=== PATIENT | female | born 1950 | race Caucasian/White ===

== ENCOUNTER 2020-06-16 10:36 | Outpatient (REF) | payer MEDICARE, SELFPAY ==
[2020-06-16 14:14] LABS: Glucose Urine UA NEG (NEG); Leukocyte Esterase Urine 2+ (NEG); Nitrite Urine POS (NEG); PH 5.5 (5.0-8.0); Specific Gravity - Urine >= 1.030 (1.005-1.025); Urine Blood TRACE (NEG); Urine Ketones NEG (NEG); Urine Protein TRACE MG/DL (NEG-TRACE)
[2020-06-16 14:17] LABS: Appearance Urine CLOUDY; Color Urine YELLOW
[2020-06-16 14:25] LABS: Anion Gap 12 (12-20); Blood Urea Nitrogen 23 mg/dL (9-16); Calcium 8.8 mg/dL (8.4-10.2); Carbon Dioxide 30 mmol/L (22-29); Chloride 99 mmol/L (96-108); Estimated Glomerular Filt Rate 39; Glucose Random 196 mg/dL (60-115); Magnesium 2.1 mg/dL (1.6-2.6); Phosphorus 3.8 mg/dL (2.7-4.5); Potassium 4.2 mmol/L (3.3-5.1); Sodium 137 mmol/L (135-145)
[2020-06-16 14:26] LABS: Bacteria Urine 2+ /LPF; Squamous Epithelial Cell Urine 2+ /LPF; WBC Urine 50-75 /HPF (0-4)
[2020-06-16 14:44] LABS: Creatinine Urine 106.06 mg/dL; Protein/Creatinine Ratio, Ur 0.29 (<0.2); Total Protein Urine Random 31 mg/dL (<12)
[2020-06-16 14:49] LABS: Vitamin D 25-OH Total 45.2 ng/mL (>30)
[2020-06-16 14:53] LABS: Estimated Average Glucose 166 mg/dL; Hemoglobin A1c % 7.4 %
[2020-06-17 10:37] LABS: Calcium (PTHI) 8.9 mg/dL (8.6-10.4); PTHI 108 pg/mL (14-64)
== END 2020-06-16 10:37 | disposition home or self-care (01) ==
LOC: HO.HMGCLDS 10:36
PROVIDERS: PCP Internal Medicine; Visit Provider Internal Medicine Nephrology
DX: N18.30 Chronic kidney disease, stage 3 unspecified (principal); E11.22 Type 2 diabetes mellitus with diabetic chronic kidney disease
CPT/HCPCS: 36415; 80048; 81001; 82306; 83036; 83735; 83970; 84100; 84156

== ENCOUNTER 2021-02-18 19:03 | Emergency (ER) | payer OTHER, MEDICARE, SELFPAY ==
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
[2021-02-18 19:10] VITALS: BP 146/92; PULSE 72; RESP 20; TEMP 36.5; O2SAT 98; BMI 22.8
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
[2021-02-18 20:48] VITALS: BP 125/60; PULSE 60; RESP 16; TEMP 37.1; O2SAT 100
[2021-02-18 21:03] LABS: MANUAL DIFF FLAG NO
[2021-02-18 21:04] LABS: Basophils Percent Auto 0.3 % (0-2); Eosinophils Absolute Auto 0.1 X10*3/uL (0.0-0.4); Eosinophils Percent Auto 0.7 % (0-4); Hemoglobin 11.1 g/dl (12.0-16.0); Imm Gran Abs Auto 0.04 X10*3/uL (0.00-0.03); Imm Gran Pct Auto 0.4 % (0.0-0.4); Lymphocytes Absolute Auto 1.5 X10*3/uL (1.2-4.9); Mean Corpuscular HGB Conc 32.6 g/dl (31.0-35.0); Mean Corpuscular Volume 91.9 fL (80-98); Mean Platelet Volume 12.3 fL (9.4-12.3); Monocytes Absolute Auto 0.7 X10*3/uL (0.1-1.2); Monocytes Percent Auto 6.6 % (2-11); Neutrophils Absolute Auto 8.6 X10*3/uL (2.0-8.3); Platelet Count 162 X10*3/uL (160-400); Red Cell Distribution Width 12.8 % (11.0-16.0)
[2021-02-18 21:15] VITALS: RESP 18
[2021-02-18] MEDS: Morphine Sulfate 4 MG/ML CARTRIDGE IVPUSH ×2 (21:15→23:58)
[2021-02-18] MEDS: ondansetron HCL 4 MG/2 ML VIAL IVPUSH (21:16)
[2021-02-18 21:22] LABS: Alanine Aminotransferase 50 U/L (0-31); Albumin Level 3.8 g/dL (3.5-5.0); Alkaline Phosphatase 79 U/L (39-117); Anion Gap 12 (12-20); Aspartate Amino Transferase 50 U/L (5-31); Bilirubin Total 0.4 mg/dL (0.0-1.0); Blood Urea Nitrogen 17 mg/dL (9-16); Calcium 9.3 mg/dL (8.4-10.2); Carbon Dioxide 25 mmol/L (22-29); Chloride 104 mmol/L (96-108); Creatinine Clr Calc Pharmacy 33.5; Estimated Glomerular Filt Rate 33; Glucose Random 101 mg/dL (60-115); Potassium 4.8 mmol/L (3.3-5.1); Sodium 136 mmol/L (135-145)
[2021-02-18 22:00] VITALS: BP 125/31; PULSE 55; RESP 15; TEMP 36.7; O2SAT 100
[2021-02-18] MEDS: iohexoL 350 MG/ML 100 ML INFUS..BTL IV (22:11)
[2021-02-18] MEDS: 0.9 % Sodium Chloride 1,000 ML 999 ML IV (22:22)
[2021-02-18 23:55] VITALS: BP 126/39; PULSE 57; RESP 15; O2SAT 96
[2021-02-18 23:58] VITALS: RESP 15
--- NOTE | 2021-02-19 00:17 | PC.NURSE ---
This RN to bedside to medicate with additional dose of morphine as pt reports pain is no longer controlled from prior dose. Pt reports 8-9/10 pain in chest at this time, medicated per orders. Pt awaiting imaging results and dispo. Pt without concerns/questions at this time. Stretcher in lowest locked position, rails raised, call healy within reach, at bedside.
== END 2021-02-19 00:47 | disposition home or self-care (01) ==
PROVIDERS: Emergency Provider Emergency Medicine; PCP Internal Medicine
DX: R07.81 Pleurodynia (principal); M54.2 Cervicalgia; M54.50 Low back pain, unspecified; E11.9 Type 2 diabetes mellitus without complications; R51.9 Headache, unspecified; I10 Essential (primary) hypertension; Z79.899 Other long term (current) drug therapy; Z96.41 Presence of insulin pump (external) (internal)
CPT/HCPCS: 36415; 70450; 71260; 72125; 74177; 80053; 85025; 86850; 86900; 86901; 96361; 96374; 96375; 96376; 99284; J2270; J2405; Q9967

== ENCOUNTER 2021-02-20 17:00 | Emergency (ER) | payer MEDICARE, SELFPAY ==
[2021-02-20 17:06] VITALS: BP 150/60; PULSE 64; O2SAT 98
[2021-02-20 17:15] VITALS: BP 163/70; PULSE 56; RESP 16; TEMP 37.1; O2SAT 98; BMI 24.2
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
[2021-02-20 18:17] LABS: Eosinophils Absolute Auto 0.1 X10*3/uL (0.0-0.4); Eosinophils Percent Auto 1.6 % (0-4); MANUAL DIFF FLAG SCAN; PLT CLUMP 1; SCAN SMEAR FLAG 1
[2021-02-20 18:19] LABS: Basophils Percent Auto 0.5 % (0-2); Hematocrit 33.2 % (37-47); Hemoglobin 10.5 g/dl (12.0-16.0); Imm Gran Abs Auto 0.02 X10*3/uL (0.00-0.03); Imm Gran Pct Auto 0.3 % (0.0-0.4); Lymphocytes Absolute Auto 1.3 X10*3/uL (1.2-4.9); Lymphocytes Percent Auto 22.9 % (20-40); Mean Corpuscular HGB Conc 31.6 g/dl (31.0-35.0); Mean Corpuscular Volume 91.7 fL (80-98); Mean Platelet Volume 11.6 fL (9.4-12.3); Monocytes Absolute Auto 0.5 X10*3/uL (0.1-1.2); Monocytes Percent Auto 8.7 % (2-11); Neutrophils Absolute Auto 3.8 X10*3/uL (2.0-8.3); Platelet Count 140 X10*3/uL (160-400); Red Blood Count 3.62 X10*6/uL (4.20-5.50); Red Cell Distribution Width 12.6 % (11.0-16.0); White Blood Count 5.7 X10*3/uL (4.8-10.8)
[2021-02-20 18:23] VITALS: BP 138/51; PULSE 51; RESP 16; TEMP 37.4; O2SAT 96
[2021-02-20 18:35] LABS: Alanine Aminotransferase 53 U/L (0-31); Albumin Level 3.4 g/dL (3.5-5.0); Alkaline Phosphatase 85 U/L (39-117); Anion Gap 13 (12-20); Aspartate Amino Transferase 45 U/L (5-31); Bilirubin Total 0.6 mg/dL (0.0-1.0); Blood Urea Nitrogen 14 mg/dL (9-16); Calcium 8.8 mg/dL (8.4-10.2); Carbon Dioxide 25 mmol/L (22-29); Chloride 108 mmol/L (96-108); Creatinine Clr Calc Pharmacy 35.2; Estimated Glomerular Filt Rate 36; Glucose Random 107 mg/dL (60-115); Potassium 4.6 mmol/L (3.3-5.1); Sodium 141 mmol/L (135-145); Total Protein 5.4 g/dL (6.5-8.0)
[2021-02-20 18:35] LABS: Appearance Urine CLEAR; Color Urine YELLOW; Glucose Urine UA NEG (NEG); Leukocyte Esterase Urine TRACE (NEG); Nitrite Urine NEG (NEG); Specific Gravity - Urine 1.015 (1.005-1.025); UACC Culture Trigger YES; Urine Blood 1+ (NEG); Urine Ketones 5 MG/DL (NEG); Urine Protein 1+ MG/DL (NEG-TRACE)
[2021-02-20 18:40] LABS: SLIDE REVIEW VERIFIED
[2021-02-20 18:46] LABS: Bacteria Urine 1+ /LPF; RBC Urine 0-2 /HPF (0); Squamous Epithelial Cell Urine 1+ /LPF; WBC Urine 0-2 /HPF (0-4)
== END 2021-02-20 19:46 | disposition home or self-care (01) ==
PROVIDERS: Emergency Provider Internal Medicine
DX: R41.0 Disorientation, unspecified (principal); T40.2X5A Adverse effect of other opioids, initial encounter; T42.8X5A Adverse effect of antiparkinsonism drugs and other central muscle-tone depressants, initial encounter; Y92.9 Unspecified place or not applicable; N39.0 Urinary tract infection, site not specified; I10 Essential (primary) hypertension; E11.9 Type 2 diabetes mellitus without complications; Z96.41 Presence of insulin pump (external) (internal)
CPT/HCPCS: 36415; 80053; 81001; 85025; 87086; 87088; 87186; 99283; 99284

== ENCOUNTER 2021-03-07 14:03 | Outpatient (REF) | payer MEDICARE, SELFPAY ==
[2021-03-07 16:51] LABS: Anion Gap 15 (12-20); Blood Urea Nitrogen 19 mg/dL (9-16); Calcium 9.7 mg/dL (8.4-10.2); Carbon Dioxide 22 mmol/L (22-29); Chloride 104 mmol/L (96-108); Estimated Glomerular Filt Rate 25; Glucose Random 176 mg/dL (60-115); Magnesium 2.1 mg/dL (1.6-2.6); Phosphorus 3.1 mg/dL (2.7-4.5); Sodium 136 mmol/L (135-145)
[2021-03-08 16:41] LABS: Calcium (PTHI) 9.9 mg/dL (8.6-10.4); PTHI 39 pg/mL (14-64)
== END 2021-03-07 14:04 | disposition home or self-care (01) ==
LOC: HO.HMGCLDS 14:03
PROVIDERS: PCP Internal Medicine; Visit Provider Internal Medicine Nephrology
DX: N18.32 Chronic kidney disease, stage 3b (principal); E21.1 Secondary hyperparathyroidism, not elsewhere classified
CPT/HCPCS: 36415; 80048; 82306; 83735; 83970; 84100

== ENCOUNTER 2021-03-08 12:18 | Outpatient (REF) | payer MEDICARE, SELFPAY ==
[2021-03-08 13:51] LABS: Appearance Urine CLEAR; Color Urine STRAW; Glucose Urine UA NEG (NEG); Leukocyte Esterase Urine 1+ (NEG); Nitrite Urine NEG (NEG); PH 5.5 (5.0-8.0); Urine Blood NEG (NEG); Urine Ketones NEG (NEG); Urine Protein NEG (NEG-TRACE)
[2021-03-08 14:03] LABS: Bacteria Urine TRACE /LPF; RBC Urine 0 /HPF (0); Squamous Epithelial Cell Urine 1+ /LPF
[2021-03-08 14:32] LABS: Creatinine Urine 39.83 mg/dL; Microalbumin Urine < 5.0 mg/L; Total Protein Urine Random < 7 mg/dL (<12)
== END 2021-03-08 12:19 | disposition home or self-care (01) ==
LOC: HO.HMGCLNP 12:18
PROVIDERS: Visit Provider Internal Medicine Nephrology
DX: N18.32 Chronic kidney disease, stage 3b (principal); E21.1 Secondary hyperparathyroidism, not elsewhere classified
CPT/HCPCS: 81001; 82043; 84156

== ENCOUNTER 2021-03-13 12:05 | Inpatient (IN) | payer MEDICARE, SELFPAY ==
[2021-03-13] VITALS (9 sets, daily range): BP systolic 79–125; BP diastolic 46–76; PULSE 72–110; RESP 17–20; TEMP 35.8–36.4; O2SAT 95–100; BMI 23.3
--- NOTE | ~2021-03-13 | CT_ITS ---
EXAMINATION: CT ABDOMEN AND PELVIS WITHOUT CONTRAST CLINICAL INFORMATION: Abdominal pain and vomiting COMPARISON: Previous CT of the abdomen and pelvis January 2021 TECHNIQUE: Multidetector volumetric imaging was performed from the superior aspect of the liver through the pubic symphysis. Sagittal and coronal reformatted images were obtained on the technologist's workstation. This CT examination was performed using dose optimization techniques as appropriate, variously including the following: *Automated exposure control *Adjustment of mA and/or kV according to patient size (this includes techniques or standardized protocols for targeted exams where dose is matched to indication/reason for exam; i.e. extremities or head) *Use of iterative reconstruction technique DLP: 532 mGy-cm FINDINGS: LUNG BASES: The visualized lung bases are unremarkable. LIVER, GALLBLADDER, AND BILIARY TREE: The liver is normal in size, shape, and attenuation. No focal hepatic lesion or biliary ductal dilatation is present. There are gallstones in the gallbladder. PANCREAS: Unremarkable. SPLEEN: Unremarkable. ADRENAL GLANDS: Unremarkable. KIDNEYS AND URETERS: The kidneys are normal in size, shape, and attenuation. No hydronephrosis, hydroureter, or calculi seen. No perinephric stranding. BLADDER: Not optimally distended. GASTROINTESTINAL TRACT: There is interval increase in small and large bowel dilatation. The distal small bowel is dilated and fluid-filled. Small bowel loops measure up to 2.8 cm. The colon is dilated and fluid-filled to the level of the distal descending colon. The cecum measures up to 5.6 cm in diameter. The right colon and transverse colon are dilated and fluid-filled. The wall of the right and transverse colon appear very thin. There are small nondependent foci of air seen in the cecum and right colon for example axial image 42 series 3 questionable for pneumatosis. There is stool seen in the left colon. The left distal colon and sigmoid colon do not appear dilated. The appendix is normal. The stomach is normal. ABDOMINAL WALL: There is diastasis of the rectus muscles. LYMPH NODES: Normal. VASCULAR: There is evidence of atherosclerotic disease. There are bilateral common iliac artery stents. PELVIC VISCERA: Unremarkable. OSSEOUS STRUCTURES: There is orthopedic hardware seen in the left proximal femur. There are degenerative changes of the spine. There is a mild T11 vertebral body compression fracture. This is new or increased in the interval from January 2021 CT/CT abdomen pelvis wo con IMPRESSION: Dilated fluid-filled distal small bowel and proximal large bowel. Differential would include a severe ileus and partial obstruction at the level of the distal left colon where there is stool. There are dependent small air foci in or adjacent to the wall of the cecum and right colon questionable for pneumatosis. No portal vein or mesenteric air is seen. Correlation with lactate level recommended. T11 vertebral body compression fracture new in the interval from January 2021 exam. Gallstones.
--- NOTE | ~2021-03-13 | XR_ITS ---
EXAMINATION: XR CHEST CLINICAL INFORMATION: Nasogastric tube placement COMPARISON: Previous chest x-ray from earlier the same day TECHNIQUE: Frontal view of the chest was obtained. FINDINGS: There is a new nasogastric tube with tip projecting over the right lower lobe. The cardiac and mediastinal contours are stable. Post-CABG changes are seen. The lungs are clear. There is no pleural effusion or pneumothorax. Bony structures are unremarkable. XR/XR chest 1V IMPRESSION: Nasogastric tube tip projects over right lower lobe. Findings were communicated to Dr. Ruvalcaba by telephone on 03/13/2021 and 4:05 PM.
--- NOTE | ~2021-03-13 | XR_ITS ---
EXAMINATION: XR CHEST CLINICAL INFORMATION: NG tube placement COMPARISON: Chest radiograph earlier today TECHNIQUE: Frontal view of the chest was obtained. FINDINGS: The NG tube has been from the right-sided bronchial system and now has its tip coiled in the region of the stomach. Surgical clips are noted at the GE junction. Patient status post median sternotomy. XR/XR chest 1V IMPRESSION: NG tube has been removed from the airways of the lungs and is now in correct position in the stomach.
--- NOTE | ~2021-03-13 | CT_ITS ---
EXAMINATION: CT ABDOMEN AND PELVIS WITH CONTRAST CLINICAL INFORMATION: Status post exploratory lap COMPARISON: 03/21/2021 TECHNIQUE: Multidetector volumetric images were obtained from the superior aspect of the liver through the pubic symphysis following administration 85 mL of Omnipaque 350 intravenous contrast. Sagittal and coronal reformatted images were obtained on the technologist's workstation. Oral contrast: Yes This CT examination was performed using dose optimization techniques as appropriate, variously including the following: *Automated exposure control *Adjustment of mA and/or kV according to patient size (this includes techniques or standardized protocols for targeted exams where dose is matched to indication/reason for exam; i.e. extremities or head) *Use of iterative reconstruction technique DLP: 900 mGy-cm FINDINGS: LUNG BASES: Partially visualized increased small to moderate bilateral pleural effusions with adjacent opacification in the lower lobes, favoring atelectasis. LIVER, GALLBLADDER, AND BILIARY TREE: The liver is normal in size, shape, and attenuation. No focal hepatic lesion or biliary ductal dilatation is present. Cholelithiasis is noted. PANCREAS: Unremarkable. SPLEEN: Unremarkable. ADRENAL GLANDS: Unremarkable. KIDNEYS AND URETERS: The kidneys are normal in size, shape, and attenuation. No hydronephrosis, hydroureter, or calculi seen. BLADDER: Decompressed with a Juárez catheter. GASTROINTESTINAL TRACT: Oral contrast material is present within the stomach and multiple loops of small bowel, without disproportionate dilation to suggest obstruction. Most of the colon is collapsed which limits assessment for wall thickening. The appendix is unremarkable. Small amount of free fluid is present in the abdomen/pelvis. ABDOMINAL WALL: Anterior skin ratna are present along with a few small foci of subcutaneous gas likely due to recent surgery. There is diffuse anasarca, similar to prior. LYMPH NODES: Normal. VASCULAR: There is atherosclerotic calcification along the aorta and iliac arteries. Bilateral common iliac artery stents are noted. PELVIC VISCERA: Redemonstrated density along the posterior margin of the uterus suggesting a possible fibroid. OSSEOUS STRUCTURES: Partially visualized hardware in the left femur. CT/CT abdomen pelvis w con IMPRESSION: 1. No evidence of bowel obstruction. Limited assessment for colonic wall thickening in the setting of luminal collapse. 2. Increased small to moderate bilateral pleural effusions. Small amount of intra-abdominal free fluid. Redemonstrated anasarca. 3. Cholelithiasis. Fleischner guidelines were followed.
--- NOTE | ~2021-03-13 | XR_ITS ---
EXAMINATION: XR CHEST CLINICAL INFORMATION: Post Central line insertion. COMPARISON: Chest 03/13/2021 TECHNIQUE: Frontal view of the chest was obtained. FINDINGS: There is a new central venous catheter with its tip in distal SVC. There is no visible pneumothorax. The lungs are hypoexpanded with bilateral basilar haziness question effusion versus underlying atelectasis or infiltrate. Heart size is borderline normal. Pulmonary vascularity is increased. No gross bony abnormality. XR/XR chest 1V IMPRESSION: New central venous catheter tip in distal SVC. No pneumothorax seen. Hypoexpanded lungs with CHF.
--- NOTE | ~2021-03-13 | XR_ITS ---
EXAMINATION: XR CHEST CLINICAL INFORMATION: Abdominal pain, vomiting COMPARISON: Chest radiographs 02/13/2019, 06/25/2017 TECHNIQUE: Sitting AP and lateral views of the chest are obtained. FINDINGS: There has been prior median sternotomy. The heart is normal in size. The vascularity is normal. The lungs are clear. There is no airspace consolidation or effusion. The hilar and mediastinal contours are stable. No visible acute bony abnormality. No free air beneath the diaphragms. XR/XR chest 2V IMPRESSION: Unremarkable examination.
--- NOTE | ~2021-03-13 | XR_ITS ---
EXAMINATION: XR ABDOMEN KUB CLINICAL INDICATION: Partial obstruction/ileus/colitis. COMPARISON: 03/17/2021. TECHNIQUE: AP view of the abdomen. FINDINGS: Nonobstructive bowel gas pattern. No significant stool burden. Partial visualization of sternotomy wires and left femoral hardware. Mediastinal surgical clips. Mid abdominal wall skin ratna. No acute osseous findings. Limited evaluation of the lung bases demonstrating small left greater than right pleural effusions and streaky opacities in the left lower lobe which likely represent subsegmental atelectasis. XR/XR KUB IMPRESSION: Nonobstructive bowel gas pattern. Small left greater than right pleural effusions with mild subsegmental atelectasis in the left lung base. If indicated, consider correlation with a chest radiograph.
--- NOTE | ~2021-03-13 | CT_ITS ---
EXAMINATION: CT ABDOMEN AND PELVIS WITHOUT CONTRAST CLINICAL INFORMATION: Nausea, vomiting and diarrhea. COMPARISON: Previous CT of the abdomen and pelvis 03/13/2021 and x-ray of the abdomen 03/17/2021 TECHNIQUE: Multidetector volumetric imaging was performed from the superior aspect of the liver through the pubic symphysis. Sagittal and coronal reformatted images were obtained on the technologist's workstation. This CT examination was performed using dose optimization techniques as appropriate, variously including the following: *Automated exposure control *Adjustment of mA and/or kV according to patient size (this includes techniques or standardized protocols for targeted exams where dose is matched to indication/reason for exam; i.e. extremities or head) *Use of iterative reconstruction technique DLP: 639 mGy-cm FINDINGS: LUNG BASES: There are small bilateral pleural effusions and adjacent lower lobe compressive atelectasis. LIVER, GALLBLADDER, AND BILIARY TREE: The liver is normal in size, shape, and attenuation. No focal hepatic lesion or biliary ductal dilatation is present. There is high attenuation in the gallbladder suggestive of gallstones. The gallbladder is normal in size. PANCREAS: Unremarkable. SPLEEN: Unremarkable. ADRENAL GLANDS: Unremarkable. KIDNEYS AND URETERS: The kidneys are normal in size, shape, and attenuation. No hydronephrosis, hydroureter, or calculi seen. No perinephric stranding. BLADDER: Unremarkable. GASTROINTESTINAL TRACT: There are no dilated loops of bowel to suggest obstruction. There is wall thickening and edema of the proximal colon. The small bowel is unremarkable. The appendix is unremarkable. The stomach is unremarkable. There is a small amount of ascites. There is no evidence of free air. ABDOMINAL WALL: There are postsurgical changes to the anterior abdominal wall. There is diffuse edema or anasarca. LYMPH NODES: Normal. VASCULAR: There is evidence of atherosclerotic disease. There are bilateral common iliac artery stents. PELVIC VISCERA: There is abnormal contour to the posterior uterus questionable for a fibroid. This measures 3 cm. OSSEOUS STRUCTURES: There are degenerative changes of the spine. There is a T11 vertebral body compression fracture that appears unchanged. There is orthopedic hardware in the left proximal femur. There is arthritis at the hip joints. CT/CT abdomen pelvis wo con IMPRESSION: Wall thickening and wall edema of the proximal colon. Findings are questionable for mild colitis. Small amount of ascites. No free air. Gallstones. Probable uterine fibroid. Atherosclerotic disease. Fleischner guidelines were followed.
--- NOTE | ~2021-03-13 | XR_ITS ---
EXAMINATION: XR ABDOMEN WITH DECUBITUS VIEWS CLINICAL INDICATION: Ileus. COMPARISON: None TECHNIQUE: Supine frontal view of chest. Supine abdomen. Left side up decubitus view of abdomen. FINDINGS: No acute abdomen abnormality of chest. Status post median sternotomy. The heart size is normal. No pulmonary vascular congestion. The lungs are normally aerated. No pleural effusion and no pneumothorax. Moderate volume of scattered stool in the bowel loops. There are scattered air-fluid levels in large and small bowel loops. The bowel loops are not abnormally dilated. Bowel pattern suggestive of ileus. There are surgical skin clips at the midline abdomen from recent surgery. No free air. Compression screw in the left hip. Multilevel degenerative spondylosis of the spine. Degenerative joint narrowing of hips bilateral. XR/XR abdomen w decubitus IMPRESSION: 1. No acute abdomen abnormality of chest. 2. Nonobstructive bowel pattern. Nonspecific air-fluid levels in bowel loops which are likely due to to a mild postop ileus
--- NOTE | 2021-03-13 12:30 | ECG_ITS ---
Test Reason : ABDOMINAL PAIN/ VOMITTING Blood Pressure : / mmHG Vent. Rate : 085 BPM Atrial Rate : 085 BPM P-R Int : 130 ms QRS Dur : 090 ms QT Int : 358 ms P-R-T Axes : 243 -57 039 degrees QTc Int : 426 ms Normal sinus rhythm Pulmonary disease pattern RSR' or QR pattern in V1 suggests right ventricular conduction delay Left anterior fascicular block Abnormal ECG When compared with ECG of 13-FEB-2019 18:51, RSR' pattern in V1 has replaced Incomplete right bundle branch block Referred By: Osvaldo Wheat Electronically Signed By:CARYL GOODSON MD
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
[2021-03-13] MEDS: 0.9 % Sodium Chloride 1,000 ML 999 ML IV ×2 (12:40→13:58)
[2021-03-13] MEDS: ondansetron HCL 4 MG/2 ML VIAL IVPUSH ×4 (12:40→16:38)
[2021-03-13 13:12] LABS: MANUAL DIFF FLAG NO
--- NOTE | 2021-03-13 13:13 | PC.NURSE ---
Patient alert and oriented x 3. Patient is very pale, vomited x 20 times coffee ground emesis, diarrhea at home brown watery stools. tele: sinus rythym 80's Patient ambulates with cane. vitals stable. Will continue to monitor.
[2021-03-13 13:14] LABS: Basophils Percent Auto 0.3 % (0-2); Eosinophils Percent Auto 0.1 % (0-4); Hematocrit 38.1 % (37.0-47.0); Hemoglobin 11.8 g/dl (12.0-16.0); Imm Gran Abs Auto 0.02 X10*3/uL (0.00-0.03); Imm Gran Pct Auto 0.2 % (0.0-0.4); Lymphocytes Absolute Auto 0.9 X10*3/uL (1.2-4.9); Lymphocytes Percent Auto 8.8 % (20-40); Mean Corpuscular Hemoglobin 29.3 pg (27.0-33.0); Mean Corpuscular Volume 94.5 fL (80.0-98.0); Mean Platelet Volume 11.3 fL (9.4-12.3); Monocytes Absolute Auto 0.2 X10*3/uL (0.1-1.2); Monocytes Percent Auto 2.2 % (2-11); Neutrophils Percent Auto 88.4 % (45-73); Platelet Count 225 X10*3/uL (160-400); Red Blood Count 4.03 X10*6/uL (4.20-5.50); Red Cell Distribution Width 13.4 % (11.0-16.0); White Blood Count 10.2 X10*3/uL (4.8-10.8)
[2021-03-13] MEDS: HYDROmorphone HCl 0.5 MG/0.5 ML SYRINGE IVPUSH ×4 (13:24→20:41)
[2021-03-13] MEDS: Pantoprazole Sodium 40 MG/10 ML VIAL IVPUSH (13:24)
[2021-03-13 13:28] LABS: Alanine Aminotransferase 14 U/L (0-31); Albumin Level 3.2 g/dL (3.5-5.0); Alkaline Phosphatase 272 U/L (39-117); Anion Gap 16 (12-20); Aspartate Amino Transferase 23 U/L (5-31); Bilirubin Total 0.6 mg/dL (0.0-1.0); Blood Urea Nitrogen 21 mg/dL (9-16); Calcium 9.6 mg/dL (8.4-10.2); Carbon Dioxide 19 mmol/L (22-29); Chloride 111 mmol/L (96-108); Creatinine Clr Calc Pharmacy 30.2; Estimated Glomerular Filt Rate 31; Glucose Random 140 mg/dL (60-115); Lactic Acid 5.9 mmol/L (0.5-2.0); Lipase 10 U/L (8-78); Potassium 3.8 mmol/L (3.3-5.1); Sodium 142 mmol/L (135-145); Total Protein 5.3 g/dL (6.5-8.0)
[2021-03-13 13:29] LABS: COVID-19 Test Negative (Negative)
[2021-03-13 13:33] LABS: Troponin-I High Sensitivity 11.7 ng/L (<3.5-17.0)
[2021-03-13 14:47] LABS: INTERNATIONAL NORM RATIO 1.8 (0.9-1.1); Prothrombin Time 20.4 SEC (9.9-13.0)
--- NOTE | 2021-03-13 14:48 | P.HPGS_ITS ---
History of Present Illness History of Present Illness Date of Service: 03/13/21 Chief complaint: Nausea, vomiting, abdominal pain Narrative: Suly Ragland is a 70 year old female presenting to the emergency department with an onset of abdominal pain located mainly in left lower quadrant associated with nausea and vomiting. She reports a prior history of abdominal cramping approximately 2-3 weeks ago which resolved spontaneously. This current episode began this morning and was associated with several episodes of vomiting. She subsequently presented to the emergency department was noted to have normal WBC however her lactate level was markedly elevated. CT of the abdomen and pelvis revealed dilated small large bowel with evidence of pneumatosis in the right colon. No portal venous air was identified. Since being admitted the patient reports feeling improved with decreased abdominal pain. She did have additional episodes of nausea and vomiting since coming to the emergency department. She reports prior abdominal surgery following CABG surgery in [place]. After 14 our procedure the patient is abdomen was opened (question compartment syndrome). She reports that no bowel resection was performed at that time. Review of Systems Review of Systems: Yes all other systems are reviewed and are negative Constitutional: Constitutional: Reports anorexia, Denies chills, Denies fever(s) and Reports poor appetite Cardiovascular: Cardiovascular: Reports Abdominal Cramping after Meds, Reports Abdominal Distension, Denies chest pain and Denies irregular heart rhythm Respiratory: Respiratory: Denies chest congestion, Denies cough and Denies pain with cough Gastrointestinal: Gastrointestinal: Reports as per HPI, Denies change in stool character, Reports constipation, Denies diarrhea, Reports nausea and Reports vomiting Genitourinary: Genitourinary: Reports no additional female genitourinary complaints PMF Past Medical History Medical History Diabetes HTN (hypertension) Hyperlipemia Surgical History Surgical History History of open heart surgery S/P triple vessel bypass Social History Social History Alcohol intake: never Patient Tobacco Use Status: Never used Tobacco Use of substances other than those prescribed or required for medical reasons: No Advance Directives: No Advance Directives Information Provided: Yes Meds Allergies Allergy/AdvReac Type Severity Reaction Status Date / Time azithromycin [From ZITHROMAX] Allergy Severe STOMACH Verified 10/23/21 21:16 UPSET Penicillins [PENICILLINS] Allergy Severe ANAPHYLAXIS Verified 02/18/21 21:16 penicillin G Allergy Unknown Anaphylaxis Verified 02/18/21 21:16 Erythromycin Allergy Unknown Gastrointestinal Uncoded 02/18/21 21:16 Upset Physical Exam Vital Signs: Vital Signs: Last Vital Signs Temp 97.6 F 03/13/21 12:11 Pulse 79 03/13/21 14:08 Resp 19 03/13/21 14:08 BP 113/53 L 03/13/21 14:08 Pulse Ox 99 03/13/21 14:08 Body Mass Index 23.3 Const: General: ill appearing Nutritional Appearance: well nourished Orientation/consciousness: patient oriented x3 Limitations: no limitations HENMT: Head: Yes normocephalic and Yes atraumatic Ears: hearing grossly normal bilaterally Neck: Neck: Yes normal visual inspection, Yes trachea midline and Yes supple Resp: Effort & Inspection: normal respiratory effort, no audible wheezes, no cough and no respiratory distress GI: Inspection: Yes normal to inspection Palpation (GI): Soft to palpation, Tenderness to palpation present (GI) in the LLQ, no guarding, not rigid and No Rebound tenderness present Percussion: Yes tympanic to percussion Auscultation: abnormal bowel sounds Rectal Exam - Female: deferred Skin: General skin exam: no rashes or lesions noted, no erythema and no eschar s Neuro: General: patient oriented x3 Extrem: General: Yes normal to inspection and Yes no clubbing, cyanosis or edema Results Results Labs: Short CBC 03/13/21 Range/Units 13:05 WBC 10.2 (4.8-10.8) X10*3/uL Hgb 11.8 L (12.0-16.0) g/dl Hct 38.1 (37.0-47.0) % Plt Count 225 (160-400) X10*3/uL BMP 03/13/21 13:05 Sodium 142 Potassium 3.8 D Chloride 111 H Carbon Dioxide 19 L BUN 21 H Creatinine 1.67 H Calcium 9.6 Liver Function 03/13/21 Range/Units 13:05 Total Bilirubin 0.6 (0.0-1.0) mg/dL AST 23 D (5-31) U/L ALT 14 (0-31) U/L Alkaline Phosphatase 272 H D (39-117) U/L Albumin 3.2 L (3.5-5.0) g/dL Assessment and Plan (1) Bowel obstruction: Qualifiers: Intestinal obstruction extent: unspecified extent Intestinal obstruction type: unspecified Qualified Code(s): K56.609 - Unspecified intestinal obstruction, unspecified as to partial versus complete obstruction Status: Acute 70-year-old female patient presenting with complaints of abdominal pain diffusely associated with nausea and vomiting found on CT to have dilated loops of small bowel and large bowel suggestive of a bowel obstruction. Patient has had previous abdominal surgery following cardiac surgery but denies previous bowel resections. CT also notes possible pneumatosis intestinalis in the right colon. Patient's lactate was elevated but seems to be more related to dehydration than sepsis. Abdomen is currently soft with tenderness in the left lower quadrant without rebound or guarding. Patient will be admitted to the surgical service for rehydration, nasogastric tube decompression. Patient has diabetes type 1 on insulin pump therefore hospitalist consultation will be requested. Repeat lactate levels pending. Quality Stroke Does the patient have a stroke diagnosis?: No VTE Prior VTE?: No VTE Risk Level:: Surgical - high VTE Device Contraindication: N/A - Device Ordered VTE Drug Contraindication: N/A - Med Ordered Procedures Date of Service Date of Service: 03/13/21
[2021-03-13 14:50] LABS: D Dimer 709 NG/ML
[2021-03-13 15:11] LABS: Reflex Lactate? Lactic Acid Added
[2021-03-13] MEDS: Lidocaine HCl 4 % MPF w/MADgic 5 ML AMPUL 1 APPL TOPICAL (15:13)
[2021-03-13] MEDS: Lactated Ringers 1,000 ML 150 ML IVCONT (15:32)
--- NOTE | 2021-03-13 15:45 | PC.NURSE ---
attempted to insert the ng tube but unable to get to pass on the right nostrils, attempted on the left side inserted with some resistance towards the end of the marking stopped inserting further, chest x-ray, pt is sating at 98% on room air at this time. chest x-ray ordered for placment
[2021-03-13 15:48] LABS: Glucose, Whole Blood 68 mg/dL (60-115)
--- NOTE | 2021-03-13 15:55 | PC.NURSE ---
ng tube out, wrong placement in the lung
--- NOTE | 2021-03-13 16:04 | PHA.MEDREC ---
Pharmacy Consult ? Medication Reconciliation Pharmacy has completed the medication reconciliation. Hasn't taken meds today. Is using an insulin pump using humalog u-100 insulin
[2021-03-13 16:19] LABS: ~Lactic Acid-LAB USE ONLY 6.2 mmol/L (0.5-2.0)
[2021-03-13] MEDS: 0.9 % Sodium Chloride Flush 3 ML SYRINGE IVFLUSH ×2 (16:38→22:15)
[2021-03-13] MEDS: Dextrose 5 % and Lactated Ring 1,000 ML 150 ML IVCONT (16:46)
--- NOTE | 2021-03-13 16:46 | PM.IMCN ---
History of Present Illness Data of Consult Service Date: 03/13/21 Primary Care Provider: Live Burnette MD HPI Reason for consult: Diabetes 70-year-old female presented with abdominal pain. Patient reports left lower quadrant abdominal pain associated with nausea and bilious vomiting. Symptoms began on a.m. of admission. She had several episodes of vomiting and severe pain SIRS came to the ED. In ED patient had markedly elevated lactate, CT of abdomen pelvis showed dilated small bowel and proximal large bowel with evidence of pneumatosis in the right colon. Patient was admitted to surgical service. Hospice consultation for comorbidities of diabetes, coronary disease. Review of Systems Review of Systems: Constitutional: Denies fever, denies Chills Eyes: denies blurry vision ENT: denies sore throat CVS: denies chest pain Respiratory: Denies dyspnea GI: abdominal pain : denies dysuria MSK: denies neck pain Skin: denies rash Neuro: denies specific motor weakness Psych: denies suicidal ideation Endocrine: denies heat/cold intolerance Hematologic: denies easy bleeding Allergy: denies hives [facility] Medical History CAD (coronary artery disease) CKD (chronic kidney disease), stage III Diabetes HTN (hypertension) Hyperlipemia Family History Mother CAD (coronary artery disease) Surgical History History of open heart surgery S/P triple vessel bypass Social History Alcohol intake: never Patient Tobacco Use Status: Never used Tobacco Use of substances other than those prescribed or required for medical reasons: No Advance Directives: No Advance Directives Information Provided: Yes Meds Allergies Allergy/AdvReac Type Severity Reaction Status Date / Time azithromycin [From ZITHROMAX] Allergy Severe STOMACH Verified 02/18/21 21:16 UPSET Penicillins [PENICILLINS] Allergy Severe ANAPHYLAXIS Verified 02/18/21 21:16 penicillin G Allergy Unknown Anaphylaxis Verified 02/18/21 21:16 Erythromycin Allergy Unknown Gastrointestinal Uncoded 02/18/21 21:16 Upset Active Medications: Current Medications Acetaminophen (Acetaminophen 325 Mg Tablet) 650 mg PO Q6H PRN PRN Reason: Pain, Mild (Pain Scale 1-3) Hydromorphone HCl (Hydromorphone Hcl 0.5 Mg/0.5 Ml Syringe) 0.5 mg IVPUSH Q4H PRN; Protocol PRN Reason: Pain, Severe (Pain Scale 7-10) Dextrose/Lactated Ringer's (D5lr) 1,000 mls @ 150 mls/hr IVCONT .Q6H40M ON LICENSE OF [facility] Sodium Chloride (Ns) 500 mls @ 500 mls/hr IV .Q1H MARIELA Stop: 03/13/21 17:29 Levofloxacin (Levaquin) 750 mg in 150 mls @ 100 mls/hr IV Q48H MARIELA Metronidazole (Metronidazole 500 Mg Tablet) 500 mg PO Q8H MARIELA Ondansetron HCl (Ondansetron Hcl 4 Mg/2 Ml Vial) 4 mg IVPUSH Q8H PRN PRN Reason: Nausea and Vomiting Pharmacy Consult (Consult Rx Perform Med Rec) 1 each MISCELLANE ONCE PRN PRN Reason: Consult order Sodium Chloride (0.9 % Sodium Chloride Flush 3 Ml Syringe) 3 ml IVFLUSH QSHIFT ON LICENSE OF [facility] Home Medications Medication Instructions Recorded Confirmed Last Taken Type Insulin Pump See Rx Instructions .ROUTE .COMPLEX 03/13/21 03/13/21 History apixaban 5 mg tablet (Eliquis) 1 tab PO BID 03/13/21 03/13/21 03/12/21 History bupropion HCl 300 mg 24 hr tablet, 1 tab PO DAILY 03/13/21 03/13/21 03/12/21 History extended release ezetimibe 10 mg tablet 1 tab PO DAILY 03/13/21 03/13/21 03/12/21 History rosuvastatin 40 mg tablet 1 tab PO DAILY 03/13/21 03/13/21 03/12/21 History trazodone 100 mg tablet 2 tab PO BEDTIME PRN 03/13/21 03/13/21 03/12/21 History Physical Exam Vital Signs and Narrative: Vital Signs: Last Vital Signs Temp 97.2 F 03/13/21 16:00 Pulse 81 03/13/21 16:00 Resp 18 03/13/21 16:00 BP 104/59 L 03/13/21 16:00 Pulse Ox 96 03/13/21 16:00 Body Mass Index 23.3 General: ill appearing, lethargic HEENT: atraumatic Neck: normal to visual inspection CVS: S1, S2, RRR Resp: CTA bilateral Chest: non tender GI: tender, distended : no CVA tenderness Skin: no rashes Extremities: no edema Neuro: Oriented X3, grossly intact Psych: cooperative Results Labs CBC and Chem 7: 03/13/21 13:05 03/13/21 13:05 Labs: Laboratory Results - last 24 hr 03/13/21 03/13/21 03/13/21 13:05 13:05 13:05 MCV 94.5 MCH 29.3 MCHC 31.0 RDW 13.4 Plt Count 225 MPV 11.3 Immature Gran % (Auto) 0.2 Neut % (Auto) 88.4 H Lymph % (Auto) 8.8 L [place] % (Auto) 2.2 Eos % (Auto) 0.1 Baso % (Auto) 0.3 Lymph # (Auto) 0.9 L [place] # (Auto) 0.2 Eos # (Auto) 0.0 Baso # (Auto) 0.0 Abs Immat Gran (auto) 0.02 Absolute Neuts (auto) 9.0 H Absolute Nucleated RBC 0.000 Nucleated RBC % (auto) 0.0 PT 20.4 H INR 1.8 H D-Dimer 709 Anion Gap 16 Estim Creat Clear Calc 30.2 Estimated GFR 31 POC Glucose Random Glucose 140 H Lactic Acid Lactic Acid Fup @ 2Hr Calcium 9.6 Total Bilirubin 0.6 AST 23 D ALT 14 Alkaline Phosphatase 272 H D Troponin I High Sens Total Protein 5.3 L Albumin 3.2 L Lipase 10 COVID-19 ([facility]) COVID-19 Clin Com Blood Type Antibody Screen 03/13/21 03/13/21 03/13/21 13:05 13:05 13:06 MCV MCH MCHC RDW Plt Count MPV Immature Gran % (Auto) Neut % (Auto) Lymph % (Auto) [place] % (Auto) Eos % (Auto) Baso % (Auto) Lymph # (Auto) [place] # (Auto) Eos # (Auto) Baso # (Auto) Abs Immat Gran (auto) Absolute Neuts (auto) Absolute Nucleated RBC Nucleated RBC % (auto) PT INR D-Dimer Anion Gap Estim Creat Clear Calc Estimated GFR POC Glucose Random Glucose Lactic Acid 5.9 H* Lactic Acid Fup @ 2Hr Calcium Total Bilirubin AST ALT Alkaline Phosphatase Troponin I High Sens 11.7 Total Protein Albumin Lipase COVID-19 ([facility]) Negative COVID-19 Clin Com See Note Blood Type Antibody Screen 03/13/21 03/13/21 03/13/21 14:11 15:26 15:41 MCV MCH MCHC RDW Plt Count MPV Immature Gran % (Auto) Neut % (Auto) Lymph % (Auto) [place] % (Auto) Eos % (Auto) Baso % (Auto) Lymph # (Auto) [place] # (Auto) Eos # (Auto) Baso # (Auto) Abs Immat Gran (auto) Absolute Neuts (auto) Absolute Nucleated RBC Nucleated RBC % (auto) PT INR D-Dimer Anion Gap Estim Creat Clear Calc Estimated GFR POC Glucose 68 Random Glucose Lactic Acid Lactic Acid Fup @ 2Hr 6.2 H* Calcium Total Bilirubin AST ALT Alkaline Phosphatase Troponin I High Sens Total Protein Albumin Lipase COVID-19 ([facility]) COVID-19 Clin Com Blood Type A Positive Antibody Screen NEGATIVE Imaging Radiologist's Impressions: Impressions Chest X-Ray 03/13/21 12:30 IMPRESSION: Unremarkable examination. Abdomen/Pelvis CT 03/13/21 12:31 IMPRESSION: Dilated fluid-filled distal small bowel and proximal large bowel. Differential would include a severe ileus and partial obstruction at the level of the distal left colon where there is stool. There are dependent small air foci in or adjacent to the wall of the cecum and right colon questionable for pneumatosis. No portal vein or mesenteric air is seen. Correlation with lactate level recommended. T11 vertebral body compression fracture new in the interval from January 2021 exam. Gallstones. Chest X-Ray 03/13/21 15:30 IMPRESSION: Nasogastric tube tip projects over right lower lobe. Findings were communicated to Dr. Ruvalcaba by telephone on 03/13/2021 and 4:05 PM. Assessment and Plan (1) CAD (coronary artery disease): Status: Acute (2) Diabetes: Status: Acute (3) CKD (chronic kidney disease), stage III: Status: Acute 70-year-old female presented with abdominal pain, found to have small-bowel obstruction Diabetes Patient uses insulin pump. While NPO will discontinue pump and use sliding scale insulin, monitor point of cares Coronary disease Status post CABG Hold apixaban (patient unaware of any history of AFib, denies history of VTE) CKD 3 Stable, monitor
[2021-03-13] MEDS: 0.9 % Sodium Chloride 500 ML IV (16:50)
[2021-03-13 16:59] LABS: Glucose, Whole Blood 83 mg/dL (60-115)
[2021-03-13] MEDS: metroNIDAZOLE 500 MG TABLET PO (17:29)
[2021-03-13] MEDS: levoFLOXacin/D5W 750 MG/150 ML PIGGYBACK 100 MG IV (17:29)
[2021-03-13] MEDS: Famotidine/PF 20 MG/2 ML VIAL IVPUSH (17:29)
[2021-03-13 17:47] LABS: Reflex Lactate? 2 Y
[2021-03-13 19:03] LABS: ~Lactic Acid-LAB USE ONLY 3.7 mmol/L (0.5-2.0)
[2021-03-13 20:17] LABS: Glucose, Whole Blood 178 mg/dL (60-115)
[2021-03-13] MEDS: 0.9 % Sodium Chloride 1,000 ML 500 ML IV (22:14)
[2021-03-13] MEDS: Metoclopramide HCl 10 MG/2 ML VIAL IVPUSH (22:14)
[2021-03-14] VITALS (19 sets, daily range): BP systolic 81–138; BP diastolic 37–72; PULSE 75–100; RESP 16–24; TEMP 36.2–37.3; O2SAT 90–100
[2021-03-14] MEDS: metroNIDAZOLE 500 MG TABLET PO ×2 (00:48→07:55)
[2021-03-14] MEDS: Dextrose 5 % and Lactated Ring 1,000 ML 150 ML IVCONT ×2 (00:48→04:58)
[2021-03-14] MEDS: ondansetron HCL 4 MG/2 ML VIAL IVPUSH ×2 (04:58→21:39)
[2021-03-14 06:23] LABS: Lactic Acid 5.7 mmol/L (0.5-2.0)
[2021-03-14 06:43] LABS: Anion Gap 20 (12-20); Blood Urea Nitrogen 33 mg/dL (9-16); Calcium 7.9 mg/dL (8.4-10.2); Carbon Dioxide 13 mmol/L (22-29); Chloride 109 mmol/L (96-108); Creatinine Clr Calc Pharmacy 21.3; Estimated Glomerular Filt Rate 20; Glucose Random 547 mg/dL (60-115); Potassium 5.9 mmol/L (3.3-5.1); Sodium 136 mmol/L (135-145)
[2021-03-14 07:22] LABS: Glucose, Whole Blood 491 mg/dL (60-115)
[2021-03-14 07:24] LABS: Hematocrit 31.9 % (37.0-47.0); Hemoglobin 9.9 g/dl (12.0-16.0); Mean Corpuscular Volume 96.7 fL (80.0-98.0); Platelet Count 164 X10*3/uL (160-400); Red Cell Distribution Width 14.2 % (11.0-16.0)
[2021-03-14 07:27] LABS: WBC ABN SCTR FOR CBC 1
--- NOTE | 2021-03-14 07:31 | P.PNGS_ITS ---
Subjective Subjective Date of Service: 03/14/21 Interval history: Continued abdominal pain felt throughout the abdomen. Pain only slightly improved. Reports several episodes of diarrhea during the night. Physical Exam Vital Signs: Vital Signs: Last Vital Signs Temp 97.2 F 03/14/21 07:18 Pulse 89 03/14/21 07:18 Resp 18 03/14/21 07:18 BP 97/43 L 03/14/21 07:18 Pulse Ox 96 03/14/21 07:18 Body Mass Index 23.3 Const: General: ill appearing and lethargic Nutritional Appearance: well nourished Orientation/consciousness: patient oriented x3 and lethargic Limitations: no limitations HENMT: Head: Yes normocephalic and Yes atraumatic Neck: Neck: Yes normal visual inspection and Yes no JVD Resp: Effort & Inspection: normal respiratory effort, no respiratory distress and no stridor Cardio: Jugular venous distension: no JVD Rate: regular rate Rhythm: regular rhythm GI: Palpation (GI): Soft to palpation, Tenderness to palpation present (GI) in the LLQ, in the RLQ, in the LUQ and in the RUQ, no guarding and not rigid Percussion: Yes tympanic to percussion Auscultation: Hyperactive bowel sounds present Rectal Exam - Female: deferred Skin: General skin exam: no rashes or lesions noted Neuro: General: patient oriented x3 Objective Data Active Medications Acetaminophen (Acetaminophen 325 Mg Tablet) 650 mg PO Q6H PRN PRN Reason: Pain, Mild (Pain Scale 1-3) Dextrose (Dextrose 50 % 25 Gm/50 Ml Vial) 25 gm IVPUSH Q15M PRN; Protocol PRN Reason: per Hypoglycemia Standing Ord. Famotidine (Famotidine/Pf 20 Mg/2 Ml Vial) 20 mg IVPUSH DAILY [facility] Last Admin: 03/13/21 17:29 Dose: 20 mg Documented by: HO.COTEMA Glucose (Glucose Gel 15 Gm Gel..Gram.) 15 gm PO Q15M PRN; Protocol PRN Reason: per Hypoglycemia Standing Ord. Hydromorphone HCl (Hydromorphone Hcl 0.5 Mg/0.5 Ml Syringe) 0.5 mg IVPUSH Q4H PRN; Protocol PRN Reason: Pain, Severe (Pain Scale 7-10) Last Admin: 03/13/21 20:41 Dose: 0.5 mg Documented by: CHELSEA Levofloxacin (Levaquin) 750 mg in 150 mls @ 100 mls/hr IV Q48H [facility] Last Infusion: 03/13/21 19:00 Dose: 0 mls/hr Documented by: COTNAPOLEON Lactated Ringer's (Lr) 1,000 mls @ 150 mls/hr IVCONT .Q6H40M [facility] Insulin Human Lispro (Insulin Lispro 100 Unit/Ml 3 Ml Vial) 0 unit SUBCUT Q4H [facility]; Protocol Metronidazole (Metronidazole 500 Mg Tablet) 500 mg PO Q8H [facility] Last Admin: 03/14/21 00:48 Dose: 500 mg Documented by: CHELSEA Ondansetron HCl (Ondansetron Hcl 4 Mg/2 Ml Vial) 4 mg IVPUSH Q8H PRN PRN Reason: Nausea and Vomiting Last Admin: 03/14/21 04:58 Dose: 4 mg Documented by: ANA Pharmacy Consult (Consult Rx Perform Med Rec) 1 each MISCELLANE ONCE PRN PRN Reason: Consult order Sodium Chloride (0.9 % Sodium Chloride Flush 3 Ml Syringe) 3 ml IVFLUSH QSHIFT [facility] Last Admin: 03/13/21 22:15 Dose: 3 ml Documented by: CHELSEA Labs CBC & Chem 7: 03/14/21 07:10 03/14/21 05:55 Labs: Laboratory Results - last 24 hr 03/13/21 03/13/21 03/13/21 13:05 13:05 13:05 MCV 94.5 MCH 29.3 MCHC 31.0 RDW 13.4 Plt Count 225 MPV 11.3 Immature Gran % (Auto) 0.2 Neut % (Auto) 88.4 H Lymph % (Auto) 8.8 L [place] % (Auto) 2.2 Eos % (Auto) 0.1 Baso % (Auto) 0.3 Lymph # (Auto) 0.9 L [place] # (Auto) 0.2 Eos # (Auto) 0.0 Baso # (Auto) 0.0 Abs Immat Gran (auto) 0.02 Absolute Neuts (auto) 9.0 H Absolute Nucleated RBC 0.000 Nucleated RBC % (auto) 0.0 PT 20.4 H INR 1.8 H D-Dimer 709 Anion Gap 16 Estim Creat Clear Calc 30.2 Estimated GFR 31 POC Glucose Random Glucose 140 H Lactic Acid Lactic Acid Fup @ 2Hr Lactic Acid Fup @ 4Hr Calcium 9.6 Total Bilirubin 0.6 AST 23 D ALT 14 Alkaline Phosphatase 272 H D Troponin I High Sens Total Protein 5.3 L Albumin 3.2 L Lipase 10 COVID-19 ([facility]) [email or web address] Com Blood Type Antibody Screen 03/13/21 03/13/21 03/13/21 13:05 13:05 13:06 MCV MCH MCHC RDW Plt Count MPV Immature Gran % (Auto) Neut % (Auto) Lymph % (Auto) [place] % (Auto) Eos % (Auto) Baso % (Auto) Lymph # (Auto) [place] # (Auto) Eos # (Auto) Baso # (Auto) Abs Immat Gran (auto) Absolute Neuts (auto) Absolute Nucleated RBC Nucleated RBC % (auto) PT INR D-Dimer Anion Gap Estim Creat Clear Calc Estimated GFR POC Glucose Random Glucose Lactic Acid 5.9 H* Lactic Acid Fup @ 2Hr Lactic Acid Fup @ 4Hr Calcium Total Bilirubin AST ALT Alkaline Phosphatase Troponin I High Sens 11.7 Total Protein Albumin Lipase COVID-19 ([facility]) Negative [employer] [facility] [place] See Note Blood Type Antibody Screen 03/13/21 03/13/21 03/13/21 14:11 15:26 15:41 MCV MCH MCHC RDW Plt Count MPV Immature Gran % (Auto) Neut % (Auto) Lymph % (Auto) [place] % (Auto) Eos % (Auto) Baso % (Auto) Lymph # (Auto) [place] # (Auto) Eos # (Auto) Baso # (Auto) Abs Immat Gran (auto) Absolute Neuts (auto) Absolute Nucleated RBC Nucleated RBC % (auto) PT INR D-Dimer Anion Gap Estim Creat Clear Calc Estimated GFR POC Glucose 68 Random Glucose Lactic Acid Lactic Acid Fup @ 2Hr 6.2 H* Lactic Acid Fup @ 4Hr Calcium Total Bilirubin AST ALT Alkaline Phosphatase Troponin I High Sens Total Protein Albumin Lipase COVID-19 ([place]) [employer] Com Blood Type A Positive Antibody Screen NEGATIVE 03/13/21 03/13/21 03/13/21 16:27 18:35 19:34 MCV MCH MCHC RDW Plt Count MPV Immature Gran % (Auto) Neut % (Auto) Lymph % (Auto) [place] % (Auto) Eos % (Auto) Baso % (Auto) Lymph # (Auto) [place] # (Auto) Eos # (Auto) Baso # (Auto) Abs Immat Gran (auto) Absolute Neuts (auto) Absolute Nucleated RBC Nucleated RBC % (auto) PT INR D-Dimer Anion Gap Estim Creat Clear Calc Estimated GFR POC Glucose 83 178 H Random Glucose Lactic Acid Lactic Acid Fup @ 2Hr Lactic Acid Fup @ 4Hr 3.7 H* Calcium Total Bilirubin AST ALT Alkaline Phosphatase Troponin I High Sens Total Protein Albumin Lipase COVID-19 ([facility]) [employer] [place] Blood Type Antibody Screen 03/14/21 03/14/21 03/14/21 05:55 05:55 07:16 MCV MCH MCHC RDW Plt Count MPV Immature Gran % (Auto) Neut % (Auto) Lymph % (Auto) [place] % (Auto) Eos % (Auto) Baso % (Auto) Lymph # (Auto) [place] # (Auto) Eos # (Auto) Baso # (Auto) Abs Immat Gran (auto) Absolute Neuts (auto) Absolute Nucleated RBC Nucleated RBC % (auto) PT INR D-Dimer Anion Gap 20 Estim Creat Clear Calc 21.3 Estimated GFR 20 POC Glucose 491 H* Random Glucose 547 H* D Lactic Acid 5.7 H* Lactic Acid Fup @ 2Hr Lactic Acid Fup @ 4Hr Calcium 7.9 L D Total Bilirubin AST ALT Alkaline Phosphatase Troponin I High Sens Total Protein Albumin Lipase COVID-19 ([facility]) [employer] [place] Blood Type Antibody Screen Procedures Date of Service Date of Service: 03/14/21 Progress Note: A&P Assessment and plan (1) Bowel obstruction: Status: Acute (2) Pneumatosis intestinalis: Status: Acute Assessment and Plan: 70-year-old female patient presenting with complaints of abdominal pain, nausea, vomiting found to have diffuse abdominal tenderness and elevated lactate. Patient with a prior history of coronary artery disease. CT abdomen and pelvis revealed pneumatosis of the right colon without portal venous air. Patient found to be dehydrated therefore was rehydrated overnight. Patient continues to have diffuse abdominal pain without significant improvement. Lactate is marginally improved. findings discussed with the patient and her this morning. I recommended exploratory laparotomy possible bowel resection. After discussion of the procedure, risks, and alternatives, she giv es her consent to the procedure. She has been added onto the operative schedule for today. Fall Risk Details Current Medications: Current Medications Acetaminophen (Acetaminophen 325 Mg Tablet) 650 mg PO Q6H PRN PRN Reason: Pain, Mild (Pain Scale 1-3) Dextrose (Dextrose 50 % 25 Gm/50 Ml Vial) 25 gm IVPUSH Q15M PRN; Protocol PRN Reason: per Hypoglycemia Standing Ord. Famotidine (Famotidine/Pf 20 Mg/2 Ml Vial) 20 mg IVPUSH DAILY [facility] Last Admin: 03/13/21 17:29 Dose: 20 mg Documented by: Glucose (Glucose Gel 15 Gm Gel..Gram.) 15 gm PO Q15M PRN; Protocol PRN Reason: per Hypoglycemia Standing Ord. Hydromorphone HCl (Hydromorphone Hcl 0.5 Mg/0.5 Ml Syringe) 0.5 mg IVPUSH Q4H PRN; Protocol PRN Reason: Pain, Severe (Pain Scale 7-10) Last Admin: 03/13/21 20:41 Dose: 0.5 mg Documented by: Levofloxacin (Levaquin) 750 mg in 150 mls @ 100 mls/hr IV Q48H [facility] Last Infusion: 03/13/21 19:00 Dose: Infused Documented by: Lactated Ringer's (Lr) 1,000 mls @ 150 mls/hr IVCONT .Q6H40M [facility] Insulin Human Lispro (Insulin Lispro 100 Unit/Ml 3 Ml Vial) 0 unit SUBCUT Q4H [facility]; Protocol Metronidazole (Metronidazole 500 Mg Tablet) 500 mg PO Q8H [facility] Last Admin: 03/14/21 00:48 Dose: 500 mg Documented by: Ondansetron HCl (Ondansetron Hcl 4 Mg/2 Ml Vial) 4 mg IVPUSH Q8H PRN PRN Reason: Nausea and Vomiting Last Admin: 03/14/21 04:58 Dose: 4 mg Documented by: Pharmacy Consult (Consult Rx Perform Med Rec) 1 each MISCELLANE ONCE PRN PRN Reason: Consult order Sodium Chloride (0.9 % Sodium Chloride Flush 3 Ml Syringe) 3 ml IVFLUSH QSHIFT [facility] Last Admin: 03/13/21 22:15 Dose: 3 ml Documented by: Time Spent With Patient Time: Total time spent is greater than 50% in coordination of care (as documented) at patient's floor/unit and/or counseling patient: Time with patient: 15 - 24 minutes Quality Stroke Does the patient have a stroke diagnosis?: No VTE Prior VTE?: No VTE Risk Level:: Surgical - high VTE Device Contraindication: N/A - Device Ordered VTE Drug Contraindication: N/A - Med Ordered
[2021-03-14 07:41] LABS: White Blood Count 11.1 X10*3/uL (4.8-10.8)
[2021-03-14 07:43] LABS: Band Neutrophils Percent 19 % (3-5); Lymphocytes Absolute Manual 0.2 X10*3/uL (1.2-4.9); Lymphocytes Percent Manual 2 % (20-40); Metamyelocytes Absolute 0.1 X10*3/uL; Metamyelocytes Percent 1 %; Monocytes Absolute Manual 0.8 X10*3/uL (0.1-1.2); Monocytes Percent Manual 7 % (2-11); Neutrophils Percent Manual 71 % (45-73)
[2021-03-14] MEDS: 0.9 % Sodium Chloride 500 ML IV (07:45)
[2021-03-14] MEDS: Famotidine/PF 20 MG/2 ML VIAL IVPUSH (07:46)
[2021-03-14 07:47] LABS: Acanthocytes 1+ (0-2) /OIF; Burr Cells 2+ (3-5) /OIF; Hypochromasia 2+ (15-30) /OIF; Large Platelet PRESENT; Platelet Estimate NORMAL (NORMAL); Platelet Morphology Comment NOTED; RBC Morphology NOTED
[2021-03-14 07:48] LABS: Toxic Vacuolation PRESENT
[2021-03-14] MEDS: Insulin Lispro 100 UNIT/ML 3 ML VIAL SUBCUT (07:50)
[2021-03-14] MEDS: Insulin Regular, Human 100 UNIT/ML 3 ML VIAL 10 UNIT IVPUSH (07:51)
[2021-03-14 07:59] LABS: Reflex Lactate? Lactic Acid Added
[2021-03-14] MEDS: 0.9 % Sodium Chloride Flush 3 ML SYRINGE IVFLUSH (08:02)
[2021-03-14 08:16] LABS: Prothrombin Time 23.4 SEC (9.9-13.0)
--- NOTE | 2021-03-14 08:29 | MHC.SHP ---
Pre-Procedural Eval Section A Date of Service: 03/14/21 The patient is an INPATIENT: Yes Section B Chief Complaint: Small and Large Bowel Obstruction Allergies: Allergies Allergy/AdvReac Type Severity Reaction Status Date / Time azithromycin [From ZITHROMAX] Allergy Severe STOMACH Verified 02/18/21 21:16 UPSET Penicillins [PENICILLINS] Allergy Severe ANAPHYLAXIS Verified 02/18/21 21:16 penicillin G Allergy Unknown Anaphylaxis Verified 02/18/21 21:16 Erythromycin Allergy Unknown Gastrointestinal Uncoded 02/18/21 21:16 Upset Plan Diagnosis/Plan: Unchanged I have reviewed the history and physical and performed a pertinent physical examination on my patient. No changes have occurred unless specified.
[2021-03-14 08:37] LABS: Lactic Acid 4.3 mmol/L (0.5-2.0)
--- NOTE | 2021-03-14 09:07 | HO.ANESPROP2 ---
HPI - Anesthesia Eval Consult details Narrative: Small Bowel Obstruction PMFSH Active Problems Active Problems: All Active Problems (Updated 03/14/21 @ 07:39 by Neto Grewal MD) Pneumatosis intestinalis (Acute) CKD (chronic kidney disease), stage III (Acute) CAD (coronary artery disease) (Acute) Hyperlipemia (Acute) HTN (hypertension) (Acute) Diabetes (Acute) Bowel obstruction (Acute) Past Medical History Medical History CAD (coronary artery disease) CKD (chronic kidney disease), stage III Diabetes HTN (hypertension) Hyperlipemia Family History Family History Mother CAD (coronary artery disease) Family history of problems with anesthesia: No Surgical History Surgical History History of open heart surgery S/P triple vessel bypass History of Problems with Anesthesia: No Social History Social History Household Members: Spouse Housing: House Do you presently have visiting nurse or other home services: No Alcohol intake: never Patient Tobacco Use Status: Never used Tobacco Use of substances other than those prescribed or required for medical reasons: No Currently Displaying Signs/Symptoms of Drug Intoxication Withdrawal: No Have you been hit, kicked, punched, or otherwise hurt by someone within the past year? If so, by whom?: No Do you feel safe in your current relationship?: Yes Is there a partner from a previous relationship who is making you feel unsafe now?: No Are you made to feel afraid or neglected: No Advance Directives: No Advance Directives Information Provided: Yes Do you have thoughts of harming others: None Do you have a plan to hurt others: No Plan Recently lost weight without trying: No How much weight loss: Not applicable Eating poorly because of decreased appetite: No Nutrition screen score: 0 Nutrition Risks: No Nutritional Risk Patient : No : No Poor oral hygiene: No Meds Allergies Allergy/AdvReac Type Severity Reaction Status Date / Time azithromycin [From ZITHROMAX] Allergy Severe STOMACH Verified 02/18/21 21:16 UPSET Penicillins [PENICILLINS] Allergy Severe ANAPHYLAXIS Verified 10/23/21 21:16 penicillin G Allergy Unknown Anaphylaxis Verified 02/18/21 21:16 Erythromycin Allergy Unknown Gastrointestinal Uncoded 02/18/21 21:16 Upset Active Medications: Current Medications Acetaminophen (Acetaminophen 325 Mg Tablet) 650 mg PO Q6H PRN PRN Reason: Pain, Mild (Pain Scale 1-3) Dextrose (Dextrose 50 % 25 Gm/50 Ml Vial) 25 gm IVPUSH Q15M PRN; Protocol PRN Reason: per Hypoglycemia Standing Ord. Famotidine (Famotidine/Pf 20 Mg/2 Ml Vial) 20 mg IVPUSH DAILY [facility] Last Admin: 03/14/21 07:46 Dose: 20 mg Documented by: Glucose (Glucose Gel 15 Gm Gel..Gram.) 15 gm PO Q15M PRN; Protocol PRN Reason: per Hypoglycemia Standing Ord. Hydromorphone HCl (Hydromorphone Hcl 0.5 Mg/0.5 Ml Syringe) 0.5 mg IVPUSH Q4H PRN; Protocol PRN Reason: Pain, Severe (Pain Scale 7-10) Last Admin: 03/13/21 20:41 Dose: 0.5 mg Documented by: Levofloxacin (Levaquin) 750 mg in 150 mls @ 100 mls/hr IV Q48H [facility] Last Infusion: 03/13/21 19:00 Dose: Infused Documented by: Lactated Ringer's (Lr) 1,000 mls @ 150 mls/hr IVCONT .Q6H40M [facility] Insulin Human Lispro (Insulin Lispro 100 Unit/Ml 3 Ml Vial) 0 unit SUBCUT Q4H [facility]; Protocol Last Admin: 03/14/21 07:50 Dose: 10 unit Documented by: Metronidazole (Metronidazole 500 Mg Tablet) 500 mg PO Q8H [facility] Last Admin: 03/14/21 07:55 Dose: 500 mg Documented by: Ondansetron HCl (Ondansetron Hcl 4 Mg/2 Ml Vial) 4 mg IVPUSH Q8H PRN PRN Reason: Nausea and Vomiting Last Admin: 03/14/21 04:58 Dose: 4 mg Documented by: Pharmacy Consult (Consult Rx Perform Med Rec) 1 each MISCELLANE ONCE PRN PRN Reason: Consult order Sodium Chloride (0.9 % Sodium Chloride Flush 3 Ml Syringe) 3 ml IVFLUSH QSHIFT [facility] Last Admin: 03/14/21 08:02 Dose: 3 ml Documented by: Home Medications Medication Instructions Recorded Confirmed Last Taken Type Insulin Pump See Rx Instructions .ROUTE .COMPLEX 03/13/21 03/13/21 History apixaban 5 mg tablet (Eliquis) 1 tab PO BID 03/13/21 03/13/21 03/12/21 History bupropion HCl 300 mg 24 hr tablet, 1 tab PO DAILY 03/13/21 03/13/21 03/12/21 History extended release ezetimibe 10 mg tablet 1 tab PO DAILY 03/13/21 03/13/21 03/12/21 History rosuvastatin 40 mg tablet 1 tab PO DAILY 03/13/21 03/13/21 03/12/21 History trazodone 100 mg tablet 2 tab PO BEDTIME PRN 03/13/21 03/13/21 03/12/21 History Exam Exam Date and Time: March 14, 2021 0907 Height,Weight and Vital Signs: Height 5 ft 6 in Weight 65.771 kg Last Vital Signs Temp 97.2 F 03/14/21 07:18 Pulse 89 03/14/21 07:18 Resp 18 03/14/21 07:18 BP 97/43 L 03/14/21 07:18 Pulse Ox 96 03/14/21 07:18 Pertinent Lab Results Pertinent Lab Results: Laboratory Tests 03/13/21 03/13/21 03/13/21 13:05 13:05 13:05 WBC 10.2 RBC 4.03 L Hgb 11.8 L Hct 38.1 MCV 94.5 MCH 29.3 MCHC 31.0 RDW 13.4 Plt Count 225 MPV 11.3 Immature Gran % (Auto) 0.2 Neut % (Auto) 88.4 H Lymph % (Auto) 8.8 L [place] % (Auto) 2.2 Eos % (Auto) 0.1 Baso % (Auto) 0.3 Lymph # (Auto) 0.9 L [place] # (Auto) 0.2 Eos # (Auto) 0.0 Baso # (Auto) 0.0 Abs Immat Gran (auto) 0.02 Absolute Neuts (auto) 9.0 H Absolute Nucleated RBC 0.000 Nucleated RBC % (auto) 0.0 Neutrophils % (Manual) Band Neutrophils % Lymphocytes % (Manual) Monocytes % (Manual) Metamyelocytes % Abs Neuts (Manual) Lymphocytes # (Manual) Monocytes # (Manual) Metamyelocytes # Toxic Vacuolation Platelet Estimate Large Platelets Plt Morphology Comment RBC Morphology Hypochromasia [place] Cells Acanthocytes (Spur) PT 20.4 H INR 1.8 H D-Dimer 709 Sodium 142 Potassium 3.8 D Chloride 111 H Carbon Dioxide 19 L Anion Gap 16 BUN 21 H Creatinine 1.67 H Estim Creat Clear Calc 30.2 Estimated GFR 31 POC Glucose Random Glucose 140 H Lactic Acid Lactic Acid Fup @ 2Hr Lactic Acid Fup @ 4Hr Calcium 9.6 Total Bilirubin 0.6 AST 23 D ALT 14 Alkaline Phosphatase 272 H D Troponin I High Sens Total Protein 5.3 L Albumin 3.2 L Lipase 10 COVID-19 ([facility]) COVID-19 [employer] Com Blood Type Antibody Screen 03/13/21 03/13/21 03/13/21 13:05 13:05 13:06 WBC RBC Hgb Hct MCV MCH MCHC RDW Plt Count MPV Immature Gran % (Auto) Neut % (Auto) Lymph % (Auto) [place] % (Auto) Eos % (Auto) Baso % (Auto) Lymph # (Auto) [place] # (Auto) Eos # (Auto) Baso # (Auto) Abs Immat Gran (auto) Absolute Neuts (auto) Absolute Nucleated RBC Nucleated RBC % (auto) Neutrophils % (Manual) Band Neutrophils % Lymphocytes % (Manual) Monocytes % (Manual) Metamyelocytes % Abs Neuts (Manual) Lymphocytes # (Manual) Monocytes # (Manual) Metamyelocytes # Toxic Vacuolation Platelet Estimate Large Platelets Plt Morphology Comment RBC Morphology Hypochromasia [place] Cells Acanthocytes (Spur) PT INR D-Dimer Sodium Potassium Chloride Carbon Dioxide Anion Gap BUN Creatinine Estim Creat Clear Calc Estimated GFR POC Glucose Random Glucose Lactic Acid 5.9 H* Lactic Acid Fup @ 2Hr Lactic Acid Fup @ 4Hr Calcium Total Bilirubin AST ALT Alkaline Phosphatase Troponin I High Sens 11.7 Total Protein Albumin Lipase COVID-19 ([facility]) Negative COVID-19 [email or web address] See Note Blood Type Antibody Screen 03/13/21 03/13/21 03/13/21 14:11 15:26 15:41 WBC RBC Hgb Hct MCV MCH MCHC RDW Plt Count MPV Immature Gran % (Auto) Neut % (Auto) Lymph % (Auto) [place] % (Auto) Eos % (Auto) Baso % (Auto) Lymph # (Auto) [place] # (Auto) Eos # (Auto) Baso # (Auto) Abs Immat Gran (auto) Absolute Neuts (auto) Absolute Nucleated RBC Nucleated RBC % (auto) Neutrophils % (Manual) Band Neutrophils % Lymphocytes % (Manual) Monocytes % (Manual) Metamyelocytes % Abs Neuts (Manual) Lymphocytes # (Manual) Monocytes # (Manual) Metamyelocytes # Toxic Vacuolation Platelet Estimate Large Platelets Plt Morphology Comment RBC Morphology Hypochromasia [place] Cells Acanthocytes (Spur) PT INR D-Dimer Sodium Potassium Chloride Carbon Dioxide Anion Gap BUN Creatinine Estim Creat Clear Calc Estimated GFR POC Glucose 68 Random Glucose Lactic Acid Lactic Acid Fup @ 2Hr 6.2 H* Lactic Acid Fup @ 4Hr Calcium Total Bilirubin AST ALT Alkaline Phosphatase Troponin I High Sens Total Protein Albumin Lipase COVID-19 ([facility]) COVID-19 [employer] Blood Type A Positive Antibody Screen NEGATIVE 03/13/21 03/13/21 03/13/21 16:27 18:35 19:34 WBC RBC Hgb Hct MCV MCH MCHC RDW Plt Count MPV Immature Gran % (Auto) Neut % (Auto) Lymph % (Auto) [place] % (Auto) Eos % (Auto) Baso % (Auto) Lymph # (Auto) [place] # (Auto) Eos # (Auto) Baso # (Auto) Abs Immat Gran (auto) Absolute Neuts (auto) Absolute Nucleated RBC Nucleated RBC % (auto) Neutrophils % (Manual) Band Neutrophils % Lymphocytes % (Manual) Monocytes % (Manual) Metamyelocytes % Abs Neuts (Manual) Lymphocytes # (Manual) Monocytes # (Manual) Metamyelocytes # Toxic Vacuolation Platelet Estimate Large Platelets Plt Morphology Comment RBC Morphology Hypochromasia Linus Cells Acanthocytes (Spur) PT INR D-Dimer Sodium Potassium Chloride Carbon Dioxide Anion Gap BUN Creatinine Estim Creat Clear Calc Estimated GFR POC Glucose 83 178 H Random Glucose Lactic Acid Lactic Acid Fup @ 2Hr Lactic Acid Fup @ 4Hr 3.7 H* Calcium Total Bilirubin AST ALT Alkaline Phosphatase Troponin I High Sens Total Protein Albumin Lipase COVID-19 ([facility]) COVID-19 [employer] Blood Type Antibody Screen 03/14/21 03/14/21 03/14/21 05:55 05:55 07:10 WBC 11.1 H RBC 3.30 L Hgb 9.9 L Hct 31.9 L MCV 96.7 MCH 30.0 MCHC 31.0 RDW 14.2 Plt Count 164 D MPV 13.0 H Immature Gran % (Auto) Cancelled Neut % (Auto) Cancelled Lymph % (Auto) Cancelled [place] % (Auto) Cancelled Eos % (Auto) Cancelled Baso % (Auto) Cancelled Lymph # (Auto) Cancelled [place] # (Auto) Cancelled Eos # (Auto) Cancelled Baso # (Auto) Cancelled Abs Immat Gran (auto) Cancelled Absolute Neuts (auto) Cancelled Absolute Nucleated RBC 0.000 Nucleated RBC % (auto) 0.0 Neutrophils % (Manual) 71 Band Neutrophils % 19 H Lymphocytes % (Manual) 2 L Monocytes % (Manual) 7 Metamyelocytes % 1 Abs Neuts (Manual) 10.0 H Lymphocytes # (Manual) 0.2 L Monocytes # (Manual) 0.8 Metamyelocytes # 0.1 Toxic Vacuolation PRESENT Platelet Estimate NORMAL Large Platelets PRESENT Plt Morphology Comment NOTED RBC Morphology NOTED Hypochromasia 2+ (15-30) [place] Cells 2+ (3-5) Acanthocytes (Spur) 1+ (0-2) PT INR D-Dimer Sodium 136 Potassium 5.9 H D Chloride 109 H Carbon Dioxide 13 L Anion Gap 20 BUN 33 H D Creatinine 2.36 H Estim Creat Clear Calc 21.3 Estimated GFR 20 POC Glucose Random Glucose 547 H* D Lactic Acid 5.7 H* Lactic Acid Fup @ 2Hr Lactic Acid Fup @ 4Hr Calcium 7.9 L D Total Bilirubin AST ALT Alkaline Phosphatase Troponin I High Sens Total Protein Albumin Lipase COVID-19 ([facility]) COVID-19 Clin Com Blood Type Antibody Screen 03/14/21 03/14/21 03/14/21 07:16 07:49 07:49 WBC RBC Hgb Hct MCV MCH MCHC RDW Plt Count MPV Immature Gran % (Auto) Neut % (Auto) Lymph % (Auto) [place] % (Auto) Eos % (Auto) Baso % (Auto) Lymph # (Auto) [place] # (Auto) Eos # (Auto) Baso # (Auto) Abs Immat Gran (auto) Absolute Neuts (auto) Absolute Nucleated RBC Nucleated RBC % (auto) Neutrophils % (Manual) Band Neutrophils % Lymphocytes % (Manual) Monocytes % (Manual) Metamyelocytes % Abs Neuts (Manual) Lymphocytes # (Manual) Monocytes # (Manual) Metamyelocytes # Toxic Vacuolation Platelet Estimate Large Platelets Plt Morphology Comment RBC Morphology Hypochromasia [place] Cells Acanthocytes (Spur) PT 23.4 H INR 2.0 H D-Dimer Sodium Potassium Chloride Carbon Dioxide Anion Gap BUN Creatinine Estim Creat Clear Calc Estimated GFR POC Glucose 491 H* Random Glucose Lactic Acid 4.3 H* Lactic Acid Fup @ 2Hr Lactic Acid Fup @ 4Hr Calcium Total Bilirubin AST ALT Alkaline Phosphatase Troponin I High Sens Total Protein Albumin Lipase COVID-19 ([facility]) COVID-19 Clin Com Blood Type Antibody Screen Airway Mallampati Class: III TM Dist: >3cm Neck ROM: Full Loose/Missing/Broken Teeth: Yes Heart: [id number] Lungs: +b/s bilaterally Assessment and Plan Assessment Anesthesia Assessment: Anesthesia Plan Discussed and Chart Reviewed Final Anesthetic Review Family History of Problems with Anesthesia: No History of Problems with Anesthesia: No NPO: Yes ASA Class: III and Emergency Final Preanesthetic Review: No Changes in Pt Med Stat, Meds/Allgs Chart Reviewed, Consent Obtained/Reviewed and Anes Risks/Benef Reviewed Patient Risk: High Procedure Risk: Intermediate Assessment/Block/Sedation in SS: Assess/Block/Sedation-SS Anesthetic Plan Anesthetic Plan: GA and Agree w/ Assess. and Plan Disposition: Standard PACU
[2021-03-14] MEDS: Lactated Ringers 1,000 ML 150 ML IVCONT ×4 (09:17→21:26)
[2021-03-14 09:20] LABS: Glucose, Whole Blood 455 mg/dL (60-115)
--- NOTE | 2021-03-14 09:51 | MHC.CM.PN ---
CM ATTEMPTED TO MEET W/PT HOWEVER PT CURRENTLY OFF UNIT, CM TO REVISIT.
[2021-03-14 10:06] LABS: Reflex Lactate? Lactic Acid Added
--- NOTE | 2021-03-14 10:18 | PC.NURSE ---
Dr. Grewal aware that patients last dose of Eliquis was 03/13 at 2200. Okay to proceed with surgery.
--- NOTE | 2021-03-14 10:25 | PC.NURSE ---
P: B/P . Lactic 5.7. Blood glucose 547. I: 500 cc NS bolus ordered by dr. Grewal. 10 units regular insulin ordered by Dr. Obrien. Both given as well as 10 units subq sliding scale humalog. IV fluids changed to LR@150. B/P after bolus. POC 455 @ 0900. E: Dr. Obrien notified. 10 more units IV regular insulin ordered. Patient called down to surgery before insulin arrived from pharmacy. SSS notified.
[2021-03-14] MEDS: Insulin Lispro 100 UNIT/ML 3 ML VIAL 8 UNIT SUBCUT (10:34)
[2021-03-14] MEDS: Lactated Ringers 1,000 ML 1000 ML IVCONT (10:35)
[2021-03-14 11:06] LABS: ~Lactic Acid-LAB USE ONLY 6.7 mmol/L (0.5-2.0)
[2021-03-14 11:51] LABS: Glucose, Whole Blood 383 mg/dL (60-115)
--- NOTE | 2021-03-14 12:03 | P.PNIM_ITS ---
Subjective Subjective Date of Service: 03/14/21 Interval History: cc: abd pain interval history: still with pain, n/v Cardiovascular Cardiovascular: Reports no additional cardiovascular complaints Respiratory Respiratory: Reports no additional respiratory complaints Physical Exam Vital Signs: Vital Signs: Last Vital Signs Temp 99.1 F 03/14/21 09:58 Pulse 91 03/14/21 09:58 Resp 24 H 03/14/21 09:58 BP 81/38 L 03/14/21 09:58 Pulse Ox 96 03/14/21 09:58 Body Mass Index 23.3 General: AO X 3, in discomfort, ill appearing Resp: CTA bilateral, no accessory muscles used CVS: S1,S2,RRR GI: tender, distended Neuro: motor grossly intact, alert Psych: appropriate affect, appropriate insight Objective Data Active Medications Acetaminophen (Acetaminophen 325 Mg Tablet) 650 mg PO Q6H PRN PRN Reason: Pain, Mild (Pain Scale 1-3) Dextrose (Dextrose 50 % 25 Gm/50 Ml Vial) 25 gm IVPUSH Q15M PRN; Protocol PRN Reason: per Hypoglycemia Standing Ord. Famotidine (Famotidine/Pf 20 Mg/2 Ml Vial) 20 mg IVPUSH DAILY [facility] Last Admin: 03/14/21 07:46 Dose: 20 mg Documented by: ANNA Fentanyl (Fentanyl Citrate/Pf 100 Mcg/2 Ml Vial) 50 mcg IVPUSH Q5M PRN; Protocol PRN Reason: Pain, Moderate (Pain Scale 4-6 Glucose (Glucose Gel 15 Gm Gel..Gram.) 15 gm PO Q15M PRN; Protocol PRN Reason: per Hypoglycemia Standing Ord. Hydromorphone HCl (Hydromorphone Hcl 0.5 Mg/0.5 Ml Syringe) 0.5 mg IVPUSH Q4H PRN; Protocol PRN Reason: Pain, Severe (Pain Scale 7-10) Last Admin: 03/13/21 20:41 Dose: 0.5 mg Documented by: CHELSEA Hydromorphone HCl (Hydromorphone Hcl 0.5 Mg/0.5 Ml Syringe) 0.5 mg IVPUSH Q5M PRN; Protocol PRN Reason: Pain, Severe (Pain Scale 7-10) Levofloxacin (Levaquin) 750 mg in 150 mls @ 100 mls/hr IV Q48H [facility] Last Infusion: 03/13/21 19:00 Dose: 0 mls/hr Documented by: DANNA Lactated Ringer's (Lr) 1,000 mls @ 150 mls/hr IVCONT .Q6H40M [facility] Last Admin: 03/14/21 10:34 Dose: 150 mls/hr Documented by: DA Promethazine HCl 6.25 mg/ (Sodium Chloride) 50.25 mls @ 201 mls/hr IV ONCE PRN PRN Reason: Nausea and Vomiting Lactated Ringer's (Lr) 1,000 mls @ 1,000 mls/hr IVCONT .Q1H [facility] Last Admin: 03/14/21 10:35 Dose: 1,000 mls/hr Documented by: DA Lactated Ringer's (Lr) 1,000 mls @ 100 mls/hr IVCONT .Q10H [facility] Insulin Human Lispro (Insulin Lispro 100 Unit/Ml 3 Ml Vial) 0 unit SUBCUT Q4H [facility]; Protocol Last Admin: 03/14/21 07:50 Dose: 10 unit Documented by: ANNA Metronidazole (Metronidazole 500 Mg Tablet) 500 mg PO Q8H [facility] Last Admin: 03/14/21 07:55 Dose: 500 mg Documented by: ANNA Ondansetron HCl (Ondansetron Hcl 4 Mg/2 Ml Vial) 4 mg IVPUSH Q8H PRN PRN Reason: Nausea and Vomiting Last Admin: 03/14/21 04:58 Dose: 4 mg Documented by: ANA Ondansetron HCl (Ondansetron Hcl 4 Mg/2 Ml Vial) 4 mg IVPUSH ONCE PRN PRN Reason: Nausea and Vomiting Pharmacy Consult (Consult Rx Perform Med Rec) 1 each MISCELLANE ONCE PRN PRN Reason: Consult order Sodium Chloride (0.9 % Sodium Chloride Flush 3 Ml Syringe) 3 ml IVFLUSH QSHIFT [facility] Last Admin: 03/14/21 08:02 Dose: 3 ml Documented by: ANNA Labs CBC & Chem 7: 03/14/21 07:10 03/14/21 05:55 Labs: Laboratory Results - last 24 hr 03/13/21 03/13/21 03/13/21 13:05 13:05 13:05 MCV 94.5 MCH 29.3 MCHC 31.0 RDW 13.4 Plt Count 225 MPV 11.3 Immature Gran % (Auto) 0.2 Neut % (Auto) 88.4 H Lymph % (Auto) 8.8 L Mingo % (Auto) 2.2 Eos % (Auto) 0.1 Baso % (Auto) 0.3 Lymph # (Auto) 0.9 L Mingo # (Auto) 0.2 Eos # (Auto) 0.0 Baso # (Auto) 0.0 Abs Immat Gran (auto) 0.02 Absolute Neuts (auto) 9.0 H Absolute Nucleated RBC 0.000 Nucleated RBC % (auto) 0.0 Neutrophils % (Manual) Band Neutrophils % Lymphocytes % (Manual) Monocytes % (Manual) Metamyelocytes % Abs Neuts (Manual) Lymphocytes # (Manual) Monocytes # (Manual) Metamyelocytes # Toxic Vacuolation Platelet Estimate Large Platelets Plt Morphology Comment RBC Morphology Hypochromasia Everett Cells Acanthocytes (Spur) PT 20.4 H INR 1.8 H D-Dimer 709 Anion Gap 16 Estim Creat Clear Calc 30.2 Estimated GFR 31 POC Glucose Random Glucose 140 H Lactic Acid Lactic Acid Fup @ 2Hr Lactic Acid Fup @ 4Hr Calcium 9.6 Total Bilirubin 0.6 AST 23 D ALT 14 Alkaline Phosphatase 272 H D Troponin I High Sens Total Protein 5.3 L Albumin 3.2 L Lipase 10 COVID-19 ([facility]) COVID-19 Clin Com Blood Type Antibody Screen Crossmatch 03/13/21 03/13/21 03/13/21 13:05 13:05 13:06 MCV MCH MCHC RDW Plt Count MPV Immature Gran % (Auto) Neut % (Auto) Lymph % (Auto) Mingo % (Auto) Eos % (Auto) Baso % (Auto) Lymph # (Auto) Mingo # (Auto) Eos # (Auto) Baso # (Auto) Abs Immat Gran (auto) Absolute Neuts (auto) Absolute Nucleated RBC Nucleated RBC % (auto) Neutrophils % (Manual) Band Neutrophils % Lymphocytes % (Manual) Monocytes % (Manual) Metamyelocytes % Abs Neuts (Manual) Lymphocytes # (Manual) Monocytes # (Manual) Metamyelocytes # Toxic Vacuolation Platelet Estimate Large Platelets Plt Morphology Comment RBC Morphology Hypochromasia Everett Cells Acanthocytes (Spur) PT INR D-Dimer Anion Gap Estim Creat Clear Calc Estimated GFR POC Glucose Random Glucose Lactic Acid 5.9 H* Lactic Acid Fup @ 2Hr Lactic Acid Fup @ 4Hr Calcium Total Bilirubin AST ALT Alkaline Phosphatase Troponin I High Sens 11.7 Total Protein Albumin Lipase COVID-19 ([facility]) Negative COVID-19 Clin Com See Note Blood Type Antibody Screen Crossmatch 03/13/21 03/13/21 03/13/21 14:11 15:26 15:41 MCV MCH MCHC RDW Plt Count MPV Immature Gran % (Auto) Neut % (Auto) Lymph % (Auto) Mingo % (Auto) Eos % (Auto) Baso % (Auto) Lymph # (Auto) Mingo # (Auto) Eos # (Auto) Baso # (Auto) Abs Immat Gran (auto) Absolute Neuts (auto) Absolute Nucleated RBC Nucleated RBC % (auto) Neutrophils % (Manual) Band Neutrophils % Lymphocytes % (Manual) Monocytes % (Manual) Metamyelocytes % Abs Neuts (Manual) Lymphocytes # (Manual) Monocytes # (Manual) Metamyelocytes # Toxic Vacuolation Platelet Estimate Large Platelets Plt Morphology Comment RBC Morphology Hypochromasia Linus Cells Acanthocytes (Spur) PT INR D-Dimer Anion Gap Estim Creat Clear Calc Estimated GFR POC Glucose 68 Random Glucose Lactic Acid Lactic Acid Fup @ 2Hr 6.2 H* Lactic Acid Fup @ 4Hr Calcium Total Bilirubin AST ALT Alkaline Phosphatase Troponin I High Sens Total Protein Albumin Lipase COVID-19 ([facility]) COVID-19 Clin Com Blood Type A Positive Antibody Screen NEGATIVE Crossmatch See Detail 03/13/21 03/13/21 03/13/21 16:27 18:35 19:34 MCV MCH MCHC RDW Plt Count MPV Immature Gran % (Auto) Neut % (Auto) Lymph % (Auto) Mingo % (Auto) Eos % (Auto) Baso % (Auto) Lymph # (Auto) Mingo # (Auto) Eos # (Auto) Baso # (Auto) Abs Immat Gran (auto) Absolute Neuts (auto) Absolute Nucleated RBC Nucleated RBC % (auto) Neutrophils % (Manual) Band Neutrophils % Lymphocytes % (Manual) Monocytes % (Manual) Metamyelocytes % Abs Neuts (Manual) Lymphocytes # (Manual) Monocytes # (Manual) Metamyelocytes # Toxic Vacuolation Platelet Estimate Large Platelets Plt Morphology Comment RBC Morphology Hypochromasia Everett Cells Acanthocytes (Spur) PT INR D-Dimer Anion Gap Estim Creat Clear Calc Estimated GFR POC Glucose 83 178 H Random Glucose Lactic Acid Lactic Acid Fup @ 2Hr Lactic Acid Fup @ 4Hr 3.7 H* Calcium Total Bilirubin AST ALT Alkaline Phosphatase Troponin I High Sens Total Protein Albumin Lipase COVID-19 ([facility]) COVID-19 [facility] Blood Type Antibody Screen Crossmatch 03/14/21 03/14/21 03/14/21 05:55 05:55 07:10 MCV 96.7 MCH 30.0 MCHC 31.0 RDW 14.2 Plt Count 164 D MPV 13.0 H Immature Gran % (Auto) Cancelled Neut % (Auto) Cancelled Lymph % (Auto) Cancelled Mingo % (Auto) Cancelled Eos % (Auto) Cancelled Baso % (Auto) Cancelled Lymph # (Auto) Cancelled Mingo # (Auto) Cancelled Eos # (Auto) Cancelled Baso # (Auto) Cancelled Abs Immat Gran (auto) Cancelled Absolute Neuts (auto) Cancelled Absolute Nucleated RBC 0.000 Nucleated RBC % (auto) 0.0 Neutrophils % (Manual) 71 Band Neutrophils % 19 H Lymphocytes % (Manual) 2 L Monocytes % (Manual) 7 Metamyelocytes % 1 Abs Neuts (Manual) 10.0 H Lymphocytes # (Manual) 0.2 L Monocytes # (Manual) 0.8 Metamyelocytes # 0.1 Toxic Vacuolation PRESENT Platelet Estimate NORMAL Large Platelets PRESENT Plt Morphology Comment NOTED RBC Morphology NOTED Hypochromasia 2+ (15-30) Linus Cells 2+ (3-5) Acanthocytes (Spur) 1+ (0-2) PT INR D-Dimer Anion Gap 20 Estim Creat Clear Calc 21.3 Estimated GFR 20 POC Glucose Random Glucose 547 H* D Lactic Acid 5.7 H* Lactic Acid Fup @ 2Hr Lactic Acid Fup @ 4Hr Calcium 7.9 L D Total Bilirubin AST ALT Alkaline Phosphatase Troponin I High Sens Total Protein Albumin Lipase COVID-19 ([facility]) COVID-19 [facility] Blood Type Antibody Screen Crossmatch 03/14/21 03/14/21 03/14/21 07:16 07:49 07:49 MCV MCH MCHC RDW Plt Count MPV Immature Gran % (Auto) Neut % (Auto) Lymph % (Auto) Mingo % (Auto) Eos % (Auto) Baso % (Auto) Lymph # (Auto) Mingo # (Auto) Eos # (Auto) Baso # (Auto) Abs Immat Gran (auto) Absolute Neuts (auto) Absolute Nucleated RBC Nucleated RBC % (auto) Neutrophils % (Manual) Band Neutrophils % Lymphocytes % (Manual) Monocytes % (Manual) Metamyelocytes % Abs Neuts (Manual) Lymphocytes # (Manual) Monocytes # (Manual) Metamyelocytes # Toxic Vacuolation Platelet Estimate Large Platelets Plt Morphology Comment RBC Morphology Hypochromasia Linus Cells Acanthocytes (Spur) PT 23.4 H INR 2.0 H D-Dimer Anion Gap Estim Creat Clear Calc Estimated GFR POC Glucose 491 H* Random Glucose Lactic Acid 4.3 H* Lactic Acid Fup @ 2Hr Lactic Acid Fup @ 4Hr Calcium Total Bilirubin AST ALT Alkaline Phosphatase Troponin I High Sens Total Protein Albumin Lipase COVID-19 ([facility]) COVID-[employer] Blood Type Antibody Screen Crossmatch 03/14/21 03/14/21 03/14/21 08:57 10:07 10:25 MCV MCH MCHC RDW Plt Count MPV Immature Gran % (Auto) Neut % (Auto) Lymph % (Auto) Mingo % (Auto) Eos % (Auto) Baso % (Auto) Lymph # (Auto) Mingo # (Auto) Eos # (Auto) Baso # (Auto) Abs Immat Gran (auto) Absolute Neuts (auto) Absolute Nucleated RBC Nucleated RBC % (auto) Neutrophils % (Manual) Band Neutrophils % Lymphocytes % (Manual) Monocytes % (Manual) Metamyelocytes % Abs Neuts (Manual) Lymphocytes # (Manual) Monocytes # (Manual) Metamyelocytes # Toxic Vacuolation Platelet Estimate Large Platelets Plt Morphology Comment RBC Morphology Hypochromasia Linus Cells Acanthocytes (Spur) PT INR D-Dimer Anion Gap Estim Creat Clear Calc Estimated GFR POC Glucose 455 H* 383 H* Random Glucose Lactic Acid Lactic Acid Fup @ 2Hr 6.7 H* Lactic Acid Fup @ 4Hr Calcium Total Bilirubin AST ALT Alkaline Phosphatase Troponin I High Sens Total Protein Albumin Lipase COVID-19 ([facility]) COVID-[employer] Blood Type Antibody Screen Crossmatch Assessment and Plan (1) Diabetes: Status: Acute (2) Bowel obstruction: Status: Acute (3) CAD (coronary artery disease): Status: Acute Assessment and Plan: 70-year-old female presented with abdominal pain, suspected to have bowel obstruction N/V, abdominal pain with lactic acidosis in OR today no obvious bowel ischemia or obstruction ? cause of dilitation, lactic acidosis check cdif continue IVF hyperkalemia given insulin, follow up repeat Diabetes with hyperglcyemia Patient uses insulin pump now held continue insulin sliding scale monitor point of cares closely Coronary disease Status post CABG Hold apixaban (patient unaware of any history of AFib, denies history of VTE) MARQUITA on CKD 3 likely due to hypotension/hypovolemia, IVF, monitor Quality Stroke Does the patient have a stroke diagnosis?: No VTE Prior VTE?: No VTE Risk Level:: Surgical - high VTE Device Contraindication: N/A - Device Ordered VTE Drug Contraindication: N/A - Med Ordered
[2021-03-14 12:28] LABS: Reflex Lactate? 2 Y
--- NOTE | 2021-03-14 12:31 | W.PM.OPN ---
Operative Note Operative Note Date of Service: 03/14/21 Narrative: Preoperative diagnosis: Ischemic colitis Postoperative diagnosis: Normal exploratory laparotomy Procedure: Exploratory laparotomy, lysis of adhesions Surgeon: Neto Grewal MD Hasher Machine Operator: Cely Lima PA-C Anesthesia: General endotracheal Indications for procedure: 70-year-old female patient presenting with complaints of diffuse abdominal pain nausea, and vomiting found to have diffuse tenderness. Patient sitting laboratories revealed normal WBC however the lactate level was elevated. She continued to have elevated lactate levels despite rehydration and antibiotics. In addition her abdominal pain seems to be worsening rather than improving. After discussion with the patient and the patient's family decision was made to proceed to operative exploration to evaluate for ischemic or necrotic bowel. Operative findings: Patient was found to have normal appearing small and large bowel without evidence of necrosis or ischemia. No evidence of obstruction could be identified as well. Multiple adhesions were noted including interloop adhesions which were lysed. There is no evidence of internal herniation or obstruction. Specimen: Peritoneal fluid cultures Estimated blood loss: 5 mL Complications: None Procedure details: Patient was brought to the OR placed in a supine position. After administering general anesthesia the patient's abdomen was prepped with ChloraPrep and draped in a sterile fashion. A surgical time-out was called the consent confirmed. Patient received preoperative antibiotics and Venodyne boots were in place. A midline incision was made and carried out through subcutaneous tissue, through the linea alba and into peritoneum. Peritoneum was then entered and the abdomen explored. Dense adhesions were noted to the anterior abdominal wall from the previous abdominal surgeries. This was taken down using sharp and electrocautery dissection. The abdomen was then explored beginning in the transverse colon extending towards the right colon and cecum. No evidence of ischemia or necrosis could be identified. There is no evidence of obstruction at this level. Several dense adhesions were identified between loops of bowel including large and small bowel. These were lysed using electrocautery dissection. Exploration continued down the transverse colon and left colon again with no evidence of necrosis or ischemia. Sigmoid colon and rectum appeared normal as well. A large collection of serous fluid was noted within the abdominal cavity. A specimen was sent for wound culture. The remaining fluid was aspirated. Liver was then examined and determined to be normal. The gallbladder was normal without evidence of inflammation. No adhesions were noted to the liver. Stomach and duodenum were also determined to be normal. Local anesthesia was infiltrated in the midline incision. Fascia was then closed using a running and 1 Maxon suture. Skin was then closed with skin ratna. Sterile dressings were then applied. The patient tolerated the procedure well was transferred to PACU in stable condition. Sponge, instrument, and needle counts reported as correct.
[2021-03-14 12:58] LABS: Glucose, Whole Blood 273 mg/dL (60-115)
[2021-03-14 14:44] LABS: ~Lactic Acid-LAB USE ONLY 4.2 mmol/L (0.5-2.0)
[2021-03-14 15:44] LABS: Glucose, Whole Blood 165 mg/dL (60-115)
[2021-03-14 16:12] LABS: Anion Gap 14 (12-20); Blood Urea Nitrogen 35 mg/dL (9-16); Calcium 7.7 mg/dL (8.4-10.2); Carbon Dioxide 18 mmol/L (22-29); Chloride 112 mmol/L (96-108); Creatinine Clr Calc Pharmacy 21.4; Estimated Glomerular Filt Rate 21; Glucose Random 213 mg/dL (60-115); Potassium 4.7 mmol/L (3.3-5.1); Sodium 139 mmol/L (135-145)
[2021-03-14 19:37] LABS: Glucose, Whole Blood 158 mg/dL (60-115)
[2021-03-14] MEDS: metroNIDAZOLE/NS 500 MG/100 ML PIGGYBACK 100 MG IV (21:39)
[2021-03-14] MEDS: HYDROmorphone HCl 0.5 MG/0.5 ML SYRINGE IVPUSH (21:50)
[2021-03-15 00:21] LABS: Glucose, Whole Blood 247 mg/dL (60-115)
[2021-03-15] MEDS: Insulin Lispro 100 UNIT/ML 3 ML VIAL SUBCUT ×4 (00:26→23:01)
[2021-03-15] MEDS: metroNIDAZOLE/NS 500 MG/100 ML PIGGYBACK 100 MG IV ×4 (02:33→20:21)
[2021-03-15 03:46] LABS: Glucose, Whole Blood 183 mg/dL (60-115)
[2021-03-15] MEDS: HYDROmorphone HCl 0.5 MG/0.5 ML SYRINGE IVPUSH ×3 (03:46→20:45)
[2021-03-15] MEDS: Lactated Ringers 1,000 ML 150 ML IVCONT (05:43)
[2021-03-15 06:51] LABS: Hematocrit 32.3 % (37.0-47.0); Hemoglobin 10.6 g/dl (12.0-16.0); Mean Corpuscular HGB Conc 32.8 g/dl (31.0-35.0); Mean Corpuscular Hemoglobin 29.9 pg (27.0-33.0); Mean Platelet Volume 12.2 fL (9.4-12.3); Platelet Count 125 X10*3/uL (160-400); Red Blood Count 3.55 X10*6/uL (4.20-5.50); Red Cell Distribution Width 14.8 % (11.0-16.0); White Blood Count 8.6 X10*3/uL (4.8-10.8)
[2021-03-15 07:09] LABS: Anion Gap 13 (12-20); Blood Urea Nitrogen 41 mg/dL (9-16); Calcium 7.4 mg/dL (8.4-10.2); Carbon Dioxide 19 mmol/L (22-29); Chloride 110 mmol/L (96-108); Estimated Glomerular Filt Rate 22; Glucose Fasting 273 mg/dL (60-99); Potassium 4.6 mmol/L (3.3-5.1); Sodium 137 mmol/L (135-145)
[2021-03-15 07:47] VITALS: BP 98/51; PULSE 71; RESP 18; TEMP 36.8; O2SAT 95
[2021-03-15 07:54] LABS: Base Excess Bedside Calculated -9 mmol/L (-3-3); Glucose, i-STAT 336 mg/dL (60-115); HCO3 Bedside Calculated 17 mmol/L (22-26); Hematocrit Bedside 22 %PCV (37-47); Hemoglobin Bedside 7.5 g/dL (12.0-16.0); SO2 Bedside Calculated 100 %; Sodium Bedside 141 mmol/L (135-145); TCO2 Bedside 18 mmol/L (24-29); pCO2 Bedside 30 mmhg (35-48); pH Bedside 7.35 (7.35-7.45); pO2 Bedside 273 mmhg (83-108)
--- NOTE | 2021-03-15 10:18 | MHC.CM.PN ---
Patient has been medically cleared for dc to home today, no services.
[2021-03-15] MEDS: Famotidine/PF 20 MG/2 ML VIAL IVPUSH (10:38)
[2021-03-15] MEDS: ondansetron HCL 4 MG/2 ML VIAL IVPUSH ×2 (10:38→18:01)
[2021-03-15] MEDS: 0.9 % Sodium Chloride Flush 3 ML SYRINGE IVFLUSH ×3 (10:39→20:22)
[2021-03-15 10:46] LABS: Glucose, Whole Blood 315 mg/dL (60-115)
--- NOTE | 2021-03-15 10:52 | HO.PM.IMPN ---
Subjective Subjective Date of Service: 03/15/21 Interval History: the patient was seen and evaluated this morning Laying in bed, feels anxious and worried Denies any fever, chills or shortness of breath denies passing gas or bowel movement No reported other overnight events. Systemic review: No fever, chills but reported weakness and being anxious No chest pain, palpitation No shortness of breath or coughing No abdominal pain, nausea or vomiting No urinary symptoms No any rash or wounds Physical Exam Vital Signs: Vital Signs: Last Vital Signs Temp 98.2 F 03/15/21 07:47 Pulse 71 03/15/21 07:47 Resp 18 03/15/21 07:47 BP 98/51 L 03/15/21 07:47 Pulse Ox 95 03/15/21 07:47 Body Mass Index 23.3 Const: Other: Constitutional : Alert, oriented to self, mildly anxious, NG tube in place Neck : Normal inspection, Supple Cardiovascular : RRR, S1 S2, no lower extremity edema Respiratory : fair bilateral air entry, no crackles, wheezes or rhonchi Gastrointestinal: soft, lax, Normal bowel sounds, mild local tenderness Skin : Warm, Dry Neurological : Alert & oriented , No focal deficit Objective Data Active Medications Acetaminophen (Acetaminophen 325 Mg Tablet) 650 mg PO Q6H PRN PRN Reason: Pain, Mild (Pain Scale 1-3) Dextrose (Dextrose 50 % 25 Gm/50 Ml Vial) 25 gm IVPUSH Q15M PRN; Protocol PRN Reason: per Hypoglycemia Standing Ord. Famotidine (Famotidine/Pf 20 Mg/2 Ml Vial) 20 mg IVPUSH DAILY [facility] Last Admin: 03/15/21 10:38 Dose: 20 mg Documented by: DIANE Glucose (Glucose Gel 15 Gm Gel..Gram.) 15 gm PO Q15M PRN; Protocol PRN Reason: per Hypoglycemia Standing Ord. Hydromorphone HCl (Hydromorphone Hcl 0.5 Mg/0.5 Ml Syringe) 0.5 mg IVPUSH Q4H PRN; Protocol PRN Reason: Pain, Severe (Pain Scale 7-10) Last Admin: 03/15/21 10:38 Dose: 0.5 mg Documented by: DIANE Levofloxacin (Levaquin) 750 mg in 150 mls @ 100 mls/hr IV Q48H [facility] Last Infusion: 03/13/21 19:00 Dose: 0 mls/hr Documented by: DANNA Lactated Ringer's (Lr) 1,000 mls @ 50 mls/hr IVCONT .Q20H [facility] Last Admin: 03/15/21 05:43 Dose: 150 mls/hr Documented by: JOSEMANUEL Metronidazole (Flagyl) 500 mg in 100 mls @ 100 mls/hr IV Q6H [facility] Last Infusion: 03/15/21 03:38 Dose: 0 mls/hr Documented by: JOSEMANUEL Insulin Human Lispro (Insulin Lispro 100 Unit/Ml 3 Ml Vial) 0 unit SUBCUT Q4H [facility]; Protocol Last Admin: 03/15/21 07:50 Dose: 8 unit Documented by: DIANE Ondansetron HCl (Ondansetron Hcl 4 Mg/2 Ml Vial) 4 mg IVPUSH Q8H PRN PRN Reason: Nausea and Vomiting Last Admin: 03/15/21 10:38 Dose: 4 mg Documented by: DIANE Pharmacy Consult (Consult Rx Perform Med Rec) 1 each MISCELLANE ONCE PRN PRN Reason: Consult order Sodium Chloride (0.9 % Sodium Chloride Flush 3 Ml Syringe) 3 ml IVFLUSH QSHIFT [facility] Last Admin: 03/15/21 10:39 Dose: 3 ml Documented by: DIANE Labs CBC & Chem 7: 03/15/21 06:35 03/15/21 06:35 Labs: Laboratory Results - last 24 hr 03/13/21 03/14/21 03/14/21 14:11 08:03 10:07 POC Hgb (Calc) POC Hct MCV MCH MCHC RDW Plt Count MPV Absolute Nucleated RBC Nucleated RBC % (auto) POC Std Base Excess POC O2 Sat (Calc) POC ABG pO2 POC ABG Total CO2 POC Capillary pH POC Capillary pCO2 POC Cap HCO3 (Calc) POC Sodium POC Potassium Anion Gap Estim Creat Clear Calc Estimated GFR POC Glucose 383 H* Random Glucose Fasting Glucose Lactic Acid Fup @ 2Hr Cancelled Lactic Acid Fup @ 4Hr Calcium Blood Type A Positive Antibody Screen NEGATIVE Crossmatch See Detail 03/14/21 03/14/21 03/14/21 10:25 11:25 12:53 POC Hgb (Calc) 7.5 L POC Hct 22 L MCV MCH MCHC RDW Plt Count MPV Absolute Nucleated RBC Nucleated RBC % (auto) POC Std Base Excess -9 L POC O2 Sat (Calc) 100 POC ABG pO2 273 H POC ABG Total CO2 18 L POC Capillary pH 7.35 POC Capillary pCO2 30 L POC Cap HCO3 (Calc) 17 L POC Sodium 141 POC Potassium 5.0 Anion Gap Estim Creat Clear Calc Estimated GFR POC Glucose 336 H 273 H Random Glucose Fasting Glucose Lactic Acid Fup @ 2Hr 6.7 H* Lactic Acid Fup @ 4Hr Calcium Blood Type Antibody Screen Crossmatch 03/14/21 03/14/21 03/14/21 13:54 15:34 15:41 POC Hgb (Calc) POC Hct MCV MCH MCHC RDW Plt Count MPV Absolute Nucleated RBC Nucleated RBC % (auto) POC Std Base Excess POC O2 Sat (Calc) POC ABG pO2 POC ABG Total CO2 POC Capillary pH POC Capillary pCO2 POC Cap HCO3 (Calc) POC Sodium POC Potassium Anion Gap 14 Estim Creat Clear Calc 21.4 Estimated GFR 21 POC Glucose 165 H Random Glucose 213 H D Fasting Glucose Lactic Acid Fup @ 2Hr Lactic Acid Fup @ 4Hr 4.2 H* Calcium 7.7 L Blood Type Antibody Screen Crossmatch 03/14/21 03/15/21 03/15/21 19:34 00:17 03:42 POC Hgb (Calc) POC Hct MCV MCH MCHC RDW Plt Count MPV Absolute Nucleated RBC Nucleated RBC % (auto) POC Std Base Excess POC O2 Sat (Calc) POC ABG pO2 POC ABG Total CO2 POC Capillary pH POC Capillary pCO2 POC Cap HCO3 (Calc) POC Sodium POC Potassium Anion Gap Estim Creat Clear Calc Estimated GFR POC Glucose 158 H 247 H 183 H Random Glucose Fasting Glucose Lactic Acid Fup @ 2Hr Lactic Acid Fup @ 4Hr Calcium Blood Type Antibody Screen Crossmatch 03/15/21 03/15/21 03/15/21 06:35 06:35 10:42 POC Hgb (Calc) POC Hct MCV 91.0 D MCH 29.9 MCHC 32.8 RDW 14.8 Plt Count 125 L MPV 12.2 Absolute Nucleated RBC 0.000 Nucleated RBC % (auto) 0.0 POC Std Base Excess POC O2 Sat (Calc) POC ABG pO2 POC ABG Total CO2 POC Capillary pH POC Capillary pCO2 POC Cap HCO3 (Calc) POC Sodium POC Potassium Anion Gap 13 Estim Creat Clear Calc 23.0 Estimated GFR 22 POC Glucose 315 H Random Glucose Fasting Glucose 273 H Lactic Acid Fup @ 2Hr Lactic Acid Fup @ 4Hr Calcium 7.4 L Blood Type Antibody Screen Crossmatch Microbiology Microbiology Results: Microbiology 03/14/21 11:46 Gram Stain - Final Peritoneal Fluid Routine Culture - Preliminary No growth to date. 03/13/21 14:11 Blood Culture - Preliminary Blood - Venous No growth after 24 hours. 03/13/21 13:06 Blood Culture - Preliminary Blood - Venous No growth after 24 hours. Assessment and Plan (1) Pneumatosis intestinalis: Status: Acute Assessment and Plan: 70-year-old female presented with abdominal pain, suspected to have bowel obstruction suspected intestinal obstruction in OR no obvious bowel ischemia or obstruction surgery team following NG tube in place pending cdif continue IVF hyperkalemia resolved Monitor BMP Diabetes with hyperglcyemia Patient uses insulin pump now held continue insulin sliding scale monitor point of cares closely Coronary disease Status post CABG Hold apixaban (patient unaware of any history of AFib, denies history of VTE) MARQUITA on CKD 3 likely due to hypotension/hypovolemia Gentle IVF follow BMP and urine output Thank you for the consult, will continue to monitor with y Quality Stroke Does the patient have a stroke diagnosis?: No VTE Prior VTE?: No VTE Risk Level:: Surgical - high VTE Device Contraindication: N/A - Device Ordered VTE Drug Contraindication: N/A - Med Ordered
--- NOTE | 2021-03-15 11:17 | P.PNGS_ITS ---
Subjective Subjective Date of Service: 03/15/21 <Cely Lima PA-C - Last Filed: 03/15/21 11:30> 03/15/21 <Neto Grewal MD - Last Filed: 03/15/21 12:53> Interval history: Sore this morning and reports pain at incision site. Feels a little better than upon admission. Passing some flatus. Has a little nausea. Has been OOB and ambulated halls. Prior colonoscopy around 10 years ago- reports previous was normal. Also reports unintentional weight loss over the past few months with decreased appetite. <Cely Lima PA-C - Last Filed: 03/15/21 11:30> Physical Exam Vital Signs: Vital Signs: Last Vital Signs Temp 98.2 F 03/15/21 07:47 Pulse 71 03/15/21 07:47 Resp 18 03/15/21 07:47 BP 98/51 L 03/15/21 07:47 Pulse Ox 95 03/15/21 07:47 Body Mass Index 23.3 <Cely Lima PA-C - Last Filed: 03/15/21 11:30> Const: General: comfortable, no acute distress and lethargic <Cely Lima PA-C - Last Filed: 03/15/21 11:30> Orientation/consciousness: lethargic <Cely Lima PA-C - Last Filed: 03/15/21 11:30> Resp: Effort & Inspection: normal respiratory effort <Cely Lima PA-C - Last Filed: 03/15/21 11:30> GI: Inspection: No distended and Yes incision (dressing c/d/i) <Cely Lima PA-C - Last Filed: 03/15/21 11:30> Palpation (GI): Soft to palpation, Tenderness to palpation present (GI) (mild, incisional), no guarding and not rigid <BRANDI Werner Last Filed: 03/15/21 11:30> Percussion: Yes normal to percussion <Cely Lima PA-C - Last Filed: 03/15/21 11:30> Skin: General skin exam: no rashes or lesions noted <Cely Lima PA-C - Last Filed: 03/15/21 11:30> Extrem: General: Yes no clubbing, cyanosis or edema <Cely Lima PA-C - Last Filed: 03/15/21 11:30> Objective Data Active Medications Acetaminophen (Acetaminophen 325 Mg Tablet) 650 mg PO Q6H PRN PRN Reason: Pain, Mild (Pain Scale 1-3) Dextrose (Dextrose 50 % 25 Gm/50 Ml Vial) 25 gm IVPUSH Q15M PRN; Protocol PRN Reason: per Hypoglycemia Standing Ord. Famotidine (Famotidine/Pf 20 Mg/2 Ml Vial) 20 mg IVPUSH DAILY [facility] Last Admin: 03/15/21 10:38 Dose: 20 mg Documented by: DIANE Glucose (Glucose Gel 15 Gm Gel..Gram.) 15 gm PO Q15M PRN; Protocol PRN Reason: per Hypoglycemia Standing Ord. Hydromorphone HCl (Hydromorphone Hcl 0.5 Mg/0.5 Ml Syringe) 0.5 mg IVPUSH Q4H PRN; Protocol PRN Reason: Pain, Severe (Pain Scale 7-10) Last Admin: 03/15/21 10:38 Dose: 0.5 mg Documented by: DIANE Levofloxacin (Levaquin) 750 mg in 150 mls @ 100 mls/hr IV Q48H [facility] Last Infusion: 03/13/21 19:00 Dose: 0 mls/hr Documented by: COTEMA Lactated Ringer's (Lr) 1,000 mls @ 50 mls/hr IVCONT .Q20H [facility] Last Admin: 03/15/21 05:43 Dose: 150 mls/hr Documented by: JOSEMANUEL Metronidazole (Flagyl) 500 mg in 100 mls @ 100 mls/hr IV Q6H [facility] Last Admin: 03/15/21 10:55 Dose: 100 mls/hr Documented by: DIANE Insulin Human Lispro (Insulin Lispro 100 Unit/Ml 3 Ml Vial) 0 unit SUBCUT Q4H [facility]IELA; Protocol Last Admin: 03/15/21 07:50 Dose: 8 unit Documented by: DIANE Ondansetron HCl (Ondansetron Hcl 4 Mg/2 Ml Vial) 4 mg IVPUSH Q8H PRN PRN Reason: Nausea and Vomiting Last Admin: 03/15/21 10:38 Dose: 4 mg Documented by: DIANE Pharmacy Consult (Consult Rx Perform Med Rec) 1 each MISCELLANE ONCE PRN PRN Reason: Consult order Sodium Chloride (0.9 % Sodium Chloride Flush 3 Ml Syringe) 3 ml IVFLUSH QSHIFT [facility] Last Admin: 03/15/21 10:39 Dose: 3 ml Documented by: DIANE <Cely Lima PA-C - Last Filed: 03/15/21 11:30> Labs CBC & Chem 7: : 03/15/21 06:35 03/15/21 06:35 <Cely Lima PA-C - Last Filed: 03/15/21 11:30> Labs: Laboratory Results - last 24 hr 03/13/21 03/14/21 03/14/21 14:11 08:03 10:07 POC Hgb (Calc) POC Hct MCV MCH MCHC RDW Plt Count MPV Absolute Nucleated RBC Nucleated RBC % (auto) POC Std Base Excess POC O2 Sat (Calc) POC ABG pO2 POC ABG Total CO2 POC Capillary pH POC Capillary pCO2 POC Cap HCO3 (Calc) POC Sodium POC Potassium Anion Gap Estim Creat Clear Calc Estimated GFR POC Glucose 383 H* Random Glucose Fasting Glucose Lactic Acid Fup @ 2Hr Cancelled Lactic Acid Fup @ 4Hr Calcium Blood Type A Positive Antibody Screen NEGATIVE Crossmatch See Detail 03/14/21 03/14/21 03/14/21 11:25 12:53 13:54 POC Hgb (Calc) 7.5 L POC Hct 22 L MCV MCH MCHC RDW Plt Count MPV Absolute Nucleated RBC Nucleated RBC % (auto) POC Std Base Excess -9 L POC O2 Sat (Calc) 100 POC ABG pO2 273 H POC ABG Total CO2 18 L POC Capillary pH 7.35 POC Capillary pCO2 30 L POC Cap HCO3 (Calc) 17 L POC Sodium 141 POC Potassium 5.0 Anion Gap Estim Creat Clear Calc Estimated GFR POC Glucose 336 H 273 H Random Glucose Fasting Glucose Lactic Acid Fup @ 2Hr Lactic Acid Fup @ 4Hr 4.2 H* Calcium Blood Type Antibody Screen Crossmatch 03/14/21 03/14/21 03/14/21 15:34 15:41 19:34 POC Hgb (Calc) POC Hct MCV MCH MCHC RDW Plt Count MPV Absolute Nucleated RBC Nucleated RBC % (auto) POC Std Base Excess POC O2 Sat (Calc) POC ABG pO2 POC ABG Total CO2 POC Capillary pH POC Capillary pCO2 POC Cap HCO3 (Calc) POC Sodium POC Potassium Anion Gap 14 Estim Creat Clear Calc 21.4 Estimated GFR 21 POC Glucose 165 H 158 H Random Glucose 213 H D Fasting Glucose Lactic Acid Fup @ 2Hr Lactic Acid Fup @ 4Hr Calcium 7.7 L Blood Type Antibody Screen Crossmatch 03/15/21 03/15/21 03/15/21 00:17 03:42 06:35 POC Hgb (Calc) POC Hct MCV 91.0 D MCH 29.9 MCHC 32.8 RDW 14.8 Plt Count 125 L MPV 12.2 Absolute Nucleated RBC 0.000 Nucleated RBC % (auto) 0.0 POC Std Base Excess POC O2 Sat (Calc) POC ABG pO2 POC ABG Total CO2 POC Capillary pH POC Capillary pCO2 POC Cap HCO3 (Calc) POC Sodium POC Potassium Anion Gap Estim Creat Clear Calc Estimated GFR POC Glucose 247 H 183 H Random Glucose Fasting Glucose Lactic Acid Fup @ 2Hr Lactic Acid Fup @ 4Hr Calcium Blood Type Antibody Screen Crossmatch 03/15/21 03/15/21 06:35 10:42 POC Hgb (Calc) POC Hct MCV MCH MCHC RDW Plt Count MPV Absolute Nucleated RBC Nucleated RBC % (auto) POC Std Base Excess POC O2 Sat (Calc) POC ABG pO2 POC ABG Total CO2 POC Capillary pH POC Capillary pCO2 POC Cap HCO3 (Calc) POC Sodium POC Potassium Anion Gap 13 Estim Creat Clear Calc 23.0 Estimated GFR 22 POC Glucose 315 H Random Glucose Fasting Glucose 273 H Lactic Acid Fup @ 2Hr Lactic Acid Fup @ 4Hr Calcium 7.4 L Blood Type Antibody Screen Crossmatch <Cely Lima PA-C - Last Filed: 03/15/21 11:30> Microbiology Microbiology Results: Microbiology 03/14/21 11:46 Gram Stain - Final Peritoneal Fluid Routine Culture - Preliminary No growth to date. 03/13/21 14:11 Blood Culture - Preliminary Blood - Venous No growth after 24 hours. 03/13/21 13:06 Blood Culture - Preliminary Blood - Venous No growth after 24 hours. <Cely Lima PA-C - Last Filed: 03/15/21 11:30> Procedures Date of Service Date of Service: 03/15/21 <Cely Lima PA-C - Last Filed: 03/15/21 11:30> Progress Note: A&P Assessment and plan (1) CKD (chronic kidney disease), stage III: Status: Acute <BRANDI Werner Last Filed: 03/15/21 11:30> (2) CAD (coronary artery disease): Status: Acute <BRANDI Werner Last Filed: 03/15/21 11:30> (3) Diabetes: Status: Acute <BRANDI Werner Last Filed: 03/15/21 11:30> (4) Ileus: Status: Acute <Cely Lima PA-C - Last Filed: 03/15/21 11:30> Assessment and Plan: ?70-year-old female patient who presented with complaints of ab dominal pain, nausea, vomiting found to have diffuse abdominal tenderness and elevated lactate.? Patient with a prior history of coronary artery disease.? CT abdomen and pelvis revealed pneumatosis of the right colon without portal venous air. Patient admitted for observation and was treated with supportive measures of IVF for rehydration. She however continued to have diffuse abdominal pain without significant improvement and a lactic acidosis. She therefore underwent exploratory laparotomy yesterday. Patient was found to have normal appearing small and large bowel without evidence of necrosis or ischemia. She did have dilated small bowel loops without a point of transition more consistent with an ileus. She was transfused 2U PRBC and 1U FFP yesterday. She is hemodynamically stable this morning. Her NGT does not have much output. She is beginning to pass flatus. Her abdomen is benign and very soft this morning with mild incisional tenderness. Etiology of pain and lactic acidosis is unclear although this improved significantly with aggressive hydration. C diff was ordered to rule this out as a source but the patient reports constipation prior to arrival. Cont flagyl and levaquin, IVF. Likely remove NGT tomorrow if continues to pass flatus. Encouraged OOB/ambulation today. Cont kay. <Cely Lima PA-C - Last Filed: 03/15/21 11:30> ?70-year-old female patient who presented with complaints of abdominal pain, nausea, vomiting found to have diffuse abdominal tenderness and elevated lactate.? Patient with a prior history of coronary artery disease.? CT abdomen and pelvis revealed pneumatosis of the right colon without portal venous air. Patient admitted for observation and was treated with supportive measures of IVF for rehydration. She however continued to have diffuse abdominal pain without significant improvement and a lactic acidosis. She therefore underwent exploratory laparotomy yesterday. Patient was found to have normal appearing small and large bowel without evidence of necrosis or ischemia. She did have dilated small bowel loops without a point of transition more consistent with an ileus. She was transfused 2U PRBC and 1U FFP yesterday. She is hemodynamically stable this morning. Her NGT does not have much output. She is beginning to pass flatus. Her abdomen is benign and very soft this morning with mild incisional tenderness. Etiology of pain and lactic acidosis is unclear although this improved significantly with aggressive hydration. C diff was ordered to rule this out as a source but the patient reports constipation prior to arrival. Cont flagyl and levaquin, IVF. Likely remove NGT tomorrow if continues to pass flatus. Encouraged OOB/ambulation today. Cont kay. Patient reports moderate improvement in her abdominal pain; mainly incisional now. Abdomen softer, incision clean and intact. Minimal output from NGT. Agree with the above assessment and plan. Await peritoneal cultures and C. diff titers. Decrease IVFs. <Neto Grewal MD - Last Filed: 03/15/21 12:53> Fall Risk Details Current Medications: Current Medications Acetaminophen (Acetaminophen 325 Mg Tablet) 650 mg PO Q6H PRN PRN Reason: Pain, Mild (Pain Scale 1-3) Dextrose (Dextrose 50 % 25 Gm/50 Ml Vial) 25 gm IVPUSH Q15M PRN; Protocol PRN Reason: per Hypoglycemia Standing Ord. Famotidine (Famotidine/Pf 20 Mg/2 Ml Vial) 20 mg IVPUSH DAILY [facility] Last Admin: 03/15/21 10:38 Dose: 20 mg Documented by: Glucose (Glucose Gel 15 Gm Gel..Gram.) 15 gm PO Q15M PRN; Protocol PRN Reason: per Hypoglycemia Standing Ord. Hydromorphone HCl (Hydromorphone Hcl 0.5 Mg/0.5 Ml Syringe) 0.5 mg IVPUSH Q4H PRN; Protocol PRN Reason: Pain, Severe (Pain Scale 7-10) Last Admin: 03/15/21 10:38 Dose: 0.5 mg Documented by: Levofloxacin (Levaquin) 750 mg in 150 mls @ 100 mls/hr IV Q48H [facility] Last Infusion: 03/13/21 19:00 Dose: Infused Documented by: Lactated Ringer's (Lr) 1,000 mls @ 50 mls/hr IVCONT .Q20H [facility] Last Admin: 03/15/21 05:43 Dose: 150 mls/hr Documented by: Metronidazole (Flagyl) 500 mg in 100 mls @ 100 mls/hr IV Q6H [facility] Last Admin: 03/15/21 10:55 Dose: 100 mls/hr Documented by: Insulin Human Lispro (Insulin Lispro 100 Unit/Ml 3 Ml Vial) 0 unit SUBCUT Q4H [facility]; Protocol Last Admin: 03/15/21 07:50 Dose: 8 unit Documented by: Ondansetron HCl (Ondansetron Hcl 4 Mg/2 Ml Vial) 4 mg IVPUSH Q8H PRN PRN Reason: Nausea and Vomiting Last Admin: 03/15/21 10:38 Dose: 4 mg Documented by: Pharmacy Consult (Consult Rx Perform Med Rec) 1 each MISCELLANE ONCE PRN PRN Reason: Consult order Sodium Chloride (0.9 % Sodium Chloride Flush 3 Ml Syringe) 3 ml IVFLUSH QSHIFT [facility] Last Admin: 03/15/21 10:39 Dose: 3 ml Documented by: <Cely Lima PA-C - Last Filed: 03/15/21 11:30> Time Spent With Patient Time: Total time spent is greater than 50% in coordination of care (as documented) at patient's floor/unit and/or counseling patient: <Cely Lima PA-C - Last Filed: 03/15/21 11:30> Time with patient: 15 - 24 minutes <Cely Lima PA-C - Last Filed: 03/15/21 11:30> Quality Stroke Does the patient have a stroke diagnosis?: No <Cely Lima PA-C - Last Filed: 03/15/21 11:30> VTE Prior VTE?: No <Cely Lima PA-C - Last Filed: 03/15/21 11:30> VTE Risk Level:: Surgical - high <Cely Lima PA-C - Last Filed: 03/15/21 11:30> VTE Device Contraindication: N/A - Device Ordered <Cely Lima PA-C - Last Filed: 03/15/21 11:30> VTE Drug Contraindication: N/A - Med Ordered <Cely Lima PA-C - Last Filed: 03/15/21 11:30>
--- NOTE | 2021-03-15 11:18 | MHC.CM.PN ---
CM MET WITH PATIENT, /HCP/ZACH, And Daughter at bedside and addressed IMM with them (providing them with the original and placing a copy on the chart). Patient lives in a house with her and Daughter and she uses a cane to assist with mobility.Home/no services is the goal for dc and CM has initiated and will follow for dc planning.PCP is Dr.Jay Burnette.
[2021-03-15 12:24] LABS: Glucose, Whole Blood 265 mg/dL (60-115)
[2021-03-15 12:31] VITALS: BP 113/49; PULSE 71; RESP 18; TEMP 36.8; O2SAT 94
[2021-03-15] MEDS: Lactated Ringers 1,000 ML 50 ML IVCONT (13:07)
--- NOTE | 2021-03-15 15:10 | HO.POSTANES ---
Post Anesthesia Evaluation Post Anesthesia Evaluation Vital Signs: Vital Signs Temp Pulse Resp BP Pulse Ox 03/15/21 12:31 98.2 F 71 18 113/49 L 94 03/15/21 07:47 98.2 F 71 18 98/51 L 95 Anesthesia: General Endotracheal-GETA Mental Status: Awake Pain Control: Satisfactory Nausea/Vomiting: None Hydration: Adequate Anesthesia-Related Issues: No Anes. Related Issues
[2021-03-15 15:14] VITALS: BP 135/63; PULSE 67; RESP 18; TEMP 36.9; O2SAT 95
[2021-03-15 16:49] LABS: Glucose, Whole Blood 148 mg/dL (60-115)
[2021-03-15] MEDS: levoFLOXacin/D5W 750 MG/150 ML PIGGYBACK 100 MG IV (17:49)
--- NOTE | 2021-03-15 18:17 | PHA.PROG ---
Admission Date/Time: March 13, 2021 14:45 Indication: BACTEREMIA Weight in k.771 kg Adjusted body weight in Kg: [place] body weight in Kg: Obesity Dosing Indication % IBW: Serum Creatinine - Last 168 Hours 03/13/21 03/14/21 03/14/21 13:05 05:55 15:34 Creatinine 1.67 H 2.36 H 2.35 H 03/15/21 06:35 Creatinine 2.19 H Estimated CrCl and GFR - Last 168 Hours 03/13/21 03/14/21 03/14/21 13:05 05:55 15:34 Estim Creat Clear Calc 30.2 21.3 21.4 Estimated GFR 31 20 21 03/15/21 06:35 Estim Creat Clear Calc 23.0 Estimated GFR 22 Vancomycin Loading Dose: Current Vancomycin Dosing Regimen: 750MG Q24H Vancomycin Monitoring using AUC goal of 400 - 600 range with trough as surrogate marker: AUC 519, TROUGH 17.7 Date and Time for next Vancomycin Level to be drawn: DRAW 03/17 AT 1800 Pharmacist Comments on Vancomycin Plan: Vancomycin dosing will take advantage of [employer] as a clinical decision support tool that uses Bayesian modeling to calculate individual patient's pharmacokinetic parameters and forecast the patient's drug concentration time course with the target goal AUC 24 range of 400 - 600 mg/L/hr.
[2021-03-15] MEDS: vancomycin HCL 750 MG in 0.9 % Sodium Chloride 250 ML 265 MG IV (18:42)
[2021-03-15 19:07] VITALS: BP 145/60; PULSE 69; RESP 19; TEMP 36.8; O2SAT 96
[2021-03-15 20:05] LABS: Glucose, Whole Blood 142 mg/dL (60-115)
[2021-03-15 20:45] VITALS: RESP 18
[2021-03-15 22:55] LABS: Glucose, Whole Blood 199 mg/dL (60-115)
[2021-03-15 23:33] VITALS: BP 135/45; PULSE 64; RESP 18; TEMP 36.6; O2SAT 96
[2021-03-15 23:44] LABS: Glucose, Whole Blood 210 mg/dL (60-115)
[2021-03-16] VITALS (7 sets, daily range): BP systolic 102–126; BP diastolic 51–71; PULSE 54–66; RESP 17–18; TEMP 36.2–37; O2SAT 93–99
[2021-03-16] MEDS: ondansetron HCL 4 MG/2 ML VIAL IVPUSH ×3 (02:05→20:52)
[2021-03-16] MEDS: HYDROmorphone HCl 0.5 MG/0.5 ML SYRINGE IVPUSH ×2 (02:05→21:04)
[2021-03-16] MEDS: metroNIDAZOLE/NS 500 MG/100 ML PIGGYBACK 100 MG IV ×4 (02:30→19:42)
[2021-03-16] MEDS: Insulin Lispro 100 UNIT/ML 3 ML VIAL SUBCUT ×5 (02:49→19:43)
[2021-03-16 02:51] LABS: Glucose, Whole Blood 198 mg/dL (60-115)
[2021-03-16 06:39] LABS: MANUAL DIFF FLAG NO
[2021-03-16 06:49] LABS: Basophils Percent Auto 0.4 % (0-2); Eosinophils Percent Auto 0.4 % (0-4); Hematocrit 33.6 % (37.0-47.0); Hemoglobin 10.8 g/dl (12.0-16.0); Imm Gran Abs Auto 0.07 X10*3/uL (0.00-0.03); Imm Gran Pct Auto 0.7 % (0.0-0.4); Lymphocytes Absolute Auto 1.1 X10*3/uL (1.2-4.9); Lymphocytes Percent Auto 11.1 % (20-40); Mean Corpuscular HGB Conc 32.1 g/dl (31.0-35.0); Mean Corpuscular Hemoglobin 29.5 pg (27.0-33.0); Mean Corpuscular Volume 91.8 fL (80.0-98.0); Mean Platelet Volume 12.5 fL (9.4-12.3); Monocytes Absolute Auto 0.8 X10*3/uL (0.1-1.2); Monocytes Percent Auto 8.4 % (2-11); Neutrophils Absolute Auto 7.8 x10*3/uL (2.0-8.3); Platelet Count 128 X10*3/uL (160-400); Red Blood Count 3.66 X10*6/uL (4.20-5.50); Red Cell Distribution Width 15.1 % (11.0-16.0); White Blood Count 9.9 X10*3/uL (4.8-10.8)
[2021-03-16 07:02] LABS: Anion Gap 15 (12-20); Blood Urea Nitrogen 40 mg/dL (9-16); Calcium 7.8 mg/dL (8.4-10.2); Carbon Dioxide 18 mmol/L (22-29); Chloride 112 mmol/L (96-108); Creatinine Clr Calc Pharmacy 27.8; Estimated Glomerular Filt Rate 28; Glucose Fasting 190 mg/dL (60-99); Potassium 4.6 mmol/L (3.3-5.1); Sodium 140 mmol/L (135-145)
[2021-03-16 07:35] LABS: Glucose, Whole Blood 163 mg/dL (60-115)
[2021-03-16] MEDS: 0.9 % Sodium Chloride Flush 3 ML SYRINGE IVFLUSH ×3 (08:54→19:43)
[2021-03-16] MEDS: Famotidine/PF 20 MG/2 ML VIAL IVPUSH (08:54)
[2021-03-16] MEDS: Lactated Ringers 1,000 ML 75 ML IVCONT ×2 (08:58→15:48)
--- NOTE | 2021-03-16 10:29 | PHA.PROG ---
Admission Date/Time: March 13, 2021 14:45 Indication: BACTEREMIA Weight in k.771 kg Adjusted body weight in Kg: [place] body weight in Kg: Obesity Dosing Indication % IBW: Serum Creatinine - Last 168 Hours 03/13/21 03/14/21 03/14/21 13:05 05:55 15:34 Creatinine 1.67 H 2.36 H 2.35 H 03/15/21 03/16/21 06:35 06:23 Creatinine 2.19 H 1.81 H Estimated CrCl and GFR - Last 168 Hours 03/13/21 03/14/21 03/14/21 13:05 05:55 15:34 Estim Creat Clear Calc 30.2 21.3 21.4 Estimated GFR 31 20 21 03/15/21 03/16/21 06:35 06:23 Estim Creat Clear Calc 23.0 27.8 Estimated GFR 22 28 Vancomycin Loading Dose: Current Vancomycin Dosing Regimen: 750 MG Q24H Vancomycin Monitoring using AUC goal of 400 - 600 range with trough as surrogate marker: Date and Time for next Vancomycin Level to be drawn: Pharmacist Comments on Vancomycin Plan: WILL CONTINUE TO MONITOR RENAL FUNCTION, SCR IS TRENDING DOWN. TROUGH SCHEDULED FOR 03/17 @ 1800. Vancomycin dosing will take advantage of [employer] as a clinical decision support tool that uses Bayesian modeling to calculate individual patient's pharmacokinetic parameters and forecast the patient's drug concentration time course with the target goal AUC 24 range of 400 - 600 mg/L/hr.
[2021-03-16 11:23] LABS: Glucose, Whole Blood 201 mg/dL (60-115)
--- NOTE | 2021-03-16 11:39 | PM.PNGS ---
Subjective Subjective Date of Service: 03/16/21 <Cely Lima PA-C - Last Filed: 03/16/21 11:45> 03/16/21 <Neto Grewal MD - Last Filed: 03/16/21 17:04> Interval history: Feels much better this morning. Still having pain but mostly incisional and much improved. She denies flatus. She denies nausea. <Cely Lima PA-C - Last Filed: 03/16/21 11:45> Physical Exam Vital Signs: Vital Signs: Last Vital Signs Temp 97.2 F 03/16/21 11:36 Pulse 62 03/16/21 11:36 Resp 17 03/16/21 11:36 BP 115/62 03/16/21 11:36 Pulse Ox 99 03/16/21 11:36 Body Mass Index 23.3 <Cely Lima PA-C - Last Filed: 03/16/21 11:45> Const: General: comfortable, no acute distress and alert <Cely Lima PA-C - Last Filed: 03/16/21 11:45> Orientation/consciousness: patient oriented x3 <Cely Lima PA-C - Last Filed: 03/16/21 11:45> Resp: Effort & Inspection: normal respiratory effort <Cely Lima PA-C - Last Filed: 03/16/21 11:45> GI: Inspection: No distended and Yes incision (clean) <Cely Lima PA-C - Last Filed: 03/16/21 11:45> Palpation (GI): Soft to palpation, Tenderness to palpation present (GI) (mild incisional), no guarding and not rigid <Cely Lima PA-C - Last Filed: 03/16/21 11:45> Percussion: Yes normal to percussion <Cely Lima PA-C - Last Filed: 03/16/21 11:45> Skin: General skin exam: no rashes or lesions noted <Cely Lima PA-C - Last Filed: 03/16/21 11:45> Neuro: General: patient oriented x3 <Cely Lima PA-C - Last Filed: 03/16/21 11:45> Extrem: General: Yes no clubbing, cyanosis or edema <Cely Lima PA-C - Last Filed: 03/16/21 11:45> Objective Data Active Medications Acetaminophen (Acetaminophen 325 Mg Tablet) 650 mg PO Q6H PRN PRN Reason: Pain, Mild (Pain Scale 1-3) Dextrose (Dextrose 50 % 25 Gm/50 Ml Vial) 25 gm IVPUSH Q15M PRN; Protocol PRN Reason: per Hypoglycemia Standing Ord. Docusate Sodium (Docusate Sodium 100 Mg Capsule) 100 mg PO BID [facility] Famotidine (Famotidine/Pf 20 Mg/2 Ml Vial) 20 mg IVPUSH DAILY [facility] Last Admin: 03/16/21 08:54 Dose: 20 mg Documented by: LIONEL Glucose (Glucose Gel 15 Gm Gel..Gram.) 15 gm PO Q15M PRN; Protocol PRN Reason: per Hypoglycemia Standing Ord. Hydromorphone HCl (Hydromorphone Hcl 0.5 Mg/0.5 Ml Syringe) 0.5 mg IVPUSH Q4H PRN; Protocol PRN Reason: Pain, Severe (Pain Scale 7-10) Last Admin: 03/16/21 02:05 Dose: 0.5 mg Documented by: AIDA Levofloxacin (Levaquin) 750 mg in 150 mls @ 100 mls/hr IV Q48H [facility] Last Infusion: 03/15/21 22:03 Dose: 0 mls/hr Documented by: AIDA Lactated Ringer's (Lr) 1,000 mls @ 75 mls/hr IVCONT .[id number] [facility] Last Admin: 03/16/21 08:58 Dose: 75 mls/hr Documented by: LIONEL Metronidazole (Flagyl) 500 mg in 100 mls @ 100 mls/hr IV Q6H [facility] Last Admin: 03/16/21 08:53 Dose: 100 mls/hr Documented by: LIONEL Vancomycin HCl 750 mg/ Sodium (Chloride) 265 mls @ 265 mls/hr IV Q24H [facility] Last Infusion: 03/15/21 20:49 Dose: 0 mls/hr Documented by: AIDA Insulin Human Lispro (Insulin Lispro 100 Unit/Ml 3 Ml Vial) 0 unit SUBCUT Q4H [facility]; Protocol Last Admin: 03/16/21 08:54 Dose: 2 unit Documented by: LIONEL Ondansetron HCl (Ondansetron Hcl 4 Mg/2 Ml Vial) 4 mg IVPUSH Q8H PRN PRN Reason: Nausea and Vomiting Last Admin: 03/16/21 02:05 Dose: 4 mg Documented by: AIDA Pharmacy Consult (Consult Rx Perform Med Rec) 1 each MISCELLANE ONCE PRN PRN Reason: Consult order Pharmacy Consult (Consult Rx Vancomycin Dosing) 1 each MISCELLANE DAILY PRN PRN Reason: Consult order Polyethylene Glycol (Polyethylene Glycol 3350 17 Gm Powd.Pack) 17 gm PO DAILY [facility] Sodium Chloride (0.9 % Sodium Chloride Flush 3 Ml Syringe) 3 ml IVFLUSH QSHIFT [facility] Last Admin: 03/16/21 08:54 Dose: 3 ml Documented by: LIONEL <Cely Lima PA-C - Last Filed: 03/16/21 11:45> Labs CBC & Chem 7: : 03/16/21 06:23 03/16/21 06:23 <Cely Lima PA-C - Last Filed: 03/16/21 11:45> Labs: Laboratory Results - last 24 hr 03/15/21 03/15/21 03/15/21 12:20 16:45 19:57 MCV MCH MCHC RDW Plt Count MPV Immature Gran % (Auto) Neut % (Auto) Lymph % (Auto) [place] % (Auto) Eos % (Auto) Baso % (Auto) Lymph # (Auto) [place] # (Auto) Eos # (Auto) Baso # (Auto) Abs Immat Gran (auto) Absolute Neuts (auto) Absolute Nucleated RBC Nucleated RBC % (auto) Anion Gap Estim Creat Clear Calc Estimated GFR POC Glucose 265 H 148 H 142 H Fasting Glucose Calcium 03/15/21 03/15/21 03/16/21 22:52 23:40 02:45 MCV MCH MCHC RDW Plt Count MPV Immature Gran % (Auto) Neut % (Auto) Lymph % (Auto) [place] % (Auto) Eos % (Auto) Baso % (Auto) Lymph # (Auto) [place] # (Auto) Eos # (Auto) Baso # (Auto) Abs Immat Gran (auto) Absolute Neuts (auto) Absolute Nucleated RBC Nucleated RBC % (auto) Anion Gap Estim Creat Clear Calc Estimated GFR POC Glucose 199 H 210 H 198 H Fasting Glucose Calcium 03/16/21 03/16/21 03/16/21 06:23 06:23 07:16 MCV 91.8 MCH 29.5 MCHC 32.1 RDW 15.1 Plt Count 128 L MPV 12.5 H Immature Gran % (Auto) 0.7 H Neut % (Auto) 79.0 H Lymph % (Auto) 11.1 L [place] % (Auto) 8.4 Eos % (Auto) 0.4 Baso % (Auto) 0.4 Lymph # (Auto) 1.1 L [place] # (Auto) 0.8 Eos # (Auto) 0.0 Baso # (Auto) 0.0 Abs Immat Gran (auto) 0.07 H Absolute Neuts (auto) 7.8 Absolute Nucleated RBC 0.000 Nucleated RBC % (auto) 0.0 Anion Gap 15 Estim Creat Clear Calc 27.8 Estimated GFR 28 POC Glucose 163 H Fasting Glucose 190 H Calcium 7.8 L 03/16/21 11:17 MCV MCH MCHC RDW Plt Count MPV Immature Gran % (Auto) Neut % (Auto) Lymph % (Auto) [place] % (Auto) Eos % (Auto) Baso % (Auto) Lymph # (Auto) [place] # (Auto) Eos # (Auto) Baso # (Auto) Abs Immat Gran (auto) Absolute Neuts (auto) Absolute Nucleated RBC Nucleated RBC % (auto) Anion Gap Estim Creat Clear Calc Estimated GFR POC Glucose 201 H Fasting Glucose Calcium <Cely Lima PA-C - Last Filed: 03/16/21 11:45> Microbiology Microbiology Results: Microbiology 03/14/21 11:46 Gram Stain - Final Peritoneal Fluid Routine Culture - Final No growth after 2 days Anaerobic Culture - Preliminary Culture in progress. 03/13/21 13:06 Blood Culture - Preliminary Blood - Venous Prelim: GPC Gram Stain only 03/13/21 14:11 Blood Culture - Preliminary Blood - Venous No growth after 48 hours. <Cely Lima PA-C - Last Filed: 03/16/21 11:45> Procedures Date of Service Date of Service: 03/16/21 <Cely Lima PA-C - Last Filed: 03/16/21 11:45> Progress Note: A&P Assessment and plan (1) Ileus: Status: Acute <BRANDI Werner Last Filed: 03/16/21 11:45> (2) Pneumatosis intestinalis: Status: Acute <BRANDI Werner Last Filed: 03/16/21 11:45> Assessment and Plan: ?70-year-old female patient who presented with complaints of abdominal pain, nausea, vomiting found to have diffuse abdominal tenderness and elevated lactate.?CT abdomen and pelvis revealed pneumatosis of the right colon without portal venous air. Patient admitted for observation and was treated with supportive measures of IVF for rehydration. She however continued to have diffuse abdominal pain without significant improvement and a lactic acidosis. She therefore underwent exploratory laparotomy 03/14/21. Patient was found to have normal appearing small and large bowel without evidence of necrosis or ischemia. She did have dilated small bowel loops without a point of transition more consistent with an ileus. She was transfused 2U PRBC and 1U FFP. She is doing well and appears much more alert and comfortable this morning. Vitals stable. Her abdomen remains very soft this morning with mild incisional tenderness. Her incision is clean. NGT was removed this morning and she was advanced to clear liquids. Cont flagyl and levaquin, await C diff serology. Peritoneal fluid cultures negative to date. Kidney function continues to improve. Encouraged OOB/ambulation today and IS use. C/o constipation prior to admission- will start on colace, miralax for bowel regimen. <Cely Lima PA-C - Last Filed: 03/16/21 11:45> ?70-year-old female patient who presented with complaints of abdominal pain, nausea, vomiting found to have diffuse abdominal tenderness and elevated lactate.?CT abdomen and pelvis revealed pneumatosis of the right colon without portal venous air. Patient admitted for observation and was treated with supportive measures of IVF for rehydration. She however continued to have diffuse abdominal pain without significant improvement and a lactic acidosis. She therefore underwent exploratory laparotomy 03/14/21. Patient was found to have normal appearing small and large bowel without evidence of necrosis or ischemia. She did have dilated small bowel loops without a point of transition more consistent with an ileus. She was transfused 2U PRBC and 1U FFP. She is doing well and appears much more alert and comfortable this morning. Vitals stable. Her abdomen remains very soft this morning with mild incisional tenderness. Her incision is clean. NGT was removed this morning and she was advanced to clear liquids. Cont flagyl and levaquin, await C diff serology. Peritoneal fluid cultures negative to date. Kidney function continues to improve. Encouraged OOB/ambulation today and IS use. C/o constipation prior to admission- will start on colace, miralax for bowel regimen. Patient independently interviewed and examined and I concur with the above findings, assessment, and plan. Will start clear liquids today and advance as tolerated. Await the return of bowel function. <Neto Grewal MD - Last Filed: 03/16/21 17:04> Fall Risk Details Current Medications: Current Medications Acetaminophen (Acetaminophen 325 Mg Tablet) 650 mg PO Q6H PRN PRN Reason: Pain, Mild (Pain Scale 1-3) Dextrose (Dextrose 50 % 25 Gm/50 Ml Vial) 25 gm IVPUSH Q15M PRN; Protocol PRN Reason: per Hypoglycemia Standing Ord. Docusate Sodium (Docusate Sodium 100 Mg Capsule) 100 mg PO BID [facility] Famotidine (Famotidine/Pf 20 Mg/2 Ml Vial) 20 mg IVPUSH DAILY [facility] Last Admin: 03/16/21 08:54 Dose: 20 mg Documented by: Glucose (Glucose Gel 15 Gm Gel..Gram.) 15 gm PO Q15M PRN; Protocol PRN Reason: per Hypoglycemia Standing Ord. Hydromorphone HCl (Hydromorphone Hcl 0.5 Mg/0.5 Ml Syringe) 0.5 mg IVPUSH Q4H PRN; Protocol PRN Reason: Pain, Severe (Pain Scale 7-10) Last Admin: 03/16/21 02:05 Dose: 0.5 mg Documented by: Levofloxacin (Levaquin) 750 mg in 150 mls @ 100 mls/hr IV Q48H [facility] Last Infusion: 03/15/21 22:03 Dose: Infused Documented by: Lactated Ringer's (Lr) 1,000 mls @ 75 mls/hr IVCONT .[id number] [facility] Last Admin: 03/16/21 08:58 Dose: 75 mls/hr Documented by: Metronidazole (Flagyl) 500 mg in 100 mls @ 100 mls/hr IV Q6H [facility] Last Admin: 03/16/21 08:53 Dose: 100 mls/hr Documented by: Vancomycin HCl 750 mg/ Sodium (Chloride) 265 mls @ 265 mls/hr IV Q24H [facility] Last Infusion: 03/15/21 20:49 Dose: Infused Documented by: Insulin Human Lispro (Insulin Lispro 100 Unit/Ml 3 Ml Vial) 0 unit SUBCUT Q4H [facility]; Protocol Last Admin: 03/16/21 08:54 Dose: 2 unit Documented by: Ondansetron HCl (Ondansetron Hcl 4 Mg/2 Ml Vial) 4 mg IVPUSH Q8H PRN PRN Reason: Nausea and Vomiting Last Admin: 03/16/21 02:05 Dose: 4 mg Documented by: Pharmacy Consult (Consult Rx Perform Med Rec) 1 each MISCELLANE ONCE PRN PRN Reason: Consult order Pharmacy Consult (Consult Rx Vancomycin Dosing) 1 each MISCELLANE DAILY PRN PRN Reason: Consult order Polyethylene Glycol (Polyethylene Glycol 3350 17 Gm Powd.Pack) 17 gm PO DAILY [facility] Sodium Chloride (0.9 % Sodium Chloride Flush 3 Ml Syringe) 3 ml IVFLUSH QSHIFT [facility] Last Admin: 03/16/21 08:54 Dose: 3 ml Documented by: <Cely Lima PA-C - Last Filed: 03/16/21 11:45> Time Spent With Patient Time: Total time spent is greater than 50% in coordination of care (as documented) at patient's floor/unit and/or counseling patient: <Cely Lima PA-C - Last Filed: 03/16/21 11:45> Time with patient: 15 - 24 minutes <Cely Lima PA-C - Last Filed: 03/16/21 11:45> Quality Stroke Does the patient have a stroke diagnosis?: No <Cely Lima PA-C - Last Filed: 03/16/21 11:45> VTE Prior VTE?: No <Cely Lima PA-C - Last Filed: 03/16/21 11:45> VTE Risk Level:: Surgical - high <Cely Lima PA-C - Last Filed: 03/16/21 11:45> VTE Device Contraindication: N/A - Device Ordered <Cely Lima PA-C - Last Filed: 03/16/21 11:45> VTE Drug Contraindication: N/A - Med Ordered <Cely Lima PA-C - Last Filed: 03/16/21 11:45>
[2021-03-16] MEDS: polyethylene glycoL 3350 17 GM POWD.PACK PO (11:53)
--- NOTE | 2021-03-16 12:20 | P.PNIM_ITS ---
Subjective Subjective Date of Service: 03/16/21 Interval History: the patient was seen and evaluated this morning Laying in bed, feels better today, less anxious Denies any fever, chills or shortness of breath denies passing gas or bowel movement, NG tube out No reported other overnight events. Systemic review: No fever, chills but reported weakness and being anxious No chest pain, palpitation No shortness of breath or coughing No abdominal pain, nausea or vomiting No urinary symptoms No any rash or wounds Physical Exam Vital Signs: Vital Signs: Last Vital Signs Temp 97.2 F 03/16/21 11:36 Pulse 62 03/16/21 11:36 Resp 17 03/16/21 11:36 BP 115/62 03/16/21 11:36 Pulse Ox 99 03/16/21 11:36 Body Mass Index 23.3 Const: Other: Constitutional : Alert, oriented to self, mildly anxious, NG tube removed Neck : Normal inspection, Supple Cardiovascular : RRR, S1 S2, no lower extremity edema Respiratory : fair bilateral air entry, no crackles, wheezes or rhonchi Gastrointestinal: soft, lax, Normal bowel sounds, no local tenderness Skin : Warm, Dry Neurological : Alert & oriented , No focal deficit Objective Data Active Medications Acetaminophen (Acetaminophen 325 Mg Tablet) 650 mg PO Q6H PRN PRN Reason: Pain, Mild (Pain Scale 1-3) Dextrose (Dextrose 50 % 25 Gm/50 Ml Vial) 25 gm IVPUSH Q15M PRN; Protocol PRN Reason: per Hypoglycemia Standing Ord. Docusate Sodium (Docusate Sodium 100 Mg Capsule) 100 mg PO BID [facility] Famotidine (Famotidine/Pf 20 Mg/2 Ml Vial) 20 mg IVPUSH DAILY [facility] Last Admin: 03/16/21 08:54 Dose: 20 mg Documented by: LIONEL Glucose (Glucose Gel 15 Gm Gel..Gram.) 15 gm PO Q15M PRN; Protocol PRN Reason: per Hypoglycemia Standing Ord. Hydromorphone HCl (Hydromorphone Hcl 0.5 Mg/0.5 Ml Syringe) 0.5 mg IVPUSH Q4H PRN; Protocol PRN Reason: Pain, Severe (Pain Scale 7-10) Last Admin: 03/16/21 02:05 Dose: 0.5 mg Documented by: AIDA Levofloxacin (Levaquin) 750 mg in 150 mls @ 100 mls/hr IV Q48H [facility] Last Infusion: 03/15/21 22:03 Dose: 0 mls/hr Documented by: AIDA Lactated Ringer's (Lr) 1,000 mls @ 75 mls/hr IVCONT .[id number] [facility] Last Admin: 03/16/21 08:58 Dose: 75 mls/hr Documented by: LIONEL Metronidazole (Flagyl) 500 mg in 100 mls @ 100 mls/hr IV Q6H [facility] Last Admin: 03/16/21 08:53 Dose: 100 mls/hr Documented by: LIONEL Vancomycin HCl 750 mg/ Sodium (Chloride) 265 mls @ 265 mls/hr IV Q24H [facility] Last Infusion: 03/15/21 20:49 Dose: 0 mls/hr Documented by: AIDA Insulin Human Lispro (Insulin Lispro 100 Unit/Ml 3 Ml Vial) 0 unit SUBCUT Q4H [facility]; Protocol Last Admin: 03/16/21 08:54 Dose: 2 unit Documented by: LIONEL Ondansetron HCl (Ondansetron Hcl 4 Mg/2 Ml Vial) 4 mg IVPUSH Q8H PRN PRN Reason: Nausea and Vomiting Last Admin: 03/16/21 11:53 Dose: 4 mg Documented by: LIONEL Pharmacy Consult (Consult Rx Perform Med Rec) 1 each MISCELLANE ONCE PRN PRN Reason: Consult order Pharmacy Consult (Consult Rx Vancomycin Dosing) 1 each MISCELLANE DAILY PRN PRN Reason: Consult order Polyethylene Glycol (Polyethylene Glycol 3350 17 Gm Powd.Pack) 17 gm PO DAILY [facility] Last Admin: 03/16/21 11:53 Dose: 17 gm Documented by: LIONEL Sodium Chloride (0.9 % Sodium Chloride Flush 3 Ml Syringe) 3 ml IVFLUSH QSHIFT [facility] Last Admin: 03/16/21 08:54 Dose: 3 ml Documented by: LIONEL Labs CBC & Chem 7: 03/16/21 06:23 03/16/21 06:23 Labs: Laboratory Results - last 24 hr 03/15/21 03/15/21 03/15/21 12:20 16:45 19:57 MCV MCH MCHC RDW Plt Count MPV Immature Gran % (Auto) Neut % (Auto) Lymph % (Auto) [place] % (Auto) Eos % (Auto) Baso % (Auto) Lymph # (Auto) [place] # (Auto) Eos # (Auto) Baso # (Auto) Abs Immat Gran (auto) Absolute Neuts (auto) Absolute Nucleated RBC Nucleated RBC % (auto) Anion Gap Estim Creat Clear Calc Estimated GFR POC Glucose 265 H 148 H 142 H Fasting Glucose Calcium 03/15/21 03/15/21 03/16/21 22:52 23:40 02:45 MCV MCH MCHC RDW Plt Count MPV Immature Gran % (Auto) Neut % (Auto) Lymph % (Auto) [place] % (Auto) Eos % (Auto) Baso % (Auto) Lymph # (Auto) [place] # (Auto) Eos # (Auto) Baso # (Auto) Abs Immat Gran (auto) Absolute Neuts (auto) Absolute Nucleated RBC Nucleated RBC % (auto) Anion Gap Estim Creat Clear Calc Estimated GFR POC Glucose 199 H 210 H 198 H Fasting Glucose Calcium 03/16/21 03/16/21 03/16/21 06:23 06:23 07:16 MCV 91.8 MCH 29.5 MCHC 32.1 RDW 15.1 Plt Count 128 L MPV 12.5 H Immature Gran % (Auto) 0.7 H Neut % (Auto) 79.0 H Lymph % (Auto) 11.1 L [place] % (Auto) 8.4 Eos % (Auto) 0.4 Baso % (Auto) 0.4 Lymph # (Auto) 1.1 L [place] # (Auto) 0.8 Eos # (Auto) 0.0 Baso # (Auto) 0.0 Abs Immat Gran (auto) 0.07 H Absolute Neuts (auto) 7.8 Absolute Nucleated RBC 0.000 Nucleated RBC % (auto) 0.0 Anion Gap 15 Estim Creat Clear Calc 27.8 Estimated GFR 28 POC Glucose 163 H Fasting Glucose 190 H Calcium 7.8 L 03/16/21 11:17 MCV MCH MCHC RDW Plt Count MPV Immature Gran % (Auto) Neut % (Auto) Lymph % (Auto) [place] % (Auto) Eos % (Auto) Baso % (Auto) Lymph # (Auto) [place] # (Auto) Eos # (Auto) Baso # (Auto) Abs Immat Gran (auto) Absolute Neuts (auto) Absolute Nucleated RBC Nucleated RBC % (auto) Anion Gap Estim Creat Clear Calc Estimated GFR POC Glucose 201 H Fasting Glucose Calcium Microbiology Microbiology Results: Microbiology 03/14/21 11:46 Gram Stain - Final Peritoneal Fluid Routine Culture - Final No growth after 2 days Anaerobic Culture - Preliminary Culture in progress. 03/13/21 13:06 Blood Culture - Preliminary Blood - Venous Prelim: GPC Gram Stain only 03/13/21 14:11 Blood Culture - Preliminary Blood - Venous No growth after 48 hours. Assessment and Plan (1) Ileus: Status: Acute (2) CKD (chronic kidney disease), stage III: Status: Acute Assessment and Plan: 70-year-old female presented with abdominal pain, suspected to have bowel obstruction suspected intestinal obstruction, ileus surgery team following NG tube removed continue IVF Start clear liquids hyperkalemia resolved Monitor BMP Diabetes with hyperglcyemia Patient uses insulin pump now held continue insulin sliding scale monitor point of cares closely Coronary disease Status post CABG Hold apixaban (patient unaware of any history of AFib, denies history of VTE) MARQUITA on CKD 3 likely due to hypotension/hypovolemia Gentle IVF, improving follow BMP and urine output Thank you for the consult, will continue to monitor with y Quality Stroke Does the patient have a stroke diagnosis?: No VTE Prior VTE?: No VTE Risk Level:: Surgical - high VTE Device Contraindication: N/A - Device Ordered VTE Drug Contraindication: N/A - Med Ordered
[2021-03-16] MEDS: Metoclopramide HCl 10 MG/2 ML VIAL 5 MG IVPUSH (16:21)
[2021-03-16 16:47] LABS: Glucose, Whole Blood 205 mg/dL (60-115)
[2021-03-16] MEDS: vancomycin HCL 750 MG in 0.9 % Sodium Chloride 250 ML 265 MG IV (17:58)
[2021-03-16 19:37] LABS: Glucose, Whole Blood 210 mg/dL (60-115)
[2021-03-16] MEDS: Docusate Sodium 100 MG CAPSULE PO (19:41)
[2021-03-16] MEDS: traZODone HCL 100 MG TABLET 200 MG PO (19:41)
[2021-03-17 00:03] LABS: Glucose, Whole Blood 151 mg/dL (60-115)
[2021-03-17] MEDS: metroNIDAZOLE/NS 500 MG/100 ML PIGGYBACK 100 MG IV ×4 (00:59→20:29)
[2021-03-17] MEDS: Lactated Ringers 1,000 ML 75 ML IVCONT ×2 (04:21→12:39)
[2021-03-17] MEDS: Insulin Lispro 100 UNIT/ML 3 ML VIAL SUBCUT ×4 (04:24→17:02)
[2021-03-17 04:26] LABS: Glucose, Whole Blood 199 mg/dL (60-115)
[2021-03-17 06:42] LABS: Glucose, Whole Blood 251 mg/dL (60-115)
[2021-03-17 06:51] LABS: Anion Gap 11 (12-20); Blood Urea Nitrogen 33 mg/dL (9-16); Calcium 7.2 mg/dL (8.4-10.2); Carbon Dioxide 19 mmol/L (22-29); Chloride 109 mmol/L (96-108); Creatinine Clr Calc Pharmacy 33.6; Estimated Glomerular Filt Rate 35; Glucose Random 269 mg/dL (60-115); Potassium 3.9 mmol/L (3.3-5.1); Sodium 135 mmol/L (135-145)
[2021-03-17 07:25] LABS: Glucose, Whole Blood 265 mg/dL (60-115)
[2021-03-17 08:00] VITALS: BP 114/46; PULSE 59; RESP 20; TEMP 37.3; O2SAT 96
[2021-03-17] MEDS: 0.9 % Sodium Chloride Flush 3 ML SYRINGE IVFLUSH ×3 (09:05→20:29)
[2021-03-17] MEDS: polyethylene glycoL 3350 17 GM POWD.PACK PO (09:06)
[2021-03-17] MEDS: Docusate Sodium 100 MG CAPSULE PO ×2 (09:06→20:28)
[2021-03-17] MEDS: Famotidine/PF 20 MG/2 ML VIAL IVPUSH (09:06)
--- NOTE | 2021-03-17 09:13 | PM.PNGS ---
Subjective Subjective Date of Service: 03/17/21 <Cely Lima PA-C - Last Filed: 03/17/21 09:16> 03/17/21 <Neto Grewal MD - Last Filed: 03/17/21 10:36> Interval history: C/o back pain this morning. Now passing flatus. Tolerating clear liquids and feels hungry. Incisional pain mild. <Cely Lima PA-C - Last Filed: 03/17/21 09:16> Physical Exam Vital Signs: Vital Signs: Last Vital Signs Temp 99.2 F 03/17/21 08:00 Pulse 59 03/17/21 08:00 Resp 20 03/17/21 08:00 BP 114/46 L 03/17/21 08:00 Pulse Ox 96 03/17/21 08:00 Body Mass Index 23.3 <Cely Lima PA-C - Last Filed: 03/17/21 09:16> Const: General: no acute distress and alert <Cely Lima PA-C - Last Filed: 03/17/21 09:16> Orientation/consciousness: patient oriented x3 <Cely Lima PA-C - Last Filed: 03/17/21 09:16> Resp: Effort & Inspection: normal respiratory effort <Cely Lima PA-C - Last Filed: 03/17/21 09:16> GI: Inspection: No distended and Yes incision (clean) <Cely Lima PA-C - Last Filed: 03/17/21 09:16> Palpation (GI): Soft to palpation, Tenderness to palpation present (GI) (mild, incisional), no guarding and not rigid <Cely Lima PA-C - Last Filed: 03/17/21 09:16> Skin: General skin exam: no rashes or lesions noted <BRANDI Werner Last Filed: 03/17/21 09:16> Neuro: General: patient oriented x3 <BRANDI Werner Last Filed: 03/17/21 09:16> Extrem: General: Yes no clubbing, cyanosis or edema <Cely Lima PA-C - Last Filed: 03/17/21 09:16> Objective Data Active Medications Acetaminophen (Acetaminophen 325 Mg Tablet) 650 mg PO Q6H PRN PRN Reason: Pain, Mild (Pain Scale 1-3) Benzocaine (Throat Lozenge, Medicated Lozenge) 1 lozenge MUCOUS MEM Q2H PRN PRN Reason: Sore Throat Dextrose (Dextrose 50 % 25 Gm/50 Ml Vial) 25 gm IVPUSH Q15M PRN; Protocol PRN Reason: per Hypoglycemia Standing Ord. Docusate Sodium (Docusate Sodium 100 Mg Capsule) 100 mg PO BID [facility] Last Admin: 03/16/21 19:41 Dose: 100 mg Documented by: SAMANTHA Famotidine (Famotidine/Pf 20 Mg/2 Ml Vial) 20 mg IVPUSH DAILY [facility] Last Admin: 03/16/21 08:54 Dose: 20 mg Documented by: CHICOIC Glucose (Glucose Gel 15 Gm Gel..Gram.) 15 gm PO Q15M PRN; Protocol PRN Reason: per Hypoglycemia Standing Ord. Hydromorphone HCl (Hydromorphone Hcl 0.5 Mg/0.5 Ml Syringe) 0.5 mg IVPUSH Q4H PRN; Protocol PRN Reason: Pain, Severe (Pain Scale 7-10) Last Admin: 03/16/21 21:04 Dose: 0.5 mg Documented by: SAMANTHA Levofloxacin (Levaquin) 750 mg in 150 mls @ 100 mls/hr IV Q48H [facility] Last Infusion: 03/15/21 22:03 Dose: 0 mls/hr Documented by: AIDA Lactated Ringer's (Lr) 1,000 mls @ 75 mls/hr IVCONT .[id number] [facility] Last Admin: 03/17/21 04:21 Dose: 75 mls/hr Documented by: SAMANTHA Metronidazole (Flagyl) 500 mg in 100 mls @ 100 mls/hr IV Q6H [facility] Last Infusion: 03/17/21 01:59 Dose: 0 mls/hr Documented by: SAMANTHA Vancomycin HCl 750 mg/ Sodium (Chloride) 265 mls @ 265 mls/hr IV Q24H [facility] Last Infusion: 03/16/21 19:01 Dose: 0 mls/hr Documented by: LIONEL Insulin Human Lispro (Insulin Lispro 100 Unit/Ml 3 Ml Vial) 0 unit SUBCUT Q4H [facility]; Protocol Last Admin: 03/17/21 06:50 Dose: 6 unit Documented by: SAMANTHA Ondansetron HCl (Ondansetron Hcl 4 Mg/2 Ml Vial) 4 mg IVPUSH Q8H PRN PRN Reason: Nausea and Vomiting Last Admin: 03/16/21 20:52 Dose: 4 mg Documented by: SAMANTHA Pharmacy Consult (Consult Rx Perform Med Rec) 1 each MISCELLANE ONCE PRN PRN Reason: Consult order Pharmacy Consult (Consult Rx Vancomycin Dosing) 1 each MISCELLANE DAILY PRN PRN Reason: Consult order Polyethylene Glycol (Polyethylene Glycol 3350 17 Gm Powd.Pack) 17 gm PO DAILY [facility] Last Admin: 03/16/21 11:53 Dose: 17 gm Documented by: LIONEL Sodium Chloride (0.9 % Sodium Chloride Flush 3 Ml Syringe) 3 ml IVFLUSH QSHIFT [facility] Last Admin: 03/16/21 19:43 Dose: 3 ml Documented by: SAMANTHA Trazodone HCl (Trazodone Hcl 100 Mg Tablet) 200 mg PO BEDTIME PRN PRN Reason: Insomnia Last Admin: 03/16/21 19:41 Dose: 200 mg Documented by: SAMANTHA <Cely Lima PA-C - Last Filed: 03/17/21 09:16> Labs CBC & Chem 7: : 03/16/21 06:23 03/17/21 06:22 <Cely Lima PA-C - Last Filed: 03/17/21 09:16> Labs: Laboratory Results - last 24 hr 03/16/21 03/16/21 03/16/21 11:17 16:30 19:33 Anion Gap Estim Creat Clear Calc Estimated GFR POC Glucose 201 H 205 H 210 H Random Glucose Calcium 03/16/21 03/17/21 03/17/21 23:53 04:21 06:22 Anion Gap 11 L Estim Creat Clear Calc 33.6 Estimated GFR 35 POC Glucose 151 H 199 H Random Glucose 269 H Calcium 7.2 L D 03/17/21 03/17/21 06:38 07:17 Anion Gap Estim Creat Clear Calc Estimated GFR POC Glucose 251 H 265 H Random Glucose Calcium <Cely Lima PA-C - Last Filed: 03/17/21 09:16> Microbiology Microbiology Results: Microbiology 03/13/21 13:06 Blood Culture - Final Blood - Venous Coag negative Staphylococcus 03/14/21 11:46 Gram Stain - Final Peritoneal Fluid Routine Culture - Final No growth after 2 days Anaerobic Culture - Preliminary Culture in progress. <Cely Lima PA-C - Last Filed: 03/17/21 09:16> Procedures Date of Service Date of Service: 03/17/21 <Cely Lima PA-C - Last Filed: 03/17/21 09:16> Progress Note: A&P Assessment and plan (1) Ileus: Status: Acute <Cely Lima PA-C - Last Filed: 03/17/21 09:16> (2) Pneumatosis intestinalis: Status: Acute <BRANDI Werner Last Filed: 03/17/21 09:16> (3) CKD (chronic kidney disease), stage III: Status: Acute <Cely Lima PA-C - Last Filed: 03/17/21 09:16> Assessment and Plan: ?70-year-old female patient who presented with complaints of abdominal pain, nausea, vomiting found to have diffuse abdominal tenderness and elevated lactate.?CT abdomen and pelvis revealed pneumatosis of the right colon without portal venous air. Patient admitted for observation and was treated with supportive measures of IVF for rehydration. She however continued to have diffuse abdominal pain without significant improvement and a lactic acidosis. She therefore underwent exploratory laparotomy 03/14/21. Patient was found to have normal appearing small and large bowel without evidence of necrosis or ischemia. She did have dilated small bowel loops without a point of transition more consistent with an ileus. She was transfused 2U PRBC and 1U FFP. She continues to do well. Will advance to solid diet. Cont flagyl/levaquin and vanco, await C diff serology. Peritoneal fluid cultures negative to date.?Kidney function continues to improve. Encouraged OOB/ambulation today and IS use. C/o constipation prior to admission- continue colace, miralax for bowel regimen.?Can resume eliquis. Will need outpatient colonoscopy- is due. <Cely Lima PA-C - Last Filed: 03/17/21 09:16> ?70-year-old female patient who presented with complaints of abdominal pain, nausea, vomiting found to have diffuse abdominal tenderness and elevated lactate.?CT abdomen and pelvis revealed pneumatosis of the right colon without portal venous air. Patient admitted for observation and was treated with supportive measures of IVF for rehydration. She however continued to have diffuse abdominal pain without significant improvement and a lactic acidosis. She therefore underwent exploratory laparotomy 03/14/21. Patient was found to have normal appearing small and large bowel without evidence of necrosis or ischemia. She did have dilated small bowel loops without a point of transition more consistent with an ileus. She was transfused 2U PRBC and 1U FFP. She continues to do well. Will advance to solid diet. Cont flagyl/levaquin and vanco, await C diff serology. Peritoneal fluid cultures negative to date.?Kidney function continues to improve. Encouraged OOB/ambulation today and IS use. C/o constipation prior to admission- continue colace, miralax for bowel regimen.?Can resume eliquis. Will need outpatient colonoscopy- is due. Agree with the above assessment and plan. She is making steady progress, advance to regular diet. <Neto Grewal MD - Last Filed: 03/17/21 10:36> Fall Risk Details Current Medications: Current Medications Acetaminophen (Acetaminophen 325 Mg Tablet) 650 mg PO Q6H PRN PRN Reason: Pain, Mild (Pain Scale 1-3) Benzocaine (Throat Lozenge, Medicated Lozenge) 1 lozenge MUCOUS MEM Q2H PRN PRN Reason: Sore Throat Dextrose (Dextrose 50 % 25 Gm/50 Ml Vial) 25 gm IVPUSH Q15M PRN; Protocol PRN Reason: per Hypoglycemia Standing Ord. Docusate Sodium (Docusate Sodium 100 Mg Capsule) 100 mg PO BID [facility] Last Admin: 03/16/21 19:41 Dose: 100 mg Documented by: Famotidine (Famotidine/Pf 20 Mg/2 Ml Vial) 20 mg IVPUSH DAILY [facility] Last Admin: 03/16/21 08:54 Dose: 20 mg Documented by: Glucose (Glucose Gel 15 Gm Gel..Gram.) 15 gm PO Q15M PRN; Protocol PRN Reason: per Hypoglycemia Standing Ord. Hydromorphone HCl (Hydromorphone Hcl 0.5 Mg/0.5 Ml Syringe) 0.5 mg IVPUSH Q4H PRN; Protocol PRN Reason: Pain, Severe (Pain Scale 7-10) Last Admin: 03/16/21 21:04 Dose: 0.5 mg Documented by: Levofloxacin (Levaquin) 750 mg in 150 mls @ 100 mls/hr IV Q48H [facility] Last Infusion: 03/15/21 22:03 Dose: Infused Documented by: Lactated Ringer's (Lr) 1,000 mls @ 75 mls/hr IVCONT .[id number] [facility] Last Admin: 03/17/21 04:21 Dose: 75 mls/hr Documented by: Metronidazole (Flagyl) 500 mg in 100 mls @ 100 mls/hr IV Q6H [facility] Last Infusion: 03/17/21 01:59 Dose: Infused Documented by: Vancomycin HCl 750 mg/ Sodium (Chloride) 265 mls @ 265 mls/hr IV Q24H [facility] Last Infusion: 03/16/21 19:01 Dose: Infused Documented by: Insulin Human Lispro (Insulin Lispro 100 Unit/Ml 3 Ml Vial) 0 unit SUBCUT Q4H [facility]; Protocol Last Admin: 03/17/21 06:50 Dose: 6 unit Documented by: Ondansetron HCl (Ondansetron Hcl 4 Mg/2 Ml Vial) 4 mg IVPUSH Q8H PRN PRN Reason: Nausea and Vomiting Last Admin: 03/16/21 20:52 Dose: 4 mg Documented by: Pharmacy Consult (Consult Rx Perform Med Rec) 1 each MISCELLANE ONCE PRN PRN Reason: Consult order Pharmacy Consult (Consult Rx Vancomycin Dosing) 1 each MISCELLANE DAILY PRN PRN Reason: Consult order Polyethylene Glycol (Polyethylene Glycol 3350 17 Gm Powd.Pack) 17 gm PO DAILY [facility] Last Admin: 03/16/21 11:53 Dose: 17 gm Documented by: Sodium Chloride (0.9 % Sodium Chloride Flush 3 Ml Syringe) 3 ml IVFLUSH QSHIFT [facility] Last Admin: 03/16/21 19:43 Dose: 3 ml Documented by: Trazodone HCl (Trazodone Hcl 100 Mg Tablet) 200 mg PO BEDTIME PRN PRN Reason: Insomnia Last Admin: 03/16/21 19:41 Dose: 200 mg Documented by: <Cely iLma PA-C - Last Filed: 03/17/21 09:16> Time Spent With Patient Time: Total time spent is greater than 50% in coordination of care (as documented) at patient's floor/unit and/or counseling patient: <Cely Lima PA-C - Last Filed: 03/17/21 09:16> Time with patient: 15 - 24 minutes <Cely Lima PA-C - Last Filed: 03/17/21 09:16> Quality Stroke Does the patient have a stroke diagnosis?: No <Cely Lima PA-C - Last Filed: 03/17/21 09:16> VTE Prior VTE?: No <Cely Lima PA-C - Last Filed: 03/17/21 09:16> VTE Risk Level:: Surgical - high <Cely Lima PA-C - Last Filed: 03/17/21 09:16> VTE Device Contraindication: N/A - Device Ordered <Cely Lima PA-C - Last Filed: 03/17/21 09:16> VTE Drug Contraindication: N/A - Med Ordered <Cely Lima PA-C - Last Filed: 03/17/21 09:16>
[2021-03-17] MEDS: ondansetron HCL 4 MG/2 ML VIAL IVPUSH ×2 (10:53→20:28)
--- NOTE | 2021-03-17 11:19 | MHC.CM.PN ---
Per ROUNDS discussion, Patient is not yet medically cleared for dc (IV Pepcid, IV Dilaudid, IV Levaquin, IV Flagyl,IV Vanco).Home no services is Patient's goal for dc and CM will follow for possible need to adjust the dc plan.
[2021-03-17 11:35] LABS: Glucose, Whole Blood 219 mg/dL (60-115)
--- NOTE | 2021-03-17 11:59 | HO.PM.IMPN ---
Subjective Subjective Date of Service: 03/17/21 Interval History: the patient was seen and evaluated this morning Laying in bed, feels better today, tolerating liquids Denies any fever, chills or shortness of breath passing gas today No reported other overnight events. Systemic review: No fever, chills but reported weakness and being anxious No chest pain, palpitation No shortness of breath or coughing No abdominal pain, nausea or vomiting No urinary symptoms No any rash or wounds Physical Exam Vital Signs: Vital Signs: Last Vital Signs Temp 99.2 F 03/17/21 08:00 Pulse 59 03/17/21 08:00 Resp 20 03/17/21 08:00 BP 114/46 L 03/17/21 08:00 Pulse Ox 96 03/17/21 08:00 Body Mass Index 23.3 Const: Other: Constitutional : Alert, oriented to self, more calm and comfortable Neck : Normal inspection, Supple Cardiovascular : RRR, S1 S2, no lower extremity edema Respiratory : fair bilateral air entry, no crackles, wheezes or rhonchi Gastrointestinal: soft, lax, Normal bowel sounds, no local tenderness Skin : Warm, Dry Neurological : Alert & oriented , No focal deficit Objective Data Active Medications Acetaminophen (Acetaminophen 325 Mg Tablet) 650 mg PO Q6H PRN PRN Reason: Pain, Mild (Pain Scale 1-3) Benzocaine (Throat Lozenge, Medicated Lozenge) 1 lozenge MUCOUS MEM Q2H PRN PRN Reason: Sore Throat Dextrose (Dextrose 50 % 25 Gm/50 Ml Vial) 25 gm IVPUSH Q15M PRN; Protocol PRN Reason: per Hypoglycemia Standing Ord. Docusate Sodium (Docusate Sodium 100 Mg Capsule) 100 mg PO BID [facility] Last Admin: 03/17/21 09:06 Dose: 100 mg Documented by: AVNI Famotidine (Famotidine/Pf 20 Mg/2 Ml Vial) 20 mg IVPUSH DAILY [facility] Last Admin: 03/17/21 09:06 Dose: 20 mg Documented by: AVNI Glucose (Glucose Gel 15 Gm Gel..Gram.) 15 gm PO Q15M PRN; Protocol PRN Reason: per Hypoglycemia Standing Ord. Hydromorphone HCl (Hydromorphone Hcl 0.5 Mg/0.5 Ml Syringe) 0.5 mg IVPUSH Q4H PRN; Protocol PRN Reason: Pain, Severe (Pain Scale 7-10) Last Admin: 03/16/21 21:04 Dose: 0.5 mg Documented by: SAMANTHA Levofloxacin (Levaquin) 750 mg in 150 mls @ 100 mls/hr IV Q48H [facility] Last Infusion: 03/15/21 22:03 Dose: 0 mls/hr Documented by: AIDA Lactated Ringer's (Lr) 1,000 mls @ 75 mls/hr IVCONT .[id number] [facility] Last Admin: 03/17/21 04:21 Dose: 75 mls/hr Documented by: SAMANTHA Metronidazole (Flagyl) 500 mg in 100 mls @ 100 mls/hr IV Q6H [facility] Last Infusion: 03/17/21 10:11 Dose: 0 mls/hr Documented by: AVNI Vancomycin HCl 750 mg/ Sodium (Chloride) 265 mls @ 265 mls/hr IV Q24H [facility] Last Infusion: 03/16/21 19:01 Dose: 0 mls/hr Documented by: LIONEL Insulin Human Lispro (Insulin Lispro 100 Unit/Ml 3 Ml Vial) 0 unit SUBCUT Q4H [facility]; Protocol Last Admin: 03/17/21 06:50 Dose: 6 unit Documented by: SAMANTHA Ondansetron HCl (Ondansetron Hcl 4 Mg/2 Ml Vial) 4 mg IVPUSH Q8H PRN PRN Reason: Nausea and Vomiting Last Admin: 03/17/21 10:53 Dose: 4 mg Documented by: AVNI Pharmacy Consult (Consult Rx Perform Med Rec) 1 each MISCELLANE ONCE PRN PRN Reason: Consult order Pharmacy Consult (Consult Rx Vancomycin Dosing) 1 each MISCELLANE DAILY PRN PRN Reason: Consult order Polyethylene Glycol (Polyethylene Glycol 3350 17 Gm Powd.Pack) 17 gm PO DAILY [facility] Last Admin: 03/17/21 09:06 Dose: 17 gm Documented by: AVNI Sodium Chloride (0.9 % Sodium Chloride Flush 3 Ml Syringe) 3 ml IVFLUSH QSHIFT [facility] Last Admin: 03/17/21 09:05 Dose: 3 ml Documented by: AVNI Trazodone HCl (Trazodone Hcl 100 Mg Tablet) 200 mg PO BEDTIME PRN PRN Reason: Insomnia Last Admin: 03/16/21 19:41 Dose: 200 mg Documented by: SAMANTHA Labs CBC & Chem 7: 03/16/21 06:23 03/17/21 06:22 Labs: Laboratory Results - last 24 hr 03/16/21 03/16/21 03/16/21 16:30 19:33 23:53 Anion Gap Estim Creat Clear Calc Estimated GFR POC Glucose 205 H 210 H 151 H Random Glucose Calcium 03/17/21 03/17/21 03/17/21 04:21 06:22 06:38 Anion Gap 11 L Estim Creat Clear Calc 33.6 Estimated GFR 35 POC Glucose 199 H 251 H Random Glucose 269 H Calcium 7.2 L D 03/17/21 03/17/21 07:17 11:24 Anion Gap Estim Creat Clear Calc Estimated GFR POC Glucose 265 H 219 H Random Glucose Calcium Microbiology Microbiology Results: Microbiology 03/14/21 11:46 Gram Stain - Final Peritoneal Fluid Routine Culture - Final No growth after 2 days Anaerobic Culture - Preliminary No growth to date. 03/13/21 13:06 Blood Culture - Final Blood - Venous Coag negative Staphylococcus Assessment and Plan (1) Ileus: Status: Acute (2) Acute kidney injury superimposed on CKD: Status: Acute Assessment and Plan: 70-year-old female presented with abdominal pain, suspected to have bowel obstruction Ileus surgery team following NG tube removed continue IVF Tolerating clear liquids MARQUITA on CKD 3 likely due to hypotension/hypovolemia Gentle IVF, improving follow BMP and urine output hyperkalemia resolved Monitor BMP Diabetes with hyperglcyemia Patient uses insulin pump now held continue insulin sliding scale monitor point of cares closely Coronary disease Status post CABG Hold apixaban (patient unaware of any history of AFib, denies history of VTE) Thank you for the consult, will continue to monitor with y Quality Stroke Does the patient have a stroke diagnosis?: No VTE Prior VTE?: No VTE Risk Level:: Surgical - high VTE Device Contraindication: N/A - Device Ordered VTE Drug Contraindication: N/A - Med Ordered
--- NOTE | 2021-03-17 13:31 | P.CDIC_ITS ---
CDI Concurrent Query Documentation Clarification: PHYSICIAN'S DOCUMENTATION REQUEST Date of Query: 03/17/21 1333 Patient Name: Suly Ragland Admit Date: 03/13/21 Dear Doctor, A review of the medical record indicates additional documentation may be needed. Please review below and update the documentation accordingly. Risk Factors/Clinical Indicators/Treatments Per progress note 03/16/21: She was transfused 2U PRBC and 1U FFP. Based on the above, could you clarify in the Progress Notes the appropriate d iagnosis, if significant, that supports the above abnormalities and additional evaluation, monitoring, and/or treatment rendered: * Based on the above, please provide a diagnosis associated with the patient's treatment * Other (please specify) * Unable to determine Use of terms such as suspected, likely, concern for, or probable (associated with a specific diagnosis that is being evaluated, monitored, or treated as if it exists) are acceptable and can be coded in the inpatient setting, when documented at the time of discharge. Thank you, Winnie Chase RN Extension: [phone] Please use your independent medical judgment in providing your response. THIS QUERY IS PART OF THE PERMANENT MEDICAL RECORD Provider Response: Other ( anemia of chronic disease) Other Diagnosis: Anemia of chronic disease
[2021-03-17 16:31] LABS: Glucose, Whole Blood 340 mg/dL (60-115)
[2021-03-17] MEDS: levoFLOXacin/D5W 750 MG/150 ML PIGGYBACK 100 MG IV (17:34)
[2021-03-17 19:04] LABS: Vancomycin Trough 9.4 mcg/mL (10.0-20.0)
[2021-03-17 19:21] VITALS: BP 149/60; PULSE 87; RESP 18; TEMP 37.2; O2SAT 97
[2021-03-17] MEDS: vancomycin HCL 750 MG in 0.9 % Sodium Chloride 250 ML 265 MG IV (20:28)
[2021-03-17 20:37] LABS: Glucose, Whole Blood 279 mg/dL (60-115)
[2021-03-17 21:48] LABS: Hematocrit 31.1 % (37.0-47.0); Hemoglobin 10.1 g/dl (12.0-16.0)
[2021-03-18] VITALS: BP 138/63; PULSE 75; RESP 18; TEMP 36.8; O2SAT 93
[2021-03-18] MEDS: metroNIDAZOLE/NS 500 MG/100 ML PIGGYBACK 100 MG IV ×4 (02:24→20:12)
[2021-03-18] MEDS: HYDROmorphone HCl 0.5 MG/0.5 ML SYRINGE IVPUSH ×3 (03:55→20:09)
[2021-03-18] MEDS: Insulin Lispro 100 UNIT/ML 3 ML VIAL SUBCUT ×4 (04:09→20:13)
[2021-03-18 04:10] LABS: Glucose, Whole Blood 293 mg/dL (60-115)
[2021-03-18] MEDS: Lactated Ringers 1,000 ML 75 ML IVCONT ×2 (05:53→18:37)
[2021-03-18 07:04] VITALS: BP 144/59; PULSE 100; RESP 20; TEMP 36.6; O2SAT 93
[2021-03-18 07:26] LABS: Glucose, Whole Blood 245 mg/dL (60-115)
--- NOTE | 2021-03-18 07:34 | PC.NURSE ---
pt overnight had bile emesis, unrelieved with iv zofran 4mg & phenergan 12.5mg iv. call placed to dr. fairchild & ngt insertion ordered. NG fr#14 placed to L nares - tolerated well - eloy Russell present. + placement via ausculation & immediate draining of dk green bile - total of 450ml this shift. pt medicated with dilaudid 0.5mg iv for abdominal discomfort with effect of sleep. no pcxr ordered. pt s/p dilaudid resting with eyes closed. resps easy/reg.
[2021-03-18 07:39] LABS: MANUAL DIFF FLAG NO
[2021-03-18 07:45] LABS: Basophils Percent Auto 0.3 % (0-2); Eosinophils Percent Auto 0.1 % (0-4); Hematocrit 32.8 % (37.0-47.0); Hemoglobin 10.6 g/dl (12.0-16.0); Imm Gran Abs Auto 0.13 X10*3/uL (0.00-0.03); Lymphocytes Absolute Auto 1.6 X10*3/uL (1.2-4.9); Mean Corpuscular HGB Conc 32.3 g/dl (31.0-35.0); Mean Corpuscular Hemoglobin 29.2 pg (27.0-33.0); Mean Corpuscular Volume 90.4 fL (80.0-98.0); Mean Platelet Volume 11.8 fL (9.4-12.3); Monocytes Absolute Auto 0.8 X10*3/uL (0.1-1.2); Monocytes Percent Auto 6.2 % (2-11); Neutrophils Percent Auto 79.4 % (45-73); Platelet Count 157 X10*3/uL (160-400); Red Blood Count 3.63 X10*6/uL (4.20-5.50); White Blood Count 12.6 X10*3/uL (4.8-10.8)
[2021-03-18] MEDS: Famotidine/PF 20 MG/2 ML VIAL IVPUSH (08:04)
[2021-03-18] MEDS: 0.9 % Sodium Chloride Flush 3 ML SYRINGE IVFLUSH ×2 (08:04→20:13)
[2021-03-18] MEDS: polyethylene glycoL 3350 17 GM POWD.PACK PO (08:04)
[2021-03-18 08:16] LABS: Anion Gap 13 (12-20); Blood Urea Nitrogen 37 mg/dL (9-16); Calcium 7.3 mg/dL (8.4-10.2); Carbon Dioxide 17 mmol/L (22-29); Chloride 108 mmol/L (96-108); Creatinine Clr Calc Pharmacy 28.3; Estimated Glomerular Filt Rate 28; Glucose Random 262 mg/dL (60-115); Potassium 3.7 mmol/L (3.3-5.1); Sodium 134 mmol/L (135-145)
--- NOTE | 2021-03-18 09:33 | P.PNGS_ITS ---
Subjective Subjective Date of Service: 03/18/21 Interval history: Patient reports the NGT was replaced at 4 am today due to nausea and vomiting. Since that time, she has passed her bowels twice. She denies any nausea or vomiting currently. She reports no abdominal pain currently Physical Exam Vital Signs: Vital Signs: Last Vital Signs Temp 97.9 F 03/18/21 07:04 Pulse 100 03/18/21 07:04 Resp 20 03/18/21 07:04 BP 144/59 H 03/18/21 07:04 Pulse Ox 93 03/18/21 07:04 Body Mass Index 23.3 HENMT: Other: NGT in left nare. Resp: Effort & Inspection: normal respiratory effort, no audible wheezes, no cough and no respiratory distress GI: Palpation (GI): Soft to palpation, nontender, no guarding, not rigid and No Rebound tenderness present Percussion: Yes normal to percussion Auscultation: normal bowel sounds Rectal Exam - Female: deferred Extrem: General: Yes normal to inspection and Yes no pedal edema Objective Data Active Medications Acetaminophen (Acetaminophen 325 Mg Tablet) 650 mg PO Q6H PRN PRN Reason: Pain, Mild (Pain Scale 1-3) Benzocaine (Throat Lozenge, Medicated Lozenge) 1 lozenge MUCOUS MEM Q2H PRN PRN Reason: Sore Throat Dextrose (Dextrose 50 % 25 Gm/50 Ml Vial) 25 gm IVPUSH Q15M PRN; Protocol PRN Reason: per Hypoglycemia Standing Ord. Docusate Sodium (Docusate Sodium 100 Mg Capsule) 100 mg PO BID PENDING SALE TO [facility] Last Admin: 03/18/21 07:56 Dose: Not Given Documented by: JESSA Non-Admin Reason: NPO Famotidine (Famotidine/Pf 20 Mg/2 Ml Vial) 20 mg IVPUSH DAILY [facility] TO [facility] Last Admin: 03/18/21 08:04 Dose: 20 mg Documented by: JESSA Glucose (Glucose Gel 15 Gm Gel..Gram.) 15 gm PO Q15M PRN; Protocol PRN Reason: per Hypoglycemia Standing Ord. Hydromorphone HCl (Hydromorphone Hcl 0.5 Mg/0.5 Ml Syringe) 0.5 mg IVPUSH Q4H PRN; Protocol PRN Reason: Pain, Severe (Pain Scale 7-10) Last Admin: 03/18/21 03:55 Dose: 0.5 mg Documented by: MACARIO Levofloxacin (Levaquin) 750 mg in 150 mls @ 100 mls/hr IV Q48H [facility] Last Infusion: 03/17/21 19:00 Dose: 0 mls/hr Documented by: MACARIO Lactated Ringer's (Lr) 1,000 mls @ 75 mls/hr IVCONT .[id number] [facility] TO [facility] Last Admin: 03/18/21 05:53 Dose: 75 mls/hr Documented by: MACARIO Metronidazole (Flagyl) 500 mg in 100 mls @ 100 mls/hr IV Q6H [facility] Last Admin: 03/18/21 08:04 Dose: 100 mls/hr Documented by: JESSA Vancomycin HCl 750 mg/ Sodium (Chloride) 265 mls @ 265 mls/hr IV Q24H [facility] Last Infusion: 03/17/21 21:30 Dose: 0 mls/hr Documented by: MACARIO Promethazine HCl 12.5 mg/ (Sodium Chloride) 50.5 mls @ 202 mls/hr IV Q6H PRN PRN Reason: nausea/vomiting Last Infusion: 03/18/21 02:36 Dose: 0 mls/hr Documented by: MACARIO Insulin Human Lispro (Insulin Lispro 100 Unit/Ml 3 Ml Vial) 0 unit SUBCUT Q4H PEND[facility] S[facility] TO [facility]; Protocol Last Admin: 03/18/21 07:37 Dose: Not Given Documented by: JESSA Non-Admin Reason: Physician Held Med Ondansetron HCl (Ondansetron Hcl 4 Mg/2 Ml Vial) 4 mg IVPUSH Q8H PRN PRN Reason: Nausea and Vomiting Last Admin: 03/17/21 20:28 Dose: 4 mg Documented by: MACARIO Pharmacy Consult (Consult Rx Perform Med Rec) 1 each MISCELLANE ONCE PRN PRN Reason: Consult order Pharmacy Consult (Consult Rx Vancomycin Dosing) 1 each MISCELLANE DAILY PRN PRN Reason: Consult order Polyethylene Glycol (Polyethylene Glycol 3350 17 Gm Powd.Pack) 17 gm PO DAILY [facility] Last Admin: 03/18/21 08:04 Dose: 17 gm Documented by: JESSA Sodium Chloride (0.9 % Sodium Chloride Flush 3 Ml Syringe) 3 ml IVFLUSH QSHIFT PENDING SALE TO [facility] Last Admin: 03/18/21 08:04 Dose: 3 ml Documented by: JESSA Trazodone HCl (Trazodone Hcl 100 Mg Tablet) 200 mg PO BEDTIME PRN PRN Reason: Insomnia Last Admin: 03/16/21 19:41 Dose: 200 mg Documented by: SAMANTHA Labs CBC & Chem 7: 03/18/21 07:12 03/18/21 07:12 Labs: Laboratory Results - last 24 hr 03/17/21 03/17/21 03/17/21 11:24 16:25 18:19 MCV MCH MCHC RDW Plt Count MPV Immature Gran % (Auto) Neut % (Auto) Lymph % (Auto) [place] % (Auto) Eos % (Auto) Baso % (Auto) Lymph # (Auto) [place] # (Auto) Eos # (Auto) Baso # (Auto) Abs Immat Gran (auto) Absolute Neuts (auto) Absolute Nucleated RBC Nucleated RBC % (auto) Anion Gap Estim Creat Clear Calc Estimated GFR POC Glucose 219 H 340 H Random Glucose Calcium Vancomycin Trough 9.4 L 03/17/21 03/18/21 03/18/21 20:25 04:06 07:03 MCV MCH MCHC RDW Plt Count MPV Immature Gran % (Auto) Neut % (Auto) Lymph % (Auto) [place] % (Auto) Eos % (Auto) Baso % (Auto) Lymph # (Auto) [place] # (Auto) Eos # (Auto) Baso # (Auto) Abs Immat Gran (auto) Absolute Neuts (auto) Absolute Nucleated RBC Nucleated RBC % (auto) Anion Gap Estim Creat Clear Calc Estimated GFR POC Glucose 279 H 293 H 245 H Random Glucose Calcium Vancomycin Trough 03/18/21 03/18/21 07:12 07:12 MCV 90.4 MCH 29.2 MCHC 32.3 RDW 15.0 Plt Count 157 L MPV 11.8 Immature Gran % (Auto) 1.0 H Neut % (Auto) 79.4 H Lymph % (Auto) 13.0 L [place] % (Auto) 6.2 Eos % (Auto) 0.1 Baso % (Auto) 0.3 Lymph # (Auto) 1.6 [place] # (Auto) 0.8 Eos # (Auto) 0.0 Baso # (Auto) 0.0 Abs Immat Gran (auto) 0.13 H Absolute Neuts (auto) 10.0 H Absolute Nucleated RBC 0.000 Nucleated RBC % (auto) 0.0 Anion Gap 13 Estim Creat Clear Calc 28.3 Estimated GFR 28 POC Glucose Random Glucose 262 H Calcium 7.3 L Vancomycin Trough Microbiology Microbiology Results: Microbiology 03/14/21 11:46 Gram Stain - Final Peritoneal Fluid Routine Culture - Final No growth after 2 days Anaerobic Culture - Preliminary No growth to date. Procedures Date of Service Date of Service: 03/18/21 Progress Note: A&P Assessment and plan (1) Acute kidney injury superimposed on CKD: Status: Acute (2) Pneumatosis intestinalis: Status: Acute (3) Ileus: Status: Acute Assessment and Plan: Patient required replacement of the NGT last night, now feels improved with no abdominal pain. She passed two bowel movements since the NGT was placed. Will keep NGT for now to allow patient to rest. She may have ice chips. Will vicente tor output; possible clamping trial later today or tomorrow. Fall Risk Details Current Medications: Current Medications Acetaminophen (Acetaminophen 325 Mg Tablet) 650 mg PO Q6H PRN PRN Reason: Pain, Mild (Pain Scale 1-3) Benzocaine (Throat Lozenge, Medicated Lozenge) 1 lozenge MUCOUS MEM Q2H PRN PRN Reason: Sore Throat Dextrose (Dextrose 50 % 25 Gm/50 Ml Vial) 25 gm IVPUSH Q15M PRN; Protocol PRN Reason: per Hypoglycemia Standing Ord. Docusate Sodium (Docusate Sodium 100 Mg Capsule) 100 mg PO BID PENDING SALE TO [facility] Last Admin: 03/18/21 07:56 Dose: Not Given Documented by: Famotidine (Famotidine/Pf 20 Mg/2 Ml Vial) 20 mg IVPUSH DAILY [facility]END[facility] SALE TO [facility] Last Admin: 03/18/21 08:04 Dose: 20 mg Documented by: Glucose (Glucose Gel 15 Gm Gel..Gram.) 15 gm PO Q15M PRN; Protocol PRN Reason: per Hypoglycemia Standing Ord. Hydromorphone HCl (Hydromorphone Hcl 0.5 Mg/0.5 Ml Syringe) 0.5 mg IVPUSH Q4H PRN; Protocol PRN Reason: Pain, Severe (Pain Scale 7-10) Last Admin: 03/18/21 03:55 Dose: 0.5 mg Documented by: Levofloxacin (Levaquin) 750 mg in 150 mls @ 100 mls/hr IV Q48H PENDING SALE TO [facility] Last Infusion: 03/17/21 19:00 Dose: Infused Documented by: Lactated Ringer's (Lr) 1,000 mls @ 75 mls/hr IVCONT .[id number] PENDING SALE TO [facility] Last Admin: 03/18/21 05:53 Dose: 75 mls/hr Documented by: Metronidazole (Flagyl) 500 mg in 100 mls @ 100 mls/hr IV Q6H [facility]END[facility] SALE TO [facility] Last Admin: 03/18/21 08:04 Dose: 100 mls/hr Documented by: Vancomycin HCl 750 mg/ Sodium (Chloride) 265 mls @ 265 mls/hr IV Q24H PEND[facility] SALE TO [facility] Last Infusion: 03/17/21 21:30 Dose: Infused Documented by: Promethazine HCl 12.5 mg/ (Sodium Chloride) 50.5 mls @ 202 mls/hr IV Q6H PRN PRN Reason: nausea/vomiting Last Infusion: 03/18/21 02:36 Dose: Infused Documented by: Insulin Human Lispro (Insulin Lispro 100 Unit/Ml 3 Ml Vial) 0 unit SUBCUT Q4H PENDING SALE TO [facility]; Protocol Last Admin: 03/18/21 07:37 Dose: Not Given Documented by: Ondansetron HCl (Ondansetron Hcl 4 Mg/2 Ml Vial) 4 mg IVPUSH Q8H PRN PRN Reason: Nausea and Vomiting Last Admin: 03/17/21 20:28 Dose: 4 mg Documented by: Pharmacy Consult (Consult Rx Perform Med Rec) 1 each MISCELLANE ONCE PRN PRN Reason: Consult order Pharmacy Consult (Consult Rx Vancomycin Dosing) 1 each MISCELLANE DAILY PRN PRN Reason: Consult order Polyethylene Glycol (Polyethylene Glycol 3350 17 Gm Powd.Pack) 17 gm PO DAILY [facility]END[facility] TO [facility] Last Admin: 03/18/21 08:04 Dose: 17 gm Documented by: Sodium Chloride (0.9 % Sodium Chloride Flush 3 Ml Syringe) 3 ml IVFLUSH QSHIFT PENDING SALE TO [facility] Last Admin: 03/18/21 08:04 Dose: 3 ml Documented by: Trazodone HCl (Trazodone Hcl 100 Mg Tablet) 200 mg PO BEDTIME PRN PRN Reason: Insomnia Last Admin: 03/16/21 19:41 Dose: 200 mg Documented by: Time Spent With Patient Time: Total time spent is greater than 50% in coordination of care (as documented) at patient's floor/unit and/or counseling patient: Time with patient: 15 - 24 minutes Quality Stroke Does the patient have a stroke diagnosis?: No VTE Prior VTE?: No VTE Risk Level:: Surgical - high VTE Device Contraindication: N/A - Device Ordered VTE Drug Contraindication: N/A - Med Ordered
--- NOTE | 2021-03-18 10:58 | HO.PM.IMPN ---
Subjective Subjective Date of Service: 03/18/21 Interval History: the patient was seen and evaluated this morning Laying in bed, NG tube replaced overnight for recurrent nausea and vomiting At to bowel movement overnight Denies any fever, chills or shortness of breath No reported other overnight events. Systemic review: No fever, chills but reported weakness and being anxious No chest pain, palpitation No shortness of breath or coughing No abdominal pain, nausea or vomiting No urinary symptoms No any rash or wounds Physical Exam Vital Signs: Vital Signs: Last Vital Signs Temp 97.9 F 03/18/21 07:04 Pulse 100 03/18/21 07:04 Resp 20 03/18/21 07:04 BP 144/59 H 03/18/21 07:04 Pulse Ox 93 03/18/21 07:04 Body Mass Index 23.3 Const: Other: Constitutional : Alert, oriented to self, NG tube in place Neck : Normal inspection, Supple Cardiovascular : RRR, S1 S2, no lower extremity edema Respiratory : fair bilateral air entry, no crackles, wheezes or rhonchi Gastrointestinal: soft, lax, Normal bowel sounds, no local tenderness Skin : Warm, Dry Neurological : Alert & oriented , No focal deficit Objective Data Active Medications Acetaminophen (Acetaminophen 325 Mg Tablet) 650 mg PO Q6H PRN PRN Reason: Pain, Mild (Pain Scale 1-3) Benzocaine (Throat Lozenge, Medicated Lozenge) 1 lozenge MUCOUS MEM Q2H PRN PRN Reason: Sore Throat Dextrose (Dextrose 50 % 25 Gm/50 Ml Vial) 25 gm IVPUSH Q15M PRN; Protocol PRN Reason: per Hypoglycemia Standing Ord. Docusate Sodium (Docusate Sodium 100 Mg Capsule) 100 mg PO BID [facility] Last Admin: 03/18/21 07:56 Dose: Not Given Documented by: JESSA Non-Admin Reason: NPO Famotidine (Famotidine/Pf 20 Mg/2 Ml Vial) 20 mg IVPUSH DAILY [facility] Last Admin: 03/18/21 08:04 Dose: 20 mg Documented by: JESSA Glucose (Glucose Gel 15 Gm Gel..Gram.) 15 gm PO Q15M PRN; Protocol PRN Reason: per Hypoglycemia Standing Ord. Hydromorphone HCl (Hydromorphone Hcl 0.5 Mg/0.5 Ml Syringe) 0.5 mg IVPUSH Q4H PRN; Protocol PRN Reason: Pain, Severe (Pain Scale 7-10) Last Admin: 03/18/21 03:55 Dose: 0.5 mg Documented by: MACARIO Levofloxacin (Levaquin) 750 mg in 150 mls @ 100 mls/hr IV Q48H [facility] Last Infusion: 03/17/21 19:00 Dose: 0 mls/hr Documented by: MACARIO Lactated Ringer's (Lr) 1,000 mls @ 75 mls/hr IVCONT .[id number] [facility] Last Admin: 03/18/21 05:53 Dose: 75 mls/hr Documented by: MACARIO Metronidazole (Flagyl) 500 mg in 100 mls @ 100 mls/hr IV Q6H [facility] Last Infusion: 03/18/21 09:43 Dose: 0 mls/hr Documented by: JESSA Vancomycin HCl 750 mg/ Sodium (Chloride) 265 mls @ 265 mls/hr IV Q24H [facility] Last Infusion: 03/17/21 21:30 Dose: 0 mls/hr Documented by: MACARIO Promethazine HCl 12.5 mg/ (Sodium Chloride) 50.5 mls @ 202 mls/hr IV Q6H PRN PRN Reason: nausea/vomiting Last Infusion: 03/18/21 02:36 Dose: 0 mls/hr Documented by: MACARIO Insulin Human Lispro (Insulin Lispro 100 Unit/Ml 3 Ml Vial) 0 unit SUBCUT Q4H [facility]; Protocol Last Admin: 03/18/21 07:37 Dose: Not Given Documented by: JESSA Non-Admin Reason: Physician Held Med Ondansetron HCl (Ondansetron Hcl 4 Mg/2 Ml Vial) 4 mg IVPUSH Q8H PRN PRN Reason: Nausea and Vomiting Last Admin: 03/17/21 20:28 Dose: 4 mg Documented by: MACARIO Pharmacy Consult (Consult Rx Perform Med Rec) 1 each MISCELLANE ONCE PRN PRN Reason: Consult order Pharmacy Consult (Consult Rx Vancomycin Dosing) 1 each MISCELLANE DAILY PRN PRN Reason: Consult order Polyethylene Glycol (Polyethylene Glycol 3350 17 Gm Powd.Pack) 17 gm PO DAILY [facility] Last Admin: 03/18/21 08:04 Dose: 17 gm Documented by: JESSA Sodium Chloride (0.9 % Sodium Chloride Flush 3 Ml Syringe) 3 ml IVFLUSH QSHIFT [facility] Last Admin: 03/18/21 08:04 Dose: 3 ml Documented by: JESSA Trazodone HCl (Trazodone Hcl 100 Mg Tablet) 200 mg PO BEDTIME PRN PRN Reason: Insomnia Last Admin: 03/16/21 19:41 Dose: 200 mg Documented by: SAMANTHA Labs CBC & Chem 7: 03/18/21 07:12 03/18/21 07:12 Labs: Laboratory Results - last 24 hr 03/17/21 03/17/21 03/17/21 11:24 16:25 18:19 MCV MCH MCHC RDW Plt Count MPV Immature Gran % (Auto) Neut % (Auto) Lymph % (Auto) [place] % (Auto) Eos % (Auto) Baso % (Auto) Lymph # (Auto) [place] # (Auto) Eos # (Auto) Baso # (Auto) Abs Immat Gran (auto) Absolute Neuts (auto) Absolute Nucleated RBC Nucleated RBC % (auto) Anion Gap Estim Creat Clear Calc Estimated GFR POC Glucose 219 H 340 H Random Glucose Calcium Vancomycin Trough 9.4 L 03/17/21 03/18/21 03/18/21 20:25 04:06 07:03 MCV MCH MCHC RDW Plt Count MPV Immature Gran % (Auto) Neut % (Auto) Lymph % (Auto) [place] % (Auto) Eos % (Auto) Baso % (Auto) Lymph # (Auto) [place] # (Auto) Eos # (Auto) Baso # (Auto) Abs Immat Gran (auto) Absolute Neuts (auto) Absolute Nucleated RBC Nucleated RBC % (auto) Anion Gap Estim Creat Clear Calc Estimated GFR POC Glucose 279 H 293 H 245 H Random Glucose Calcium Vancomycin Trough 03/18/21 03/18/21 07:12 07:12 MCV 90.4 MCH 29.2 MCHC 32.3 RDW 15.0 Plt Count 157 L MPV 11.8 Immature Gran % (Auto) 1.0 H Neut % (Auto) 79.4 H Lymph % (Auto) 13.0 L [place] % (Auto) 6.2 Eos % (Auto) 0.1 Baso % (Auto) 0.3 Lymph # (Auto) 1.6 [place] # (Auto) 0.8 Eos # (Auto) 0.0 Baso # (Auto) 0.0 Abs Immat Gran (auto) 0.13 H Absolute Neuts (auto) 10.0 H Absolute Nucleated RBC 0.000 Nucleated RBC % (auto) 0.0 Anion Gap 13 Estim Creat Clear Calc 28.3 Estimated GFR 28 POC Glucose Random Glucose 262 H Calcium 7.3 L Vancomycin Trough Microbiology Microbiology Results: Microbiology 03/14/21 11:46 Gram Stain - Final Peritoneal Fluid Routine Culture - Final No growth after 2 days Anaerobic Culture - Preliminary No growth to date. Assessment and Plan (1) Acute kidney injury superimposed on CKD: Status: Acute (2) Ileus: Status: Acute Assessment and Plan: 70-year-old female presented with abdominal pain, suspected to have bowel obstruction Ileus surgery team following NG tube replaced again continue IVF Tolerating clear liquids MARQUITA on CKD 3 Resolving Gentle IVF follow BMP and urine output hyperkalemia resolved Monitor BMP Diabetes with hyperglcyemia Patient uses insulin pump now held continue insulin sliding scale monitor point of cares closely Coronary disease Status post CABG Hold apixaban (patient unaware of any history of AFib, denies history of VTE) Thank you for the consult, will continue to monitor with y Quality Stroke Does the patient have a stroke diagnosis?: No VTE Prior VTE?: No VTE Risk Level:: Surgical - high VTE Device Contraindication: N/A - Device Ordered VTE Drug Contraindication: N/A - Med Ordered
[2021-03-18 11:16] VITALS: BP 90/50; PULSE 120; RESP 18; TEMP 36.8; O2SAT 97
[2021-03-18 11:26] LABS: Glucose, Whole Blood 322 mg/dL (60-115)
[2021-03-18 15:21] LABS: Glucose, Whole Blood 297 mg/dL (60-115)
[2021-03-18 15:48] VITALS: BP 120/60; PULSE 136; RESP 18; TEMP 37.2; O2SAT 94
[2021-03-18] MEDS: vancomycin HCL 750 MG in 0.9 % Sodium Chloride 250 ML 265 MG IV (19:26)
[2021-03-18 19:28] VITALS: BP 122/58; PULSE 84; RESP 18; TEMP 36.6; O2SAT 94
[2021-03-18 19:32] LABS: Glucose, Whole Blood 210 mg/dL (60-115)
[2021-03-18] MEDS: ondansetron HCL 4 MG/2 ML VIAL IVPUSH (20:12)
[2021-03-18 23:12] LABS: Glucose, Whole Blood 147 mg/dL (60-115)
[2021-03-18] MEDS: Docusate Sodium 100 MG/10 ML LIQUID PO (23:26)
[2021-03-19] VITALS: BP 108/53; PULSE 70; RESP 18; TEMP 36.8; O2SAT 95
[2021-03-19] MEDS: metroNIDAZOLE/NS 500 MG/100 ML PIGGYBACK 100 MG IV ×4 (02:16→19:38)
[2021-03-19 02:54] LABS: Glucose, Whole Blood 148 mg/dL (60-115)
[2021-03-19] MEDS: HYDROmorphone HCl 0.5 MG/0.5 ML SYRINGE IVPUSH ×2 (03:26→18:23)
[2021-03-19] MEDS: polyethylene glycoL 3350 17 GM POWD.PACK PO (07:35)
[2021-03-19] MEDS: Lactated Ringers 1,000 ML 75 ML IVCONT (07:35)
[2021-03-19] MEDS: Docusate Sodium 100 MG/10 ML LIQUID PO ×2 (07:35→21:55)
[2021-03-19] MEDS: 0.9 % Sodium Chloride Flush 3 ML SYRINGE IVFLUSH ×3 (07:36→19:38)
[2021-03-19] MEDS: Famotidine/PF 20 MG/2 ML VIAL IVPUSH (07:36)
[2021-03-19] MEDS: ondansetron HCL 4 MG/2 ML VIAL IVPUSH (07:49)
[2021-03-19 07:54] LABS: Glucose, Whole Blood 200 mg/dL (60-115)
[2021-03-19 08:00] VITALS: BP 125/58; PULSE 70; RESP 18; TEMP 37.4; O2SAT 93
[2021-03-19 08:45] LABS: Creatinine Clr Calc Pharmacy 24.8; Estimated Glomerular Filt Rate 24
--- NOTE | 2021-03-19 09:18 | PM.PNGS ---
Subjective Subjective Date of Service: 03/19/21 Interval history: Reports some nausea but denies abdominal pain. Continues to pass her bowels which are generally loose. Physical Exam Vital Signs: Vital Signs: Last Vital Signs Temp 99.3 F 03/19/21 08:00 Pulse 70 03/19/21 08:00 Resp 18 03/19/21 08:00 BP 125/58 L 03/19/21 08:00 Pulse Ox 93 03/19/21 08:00 Body Mass Index 23.3 Const: General: no acute distress and well developed Nutritional Appearance: well nourished Orientation/consciousness: patient oriented x3 Limitations: no limitations Resp: Effort & Inspection: normal respiratory effort, no cough and no respiratory distress GI: Other: Incision clean, dry, and intact. Inspection: Yes normal to inspection Palpation (GI): Soft to palpation, nontender, no guarding and not rigid Neuro: General: patient oriented x3 Extrem: General: No edema Objective Data Active Medications Acetaminophen (Acetaminophen 325 Mg Tablet) 650 mg PO Q6H PRN PRN Reason: Pain, Mild (Pain Scale 1-3) Benzocaine (Throat Lozenge, Medicated Lozenge) 1 lozenge MUCOUS MEM Q2H PRN PRN Reason: Sore Throat Dextrose (Dextrose 50 % 25 Gm/50 Ml Vial) 25 gm IVPUSH Q15M PRN; Protocol PRN Reason: per Hypoglycemia Standing Ord. Docusate Sodium (Docusate Sodium 100 Mg/10 Ml Liquid) 100 mg PO BID [facility] Last Admin: 03/19/21 07:35 Dose: 100 mg Documented by: JESSA Famotidine (Famotidine/Pf 20 Mg/2 Ml Vial) 20 mg IVPUSH DAILY [facility] Last Admin: 03/19/21 07:36 Dose: 20 mg Documented by: JESSA Glucose (Glucose Gel 15 Gm Gel..Gram.) 15 gm PO Q15M PRN; Protocol PRN Reason: per Hypoglycemia Standing Ord. Hydromorphone HCl (Hydromorphone Hcl 0.5 Mg/0.5 Ml Syringe) 0.5 mg IVPUSH Q4H PRN; Protocol PRN Reason: Pain, Severe (Pain Scale 7-10) Last Admin: 03/19/21 03:26 Dose: 0.5 mg Documented by: MACARIO Levofloxacin (Levaquin) 750 mg in 150 mls @ 100 mls/hr IV Q48H [facility] Last Infusion: 03/17/21 19:00 Dose: 0 mls/hr Documented by: MACARIO Lactated Ringer's (Lr) 1,000 mls @ 75 mls/hr IVCONT .[id number] [facility] Last Admin: 03/19/21 07:35 Dose: 75 mls/hr Documented by: JESSA Metronidazole (Flagyl) 500 mg in 100 mls @ 100 mls/hr IV Q6H [facility] Last Infusion: 03/19/21 08:57 Dose: 0 mls/hr Documented by: JESSA Vancomycin HCl 750 mg/ Sodium (Chloride) 265 mls @ 265 mls/hr IV Q24H [facility] Last Infusion: 03/18/21 20:30 Dose: 0 mls/hr Documented by: MACARIO Promethazine HCl 12.5 mg/ (Sodium Chloride) 50.5 mls @ 202 mls/hr IV Q6H PRN PRN Reason: nausea/vomiting Last Infusion: 03/19/21 03:38 Dose: 0 mls/hr Documented by: MACARIO Insulin Human Lispro (Insulin Lispro 100 Unit/Ml 3 Ml Vial) 0 unit SUBCUT Q4H [facility]; Protocol Last Admin: 03/19/21 08:57 Dose: Not Given Documented by: JESSA Non-Admin Reason: No Insulin Coverage Ondansetron HCl (Ondansetron Hcl 4 Mg/2 Ml Vial) 4 mg IVPUSH Q8H PRN PRN Reason: Nausea and Vomiting Last Admin: 03/19/21 07:49 Dose: 4 mg Documented by: JESSA Pharmacy Consult (Consult Rx Perform Med Rec) 1 each MISCELLANE ONCE PRN PRN Reason: Consult order Pharmacy Consult (Consult Rx Vancomycin Dosing) 1 each MISCELLANE DAILY PRN PRN Reason: Consult order Polyethylene Glycol (Polyethylene Glycol 3350 17 Gm Powd.Pack) 17 gm PO DAILY [facility] Last Admin: 03/19/21 07:35 Dose: 17 gm Documented by: JESSA Sodium Chloride (0.9 % Sodium Chloride Flush 3 Ml Syringe) 3 ml IVFLUSH QSHIFT [facility] Last Admin: 03/19/21 07:36 Dose: 3 ml Documented by: JESSA Trazodone HCl (Trazodone Hcl 100 Mg Tablet) 200 mg PO BEDTIME PRN PRN Reason: Insomnia Last Admin: 03/16/21 19:41 Dose: 200 mg Documented by: SAMANTHA Labs CBC & Chem 7: 03/18/21 07:12 03/19/21 08:17 Labs: Laboratory Results - last 24 hr 03/18/21 03/18/21 03/18/21 11:15 15:17 19:25 Estim Creat Clear Calc Estimated GFR POC Glucose 322 H 297 H 210 H 03/18/21 03/19/21 03/19/21 23:09 02:49 07:07 Estim Creat Clear Calc Estimated GFR POC Glucose 147 H 148 H 200 H 03/19/21 08:17 Estim Creat Clear Calc 24.8 Estimated GFR 24 POC Glucose Microbiology Microbiology Results: Microbiology 03/13/21 14:11 Blood Culture - Final Blood - Venous No growth after 5 days. 03/14/21 11:46 Gram Stain - Final Peritoneal Fluid Routine Culture - Final No growth after 2 days Anaerobic Culture - Preliminary No growth to date. Procedures Date of Service Date of Service: 03/19/21 Progress Note: A&P Assessment and plan (1) Ileus: Status: Acute (2) Acute kidney injury superimposed on CKD: Status: Acute (3) Pneumatosis intestinalis: Status: Acute (4) CKD (chronic kidney disease), stage III: Status: Acute Assessment and Plan: Patient admitted with diagnosis of pneumatosis intestinalis, status post exploratory laparotomy with no evidence of ischemic/necrotic bowel, developed ileus postoperatively requiring reinserted knox of nasogastric tube. Patient still has some nausea but output seems to have decreased. Patient is drinking water which may be increasing the overall output from the nasogastric tube. I recommended a clamping trial today and suggested she hold off on drinking any water or ice to get an accurate reading. Will check residuals and 4 hours. Possible removal of tube if low. Fall Risk Details Current Medications: Current Medications Acetaminophen (Acetaminophen 325 Mg Tablet) 650 mg PO Q6H PRN PRN Reason: Pain, Mild (Pain Scale 1-3) Benzocaine (Throat Lozenge, Medicated Lozenge) 1 lozenge MUCOUS MEM Q2H PRN PRN Reason: Sore Throat Dextrose (Dextrose 50 % 25 Gm/50 Ml Vial) 25 gm IVPUSH Q15M PRN; Protocol PRN Reason: per Hypoglycemia Standing Ord. Docusate Sodium (Docusate Sodium 100 Mg/10 Ml Liquid) 100 mg PO BID [facility] Last Admin: 03/19/21 07:35 Dose: 100 mg Documented by: Famotidine (Famotidine/Pf 20 Mg/2 Ml Vial) 20 mg IVPUSH DAILY [facility] Last Admin: 03/19/21 07:36 Dose: 20 mg Documented by: Glucose (Glucose Gel 15 Gm Gel..Gram.) 15 gm PO Q15M PRN; Protocol PRN Reason: per Hypoglycemia Standing Ord. Hydromorphone HCl (Hydromorphone Hcl 0.5 Mg/0.5 Ml Syringe) 0.5 mg IVPUSH Q4H PRN; Protocol PRN Reason: Pain, Severe (Pain Scale 7-10) Last Admin: 03/19/21 03:26 Dose: 0.5 mg Documented by: Levofloxacin (Levaquin) 750 mg in 150 mls @ 100 mls/hr IV Q48H [facility] Last Infusion: 03/17/21 19:00 Dose: Infused Documented by: Lactated Ringer's (Lr) 1,000 mls @ 75 mls/hr IVCONT .[id number] [facility] Last Admin: 03/19/21 07:35 Dose: 75 mls/hr Documented by: Metronidazole (Flagyl) 500 mg in 100 mls @ 100 mls/hr IV Q6H [facility] Last Infusion: 03/19/21 08:57 Dose: Infused Documented by: Vancomycin HCl 750 mg/ Sodium (Chloride) 265 mls @ 265 mls/hr IV Q24H [facility] Last Infusion: 03/18/21 20:30 Dose: Infused Documented by: Promethazine HCl 12.5 mg/ (Sodium Chloride) 50.5 mls @ 202 mls/hr IV Q6H PRN PRN Reason: nausea/vomiting Last Infusion: 03/19/21 03:38 Dose: Infused Documented by: Insulin Human Lispro (Insulin Lispro 100 Unit/Ml 3 Ml Vial) 0 unit SUBCUT Q4H [facility]; Protocol Last Admin: 03/19/21 08:57 Dose: Not Given Documented by: Ondansetron HCl (Ondansetron Hcl 4 Mg/2 Ml Vial) 4 mg IVPUSH Q8H PRN PRN Reason: Nausea and Vomiting Last Admin: 03/19/21 07:49 Dose: 4 mg Documented by: Pharmacy Consult (Consult Rx Perform Med Rec) 1 each MISCELLANE ONCE PRN PRN Reason: Consult order Pharmacy Consult (Consult Rx Vancomycin Dosing) 1 each MISCELLANE DAILY PRN PRN Reason: Consult order Polyethylene Glycol (Polyethylene Glycol 3350 17 Gm Powd.Pack) 17 gm PO DAILY [facility] Last Admin: 03/19/21 07:35 Dose: 17 gm Documented by: Sodium Chloride (0.9 % Sodium Chloride Flush 3 Ml Syringe) 3 ml IVFLUSH QSHIFT [facility] Last Admin: 03/19/21 07:36 Dose: 3 ml Documented by: Trazodone HCl (Trazodone Hcl 100 Mg Tablet) 200 mg PO BEDTIME PRN PRN Reason: Insomnia Last Admin: 03/16/21 19:41 Dose: 200 mg Documented by: Time Spent With Patient Time: Total time spent is greater than 50% in coordination of care (as documented) at patient's floor/unit and/or counseling patient: Time with patient: 15 - 24 minutes Quality Stroke Does the patient have a stroke diagnosis?: No VTE Prior VTE?: No VTE Risk Level:: Surgical - high VTE Device Contraindication: N/A - Device Ordered VTE Drug Contraindication: N/A - Med Ordered
--- NOTE | 2021-03-19 11:17 | HO.PM.IMPN ---
Subjective Subjective Date of Service: 03/19/21 Interval History: the patient was seen and evaluated this morning Laying in bed, NG tube Clip this morning Having gas and had bowel movement overnight Denies any fever, chills or shortness of breath No reported other overnight events. Systemic review: No fever, chills but reported weakness and being anxious No chest pain, palpitation No shortness of breath or coughing No abdominal pain, nausea or vomiting No urinary symptoms No any rash or wounds Physical Exam Vital Signs: Vital Signs: Last Vital Signs Temp 99.3 F 03/19/21 08:00 Pulse 70 03/19/21 08:00 Resp 18 03/19/21 08:00 BP 125/58 L 03/19/21 08:00 Pulse Ox 93 03/19/21 08:00 Body Mass Index 23.3 Const: Other: Constitutional : Alert, oriented to self, NG tube in place Neck : Normal inspection, Supple Cardiovascular : RRR, S1 S2, no lower extremity edema Respiratory : fair bilateral air entry, no crackles, wheezes or rhonchi Gastrointestinal: soft, lax, Normal bowel sounds, no local tenderness Skin : Warm, Dry Neurological : Alert & oriented , No focal deficit Objective Data Active Medications Acetaminophen (Acetaminophen 325 Mg Tablet) 650 mg PO Q6H PRN PRN Reason: Pain, Mild (Pain Scale 1-3) Benzocaine (Throat Lozenge, Medicated Lozenge) 1 lozenge MUCOUS MEM Q2H PRN PRN Reason: Sore Throat Dextrose (Dextrose 50 % 25 Gm/50 Ml Vial) 25 gm IVPUSH Q15M PRN; Protocol PRN Reason: per Hypoglycemia Standing Ord. Docusate Sodium (Docusate Sodium 100 Mg/10 Ml Liquid) 100 mg PO BID [facility] Last Admin: 03/19/21 07:35 Dose: 100 mg Documented by: JESSA Famotidine (Famotidine/Pf 20 Mg/2 Ml Vial) 20 mg IVPUSH DAILY [facility] Last Admin: 03/19/21 07:36 Dose: 20 mg Documented by: JESSA Glucose (Glucose Gel 15 Gm Gel..Gram.) 15 gm PO Q15M PRN; Protocol PRN Reason: per Hypoglycemia Standing Ord. Hydromorphone HCl (Hydromorphone Hcl 0.5 Mg/0.5 Ml Syringe) 0.5 mg IVPUSH Q4H PRN; Protocol PRN Reason: Pain, Severe (Pain Scale 7-10) Last Admin: 03/19/21 03:26 Dose: 0.5 mg Documented by: MACARIO Levofloxacin (Levaquin) 750 mg in 150 mls @ 100 mls/hr IV Q48H [facility] Last Infusion: 03/17/21 19:00 Dose: 0 mls/hr Documented by: MACARIO Lactated Ringer's (Lr) 1,000 mls @ 75 mls/hr IVCONT .[id number] [facility] Last Admin: 03/19/21 07:35 Dose: 75 mls/hr Documented by: JESSA Metronidazole (Flagyl) 500 mg in 100 mls @ 100 mls/hr IV Q6H [facility] Last Infusion: 03/19/21 08:57 Dose: 0 mls/hr Documented by: JESSA Vancomycin HCl 750 mg/ Sodium (Chloride) 265 mls @ 265 mls/hr IV Q24H [facility] Last Infusion: 03/18/21 20:30 Dose: 0 mls/hr Documented by: MACARIO Promethazine HCl 12.5 mg/ (Sodium Chloride) 50.5 mls @ 202 mls/hr IV Q6H PRN PRN Reason: nausea/vomiting Last Infusion: 03/19/21 03:38 Dose: 0 mls/hr Documented by: MACARIO Insulin Human Lispro (Insulin Lispro 100 Unit/Ml 3 Ml Vial) 0 unit SUBCUT Q4H [facility]; Protocol Last Admin: 03/19/21 08:57 Dose: Not Given Documented by: JESSA Non-Admin Reason: No Insulin Coverage Ondansetron HCl (Ondansetron Hcl 4 Mg/2 Ml Vial) 4 mg IVPUSH Q8H PRN PRN Reason: Nausea and Vomiting Last Admin: 03/19/21 07:49 Dose: 4 mg Documented by: JESSA Pharmacy Consult (Consult Rx Perform Med Rec) 1 each MISCELLANE ONCE PRN PRN Reason: Consult order Pharmacy Consult (Consult Rx Vancomycin Dosing) 1 each MISCELLANE DAILY PRN PRN Reason: Consult order Polyethylene Glycol (Polyethylene Glycol 3350 17 Gm Powd.Pack) 17 gm PO DAILY [facility] Last Admin: 03/19/21 07:35 Dose: 17 gm Documented by: JESSA Sodium Chloride (0.9 % Sodium Chloride Flush 3 Ml Syringe) 3 ml IVFLUSH QSHIFT [facility] Last Admin: 03/19/21 07:36 Dose: 3 ml Documented by: JESSA Trazodone HCl (Trazodone Hcl 100 Mg Tablet) 200 mg PO BEDTIME PRN PRN Reason: Insomnia Last Admin: 03/16/21 19:41 Dose: 200 mg Documented by: SAMANTHA Labs CBC & Chem 7: 03/18/21 07:12 03/19/21 08:17 Labs: Laboratory Results - last 24 hr 03/18/21 03/18/21 03/18/21 11:15 15:17 19:25 Estim Creat Clear Calc Estimated GFR POC Glucose 322 H 297 H 210 H 03/18/21 03/19/21 03/19/21 23:09 02:49 07:07 Estim Creat Clear Calc Estimated GFR POC Glucose 147 H 148 H 200 H 03/19/21 08:17 Estim Creat Clear Calc 24.8 Estimated GFR 24 POC Glucose Microbiology Microbiology Results: Microbiology 03/13/21 14:11 Blood Culture - Final Blood - Venous No growth after 5 days. 03/14/21 11:46 Gram Stain - Final Peritoneal Fluid Routine Culture - Final No growth after 2 days Anaerobic Culture - Preliminary No growth to date. Assessment and Plan (1) Acute kidney injury superimposed on CKD: Status: Acute (2) Ileus: Status: Acute Assessment and Plan: 70-year-old female presented with abdominal pain, suspected to have bowel obstruction Ileus surgery team following NG tube replaced again continue IVF Tolerating clear liquids MARQUITA on CKD 3 Improved Gentle IVF follow BMP and urine output hyperkalemia resolved Monitor BMP Diabetes with hyperglcyemia Patient uses insulin pump now held continue insulin sliding scale monitor point of cares closely Coronary disease Status post CABG Hold apixaban (patient unaware of any history of AFib, denies history of VTE) Thank you for the consult, will continue to monitor with y Quality Stroke Does the patient have a stroke diagnosis?: No VTE Prior VTE?: No VTE Risk Level:: Surgical - high VTE Device Contraindication: N/A - Device Ordered VTE Drug Contraindication: N/A - Med Ordered
[2021-03-19 11:31] LABS: Glucose, Whole Blood 244 mg/dL (60-115)
[2021-03-19] MEDS: Insulin Lispro 100 UNIT/ML 3 ML VIAL SUBCUT ×4 (11:43→23:15)
[2021-03-19 15:17] LABS: Glucose, Whole Blood 251 mg/dL (60-115)
[2021-03-19 15:46] VITALS: BP 146/65; PULSE 76; RESP 18; TEMP 36.4; O2SAT 97
[2021-03-19] MEDS: levoFLOXacin/D5W 750 MG/150 ML PIGGYBACK 100 MG IV (15:57)
[2021-03-19 17:35] LABS: Vancomycin Trough 12.8 mcg/mL (10.0-20.0)
--- NOTE | 2021-03-19 17:49 | HE.PHANOTE ---
Vanco dosing reviewed, trough 12.8, continuing 750mg q24h due to scr increasing
[2021-03-19] MEDS: vancomycin HCL 750 MG in 0.9 % Sodium Chloride 250 ML 265 MG IV (18:24)
[2021-03-19 18:51] LABS: Glucose, Whole Blood 191 mg/dL (60-115)
[2021-03-19 19:46] VITALS: BP 117/58; PULSE 66; RESP 18; TEMP 36.7; O2SAT 97
[2021-03-19 23:14] LABS: Glucose, Whole Blood 160 mg/dL (60-115)
[2021-03-19 23:19] VITALS: BP 101/44; PULSE 68; RESP 18; TEMP 36.7; O2SAT 96
[2021-03-20] MEDS: Lactated Ringers 1,000 ML 75 ML IVCONT ×2 (01:34→14:56)
[2021-03-20] MEDS: metroNIDAZOLE/NS 500 MG/100 ML PIGGYBACK 100 MG IV ×4 (01:34→20:56)
[2021-03-20 03:01] LABS: Glucose, Whole Blood 157 mg/dL (60-115)
[2021-03-20] MEDS: Insulin Lispro 100 UNIT/ML 3 ML VIAL SUBCUT ×5 (03:37→23:32)
--- NOTE | 2021-03-20 06:19 | PC.NURSE ---
Patient with an immeasurable amount of residual from NGT at 0600. Pt has had no c/o nausea or vomiting tonight. NG tube removed at 0600.
[2021-03-20 07:37] LABS: Glucose, Whole Blood 147 mg/dL (60-115)
[2021-03-20 07:46] LABS: Estimated Glomerular Filt Rate 33
[2021-03-20 08:00] VITALS: BP 106/44; PULSE 61; RESP 20; TEMP 36.8; O2SAT 96
--- NOTE | 2021-03-20 09:50 | P.PNIM_ITS ---
Subjective Subjective Date of Service: 03/20/21 Interval History: the patient was seen and evaluated this morning Laying in bed, NG tube Removed yesterday Having bowel movement and passing gas ToleratingIce and water Denies any fever, chills or shortness of breath No reported other overnight events. Systemic review: No fever, chills but reported weakness and being anxious No chest pain, palpitation No shortness of breath or coughing No abdominal pain, nausea or vomiting No urinary symptoms No any rash or wounds Physical Exam 2 Vital Signs: Vital Signs: Last Vital Signs Temp 98.3 F 03/20/21 08:00 Pulse 61 03/20/21 08:00 Resp 20 03/20/21 08:00 BP 106/44 L 03/20/21 08:00 Pulse Ox 96 03/20/21 08:00 Body Mass Index 23.3 Const: Other: Constitutional : Alert, oriented to self, NG tube in place Neck : Normal inspection, Supple Cardiovascular : RRR, S1 S2, no lower extremity edema Respiratory : fair bilateral air entry, no crackles, wheezes or rhonchi Gastrointestinal: soft, lax, Decrease bowel sounds, no local tenderness Skin : Warm, Dry Neurological : Alert & oriented , No focal deficit Objective Data Active Medications Acetaminophen (Acetaminophen 325 Mg Tablet) 650 mg PO Q6H PRN PRN Reason: Pain, Mild (Pain Scale 1-3) Benzocaine (Throat Lozenge, Medicated Lozenge) 1 lozenge MUCOUS MEM Q2H PRN PRN Reason: Sore Throat Dextrose (Dextrose 50 % 25 Gm/50 Ml Vial) 25 gm IVPUSH Q15M PRN; Protocol PRN Reason: per Hypoglycemia Standing Ord. Docusate Sodium (Docusate Sodium 100 Mg/10 Ml Liquid) 100 mg PO BID [facility] Last Admin: 03/19/21 21:55 Dose: 100 mg Documented by: YVETTE Famotidine (Famotidine/Pf 20 Mg/2 Ml Vial) 20 mg IVPUSH DAILY [facility] Last Admin: 03/19/21 07:36 Dose: 20 mg Documented by: JESSA Glucose (Glucose Gel 15 Gm Gel..Gram.) 15 gm PO Q15M PRN; Protocol PRN Reason: per Hypoglycemia Standing Ord. Hydromorphone HCl (Hydromorphone Hcl 0.5 Mg/0.5 Ml Syringe) 0.5 mg IVPUSH Q4H PRN; Protocol PRN Reason: Pain, Severe (Pain Scale 7-10) Last Admin: 03/19/21 18:23 Dose: 0.5 mg Documented by: JESSA Levofloxacin (Levaquin) 750 mg in 150 mls @ 100 mls/hr IV Q48H [facility] Last Infusion: 03/19/21 17:29 Dose: 0 mls/hr Documented by: JESSA Lactated Ringer's (Lr) 1,000 mls @ 75 mls/hr IVCONT .[id number] [facility] Last Admin: 03/20/21 01:34 Dose: 75 mls/hr Documented by: YVETTE Metronidazole (Flagyl) 500 mg in 100 mls @ 100 mls/hr IV Q6H [facility] Last Infusion: 03/20/21 02:52 Dose: 0 mls/hr Documented by: YVETTE Vancomycin HCl 750 mg/ Sodium (Chloride) 265 mls @ 265 mls/hr IV Q24H [facility] Last Infusion: 03/19/21 19:43 Dose: 0 mls/hr Documented by: YVETTE Promethazine HCl 12.5 mg/ (Sodium Chloride) 50.5 mls @ 202 mls/hr IV Q6H PRN PRN Reason: nausea/vomiting Last Infusion: 03/19/21 14:42 Dose: 0 mls/hr Documented by: JESSA Insulin Human Lispro (Insulin Lispro 100 Unit/Ml 3 Ml Vial) 0 unit SUBCUT Q4H [facility]; Protocol Last Admin: 03/20/21 07:38 Dose: Not Given Documented by: SHAYNE Non-Admin Reason: No Insulin Coverage Ondansetron HCl (Ondansetron Hcl 4 Mg/2 Ml Vial) 4 mg IVPUSH Q8H PRN PRN Reason: Nausea and Vomiting Last Admin: 03/19/21 07:49 Dose: 4 mg Documented by: JESSA Pharmacy Consult (Consult Rx Perform Med Rec) 1 each MISCELLANE ONCE PRN PRN Reason: Consult order Pharmacy Consult (Consult Rx Vancomycin Dosing) 1 each MISCELLANE DAILY PRN PRN Reason: Consult order Polyethylene Glycol (Polyethylene Glycol 3350 17 Gm Powd.Pack) 17 gm PO DAILY [facility] Last Admin: 03/19/21 07:35 Dose: 17 gm Documented by: JESSA Sodium Chloride (0.9 % Sodium Chloride Flush 3 Ml Syringe) 3 ml IVFLUSH QSHIFT [facility] Last Admin: 03/19/21 19:38 Dose: 3 ml Documented by: YVETTE Trazodone HCl (Trazodone Hcl 100 Mg Tablet) 200 mg PO BEDTIME PRN PRN Reason: Insomnia Last Admin: 03/16/21 19:41 Dose: 200 mg Documented by: SAMANTHA Labs CBC & Chem 7: 03/18/21 07:12 03/20/21 06:49 Labs: Laboratory Results - last 24 hr 03/19/21 03/19/21 03/19/21 11:19 15:13 17:03 Estim Creat Clear Calc Estimated GFR POC Glucose 244 H 251 H Vancomycin Trough 12.8 03/19/21 03/19/21 03/20/21 18:46 23:10 02:58 Estim Creat Clear Calc Estimated GFR POC Glucose 191 H 160 H 157 H Vancomycin Trough 03/20/21 03/20/21 06:49 07:18 Estim Creat Clear Calc 32.0 Estimated GFR 33 POC Glucose 147 H Vancomycin Trough Assessment and Plan (1) Acute kidney injury superimposed on CKD: Status: Acute (2) Ileus: Status: Acute Assessment and Plan: 70-year-old female presented with abdominal pain, suspected to have bowel obstruction Ileus surgery team following NG tube Removed continue IVF Tolerating clear liquids, advance as tolerated MARQUITA on CKD 3 Improved to 1.5 around baseline Gentle IVF follow BMP and urine output hyperkalemia resolved Monitor BMP Diabetes with hyperglcyemia Patient uses insulin pump now held continue insulin sliding scale monitor point of cares closely Coronary disease Status post CABG To restart apixaban once tolerating p.o. (patient unaware of any history of AFib, denies history of VTE) Thank you for the consult, will continue to monitor with y Quality Stroke Does the patient have a stroke diagnosis?: No VTE Prior VTE?: No VTE Risk Level:: Surgical - high VTE Device Contraindication: N/A - Device Ordered VTE Drug Contraindication: N/A - Med Ordered
[2021-03-20] MEDS: Famotidine/PF 20 MG/2 ML VIAL IVPUSH (10:50)
[2021-03-20] MEDS: polyethylene glycoL 3350 17 GM POWD.PACK PO (10:50)
[2021-03-20] MEDS: 0.9 % Sodium Chloride Flush 3 ML SYRINGE IVFLUSH ×2 (10:50→23:33)
[2021-03-20 11:18] LABS: Glucose, Whole Blood 265 mg/dL (60-115)
[2021-03-20 11:49] VITALS: BP 110/44; PULSE 82; RESP 18; TEMP 37.8; O2SAT 98
--- NOTE | 2021-03-20 11:53 | PM.PNGS ---
Subjective Subjective Date of Service: 03/20/21 <Cely Lima PA-C - Last Filed: 03/20/21 11:56> 03/20/21 <Neto Grewal MD - Last Filed: 03/20/21 12:20> Interval history: NGT was clamped all night and she had no recurrent symptoms. NGT therefore removed. Continued to pass flatus and have loose stools. Denies nausea or abdominal pain. Wants jeremy. <Cely Lima PA-C - Last Filed: 03/20/21 11:56> Physical Exam Vital Signs: Vital Signs: Last Vital Signs Temp 100.0 F 03/20/21 11:49 Pulse 82 03/20/21 11:49 Resp 18 03/20/21 11:49 BP 110/44 L 03/20/21 11:49 Pulse Ox 98 03/20/21 11:49 Body Mass Index 23.3 <Cely Lima PA-C - Last Filed: 03/20/21 11:56> Const: General: comfortable, no acute distress and alert <Cely Lima PA-C - Last Filed: 03/20/21 11:56> Orientation/consciousness: patient oriented x3 <Cely Lima PA-C - Last Filed: 03/20/21 11:56> Resp: Effort & Inspection: normal respiratory effort <Cely Lima PA-C - Last Filed: 03/20/21 11:56> GI: Inspection: No distended and Yes incision (clean) <Cely Lima PA-C - Last Filed: 03/20/21 11:56> Palpation (GI): Soft to palpation, nontender, no guarding and not rigid <Cely Lima PA-C - Last Filed: 03/20/21 11:56> Skin: General skin exam: no rashes or lesions noted <Cely Lima PA-C - Last Filed: 03/20/21 11:56> Neuro: General: patient oriented x3 <Cely Lima PA-C - Last Filed: 03/20/21 11:56> Extrem: General: Yes no clubbing, cyanosis or edema <Cely Lima PA-C - Last Filed: 03/20/21 11:56> Objective Data Active Medications Acetaminophen (Acetaminophen 325 Mg Tablet) 650 mg PO Q6H PRN PRN Reason: Pain, Mild (Pain Scale 1-3) Benzocaine (Throat Lozenge, Medicated Lozenge) 1 lozenge MUCOUS MEM Q2H PRN PRN Reason: Sore Throat Dextrose (Dextrose 50 % 25 Gm/50 Ml Vial) 25 gm IVPUSH Q15M PRN; Protocol PRN Reason: per Hypoglycemia Standing Ord. Docusate Sodium (Docusate Sodium 100 Mg/10 Ml Liquid) 100 mg PO BID [facility] Last Admin: 03/20/21 10:50 Dose: Not Given Documented by: SHAYNE Non-Admin Reason: Patient Refused Famotidine (Famotidine/Pf 20 Mg/2 Ml Vial) 20 mg IVPUSH DAILY [facility] Last Admin: 03/20/21 10:50 Dose: 20 mg Documented by: SHAYNE Glucose (Glucose Gel 15 Gm Gel..Gram.) 15 gm PO Q15M PRN; Protocol PRN Reason: per Hypoglycemia Standing Ord. Hydromorphone HCl (Hydromorphone Hcl 0.5 Mg/0.5 Ml Syringe) 0.5 mg IVPUSH Q4H PRN; Protocol PRN Reason: Pain, Severe (Pain Scale 7-10) Last Admin: 03/19/21 18:23 Dose: 0.5 mg Documented by: JESSA Levofloxacin (Levaquin) 750 mg in 150 mls @ 100 mls/hr IV Q48H [facility] Last Infusion: 03/19/21 17:29 Dose: 0 mls/hr Documented by: JESSA Lactated Ringer's (Lr) 1,000 mls @ 75 mls/hr IVCONT .[id number] [facility] Last Admin: 03/20/21 01:34 Dose: 75 mls/hr Documented by: YVETTE Metronidazole (Flagyl) 500 mg in 100 mls @ 100 mls/hr IV Q6H [facility] Last Admin: 03/20/21 10:50 Dose: 100 mls/hr Documented by: SHAYNE Vancomycin HCl 750 mg/ Sodium (Chloride) 265 mls @ 265 mls/hr IV Q24H [facility] Last Infusion: 03/19/21 19:43 Dose: 0 mls/hr Documented by: YVETTE Promethazine HCl 12.5 mg/ (Sodium Chloride) 50.5 mls @ 202 mls/hr IV Q6H PRN PRN Reason: nausea/vomiting Last Infusion: 03/19/21 14:42 Dose: 0 mls/hr Documented by: JESSA Insulin Human Lispro (Insulin Lispro 100 Unit/Ml 3 Ml Vial) 0 unit SUBCUT Q4H [facility]; Protocol Last Admin: 03/20/21 07:38 Dose: Not Given Documented by: SHAYNE Non-Admin Reason: No Insulin Coverage Ondansetron HCl (Ondansetron Hcl 4 Mg/2 Ml Vial) 4 mg IVPUSH Q8H PRN PRN Reason: Nausea and Vomiting Last Admin: 03/19/21 07:49 Dose: 4 mg Documented by: JESSA Pharmacy Consult (Consult Rx Perform Med Rec) 1 each MISCELLANE ONCE PRN PRN Reason: Consult order Pharmacy Consult (Consult Rx Vancomycin Dosing) 1 each MISCELLANE DAILY PRN PRN Reason: Consult order Polyethylene Glycol (Polyethylene Glycol 3350 17 Gm Powd.Pack) 17 gm PO DAILY [facility] Last Admin: 03/20/21 10:50 Dose: 17 gm Documented by: SHAYNE Sodium Chloride (0.9 % Sodium Chloride Flush 3 Ml Syringe) 3 ml IVFLUSH QSHIFT [facility] Last Admin: 03/20/21 10:50 Dose: 3 ml Documented by: SHAYNE Trazodone HCl (Trazodone Hcl 100 Mg Tablet) 200 mg PO BEDTIME PRN PRN Reason: Insomnia Last Admin: 03/16/21 19:41 Dose: 200 mg Documented by: SAMANTHA <Cely Lima PA-C - Last Filed: 03/20/21 11:56> Labs CBC & Chem 7: : 03/18/21 07:12 03/20/21 06:49 <Cely Lima PA-C - Last Filed: 03/20/21 11:56> Labs: Laboratory Results - last 24 hr 03/19/21 03/19/21 03/19/21 15:13 17:03 18:46 Estim Creat Clear Calc Estimated GFR POC Glucose 251 H 191 H Vancomycin Trough 12.8 03/19/21 03/20/21 03/20/21 23:10 02:58 06:49 Estim Creat Clear Calc 32.0 Estimated GFR 33 POC Glucose 160 H 157 H Vancomycin Trough 03/20/21 03/20/21 07:18 10:57 Estim Creat Clear Calc Estimated GFR POC Glucose 147 H 265 H Vancomycin Trough <BRANDI Werner Last Filed: 03/20/21 11:56> Microbiology Microbiology Results: Microbiology 03/14/21 11:46 Gram Stain - Final Peritoneal Fluid Routine Culture - Final No growth after 2 days Anaerobic Culture - Final NO GROWTH AFTER 5 DAYS <BRANDI Werner Last Filed: 03/20/21 11:56> Procedures Date of Service Date of Service: 03/20/21 <BRANDI Werner Last Filed: 03/20/21 11:56> Progress Note: A&P Assessment and plan (1) Ileus: Status: Acute <BRANDI Werner Last Filed: 03/20/21 11:56> (2) Acute kidney injury superimposed on CKD: Status: Acute <BRANDI Werner Last Filed: 03/20/21 11:56> (3) Pneumatosis intestinalis: Status: Acute <BRANDI Werner Last Filed: 03/20/21 11:56> Assessment and Plan: Patient admitted with diagnosis of pneumatosis intestinalis, status post exploratory laparotomy with no evidence of ischemic/necrotic bowel, developed ileus postoperatively requiring reinsertion of nasogastric tube.? NGT removed this morning after being clamped all night and remaining asymptomatic. Continues to pass flatus/have loose BMs. Ileus appears resolved. Will advance to clear liquid diet. Encouraged oob/ambulation. <BRANDI Werner Last Filed: 03/20/21 11:56> Patient admitted with diagnosis of pneumatosis intestinalis, status post exploratory laparotomy with no evidence of ischemic/necrotic bowel, developed ileus postoperatively requiring reinsertion of nasogastric tube.? NGT removed this morning after being clamped all night and remaining asymptomatic. Continues to pass flatus/have loose BMs. Ileus appears resolved. Will advance to clear liquid diet. Encouraged oob/ambulation. Agree with the above assessment and plan. Overall the patient is much improved with no significant abdominal pain. An abdominal wounds are clean, dry, and intact without redness or discharge. Abdomen is soft and nondistended. NG tube is now out and she will start clear liquid diet today. If this is tolerated will advance to regular diet tomorrow with possible discharge by Saturday. Patient encouraged to get out of bed and ambulate. <Neto Grewal MD - Last Filed: 03/20/21 12:20> Fall Risk Details Current Medications: Current Medications Acetaminophen (Acetaminophen 325 Mg Tablet) 650 mg PO Q6H PRN PRN Reason: Pain, Mild (Pain Scale 1-3) Benzocaine (Throat Lozenge, Medicated Lozenge) 1 lozenge MUCOUS MEM Q2H PRN PRN Reason: Sore Throat Dextrose (Dextrose 50 % 25 Gm/50 Ml Vial) 25 gm IVPUSH Q15M PRN; Protocol PRN Reason: per Hypoglycemia Standing Ord. Docusate Sodium (Docusate Sodium 100 Mg/10 Ml Liquid) 100 mg PO BID [facility] Last Admin: 03/20/21 10:50 Dose: Not Given Documented by: Famotidine (Famotidine/Pf 20 Mg/2 Ml Vial) 20 mg IVPUSH DAILY [facility] Last Admin: 03/20/21 10:50 Dose: 20 mg Documented by: Glucose (Glucose Gel 15 Gm Gel..Gram.) 15 gm PO Q15M PRN; Protocol PRN Reason: per Hypoglycemia Standing Ord. Hydromorphone HCl (Hydromorphone Hcl 0.5 Mg/0.5 Ml Syringe) 0.5 mg IVPUSH Q4H PRN; Protocol PRN Reason: Pain, Severe (Pain Scale 7-10) Last Admin: 03/19/21 18:23 Dose: 0.5 mg Documented by: Levofloxacin (Levaquin) 750 mg in 150 mls @ 100 mls/hr IV Q48H [facility] Last Infusion: 03/19/21 17:29 Dose: Infused Documented by: Lactated Ringer's (Lr) 1,000 mls @ 75 mls/hr IVCONT .[id number] [facility] Last Admin: 03/20/21 01:34 Dose: 75 mls/hr Documented by: Metronidazole (Flagyl) 500 mg in 100 mls @ 100 mls/hr IV Q6H [facility] Last Admin: 03/20/21 10:50 Dose: 100 mls/hr Documented by: Vancomycin HCl 750 mg/ Sodium (Chloride) 265 mls @ 265 mls/hr IV Q24H [facility] Last Infusion: 03/19/21 19:43 Dose: Infused Documented by: Promethazine HCl 12.5 mg/ (Sodium Chloride) 50.5 mls @ 202 mls/hr IV Q6H PRN PRN Reason: nausea/vomiting Last Infusion: 03/19/21 14:42 Dose: Infused Documented by: Insulin Human Lispro (Insulin Lispro 100 Unit/Ml 3 Ml Vial) 0 unit SUBCUT Q4H [facility]; Protocol Last Admin: 03/20/21 07:38 Dose: Not Given Documented by: Ondansetron HCl (Ondansetron Hcl 4 Mg/2 Ml Vial) 4 mg IVPUSH Q8H PRN PRN Reason: Nausea and Vomiting Last Admin: 03/19/21 07:49 Dose: 4 mg Documented by: Pharmacy Consult (Consult Rx Perform Med Rec) 1 each MISCELLANE ONCE PRN PRN Reason: Consult order Pharmacy Consult (Consult Rx Vancomycin Dosing) 1 each MISCELLANE DAILY PRN PRN Reason: Consult order Polyethylene Glycol (Polyethylene Glycol 3350 17 Gm Powd.Pack) 17 gm PO DAILY [facility] Last Admin: 03/20/21 10:50 Dose: 17 gm Documented by: Sodium Chloride (0.9 % Sodium Chloride Flush 3 Ml Syringe) 3 ml IVFLUSH QSHIFT [facility] Last Admin: 03/20/21 10:50 Dose: 3 ml Documented by: Trazodone HCl (Trazodone Hcl 100 Mg Tablet) 200 mg PO BEDTIME PRN PRN Reason: Insomnia Last Admin: 03/16/21 19:41 Dose: 200 mg Documented by: <Cely Lima PA-C - Last Filed: 03/20/21 11:56> Time Spent With Patient Time: Total time spent is greater than 50% in coordination of care (as documented) at patient's floor/unit and/or counseling patient: <Cely Lima PA-C - Last Filed: 03/20/21 11:56> Time with patient: 15 - 24 minutes <Cely Lima PA-C - Last Filed: 03/20/21 11:56> Quality Stroke Does the patient have a stroke diagnosis?: No <Cely Lima PA-C - Last Filed: 03/20/21 11:56> VTE Prior VTE?: No <Cely Lima PA-C - Last Filed: 03/20/21 11:56> VTE Risk Level:: Surgical - high <Cely Lima PA-C - Last Filed: 03/20/21 11:56> VTE Device Contraindication: N/A - Device Ordered <Cely Lima PA-C - Last Filed: 03/20/21 11:56> VTE Drug Contraindication: N/A - Med Ordered <Cely Lima PA-C - Last Filed: 03/20/21 11:56>
[2021-03-20] MEDS: ondansetron HCL 4 MG/2 ML VIAL IVPUSH ×2 (15:04→23:32)
[2021-03-20 15:56] VITALS: BP 158/77; PULSE 84; RESP 18; TEMP 36.3; O2SAT 99
[2021-03-20 16:43] LABS: Glucose, Whole Blood 248 mg/dL (60-115)
[2021-03-20] MEDS: HYDROmorphone HCl 0.5 MG/0.5 ML SYRINGE IVPUSH (16:51)
[2021-03-20] MEDS: vancomycin HCL 750 MG in 0.9 % Sodium Chloride 250 ML 265 MG IV (18:51)
[2021-03-20 19:34] VITALS: BP 118/63; PULSE 72; RESP 18; TEMP 36.8; O2SAT 98
[2021-03-20 20:30] LABS: Glucose, Whole Blood 191 mg/dL (60-115)
[2021-03-20 23:09] VITALS: BP 136/73; PULSE 76; RESP 18; TEMP 36.7; O2SAT 96
[2021-03-20 23:15] LABS: Glucose, Whole Blood 175 mg/dL (60-115)
[2021-03-21] MEDS: metroNIDAZOLE/NS 500 MG/100 ML PIGGYBACK 100 MG IV (02:08)
[2021-03-21 04:04] LABS: Glucose, Whole Blood 141 mg/dL (60-115)
[2021-03-21 06:53] LABS: Hematocrit 37.3 % (37.0-47.0); Hemoglobin 12.7 g/dl (12.0-16.0); Mean Corpuscular Hemoglobin 29.9 pg (27.0-33.0); Mean Corpuscular Volume 87.8 fL (80.0-98.0); Mean Platelet Volume 10.6 fL (9.4-12.3); Platelet Count 183 X10*3/uL (160-400); Red Blood Count 4.25 X10*6/uL (4.20-5.50); Red Cell Distribution Width 15.8 % (11.0-16.0); White Blood Count 10.2 X10*3/uL (4.8-10.8)
[2021-03-21 07:00] LABS: Anion Gap 17 (12-20); Blood Urea Nitrogen 32 mg/dL (9-16); Calcium 7.7 mg/dL (8.4-10.2); Carbon Dioxide 19 mmol/L (22-29); Chloride 108 mmol/L (96-108); Creatinine Clr Calc Pharmacy 34.9; Estimated Glomerular Filt Rate 36; Glucose Random 156 mg/dL (60-115); Potassium 3.7 mmol/L (3.3-5.1); Sodium 140 mmol/L (135-145)
[2021-03-21 07:02] LABS: Creatinine Clr Calc Pharmacy 35.4; Estimated Glomerular Filt Rate 37
[2021-03-21 07:10] VITALS: BP 127/59; PULSE 75; RESP 18; TEMP 37.3; O2SAT 98
[2021-03-21 07:28] LABS: Glucose, Whole Blood 166 mg/dL (60-115)
--- NOTE | 2021-03-21 08:00 | P.PNGS_ITS ---
Subjective Subjective Date of Service: 03/21/21 Interval history: Patient reports nausea and vomiting all night, diarrhea as well. She is very unhappy with her room as there is no call healy. Physical Exam Vital Signs: Vital Signs: Last Vital Signs Temp 99.2 F 03/21/21 07:10 Pulse 75 03/21/21 07:10 Resp 18 03/21/21 07:10 BP 127/59 L 03/21/21 07:10 Pulse Ox 98 03/21/21 07:10 Body Mass Index 23.3 HENMT: Head: Yes normocephalic and Yes atraumatic Resp: Effort & Inspection: normal respiratory effort Auscultation: clear to auscultation bilaterally GI: Other: Incision is clean, dry, and intact Inspection: Yes normal to inspection Palpation (GI): Soft to palpation, nontender, no guarding and not rigid Skin: Other: Mild pedal edema Objective Data Active Medications Acetaminophen (Acetaminophen 325 Mg Tablet) 650 mg PO Q6H PRN PRN Reason: Pain, Mild (Pain Scale 1-3) Benzocaine (Throat Lozenge, Medicated Lozenge) 1 lozenge MUCOUS MEM Q2H PRN PRN Reason: Sore Throat Dextrose (Dextrose 50 % 25 Gm/50 Ml Vial) 25 gm IVPUSH Q15M PRN; Protocol PRN Reason: per Hypoglycemia Standing Ord. Famotidine (Famotidine/Pf 20 Mg/2 Ml Vial) 20 mg IVPUSH DAILY [facility] Last Admin: 03/20/21 10:50 Dose: 20 mg Documented by: SHAYNE Glucose (Glucose Gel 15 Gm Gel..Gram.) 15 gm PO Q15M PRN; Protocol PRN Reason: per Hypoglycemia Standing Ord. Hydromorphone HCl (Hydromorphone Hcl 0.5 Mg/0.5 Ml Syringe) 0.5 mg IVPUSH Q4H PRN; Protocol PRN Reason: Pain, Severe (Pain Scale 7-10) Last Admin: 03/20/21 16:51 Dose: 0.5 mg Documented by: SHAYNE Lactated Ringer's (Lr) 1,000 mls @ 125 mls/hr IVCONT .Q8H [facility] Last Infusion: 03/20/21 18:51 Dose: 0 mls/hr Documented by: HO.DOBROB Promethazine HCl 12.5 mg/ (Sodium Chloride) 50.5 mls @ 202 mls/hr IV Q6H PRN PRN Reason: nausea/vomiting Last Infusion: 03/21/21 02:10 Dose: 0 mls/hr Documented by: SHIRA Insulin Human Lispro (Insulin Lispro 100 Unit/Ml 3 Ml Vial) 0 unit SUBCUT Q4H [facility]; Protocol Last Admin: 03/21/21 04:05 Dose: Not Given Documented by: SHIRA Non-Admin Reason: Insulin not needed Ondansetron HCl (Ondansetron Hcl 4 Mg/2 Ml Vial) 4 mg IVPUSH Q8H PRN PRN Reason: Nausea and Vomiting Last Admin: 03/20/21 23:32 Dose: 4 mg Documented by: SHIRA Pharmacy Consult (Consult Rx Perform Med Rec) 1 each MISCELLANE ONCE PRN PRN Reason: Consult order Pharmacy Consult (Consult Rx Vancomycin Dosing) 1 each MISCELLANE DAILY PRN PRN Reason: Consult order Sodium Chloride (0.9 % Sodium Chloride Flush 3 Ml Syringe) 3 ml IVFLUSH [facility] Last Admin: 03/20/21 23:33 Dose: 3 ml Documented by: SHIRA Trazodone HCl (Trazodone Hcl 100 Mg Tablet) 200 mg PO BEDTIME PRN PRN Reason: Insomnia Last Admin: 03/16/21 19:41 Dose: 200 mg Documented by: SAMANTHA Labs CBC & Chem 7: 03/21/21 06:25 03/21/21 06:25 Labs: Laboratory Results - last 24 hr 03/20/21 03/20/21 03/20/21 10:57 16:31 20:25 MCV MCH MCHC RDW Plt Count MPV Absolute Nucleated RBC Nucleated RBC % (auto) Anion Gap Estim Creat Clear Calc Estimated GFR POC Glucose 265 H 248 H 191 H Random Glucose Calcium 03/20/21 03/21/21 03/21/21 23:11 04:00 06:25 MCV MCH MCHC RDW Plt Count MPV Absolute Nucleated RBC Nucleated RBC % (auto) Anion Gap Estim Creat Clear Calc 35.4 Estimated GFR 37 POC Glucose 175 H 141 H Random Glucose Calcium 03/21/21 03/21/21 03/21/21 06:25 06:25 07:14 MCV 87.8 MCH 29.9 MCHC 34.0 RDW 15.8 Plt Count 183 MPV 10.6 Absolute Nucleated RBC 0.000 Nucleated RBC % (auto) 0.0 Anion Gap 17 Estim Creat Clear Calc 34.9 Estimated GFR 36 POC Glucose 166 H Random Glucose 156 H Calcium 7.7 L Microbiology Microbiology Results: Microbiology 03/14/21 11:46 Gram Stain - Final Peritoneal Fluid Routine Culture - Final No growth after 2 days Anaerobic Culture - Final NO GROWTH AFTER 5 DAYS Procedures Date of Service Date of Service: 03/21/21 Progress Note: A&P Assessment and plan (1) Acute kidney injury superimposed on CKD: Status: Acute (2) Ileus: Status: Acute (3) Pneumatosis intestinalis: Status: Acute Assessment and Plan: Patient now has a combination of diarrhea and nausea and vomiting. Will check stool for C diff titer today. Will stop all antibiotics and increase IV fluids. Patient continues to be NPO. Will repeat CT abdomen and pelvis evidence of colitis. Discussed the plan with the patient and she agrees with the plan. Fall Risk Details Current Medications: Current Medications Acetaminophen (Acetaminophen 325 Mg Tablet) 650 mg PO Q6H PRN PRN Reason: Pain, Mild (Pain Scale 1-3) Benzocaine (Throat Lozenge, Medicated Lozenge) 1 lozenge MUCOUS MEM Q2H PRN PRN Reason: Sore Throat Dextrose (Dextrose 50 % 25 Gm/50 Ml Vial) 25 gm IVPUSH Q15M PRN; Protocol PRN Reason: per Hypoglycemia Standing Ord. Famotidine (Famotidine/Pf 20 Mg/2 Ml Vial) 20 mg IVPUSH DAILY [facility] Last Admin: 03/20/21 10:50 Dose: 20 mg Documented by: Glucose (Glucose Gel 15 Gm Gel..Gram.) 15 gm PO Q15M PRN; Protocol PRN Reason: per Hypoglycemia Standing Ord. Hydromorphone HCl (Hydromorphone Hcl 0.5 Mg/0.5 Ml Syringe) 0.5 mg IVPUSH Q4H PRN; Protocol PRN Reason: Pain, Severe (Pain Scale 7-10) Last Admin: 03/20/21 16:51 Dose: 0.5 mg Documented by: Lactated Ringer's (Lr) 1,000 mls @ 125 mls/hr IVCONT .Q8H [facility] Last Infusion: 03/20/21 18:51 Dose: 0 mls/hr Documented by: Promethazine HCl 12.5 mg/ (Sodium Chloride) 50.5 mls @ 202 mls/hr IV Q6H PRN PRN Reason: nausea/vomiting Last Infusion: 03/21/21 02:10 Dose: Infused Documented by: Insulin Human Lispro (Insulin Lispro 100 Unit/Ml 3 Ml Vial) 0 unit SUBCUT Q4H [facility]; Protocol Last Admin: 03/21/21 04:05 Dose: Not Given Documented by: Ondansetron HCl (Ondansetron Hcl 4 Mg/2 Ml Vial) 4 mg IVPUSH Q8H PRN PRN Reason: Nausea and Vomiting Last Admin: 03/20/21 23:32 Dose: 4 mg Documented by: Pharmacy Consult (Consult Rx Perform Med Rec) 1 each MISCELLANE ONCE PRN PRN Reason: Consult order Pharmacy Consult (Consult Rx Vancomycin Dosing) 1 each MISCELLANE DAILY PRN PRN Reason: Consult order Sodium Chloride (0.9 % Sodium Chloride Flush 3 Ml Syringe) [facility] Last Admin: 03/20/21 23:33 Dose: 3 ml Documented by: Trazodone HCl (Trazodone Hcl 100 Mg Tablet) 200 mg PO BEDTIME PRN PRN Reason: Insomnia Last Admin: 03/16/21 19:41 Dose: 200 mg Documented by: Time Spent With Patient Time: Total time spent is greater than 50% in coordination of care (as documented) at patient's floor/unit and/or counseling patient: Time with patient: 15 - 24 minutes Quality Stroke Does the patient have a stroke diagnosis?: No VTE Prior VTE?: No VTE Risk Level:: Surgical - high VTE Device Contraindication: N/A - Device Ordered VTE Drug Contraindication: N/A - Med Ordered
--- NOTE | 2021-03-21 08:43 | MHC.CM.PN ---
at this time dc plan remains the same, home no svcs. cm to cont. to follow.
[2021-03-21] MEDS: Famotidine/PF 20 MG/2 ML VIAL IVPUSH (10:28)
[2021-03-21] MEDS: 0.9 % Sodium Chloride Flush 3 ML SYRINGE IVFLUSH ×2 (10:28→17:03)
[2021-03-21 11:17] VITALS: BP 104/60; PULSE 87; RESP 18; TEMP 37.6; O2SAT 98
--- NOTE | 2021-03-21 11:45 | HO.PM.IMPN ---
Subjective Subjective Date of Service: 03/21/21 Interval History: the patient was seen and evaluated this morning Laying in bed, NG tube still output she is complaining of increased nausea Having bowel movement and passing gas Denies any fever, chills or shortness of breath No reported other overnight events. Systemic review: No fever, chills but reported weakness and being anxious No chest pain, palpitation No shortness of breath or coughing No abdominal pain, but reporting nausea or vomiting No urinary symptoms No any rash or wounds Physical Exam Vital Signs: Vital Signs: Last Vital Signs Temp 99.6 F 03/21/21 11:17 Pulse 87 03/21/21 11:17 Resp 18 03/21/21 11:17 BP 104/60 03/21/21 11:17 Pulse Ox 98 03/21/21 11:17 Body Mass Index 23.3 Const: Other: Constitutional : Alert, oriented to self, NG tube in place Neck : Normal inspection, Supple Cardiovascular : RRR, S1 S2, no lower extremity edema Respiratory : fair bilateral air entry, no crackles, wheezes or rhonchi Gastrointestinal: soft, lax, Decrease bowel sounds, no local tenderness Skin : Warm, Dry Neurological : Alert & oriented , No focal deficit Objective Data Active Medications Acetaminophen (Acetaminophen 325 Mg Tablet) 650 mg PO Q6H PRN PRN Reason: Pain, Mild (Pain Scale 1-3) Benzocaine (Throat Lozenge, Medicated Lozenge) 1 lozenge MUCOUS MEM Q2H PRN PRN Reason: Sore Throat Dextrose (Dextrose 50 % 25 Gm/50 Ml Vial) 25 gm IVPUSH Q15M PRN; Protocol PRN Reason: per Hypoglycemia Standing Ord. Famotidine (Famotidine/Pf 20 Mg/2 Ml Vial) 20 mg IVPUSH DAILY [facility] Last Admin: 03/21/21 10:28 Dose: 20 mg Documented by: DOBROB Glucose (Glucose Gel 15 Gm Gel..Gram.) 15 gm PO Q15M PRN; Protocol PRN Reason: per Hypoglycemia Standing Ord. Hydromorphone HCl (Hydromorphone Hcl 0.5 Mg/0.5 Ml Syringe) 0.5 mg IVPUSH Q4H PRN; Protocol PRN Reason: Pain, Severe (Pain Scale 7-10) Last Admin: 03/20/21 16:51 Dose: 0.5 mg Documented by: SHAYNE Lactated Ringer's (Lr) 1,000 mls @ 125 mls/hr IVCONT .Q8H [facility] Last Infusion: 03/21/21 10:41 Dose: 0 mls/hr Documented by: SHAYNE Promethazine HCl 12.5 mg/ (Sodium Chloride) 50.5 mls @ 202 mls/hr IV Q6H PRN PRN Reason: nausea/vomiting Last Infusion: 03/21/21 11:13 Dose: 0 mls/hr Documented by: SHAYNE Insulin Human Lispro (Insulin Lispro 100 Unit/Ml 3 Ml Vial) 0 unit SUBCUT Q4H [facility]; Protocol Last Admin: 03/21/21 10:17 Dose: Not Given Documented by: SHAYNE Non-Admin Reason: No Insulin Coverage Ondansetron HCl (Ondansetron Hcl 4 Mg/2 Ml Vial) 4 mg IVPUSH Q8H PRN PRN Reason: Nausea and Vomiting Last Admin: 03/20/21 23:32 Dose: 4 mg Documented by: SHIRA Pharmacy Consult (Consult Rx Perform Med Rec) 1 each MISCELLANE ONCE PRN PRN Reason: Consult order Pharmacy Consult (Consult Rx Vancomycin Dosing) 1 each MISCELLANE DAILY PRN PRN Reason: Consult order Sodium Chloride (0.9 % Sodium Chloride Flush 3 Ml Syringe) 3 ml IVFLUSH QSHIFT [facility] Last Admin: 03/21/21 10:28 Dose: 3 ml Documented by: SHAYNE Trazodone HCl (Trazodone Hcl 100 Mg Tablet) 200 mg PO BEDTIME PRN PRN Reason: Insomnia Last Admin: 03/16/21 19:41 Dose: 200 mg Documented by: SAMANTHA Labs CBC & Chem 7: 03/21/21 06:25 03/21/21 06:25 Labs: Laboratory Results - last 24 hr 03/20/21 03/20/21 03/20/21 16:31 20:25 23:11 MCV MCH MCHC RDW Plt Count MPV Absolute Nucleated RBC Nucleated RBC % (auto) Anion Gap Estim Creat Clear Calc Estimated GFR POC Glucose 248 H 191 H 175 H Random Glucose Calcium 03/21/21 03/21/21 03/21/21 04:00 06:25 06:25 MCV 87.8 MCH 29.9 MCHC 34.0 RDW 15.8 Plt Count 183 MPV 10.6 Absolute Nucleated RBC 0.000 Nucleated RBC % (auto) 0.0 Anion Gap Estim Creat Clear Calc 35.4 Estimated GFR 37 POC Glucose 141 H Random Glucose Calcium 03/21/21 03/21/21 06:25 07:14 MCV MCH MCHC RDW Plt Count MPV Absolute Nucleated RBC Nucleated RBC % (auto) Anion Gap 17 Estim Creat Clear Calc 34.9 Estimated GFR 36 POC Glucose 166 H Random Glucose 156 H Calcium 7.7 L Microbiology Microbiology Results: Microbiology 03/14/21 11:46 Gram Stain - Final Peritoneal Fluid Routine Culture - Final No growth after 2 days Anaerobic Culture - Final NO GROWTH AFTER 5 DAYS Assessment and Plan (1) Acute kidney injury superimposed on CKD: Status: Acute (2) Ileus: Status: Acute Assessment and Plan: 70-year-old female presented with abdominal pain, suspected to have bowel obstruction Ileus surgery team following NG tube Removed continue IVF Plan to repeat CT scan advance as tolerated MARQUITA on CKD 3 Improved to 1.5 around baseline Gentle IVF follow BMP and urine output hyperkalemia resolved Monitor BMP Diabetes with hyperglcyemia Patient uses insulin pump now held continue insulin sliding scale monitor point of cares closely Coronary disease Status post CABG To restart apixaban once tolerating p.o. (patient unaware of any history of AFib, denies history of VTE) Thank you for the consult, will continue to monitor with y Quality Stroke Does the patient have a stroke diagnosis?: No VTE Prior VTE?: No VTE Risk Level:: Surgical - high VTE Device Contraindication: N/A - Device Ordered VTE Drug Contraindication: N/A - Med Ordered
[2021-03-21 11:46] LABS: Glucose, Whole Blood 286 mg/dL (60-115)
[2021-03-21] MEDS: Insulin Lispro 100 UNIT/ML 3 ML VIAL SUBCUT ×2 (12:03→16:54)
[2021-03-21] MEDS: Lactated Ringers 1,000 ML 125 ML IVCONT (12:04)
[2021-03-21] MEDS: ondansetron HCL 4 MG/2 ML VIAL IVPUSH (12:39)
[2021-03-21 15:18] LABS: Glucose, Whole Blood 204 mg/dL (60-115)
[2021-03-21 15:26] LABS: CDiff Gene PCR NEGATIVE (Negative)
[2021-03-21 15:37] VITALS: BP 115/80; PULSE 95; RESP 18; TEMP 36.6; O2SAT 97
[2021-03-21] MEDS: HYDROmorphone HCl 0.5 MG/0.5 ML SYRINGE IVPUSH (17:55)
[2021-03-21 20:40] LABS: Glucose, Whole Blood 176 mg/dL (60-115)
[2021-03-22] VITALS: BP 110/57; PULSE 83; RESP 16; TEMP 36.4; O2SAT 97
[2021-03-22 00:24] LABS: Glucose, Whole Blood 212 mg/dL (60-115)
[2021-03-22] MEDS: Insulin Lispro 100 UNIT/ML 3 ML VIAL SUBCUT ×5 (00:40→20:44)
[2021-03-22] MEDS: 0.9 % Sodium Chloride Flush 3 ML SYRINGE IVFLUSH ×2 (00:42→16:46)
--- NOTE | 2021-03-22 02:18 | PC.NURSE ---
Right wrist IV access infiltrated, unable to insert an IV at this time, pt's both upper extremities are edematous. MD made aware. Next nurse to re-evaluate.
[2021-03-22 06:10] LABS: Creatinine Clr Calc Pharmacy 38.8; Estimated Glomerular Filt Rate 41
[2021-03-22 07:08] LABS: Glucose, Whole Blood 183 mg/dL (60-115)
[2021-03-22 07:19] VITALS: BP 99/55; PULSE 80; RESP 17; TEMP 37.7; O2SAT 97
[2021-03-22 07:51] LABS: Glucose, Whole Blood 218 mg/dL (60-115)
--- NOTE | 2021-03-22 09:11 | P.PNGS_ITS ---
Subjective Subjective Date of Service: 03/22/21 <Cely Lima PA-C - Last Filed: 03/22/21 09:15> 03/22/21 <Neto Grewal MD - Last Filed: 03/22/21 10:49> Interval history: No BM since yesterday afternoon. COntinues to pass flatus. Denies abdominal pain. Hungry. Would like to walk today. <Cely Lima PA-C - Last Filed: 03/22/21 09:15> Physical Exam Vital Signs: Vital Signs: Last Vital Signs Temp 99.8 F 03/22/21 07:19 Pulse 80 03/22/21 07:19 Resp 17 03/22/21 07:19 BP 99/55 L 03/22/21 07:19 Pulse Ox 97 03/22/21 07:19 Body Mass Index 23.3 <Cely Lima PA-C - Last Filed: 03/22/21 09:15> Const: General: healthy appearing, comfortable and no acute distress <Cely Lima PA-C - Last Filed: 03/22/21 09:15> Orientation/consciousness: patient oriented x3 <Cely Lima PA-C - Last Filed: 03/22/21 09:15> Resp: Effort & Inspection: normal respiratory effort <Cely Lima PA-C - Last Filed: 03/22/21 09:15> GI: Inspection: No distended and Yes incision (clean) <Cely Lima PA-C - Last Filed: 03/22/21 09:15> Palpation (GI): Soft to palpation, nontender, no guarding and not rigid <Cely Lima PA-C - Last Filed: 03/22/21 09:15> Percussion: Yes normal to percussion <BRANDI Werner Last Filed: 03/22/21 09:15> Skin: General skin exam: no rashes or lesions noted <Cely Lima PA-C - Last Filed: 03/22/21 09:15> Neuro: General: patient oriented x3 <Cely Lima PA-C - Last Filed: 03/22/21 09:15> Objective Data Active Medications Acetaminophen (Acetaminophen 325 Mg Tablet) 650 mg PO Q6H PRN PRN Reason: Pain, Mild (Pain Scale 1-3) Benzocaine (Throat Lozenge, Medicated Lozenge) 1 lozenge MUCOUS MEM Q2H PRN PRN Reason: Sore Throat Dextrose (Dextrose 50 % 25 Gm/50 Ml Vial) 25 gm IVPUSH Q15M PRN; Protocol PRN Reason: per Hypoglycemia Standing Ord. Famotidine (Famotidine/Pf 20 Mg/2 Ml Vial) 20 mg IVPUSH DAILY [facility] Last Admin: 03/21/21 10:28 Dose: 20 mg Documented by: Glucose (Glucose Gel 15 Gm Gel..Gram.) 15 gm PO Q15M PRN; Protocol PRN Reason: per Hypoglycemia Standing Ord. Hydromorphone HCl (Hydromorphone Hcl 0.5 Mg/0.5 Ml Syringe) 0.5 mg IVPUSH Q4H PRN; Protocol PRN Reason: Pain, Severe (Pain Scale 7-10) Last Admin: 03/21/21 17:55 Dose: 0.5 mg Documented by: SHAYNE Lactated Ringer's (Lr) 1,000 mls @ 125 mls/hr IVCONT .Q8H [facility] Last Admin: 03/22/21 08:59 Dose: Not Given Documented by: ANNA Non-Admin Reason: No Access Promethazine HCl 12.5 mg/ (Sodium Chloride) 50.5 mls @ 202 mls/hr IV Q6H PRN PRN Reason: nausea/vomiting Last Infusion: 03/21/21 17:57 Dose: 0 mls/hr Documented by: SHAYNE Insulin Human Lispro (Insulin Lispro 100 Unit/Ml 3 Ml Vial) 0 unit SUBCUT Q4H [facility]; Protocol Last Admin: 03/22/21 08:58 Dose: 4 unit Documented by: ANNA Ondansetron HCl (Ondansetron Hcl 4 Mg/2 Ml Vial) 4 mg IVPUSH Q6H PRN PRN Reason: Nausea and Vomiting Pharmacy Consult (Consult Rx Perform Med Rec) 1 each MISCELLANE ONCE PRN PRN Reason: Consult order Pharmacy Consult (Consult Rx Vancomycin Dosing) 1 each MISCELLANE DAILY PRN PRN Reason: Consult order Sodium Chloride (0.9 % Sodium Chloride Flush 3 Ml Syringe) 3 ml IVFLUSH QSHIFT [facility] Last Admin: 03/22/21 09:04 Dose: Not Given Documented by: ANNA Non-Admin Reason: No Access Trazodone HCl (Trazodone Hcl 100 Mg Tablet) 200 mg PO BEDTIME PRN PRN Reason: Insomnia Last Admin: 03/16/21 19:41 Dose: 200 mg Documented by: SAMANTHA <Cely Lima PA-C - Last Filed: 03/22/21 09:15> Labs CBC & Chem 7: : 03/21/21 06:25 03/22/21 05:33 <Cely Lima PA-C - Last Filed: 03/22/21 09:15> Labs: Laboratory Results - last 24 hr 03/21/21 03/21/21 03/21/21 11:19 12:40 15:15 Estim Creat Clear Calc Estimated GFR POC Glucose 286 H 204 H C. difficile Tox B Gene NEGATIVE 03/21/21 03/22/21 03/22/21 19:30 00:19 04:12 Estim Creat Clear Calc Estimated GFR POC Glucose 176 H 212 H 183 H C. difficile Tox B Gene 03/22/21 03/22/21 05:33 07:47 Estim Creat Clear Calc 38.8 Estimated GFR 41 POC Glucose 218 H C. difficile Tox B Gene <Cely Lima PA-C - Last Filed: 03/22/21 09:15> Procedures Date of Service Date of Service: 03/22/21 <BRANDI Werner Last Filed: 03/22/21 09:15> Progress Note: A&P Assessment and plan (1) Acute kidney injury superimposed on CKD: Status: Acute <Cely Lima PA-C - Last Filed: 03/22/21 09:15> (2) Ileus: Status: Acute <BRANDI Werner Last Filed: 03/22/21 09:15> (3) Pneumatosis intestinalis: Status: Acute <BRANDI Werner Last Filed: 03/22/21 09:15> Assessment and Plan: Patient admitted with diagnosis of pneumatosis intestinalis, status post exploratory laparotomy with no evidence of ischemic/necrotic bowel, developed ileus postoperatively requiring reinsertion of nasogastric tube which resolved and then developed combination of diarrhea and nausea and vomiting.? Abx discontinued. Repeat CT scan- colonic thickening especially on the right side, no free air, no abscess. C diff negative. She feels improved this morning. Denies abdominal pain, nausea. Diarrhea improved. Will advance to diabetic/low residue diet. PT consult for deconditioning. Encouraged IS use. Hopefully home in next 1-2 days if tolerating diet. <Cely Lima PA-C - Last Filed: 03/22/21 09:15> Patient admitted with diagnosis of pneumatosis intestinalis, status post exploratory laparotomy with no evidence of ischemic/necrotic bowel, developed ileus postoperatively requiring reinsertion of nasogastric tube which resolved and then developed combination of diarrhea and nausea and vomiting.? Abx discontinued. Repeat CT scan- colonic thickening especially on the right side, no free air, no abscess. C diff negative. She feels improved this morning. Denies abdominal pain, nausea. Diarrhea improved. Will advance to diabetic/low residue diet. PT consult for deconditioning. Encouraged IS use. Hopefully home in next 1-2 days if tolerating diet. Agree with the above assessment and plan. Patient denies any further vomiting; she noted some nausea after receiving Pepcid. Will stop med as NGT is now out. Agree with advancing diet. Encouraged IS, OOB. <Neto Grewal MD - Last Filed: 03/22/21 10:49> Fall Risk Details Current Medications: Current Medications Acetaminophen (Acetaminophen 325 Mg Tablet) 650 mg PO Q6H PRN PRN Reason: Pain, Mild (Pain Scale 1-3) Benzocaine (Throat Lozenge, Medicated Lozenge) 1 lozenge MUCOUS MEM Q2H PRN PRN Reason: Sore Throat Dextrose (Dextrose 50 % 25 Gm/50 Ml Vial) 25 gm IVPUSH Q15M PRN; Protocol PRN Reason: per Hypoglycemia Standing Ord. Famotidine (Famotidine/Pf 20 Mg/2 Ml Vial) 20 mg IVPUSH DAILY [facility] Last Admin: 03/21/21 10:28 Dose: 20 mg Documented by: Glucose (Glucose Gel 15 Gm Gel..Gram.) 15 gm PO Q15M PRN; Protocol PRN Reason: per Hypoglycemia Standing Ord. Hydromorphone HCl (Hydromorphone Hcl 0.5 Mg/0.5 Ml Syringe) 0.5 mg IVPUSH Q4H PRN; Protocol PRN Reason: Pain, Severe (Pain Scale 7-10) Last Admin: 03/21/21 17:55 Dose: 0.5 mg Documented by: Lactated Ringer's (Lr) 1,000 mls @ 125 mls/hr IVCONT .Q8H [facility] Last Admin: 03/22/21 08:59 Dose: Not Given Documented by: Promethazine HCl 12.5 mg/ (Sodium Chloride) 50.5 mls @ 202 mls/hr IV Q6H PRN PRN Reason: nausea/vomiting Last Infusion: 03/21/21 17:57 Dose: Infused Documented by: Insulin Human Lispro (Insulin Lispro 100 Unit/Ml 3 Ml Vial) 0 unit SUBCUT Q4H [facility]; Protocol Last Admin: 03/22/21 08:58 Dose: 4 unit Documented by: Ondansetron HCl (Ondansetron Hcl 4 Mg/2 Ml Vial) 4 mg IVPUSH Q6H PRN PRN Reason: Nausea and Vomiting Pharmacy Consult (Consult Rx Perform Med Rec) 1 each MISCELLANE ONCE PRN PRN Reason: Consult order Pharmacy Consult (Consult Rx Vancomycin Dosing) 1 each MISCELLANE DAILY PRN PRN Reason: Consult order Sodium Chloride (0.9 % Sodium Chloride Flush 3 Ml Syringe) 3 ml IVFLUSH [facility] Last Admin: 03/22/21 09:04 Dose: Not Given Documented by: Trazodone HCl (Trazodone Hcl 100 Mg Tablet) 200 mg PO BEDTIME PRN PRN Reason: Insomnia Last Admin: 03/16/21 19:41 Dose: 200 mg Documented by: <Cely Lima PA-C - Last Filed: 03/22/21 09:15> Time Spent With Patient Time: Total time spent is greater than 50% in coordination of care (as documented) at patient's floor/unit and/or counseling patient: <Cely Lima PA-C - Last Filed: 03/22/21 09:15> Time with patient: 15 - 24 minutes <BRANDI Werner Last Filed: 03/22/21 09:15> Quality Stroke Does the patient have a stroke diagnosis?: No <Cely Lima PA-C - Last Filed: 03/22/21 09:15> VTE Prior VTE?: No <Cely Lima PA-C - Last Filed: 03/22/21 09:15> VTE Risk Level:: Surgical - high <Cely Lima PA-C - Last Filed: 03/22/21 09:15> VTE Device Contraindication: N/A - Device Ordered <Cely Lima PA-C - Last Filed: 03/22/21 09:15> VTE Drug Contraindication: N/A - Med Ordered <Cely Lima PA-C - Last Filed: 03/22/21 09:15>
[2021-03-22 09:52] VITALS: BP 99/55; PULSE 80; O2SAT 97
[2021-03-22] MEDS: Famotidine/PF 20 MG/2 ML VIAL IVPUSH (10:14)
[2021-03-22] MEDS: ondansetron HCL 4 MG/2 ML VIAL IVPUSH ×3 (10:21→22:39)
--- NOTE | 2021-03-22 11:36 | MHC.CM.PN ---
Patient has not yet been medically cleared for dc (no BM yet). PT is recommending home with services and CM will follow for possible need to adjust the dc plan.
[2021-03-22 11:57] LABS: Glucose, Whole Blood 214 mg/dL (60-115)
--- NOTE | 2021-03-22 11:58 | P.PNIM_ITS ---
Subjective Subjective Date of Service: 03/22/21 Interval History: the patient was seen and evaluated this morning Laying in bed, feels better with less nausea Having bowel movement and passing gas Tolerating clear liquids Denies any fever, chills or shortness of breath No reported other overnight events. Systemic review: No fever, chills but reported weakness and being anxious No chest pain, palpitation No shortness of breath or coughing No abdominal pain, with no nausea No urinary symptoms No any rash or wounds Physical Exam Vital Signs: Vital Signs: Last Vital Signs Temp 99.8 F 03/22/21 07:19 Pulse 80 03/22/21 09:52 Resp 17 03/22/21 07:19 BP 99/55 L 03/22/21 09:52 Pulse Ox 97 03/22/21 09:52 Body Mass Index 23.3 Const: Other: Constitutional : Alert, oriented to self Neck : Normal inspection, Supple Cardiovascular : RRR, S1 S2, no lower extremity edema Respiratory : fair bilateral air entry, no crackles, wheezes or rhonchi Gastrointestinal: soft, lax, Decrease bowel sounds, no local tenderness Skin : Warm, Dry Neurological : Alert & oriented , No focal deficit Objective Data Active Medications Acetaminophen (Acetaminophen 325 Mg Tablet) 650 mg PO Q6H PRN PRN Reason: Pain, Mild (Pain Scale 1-3) Benzocaine (Throat Lozenge, Medicated Lozenge) 1 lozenge MUCOUS MEM Q2H PRN PRN Reason: Sore Throat Dextrose (Dextrose 50 % 25 Gm/50 Ml Vial) 25 gm IVPUSH Q15M PRN; Protocol PRN Reason: per Hypoglycemia Standing Ord. Glucose (Glucose Gel 15 Gm Gel..Gram.) 15 gm PO Q15M PRN; Protocol PRN Reason: per Hypoglycemia Standing Ord. Hydromorphone HCl (Hydromorphone Hcl 0.5 Mg/0.5 Ml Syringe) 0.5 mg IVPUSH Q4H PRN; Protocol PRN Reason: Pain, Severe (Pain Scale 7-10) Last Admin: 03/21/21 17:55 Dose: 0.5 mg Documented by: DOBROB Promethazine HCl 12.5 mg/ (Sodium Chloride) 50.5 mls @ 202 mls/hr IV Q6H PRN PRN Reason: nausea/vomiting Last Infusion: 03/21/21 17:57 Dose: 0 mls/hr Documented by: SHAYNE Insulin Human Lispro (Insulin Lispro 100 Unit/Ml 3 Ml Vial) 0 unit SUBCUT Q4H [facility]; Protocol Last Admin: 03/22/21 08:58 Dose: 4 unit Documented by: ANNA Ondansetron HCl (Ondansetron Hcl 4 Mg/2 Ml Vial) 4 mg IVPUSH Q6H PRN PRN Reason: Nausea and Vomiting Last Admin: 03/22/21 10:21 Dose: 4 mg Documented by: ANNA Pharmacy Consult (Consult Rx Perform Med Rec) 1 each MISCELLANE ONCE PRN PRN Reason: Consult order Sodium Chloride (0.9 % Sodium Chloride Flush 3 Ml Syringe) 3 ml IVFLUSH QSHIFT [facility] Last Admin: 03/22/21 09:04 Dose: Not Given Documented by: ANNA Non-Admin Reason: No Access Trazodone HCl (Trazodone Hcl 100 Mg Tablet) 200 mg PO BEDTIME PRN PRN Reason: Insomnia Last Admin: 03/16/21 19:41 Dose: 200 mg Documented by: SAMANTHA Labs CBC & Chem 7: 03/21/21 06:25 03/22/21 05:33 Labs: Laboratory Results - last 24 hr 03/21/21 03/21/21 03/21/21 12:40 15:15 19:30 Estim Creat Clear Calc Estimated GFR POC Glucose 204 H 176 H C. difficile Tox B Gene NEGATIVE 03/22/21 03/22/21 03/22/21 00:19 04:12 05:33 Estim Creat Clear Calc 38.8 Estimated GFR 41 POC Glucose 212 H 183 H C. difficile Tox B Gene 03/22/21 03/22/21 07:47 11:38 Estim Creat Clear Calc Estimated GFR POC Glucose 218 H 214 H C. difficile Tox B Gene Assessment and Plan (1) Acute kidney injury superimposed on CKD: Status: Acute (2) Ileus: Status: Acute Assessment and Plan: 70-year-old female presented with abdominal pain, suspected to have bowel obstruction Ileus surgery team following NG tube Removed Fluids discontinue advance diet as tolerated MARQUITA on CKD 3 Improved to 1.3 around baseline follow BMP and urine output hyperkalemia resolved Monitor BMP Diabetes with hyperglcyemia Patient uses insulin pump now held continue insulin sliding scale monitor point of cares closely Coronary disease Status post CABG To restart apixaban once tolerating p.o. per surgery decision (patient unaware of any history of AFib, denies history of VTE) Thank you for the consult, will continue to monitor with y Quality Stroke Does the patient have a stroke diagnosis?: No VTE Prior VTE?: No VTE Risk Level:: Surgical - high VTE Device Contraindication: N/A - Device Ordered VTE Drug Contraindication: N/A - Med Ordered
[2021-03-22 15:33] VITALS: BP 109/61; PULSE 86; RESP 18; TEMP 36.6; O2SAT 96
[2021-03-22 16:29] LABS: Glucose, Whole Blood 197 mg/dL (60-115)
[2021-03-22 20:38] LABS: Glucose, Whole Blood 217 mg/dL (60-115)
[2021-03-22] MEDS: HYDROmorphone HCl 0.5 MG/0.5 ML SYRINGE IVPUSH (21:56)
[2021-03-22 23:45] VITALS: BP 93/51; PULSE 85; RESP 18; TEMP 36.4; O2SAT 93
[2021-03-23 00:47] LABS: Glucose, Whole Blood 138 mg/dL (60-115)
[2021-03-23] MEDS: 0.9 % Sodium Chloride Flush 3 ML SYRINGE IVFLUSH ×4 (01:01→21:37)
[2021-03-23] MEDS: Insulin Lispro 100 UNIT/ML 3 ML VIAL SUBCUT ×3 (03:20→21:31)
[2021-03-23 03:33] VITALS: BP 95/53; PULSE 79; RESP 18; TEMP 36.4; O2SAT 92
[2021-03-23 03:33] LABS: Glucose, Whole Blood 151 mg/dL (60-115)
[2021-03-23 06:27] LABS: Estimated Glomerular Filt Rate 42
[2021-03-23 07:21] VITALS: BP 95/52; PULSE 79; RESP 17; TEMP 36.9; O2SAT 98
[2021-03-23 07:32] LABS: Glucose, Whole Blood 124 mg/dL (60-115)
--- NOTE | 2021-03-23 11:11 | HO.PM.IMPN ---
Subjective Subjective Date of Service: 03/23/21 Interval History: the patient was seen and evaluated this morning Laying in bed, feels better with less nausea Tolerating regular diet today Having bowel movement and passing gas No reported other overnight events. Systemic review: No fever, chills but reported weakness No chest pain, palpitation No shortness of breath or coughing No abdominal pain, with no nausea No urinary symptoms No any rash or wounds Physical Exam Vital Signs: Vital Signs: Last Vital Signs Temp 98.4 F 03/23/21 07:21 Pulse 79 03/23/21 07:21 Resp 17 03/23/21 07:21 BP 95/52 L 03/23/21 07:21 Pulse Ox 98 03/23/21 07:21 Body Mass Index 23.3 Const: Other: Constitutional : Alert, oriented to self Neck : Normal inspection, Supple Cardiovascular : RRR, S1 S2, no lower extremity edema Respiratory : fair bilateral air entry, no crackles, wheezes or rhonchi Gastrointestinal: soft, lax, Decrease bowel sounds, no local tenderness Skin : Warm, Dry Neurological : Alert & oriented , No focal deficit Objective Data Active Medications Acetaminophen (Acetaminophen 325 Mg Tablet) 650 mg PO Q6H PRN PRN Reason: Pain, Mild (Pain Scale 1-3) Benzocaine (Throat Lozenge, Medicated Lozenge) 1 lozenge MUCOUS MEM Q2H PRN PRN Reason: Sore Throat Dextrose (Dextrose 50 % 25 Gm/50 Ml Vial) 25 gm IVPUSH Q15M PRN; Protocol PRN Reason: per Hypoglycemia Standing Ord. Glucose (Glucose Gel 15 Gm Gel..Gram.) 15 gm PO Q15M PRN; Protocol PRN Reason: per Hypoglycemia Standing Ord. Hydromorphone HCl (Hydromorphone Hcl 0.5 Mg/0.5 Ml Syringe) 0.5 mg IVPUSH Q4H PRN; Protocol PRN Reason: Pain, Severe (Pain Scale 7-10) Last Admin: 03/22/21 21:56 Dose: 0.5 mg Documented by: ATA Promethazine HCl 12.5 mg/ (Sodium Chloride) 50.5 mls @ 202 mls/hr IV Q6H PRN PRN Reason: nausea/vomiting Last Infusion: 03/22/21 19:07 Dose: 0 mls/hr Documented by: ATA Insulin Human Lispro (Insulin Lispro 100 Unit/Ml 3 Ml Vial) 0 unit SUBCUT Q4H [facility]; Protocol Last Admin: 03/23/21 07:32 Dose: Not Given Documented by: ROXY Non-Admin Reason: No Insulin Coverage Ondansetron HCl (Ondansetron Hcl 4 Mg/2 Ml Vial) 4 mg IVPUSH Q6H PRN PRN Reason: Nausea and Vomiting Last Admin: 03/22/21 22:39 Dose: 4 mg Documented by: ATA Pharmacy Consult (Consult Rx Perform Med Rec) 1 each MISCELLANE ONCE PRN PRN Reason: Consult order Sodium Chloride (0.9 % Sodium Chloride Flush 3 Ml Syringe) 3 ml IVFLUSH QSHIFT [facility] Last Admin: 03/23/21 09:15 Dose: 3 ml Documented by: JOSH Trazodone HCl (Trazodone Hcl 100 Mg Tablet) 200 mg PO BEDTIME PRN PRN Reason: Insomnia Last Admin: 03/16/21 19:41 Dose: 200 mg Documented by: SAMANTHA Labs CBC & Chem 7: 03/21/21 06:25 03/23/21 06:08 Labs: Laboratory Results - last 24 hr 03/22/21 03/22/21 03/22/21 11:38 15:38 20:32 Estim Creat Clear Calc Estimated GFR POC Glucose 214 H 197 H 217 H 03/23/21 03/23/21 03/23/21 00:42 03:15 06:08 Estim Creat Clear Calc 40.0 Estimated GFR 42 POC Glucose 138 H 151 H 03/23/21 07:24 Estim Creat Clear Calc Estimated GFR POC Glucose 124 H Assessment and Plan (1) Acute kidney injury superimposed on CKD: Status: Acute (2) Ileus: Status: Acute Assessment and Plan: 70-year-old female presented with abdominal pain, suspected to have bowel obstruction Ileus surgery team following NG tube Removed Fluids discontinue advance diet as tolerated MARQUITA on CKD 3 Improved to 1.3 around baseline follow BMP and urine output Diabetes with hyperglcyemia Patient uses insulin pump now held continue insulin sliding scale monitor point of cares closely Coronary disease Status post CABG To restart apixaban once tolerating p.o. per surgery decision (patient unaware of any history of AFib, denies history of VTE) Thank you for the consult, will continue to monitor with y Quality Stroke Does the patient have a stroke diagnosis?: No VTE Prior VTE?: No VTE Risk Level:: Surgical - high VTE Device Contraindication: N/A - Device Ordered VTE Drug Contraindication: N/A - Med Ordered
[2021-03-23 11:23] LABS: Glucose, Whole Blood 191 mg/dL (60-115)
[2021-03-23] MEDS: ondansetron HCL 4 MG/2 ML VIAL IVPUSH (14:46)
[2021-03-23] MEDS: HYDROmorphone HCl 0.5 MG/0.5 ML SYRINGE IVPUSH ×2 (15:12→21:51)
[2021-03-23 15:42] VITALS: BP 90/56; PULSE 86; RESP 17; TEMP 36.8; O2SAT 95
--- NOTE | 2021-03-23 16:06 | PM.PNGS ---
Subjective Subjective Date of Service: 03/23/21 Interval history: pt complaining of nausea/heartburn pain. having flatus and loose stools Physical Exam Vital Signs: Vital Signs: Last Vital Signs Temp 98.2 F 03/23/21 15:42 Pulse 86 03/23/21 15:42 Resp 17 03/23/21 15:42 BP 90/56 L 03/23/21 15:42 Pulse Ox 95 03/23/21 15:42 Body Mass Index 23.3 GI: Other: soft nontender nondistended incision looks good Objective Data Active Medications Acetaminophen (Acetaminophen 325 Mg Tablet) 650 mg PO Q6H PRN PRN Reason: Pain, Mild (Pain Scale 1-3) Benzocaine (Throat Lozenge, Medicated Lozenge) 1 lozenge MUCOUS MEM Q2H PRN PRN Reason: Sore Throat Dextrose (Dextrose 50 % 25 Gm/50 Ml Vial) 25 gm IVPUSH Q15M PRN; Protocol PRN Reason: per Hypoglycemia Standing Ord. Famotidine (Famotidine 20 Mg Tablet) 20 mg PO BID [facility] Glucose (Glucose Gel 15 Gm Gel..Gram.) 15 gm PO Q15M PRN; Protocol PRN Reason: per Hypoglycemia Standing Ord. Hydromorphone HCl (Hydromorphone Hcl 0.5 Mg/0.5 Ml Syringe) 0.5 mg IVPUSH Q4H PRN; Protocol PRN Reason: Pain, Severe (Pain Scale 7-10) Last Admin: 03/23/21 15:12 Dose: 0.5 mg Documented by: JOSH Promethazine HCl 12.5 mg/ (Sodium Chloride) 50.5 mls @ 202 mls/hr IV Q6H PRN PRN Reason: nausea/vomiting Last Infusion: 03/22/21 19:07 Dose: 0 mls/hr Documented by: ATA Insulin Human Lispro (Insulin Lispro 100 Unit/Ml 3 Ml Vial) 0 unit SUBCUT Q4H [facility]; Protocol Last Admin: 03/23/21 11:59 Dose: Not Given Documented by: JOSH Non-Admin Reason: No Insulin Coverage Ondansetron HCl (Ondansetron Hcl 4 Mg/2 Ml Vial) 4 mg IVPUSH Q6H PRN PRN Reason: Nausea and Vomiting Last Admin: 03/23/21 14:46 Dose: 4 mg Documented by: JOSH Pharmacy Consult (Consult Rx Perform Med Rec) 1 each MISCELLANE ONCE PRN PRN Reason: Consult order Sodium Chloride (0.9 % Sodium Chloride Flush 3 Ml Syringe) 3 ml IVFLUSH QSHIFT [facility] Last Admin: 03/23/21 09:15 Dose: 3 ml Documented by: JOSH Trazodone HCl (Trazodone Hcl 100 Mg Tablet) 200 mg PO BEDTIME PRN PRN Reason: Insomnia Last Admin: 03/16/21 19:41 Dose: 200 mg Documented by: SAMANTHA Labs CBC & Chem 7: 03/21/21 06:25 03/23/21 06:08 Labs: Laboratory Results - last 24 hr 03/22/21 03/22/21 03/23/21 15:38 20:32 00:42 Estim Creat Clear Calc Estimated GFR POC Glucose 197 H 217 H 138 H 03/23/21 03/23/21 03/23/21 03:15 06:08 07:24 Estim Creat Clear Calc 40.0 Estimated GFR 42 POC Glucose 151 H 124 H 03/23/21 11:18 Estim Creat Clear Calc Estimated GFR POC Glucose 191 H Procedures Date of Service Date of Service: 03/23/21 Progress Note: A&P Assessment and plan (1) Ileus: Status: Acute Assessment and Plan: pt s/p explor lap for pneumotosis but exploration reveals normal bowels and findings. postop had ileus and now improving but has heartburn epigastric pain and nausea. diarrhea will trial maalox and pepcid slow advance with diet as tolerated Fall Risk Details Current Medications: Current Medications Acetaminophen (Acetaminophen 325 Mg Tablet) 650 mg PO Q6H PRN PRN Reason: Pain, Mild (Pain Scale 1-3) Benzocaine (Throat Lozenge, Medicated Lozenge) 1 lozenge MUCOUS MEM Q2H PRN PRN Reason: Sore Throat Dextrose (Dextrose 50 % 25 Gm/50 Ml Vial) 25 gm IVPUSH Q15M PRN; Protocol PRN Reason: per Hypoglycemia Standing Ord. Famotidine (Famotidine 20 Mg Tablet) 20 mg PO BID [facility] Glucose (Glucose Gel 15 Gm Gel..Gram.) 15 gm PO Q15M PRN; Protocol PRN Reason: per Hypoglycemia Standing Ord. Hydromorphone HCl (Hydromorphone Hcl 0.5 Mg/0.5 Ml Syringe) 0.5 mg IVPUSH Q4H PRN; Protocol PRN Reason: Pain, Severe (Pain Scale 7-10) Last Admin: 03/23/21 15:12 Dose: 0.5 mg Documented by: Promethazine HCl 12.5 mg/ (Sodium Chloride) 50.5 mls @ 202 mls/hr IV Q6H PRN PRN Reason: nausea/vomiting Last Infusion: 03/22/21 19:07 Dose: Infused Documented by: Insulin Human Lispro (Insulin Lispro 100 Unit/Ml 3 Ml Vial) 0 unit SUBCUT Q4H [facility]; Protocol Last Admin: 03/23/21 11:59 Dose: Not Given Documented by: Ondansetron HCl (Ondansetron Hcl 4 Mg/2 Ml Vial) 4 mg IVPUSH Q6H PRN PRN Reason: Nausea and Vomiting Last Admin: 03/23/21 14:46 Dose: 4 mg Documented by: Pharmacy Consult (Consult Rx Perform Med Rec) 1 each MISCELLANE ONCE PRN PRN Reason: Consult order Sodium Chloride (0.9 % Sodium Chloride Flush 3 Ml Syringe) 3 ml IVFLUSH [facility] Last Admin: 03/23/21 09:15 Dose: 3 ml Documented by: Trazodone HCl (Trazodone Hcl 100 Mg Tablet) 200 mg PO BEDTIME PRN PRN Reason: Insomnia Last Admin: 03/16/21 19:41 Dose: 200 mg Documented by: Time Spent With Patient Time: Total time spent is greater than 50% in coordination of care (as documented) at patient's floor/unit and/or counseling patient: Time with patient: 25 - 35 minutes Quality Stroke Does the patient have a stroke diagnosis?: No VTE Prior VTE?: No VTE Risk Level:: Surgical - high VTE Device Contraindication: N/A - Device Ordered VTE Drug Contraindication: N/A - Med Ordered
[2021-03-23 16:27] LABS: Glucose, Whole Blood 354 mg/dL (60-115)
[2021-03-23 20:20] LABS: Glucose, Whole Blood 336 mg/dL (60-115)
[2021-03-23] MEDS: Famotidine 20 MG TABLET PO (21:31)
[2021-03-24] VITALS: BP 95/57; PULSE 85; RESP 17; TEMP 36.6; O2SAT 92
[2021-03-24 00:44] LABS: Glucose, Whole Blood 226 mg/dL (60-115)
[2021-03-24 03:13] LABS: Glucose, Whole Blood 215 mg/dL (60-115)
[2021-03-24] MEDS: Insulin Lispro 100 UNIT/ML 3 ML VIAL SUBCUT ×2 (03:34→20:34)
[2021-03-24 05:42] LABS: Baso%MD 0.3 %; Eos%MD 0.2 %; Hemoglobin 11.4 g/dl (12.0-16.0); IG%MD 0.7 %; Lymph%MD 11.9 %; Mean Corpuscular HGB Conc 33.5 g/dl (31.0-35.0); Mean Corpuscular Hemoglobin 29.8 pg (27.0-33.0); Mean Platelet Volume 11.5 fL (9.4-12.3); Mono%MD 4.2 %; Neut%MD 82.7 %; Platelet Count 170 X10*3/uL (160-400); Red Blood Count 3.82 X10*6/uL (4.20-5.50); Red Cell Distribution Width 16.7 % (11.0-16.0); White Blood Count 23.3 X10*3/uL (4.8-10.8)
[2021-03-24 06:01] LABS: Alanine Aminotransferase 11 U/L (0-31); Albumin Level 2.1 g/dL (3.5-5.0); Alkaline Phosphatase 70 U/L (39-117); Anion Gap 14 (12-20); Aspartate Amino Transferase 17 U/L (5-31); Bilirubin Total 0.3 mg/dL (0.0-1.0); Blood Urea Nitrogen 32 mg/dL (9-16); Calcium 7.3 mg/dL (8.4-10.2); Carbon Dioxide 21 mmol/L (22-29); Chloride 103 mmol/L (96-108); Creatinine Clr Calc Pharmacy 29.9; Estimated Glomerular Filt Rate 30; Glucose Random 216 mg/dL (60-115); Lipase 6 U/L (8-78); Potassium 3.9 mmol/L (3.3-5.1); Sodium 134 mmol/L (135-145); Total Protein 3.7 g/dL (6.5-8.0)
[2021-03-24 06:13] LABS: Lymphocytes Absolute Manual 1.6 X10*3/uL (1.2-4.9); Lymphocytes Percent Manual 7 % (20-40); Monocytes Absolute Manual 0.9 X10*3/uL (0.1-1.2); Monocytes Percent Manual 4 % (2-11)
[2021-03-24 06:14] LABS: Platelet Estimate NORMAL (NORMAL); Platelet Morphology Comment NORMAL; RBC Morphology NORMAL
[2021-03-24 06:31] LABS: Neutrophils Percent Manual 89 % (45-73)
[2021-03-24 06:32] LABS: Neutrophils Absolute Manual 20.7 X10*3/uL (2.0-8.3)
[2021-03-24 06:33] LABS: Band Neutrophils Percent 0 % (3-5)
[2021-03-24 07:02] VITALS: BP 95/55; PULSE 90; RESP 17; TEMP 36.9; O2SAT 96
[2021-03-24 07:15] LABS: Glucose, Whole Blood 176 mg/dL (60-115)
[2021-03-24] MEDS: Famotidine 20 MG TABLET PO ×2 (09:23→20:33)
[2021-03-24] MEDS: 0.9 % Sodium Chloride Flush 3 ML SYRINGE IVFLUSH ×3 (09:25→20:34)
--- NOTE | 2021-03-24 09:55 | HO.PM.IMPN ---
Subjective Subjective Date of Service: 03/24/21 Interval History: the patient was seen and evaluated this morning Laying in bed, feels better with less nausea Tolerated some toast and Jell-O yesterday WBCs increased to 23,000 Having bowel movement and passing gas No reported other overnight events. Systemic review: No fever, chills but reported weakness No chest pain, palpitation No shortness of breath or coughing No abdominal pain, with no nausea No urinary symptoms No any rash or wounds Physical Exam Vital Signs: Vital Signs: Last Vital Signs Temp 98.5 F 03/24/21 07:02 Pulse 90 03/24/21 07:02 Resp 17 03/24/21 07:02 BP 95/55 L 03/24/21 07:02 Pulse Ox 96 03/24/21 07:02 Body Mass Index 23.3 Const: Other: Constitutional : Alert, oriented to self Neck : Normal inspection, Supple Cardiovascular : RRR, S1 S2, no lower extremity edema Respiratory : fair bilateral air entry, no crackles, wheezes or rhonchi Gastrointestinal: soft, lax, Decrease bowel sounds, no local tenderness Skin : Warm, Dry Neurological : Alert & oriented , No focal deficit Objective Data Active Medications Acetaminophen (Acetaminophen 325 Mg Tablet) 650 mg PO Q6H PRN PRN Reason: Pain, Mild (Pain Scale 1-3) Benzocaine (Throat Lozenge, Medicated Lozenge) 1 lozenge MUCOUS MEM Q2H PRN PRN Reason: Sore Throat Dextrose (Dextrose 50 % 25 Gm/50 Ml Vial) 25 gm IVPUSH Q15M PRN; Protocol PRN Reason: per Hypoglycemia Standing Ord. Famotidine (Famotidine 20 Mg Tablet) 20 mg PO BID [facility], [facility] Last Admin: 03/24/21 09:23 Dose: 20 mg Documented by: FILIBERTO Glucose (Glucose Gel 15 Gm Gel..Gram.) 15 gm PO Q15M PRN; Protocol PRN Reason: per Hypoglycemia Standing Ord. Hydromorphone HCl (Hydromorphone Hcl 0.5 Mg/0.5 Ml Syringe) 0.5 mg IVPUSH Q4H PRN; Protocol PRN Reason: Pain, Severe (Pain Scale 7-10) Last Admin: 03/23/21 21:51 Dose: 0.5 mg Documented by: CHELSEA Promethazine HCl 12.5 mg/ (Sodium Chloride) 50.5 mls @ 202 mls/hr IV Q6H PRN PRN Reason: nausea/vomiting Last Infusion: 03/22/21 19:07 Dose: 0 mls/hr Documented by: ATA Insulin Human Lispro (Insulin Lispro 100 Unit/Ml 3 Ml Vial) 0 unit SUBCUT Q4H [facility], [facility]; Protocol Last Admin: 03/24/21 03:34 Dose: 4 unit Documented by: CHELSEA Ondansetron HCl (Ondansetron Hcl 4 Mg/2 Ml Vial) 4 mg IVPUSH Q6H PRN PRN Reason: Nausea and Vomiting Last Admin: 03/23/21 14:46 Dose: 4 mg Documented by: JOSH Pharmacy Consult (Consult Rx Perform Med Rec) 1 each MISCELLANE ONCE PRN PRN Reason: Consult order Sodium Chloride (0.9 % Sodium Chloride Flush 3 Ml Syringe) [facility] Last Admin: 03/24/21 09:25 Dose: 3 ml Documented by: FILIBERTO Trazodone HCl (Trazodone Hcl 100 Mg Tablet) 200 mg PO BEDTIME PRN PRN Reason: Insomnia Last Admin: 03/16/21 19:41 Dose: 200 mg Documented by: SAMANTHA Labs CBC & Chem 7: 03/24/21 05:33 03/24/21 05:33 Labs: Laboratory Results - last 24 hr 03/23/21 03/23/21 03/23/21 11:18 16:24 20:15 MCV MCH MCHC RDW Plt Count MPV Absolute Nucleated RBC Nucleated RBC % (auto) Neutrophils % (Manual) Band Neutrophils % Lymphocytes % (Manual) Monocytes % (Manual) Metamyelocytes % Abs Neuts (Manual) Lymphocytes # (Manual) Monocytes # (Manual) Platelet Estimate Plt Morphology Comment RBC Morphology Anion Gap Estim Creat Clear Calc Estimated GFR POC Glucose 191 H 354 H* 336 H Random Glucose Calcium Total Bilirubin AST ALT Alkaline Phosphatase Total Protein Albumin Lipase 03/24/21 03/24/21 03/24/21 00:40 03:09 05:33 MCV MCH MCHC RDW Plt Count MPV Absolute Nucleated RBC Nucleated RBC % (auto) Neutrophils % (Manual) Band Neutrophils % Lymphocytes % (Manual) Monocytes % (Manual) Metamyelocytes % Abs Neuts (Manual) Lymphocytes # (Manual) Monocytes # (Manual) Platelet Estimate Plt Morphology Comment RBC Morphology Anion Gap 14 Estim Creat Clear Calc 29.9 Estimated GFR 30 POC Glucose 226 H 215 H Random Glucose 216 H Calcium 7.3 L Total Bilirubin 0.3 AST 17 ALT 11 Alkaline Phosphatase 70 D Total Protein 3.7 L D Albumin 2.1 L D Lipase 6 L 03/24/21 03/24/21 05:33 07:05 MCV 89.0 MCH 29.8 MCHC 33.5 RDW 16.7 H Plt Count 170 MPV 11.5 Absolute Nucleated RBC 0.000 Nucleated RBC % (auto) 0.0 Neutrophils % (Manual) 89 H Band Neutrophils % 0 L Lymphocytes % (Manual) 7 L Monocytes % (Manual) 4 Metamyelocytes % [employer] Abs Neuts (Manual) 20.7 H Lymphocytes # (Manual) 1.6 Monocytes # (Manual) 0.9 Platelet Estimate NORMAL Plt Morphology Comment NORMAL RBC Morphology NORMAL Anion Gap Estim Creat Clear Calc Estimated GFR POC Glucose 176 H Random Glucose Calcium Total Bilirubin AST ALT Alkaline Phosphatase Total Protein Albumin Lipase Assessment and Plan (1) Acute kidney injury superimposed on CKD: Status: Acute (2) Ileus: Status: Acute Assessment and Plan: 70-year-old female presented with abdominal pain, suspected to have bowel obstruction Ileus surgery team following NG tube Removed Fluids discontinue advance diet as tolerated Leukocytosis Likely secondary to ongoing obstruction VS colitis patient not on antibiotic at this stage, no fever or pain reported MARQUITA on CKD 3 stable around 1.6 close to baseline follow BMP and urine output Diabetes with hyperglcyemia Patient uses insulin pump now held continue insulin sliding scale monitor point of cares closely Coronary disease Status post CABG To restart apixaban once tolerating p.o. per surgery decision (patient unaware of any history of AFib, denies history of VTE) Thank you for the consult, will continue to monitor with y Quality Stroke Does the patient have a stroke diagnosis?: No VTE Prior VTE?: No VTE Risk Level:: Surgical - high VTE Device Contraindication: N/A - Device Ordered VTE Drug Contraindication: N/A - Med Ordered
[2021-03-24 10:45] LABS: Lactic Acid 1.4 mmol/L (0.5-2.0)
[2021-03-24 11:01] LABS: Glucose, Whole Blood 127 mg/dL (60-115)
[2021-03-24 12:02] LABS: Procalcitonin 16.71 ng/mL
[2021-03-24] MEDS: ondansetron HCL 4 MG/2 ML VIAL IVPUSH (13:57)
[2021-03-24 15:53] VITALS: BP 105/53; PULSE 87; RESP 18; TEMP 35.6; O2SAT 94
--- NOTE | 2021-03-24 16:34 | P.PNGS_ITS ---
Subjective Subjective Date of Service: 03/24/21 Interval history: pt says she is feeling exhausted says no bm today and only little flatus abdo not as tender as had been denies any other issues Physical Exam Vital Signs: Vital Signs: Last Vital Signs Temp 96.1 F L 03/24/21 15:53 Pulse 87 03/24/21 15:53 Resp 18 03/24/21 15:53 BP 105/53 L 03/24/21 15:53 Pulse Ox 85 L 03/24/21 15:53 Body Mass Index 23.3 GI: Other: soft nondistended nontender good bowel sounds and incision is fine Objective Data Active Medications Acetaminophen (Acetaminophen 325 Mg Tablet) 650 mg PO Q6H PRN PRN Reason: Pain, Mild (Pain Scale 1-3) Benzocaine (Throat Lozenge, Medicated Lozenge) 1 lozenge MUCOUS MEM Q2H PRN PRN Reason: Sore Throat Dextrose (Dextrose 50 % 25 Gm/50 Ml Vial) 25 gm IVPUSH Q15M PRN; Protocol PRN Reason: per Hypoglycemia Standing Ord. Famotidine (Famotidine 20 Mg Tablet) 20 mg PO BID [facility] Last Admin: 03/24/21 09:23 Dose: 20 mg Documented by: FILIBERTO Glucose (Glucose Gel 15 Gm Gel..Gram.) 15 gm PO Q15M PRN; Protocol PRN Reason: per Hypoglycemia Standing Ord. Hydromorphone HCl (Hydromorphone Hcl 0.5 Mg/0.5 Ml Syringe) 0.5 mg IVPUSH Q4H PRN; Protocol PRN Reason: Pain, Severe (Pain Scale 7-10) Last Admin: 03/23/21 21:51 Dose: 0.5 mg Documented by: CHELSEA Promethazine HCl 12.5 mg/ (Sodium Chloride) 50.5 mls @ 202 mls/hr IV Q6H PRN PRN Reason: nausea/vomiting Last Infusion: 03/22/21 19:07 Dose: 0 mls/hr Documented by: ATA Insulin Human Lispro (Insulin Lispro 100 Unit/Ml 3 Ml Vial) 0 unit SUBCUT Q4H [facility]; Protocol Last Admin: 03/24/21 11:07 Dose: Not Given Documented by: FILIBERTO Non-Admin Reason: No Insulin Coverage Ondansetron HCl (Ondansetron Hcl 4 Mg/2 Ml Vial) 4 mg IVPUSH Q6H PRN PRN Reason: Nausea and Vomiting Last Admin: 03/24/21 13:57 Dose: 4 mg Documented by: FILIBERTO Pharmacy Consult (Consult Rx Perform Med Rec) 1 each MISCELLANE ONCE PRN PRN Reason: Consult order Sodium Chloride (0.9 % Sodium Chloride Flush 3 Ml Syringe) 3 ml IVFLUSH QSHIFT [facility] Last Admin: 03/24/21 09:25 Dose: 3 ml Documented by: FILIBERTO Trazodone HCl (Trazodone Hcl 100 Mg Tablet) 200 mg PO BEDTIME PRN PRN Reason: Insomnia Last Admin: 03/16/21 19:41 Dose: 200 mg Documented by: SAMANTHA Labs CBC & Chem 7: 03/24/21 05:33 03/24/21 05:33 Labs: Laboratory Results - last 24 hr 03/23/21 03/24/21 03/24/21 20:15 00:40 03:09 MCV MCH MCHC RDW Plt Count MPV Absolute Nucleated RBC Nucleated RBC % (auto) Neutrophils % (Manual) Band Neutrophils % Lymphocytes % (Manual) Monocytes % (Manual) Metamyelocytes % Abs Neuts (Manual) Lymphocytes # (Manual) Monocytes # (Manual) Platelet Estimate Plt Morphology Comment RBC Morphology Anion Gap Estim Creat Clear Calc Estimated GFR POC Glucose 336 H 226 H 215 H Random Glucose Lactic Acid Calcium Total Bilirubin AST ALT Alkaline Phosphatase C-Reactive Protein Total Protein Albumin Lipase Procalcitonin 03/24/21 03/24/21 03/24/21 05:33 05:33 07:05 MCV 89.0 MCH 29.8 MCHC 33.5 RDW 16.7 H Plt Count 170 MPV 11.5 Absolute Nucleated RBC 0.000 Nucleated RBC % (auto) 0.0 Neutrophils % (Manual) 89 H Band Neutrophils % 0 L Lymphocytes % (Manual) 7 L Monocytes % (Manual) 4 Metamyelocytes % [employer] Abs Neuts (Manual) 20.7 H Lymphocytes # (Manual) 1.6 Monocytes # (Manual) 0.9 Platelet Estimate NORMAL Plt Morphology Comment NORMAL RBC Morphology NORMAL Anion Gap 14 Estim Creat Clear Calc 29.9 Estimated GFR 30 POC Glucose 176 H Random Glucose 216 H Lactic Acid Calcium 7.3 L Total Bilirubin 0.3 AST 17 ALT 11 Alkaline Phosphatase 70 D C-Reactive Protein Total Protein 3.7 L D Albumin 2.1 L D Lipase 6 L Procalcitonin 03/24/21 03/24/21 03/24/21 10:17 10:17 10:17 MCV MCH MCHC RDW Plt Count MPV Absolute Nucleated RBC Nucleated RBC % (auto) Neutrophils % (Manual) Band Neutrophils % Lymphocytes % (Manual) Monocytes % (Manual) Metamyelocytes % Abs Neuts (Manual) Lymphocytes # (Manual) Monocytes # (Manual) Platelet Estimate Plt Morphology Comment RBC Morphology Anion Gap Estim Creat Clear Calc Estimated GFR POC Glucose Random Glucose Lactic Acid 1.4 Calcium Total Bilirubin AST ALT Alkaline Phosphatase C-Reactive Protein 2.30 H Total Protein Albumin Lipase Procalcitonin 16.71 03/24/21 10:56 MCV MCH MCHC RDW Plt Count MPV Absolute Nucleated RBC Nucleated RBC % (auto) Neutrophils % (Manual) Band Neutrophils % Lymphocytes % (Manual) Monocytes % (Manual) Metamyelocytes % Abs Neuts (Manual) Lymphocytes # (Manual) Monocytes # (Manual) Platelet Estimate Plt Morphology Comment RBC Morphology Anion Gap Estim Creat Clear Calc Estimated GFR POC Glucose 127 H Random Glucose Lactic Acid Calcium Total Bilirubin AST ALT Alkaline Phosphatase C-Reactive Protein Total Protein Albumin Lipase Procalcitonin Imaging Abdominal x-ray: Radiologist's impression: Impressions KUB X-Ray 03/24/21 16:55 IMPRESSION: Nonobstructive bowel gas pattern. Small left greater than right pleural effusions with mild subsegmental atelectasis in the left lung base. If indicated, consider correlation with a chest radiograph. Procedures Date of Service Date of Service: 03/24/21 Progress Note: A&P Assessment and plan (1) Ileus: Status: Acute Assessment and Plan: pt is s/p explor lap for pneumatosis and abdo pain - negative ex lap - cx nothing growing - follow up ct scan shows colon little thickened - pt had been having lots of loose stools. c diff negative with one sent. now wbc spiking up - ? etiology - had uti in the past and new u/a sent. repeat c diff also sent. pt also with dm and may have some gastropathy - will trial reglan for motility and on pepcid bid and do maalox prn follow labs wbc tomorrow and c diff results - antibiotics being held if not c diff and colitis picture then we should resume antibiotics. Fall Risk Details Current Medications: Current Medications Acetaminophen (Acetaminophen 325 Mg Tablet) 650 mg PO Q6H PRN PRN Reason: Pain, Mild (Pain Scale 1-3) Benzocaine (Throat Lozenge, Medicated Lozenge) 1 lozenge MUCOUS MEM Q2H PRN PRN Reason: Sore Throat Dextrose (Dextrose 50 % 25 Gm/50 Ml Vial) 25 gm IVPUSH Q15M PRN; Protocol PRN Reason: per Hypoglycemia Standing Ord. Famotidine (Famotidine 20 Mg Tablet) 20 mg PO BID [facility] Last Admin: 03/24/21 09:23 Dose: 20 mg Documented by: Glucose (Glucose Gel 15 Gm Gel..Gram.) 15 gm PO Q15M PRN; Protocol PRN Reason: per Hypoglycemia Standing Ord. Hydromorphone HCl (Hydromorphone Hcl 0.5 Mg/0.5 Ml Syringe) 0.5 mg IVPUSH Q4H PRN; Protocol PRN Reason: Pain, Severe (Pain Scale 7-10) Last Admin: 03/23/21 21:51 Dose: 0.5 mg Documented by: Promethazine HCl 12.5 mg/ (Sodium Chloride) 50.5 mls @ 202 mls/hr IV Q6H PRN PRN Reason: nausea/vomiting Last Infusion: 03/22/21 19:07 Dose: Infused Documented by: Insulin Human Lispro (Insulin Lispro 100 Unit/Ml 3 Ml Vial) 0 unit SUBCUT Q4H [facility]; Protocol Last Admin: 03/24/21 11:07 Dose: Not Given Documented by: Ondansetron HCl (Ondansetron Hcl 4 Mg/2 Ml Vial) 4 mg IVPUSH Q6H PRN PRN Reason: Nausea and Vomiting Last Admin: 03/24/21 13:57 Dose: 4 mg Documented by: Pharmacy Consult (Consult Rx Perform Med Rec) 1 each MISCELLANE ONCE PRN PRN Reason: Consult order Sodium Chloride (0.9 % Sodium Chloride Flush 3 Ml Syringe) [address] [facility] Last Admin: 03/24/21 09:25 Dose: 3 ml Documented by: Trazodone HCl (Trazodone Hcl 100 Mg Tablet) 200 mg PO BEDTIME PRN PRN Reason: Insomnia Last Admin: 03/16/21 19:41 Dose: 200 mg Documented by: Time Spent With Patient Time: Total time spent is greater than 50% in coordination of care (as docu mented) at patient's floor/unit and/or counseling patient: Time with patient: Greater than 35 minutes Quality Stroke Does the patient have a stroke diagnosis?: No VTE Prior VTE?: No VTE Risk Level:: Surgical - high VTE Device Contraindication: N/A - Device Ordered VTE Drug Contraindication: N/A - Med Ordered
[2021-03-24 16:42] LABS: Glucose, Whole Blood 131 mg/dL (60-115)
[2021-03-24] MEDS: Metoclopramide HCl 10 MG/2 ML VIAL IVPUSH (18:45)
[2021-03-24] MEDS: HYDROmorphone HCl 0.5 MG/0.5 ML SYRINGE IVPUSH (18:50)
[2021-03-24 19:39] LABS: Glucose, Whole Blood 166 mg/dL (60-115)
[2021-03-25] VITALS: BP 95/50; PULSE 81; RESP 18; TEMP 36.1; O2SAT 92
[2021-03-25 00:32] LABS: Glucose, Whole Blood 153 mg/dL (60-115)
[2021-03-25] MEDS: Metoclopramide HCl 10 MG/2 ML VIAL IVPUSH ×4 (00:43→18:37)
[2021-03-25] MEDS: Insulin Lispro 100 UNIT/ML 3 ML VIAL SUBCUT ×5 (00:43→20:09)
[2021-03-25 03:04] LABS: Glucose, Whole Blood 119 mg/dL (60-115)
[2021-03-25 06:38] LABS: Creatinine Clr Calc Pharmacy 36.7; Estimated Glomerular Filt Rate 38
[2021-03-25] MEDS: 0.9 % Sodium Chloride Flush 3 ML SYRINGE IVFLUSH ×3 (07:35→20:10)
[2021-03-25 08:00] VITALS: BP 122/57; PULSE 92; RESP 19; TEMP 36.6; O2SAT 94
[2021-03-25 08:51] LABS: Glucose, Whole Blood 160 mg/dL (60-115)
[2021-03-25 09:41] LABS: Baso%MD 0.4 %; Eos%MD 2.2 %; Hematocrit 34.7 % (37.0-47.0); Hemoglobin 11.6 g/dl (12.0-16.0); IG%MD 0.5 %; Mean Corpuscular HGB Conc 33.4 g/dl (31.0-35.0); Mean Corpuscular Hemoglobin 30.1 pg (27.0-33.0); Mean Corpuscular Volume 89.9 fL (80.0-98.0); Mean Platelet Volume 12.6 fL (9.4-12.3); NRBC Pct Auto 0.1 /100WBC (0.0-0.2); Neut%MD 73.9 %; Platelet Count 157 X10*3/uL (160-400); Red Blood Count 3.86 X10*6/uL (4.20-5.50); Red Cell Distribution Width 16.9 % (11.0-16.0); White Blood Count 15.1 X10*3/uL (4.8-10.8)
[2021-03-25] MEDS: Famotidine 20 MG TABLET PO ×2 (09:45→20:10)
[2021-03-25 11:32] LABS: Glucose, Whole Blood 170 mg/dL (60-115)
[2021-03-25 11:56] LABS: Band Neutrophils Percent 1 % (3-5); Eosinophils Absolute Manual 0.6 X10*3/uL (0.0-0.4); Eosinophils Percent Manual 4 % (0-4); Lymphocytes Absolute Manual 2.7 X10*3/uL (1.2-4.9); Lymphocytes Percent Manual 18 % (20-40); Monocytes Absolute Manual 0.3 X10*3/uL (0.1-1.2); Monocytes Percent Manual 2 % (2-11); Neutrophils Absolute Manual 11.5 X10*3/uL (2.0-8.3); Neutrophils Percent Manual 75 % (45-73)
[2021-03-25 11:58] LABS: RBC Morphology NOTED; Tear Drop Cells 1+ (0-2) /OIF
[2021-03-25 11:59] LABS: Smudge Cells PRESENT
[2021-03-25 12:02] LABS: Hypochromasia 1+ (5-14) /OIF; Platelet Estimate SLIGHTLY DECREASED (NORMAL); Platelet Morphology Comment NORMAL; Toxic Vacuolation PRESENT
--- NOTE | 2021-03-25 12:10 | PM.PNGS ---
Subjective Subjective Date of Service: 03/25/21 Interval history: feels better less tired, more energetic, no flatus she calims or bowel movement today. tolerating some po diet but no nausea or vomiting no fevers Physical Exam Vital Signs: Vital Signs: Last Vital Signs Temp 97.9 F 03/25/21 08:00 Pulse 92 03/25/21 08:00 Resp 19 03/25/21 08:00 BP 122/57 L 03/25/21 08:00 Pulse Ox 94 03/25/21 08:00 Body Mass Index 23.3 looks good sitting up in chair more alert Resp: Effort & Inspection: normal respiratory effort Auscultation: clear to auscultation bilaterally Cardio: Rate: regular rate Rhythm: regular rhythm GI: Other: abdo soft nontender much better normal sounding active bowel sounds Objective Data Active Medications Acetaminophen (Acetaminophen 325 Mg Tablet) 650 mg PO Q6H PRN PRN Reason: Pain, Mild (Pain Scale 1-3) Al Hydroxide/Mg Hydroxide (Magnesium Hydrox/Alum Hydrox 30 Ml Oral.Susp) 30 ml PO DAILY PRN PRN Reason: Heartburn Stop: 03/26/21 06:00 Benzocaine (Throat Lozenge, Medicated Lozenge) 1 lozenge MUCOUS MEM Q2H PRN PRN Reason: Sore Throat Dextrose (Dextrose 50 % 25 Gm/50 Ml Vial) 25 gm IVPUSH Q15M PRN; Protocol PRN Reason: per Hypoglycemia Standing Ord. Famotidine (Famotidine 20 Mg Tablet) 20 mg PO BID [facility] Last Admin: 03/25/21 09:45 Dose: 20 mg Documented by: ELIO Glucose (Glucose Gel 15 Gm Gel..Gram.) 15 gm PO Q15M PRN; Protocol PRN Reason: per Hypoglycemia Standing Ord. Hydromorphone HCl (Hydromorphone Hcl 0.5 Mg/0.5 Ml Syringe) 0.5 mg IVPUSH Q4H PRN; Protocol PRN Reason: Pain, Severe (Pain Scale 7-10) Last Admin: 03/24/21 18:50 Dose: 0.5 mg Documented by: ELIO Promethazine HCl 12.5 mg/ (Sodium Chloride) 50.5 mls @ 202 mls/hr IV Q6H PRN PRN Reason: nausea/vomiting Last Infusion: 03/22/21 19:07 Dose: 0 mls/hr Documented by: ATA Insulin Human Lispro (Insulin Lispro 100 Unit/Ml 3 Ml Vial) 0 unit SUBCUT Q4H [facility]; Protocol Last Admin: 03/25/21 07:35 Dose: 2 unit Documented by: FILIBERTO Metoclopramide HCl (Metoclopramide Hcl 10 Mg/2 Ml Vial) 10 mg IVPUSH Q6H [facility] Stop: 03/26/21 06:00 Last Admin: 03/25/21 06:04 Dose: 10 mg Documented by: GEORGIA Ondansetron HCl (Ondansetron Hcl 4 Mg/2 Ml Vial) 4 mg IVPUSH Q6H PRN PRN Reason: Nausea and Vomiting Last Admin: 03/24/21 13:57 Dose: 4 mg Documented by: FILIBERTO Pharmacy Consult (Consult Rx Perform Med Rec) 1 each MISCELLANE ONCE PRN PRN Reason: Consult order Sodium Chloride (0.9 % Sodium Chloride Flush 3 Ml Syringe) [facility] Last Admin: 03/25/21 07:35 Dose: 3 ml Documented by: FILIBERTO Trazodone HCl (Trazodone Hcl 100 Mg Tablet) 200 mg PO BEDTIME PRN PRN Reason: Insomnia Last Admin: 03/16/21 19:41 Dose: 200 mg Documented by: SAMANTHA Labs CBC & Chem 7: 03/25/21 09:26 03/25/21 05:47 Labs: Laboratory Results - last 24 hr 03/24/21 03/24/21 03/25/21 16:16 19:31 00:27 MCV MCH MCHC RDW Plt Count MPV Absolute Nucleated RBC Nucleated RBC % (auto) Neutrophils % (Manual) Band Neutrophils % Lymphocytes % (Manual) Monocytes % (Manual) Eosinophils % (Manual) Abs Neuts (Manual) Lymphocytes # (Manual) Monocytes # (Manual) Eosinophils # (Manual) Smudge Cells Toxic Vacuolation Platelet Estimate Plt Morphology Comment RBC Morphology Hypochromasia Tear Drop Cells Estim Creat Clear Calc Estimated GFR POC Glucose 131 H 166 H 153 H 03/25/21 03/25/21 03/25/21 02:59 05:47 07:24 MCV MCH MCHC RDW Plt Count MPV Absolute Nucleated RBC Nucleated RBC % (auto) Neutrophils % (Manual) Band Neutrophils % Lymphocytes % (Manual) Monocytes % (Manual) Eosinophils % (Manual) Abs Neuts (Manual) Lymphocytes # (Manual) Monocytes # (Manual) Eosinophils # (Manual) Smudge Cells Toxic Vacuolation Platelet Estimate Plt Morphology Comment RBC Morphology Hypochromasia Tear Drop Cells Estim Creat Clear Calc 36.7 Estimated GFR 38 POC Glucose 119 H 160 H 03/25/21 03/25/21 09:26 11:24 MCV 89.9 MCH 30.1 MCHC 33.4 RDW 16.9 H Plt Count 157 L MPV 12.6 H Absolute Nucleated RBC 0.020 H Nucleated RBC % (auto) 0.1 Neutrophils % (Manual) 75 H Band Neutrophils % 1 L Lymphocytes % (Manual) 18 L Monocytes % (Manual) 2 Eosinophils % (Manual) 4 Abs Neuts (Manual) 11.5 H Lymphocytes # (Manual) 2.7 Monocytes # (Manual) 0.3 Eosinophils # (Manual) 0.6 H Smudge Cells PRESENT Toxic Vacuolation PRESENT Platelet Estimate SLIGHTLY DECREASED Plt Morphology Comment NORMAL RBC Morphology NOTED Hypochromasia 1+ (5-14) Tear Drop Cells 1+ (0-2) Estim Creat Clear Calc Estimated GFR POC Glucose 170 H Imaging Abdominal x-ray: Radiologist's impression: Impressions KUB X-Ray 03/24/21 16:55 IMPRESSION: Nonobstructive bowel gas pattern. Small left greater than right pleural effusions with mild subsegmental atelectasis in the left lung base. If indicated, consider correlation with a chest radiograph. Procedures Date of Service Date of Service: 03/25/21 Progress Note: A&P Assessment and plan (1) Ileus: Status: Acute Assessment and Plan: 70 year old female s/p explor lap for exploration - no findings -? mild colitis - wbc has been up and down - postop ileus but seems to be resolving now - no stools making c diff less likely plan to advance diet slowly - on clear liquids on reglan scheduled for the next 24hrs correct electrolytes ambulate po pepcid and maalox prn she and family understand and agree with the plan Fall Risk Details Current Medications: Current Medications Acetaminophen (Acetaminophen 325 Mg Tablet) 650 mg PO Q6H PRN PRN Reason: Pain, Mild (Pain Scale 1-3) Al Hydroxide/Mg Hydroxide (Magnesium Hydrox/Alum Hydrox 30 Ml Oral.Susp) 30 ml PO DAILY PRN PRN Reason: Heartburn Stop: 03/26/21 06:00 Benzocaine (Throat Lozenge, Medicated Lozenge) 1 lozenge MUCOUS MEM Q2H PRN PRN Reason: Sore Throat Dextrose (Dextrose 50 % 25 Gm/50 Ml Vial) 25 gm IVPUSH Q15M PRN; Protocol PRN Reason: per Hypoglycemia Standing Ord. Famotidine (Famotidine 20 Mg Tablet) 20 mg PO BID [facility] Last Admin: 03/25/21 09:45 Dose: 20 mg Documented by: Glucose (Glucose Gel 15 Gm Gel..Gram.) 15 gm PO Q15M PRN; Protocol PRN Reason: per Hypoglycemia Standing Ord. Hydromorphone HCl (Hydromorphone Hcl 0.5 Mg/0.5 Ml Syringe) 0.5 mg IVPUSH Q4H PRN; Protocol PRN Reason: Pain, Severe (Pain Scale 7-10) Last Admin: 03/24/21 18:50 Dose: 0.5 mg Documented by: Promethazine HCl 12.5 mg/ (Sodium Chloride) 50.5 mls @ 202 mls/hr IV Q6H PRN PRN Reason: nausea/vomiting Last Infusion: 03/22/21 19:07 Dose: Infused Documented by: Insulin Human Lispro (Insulin Lispro 100 Unit/Ml 3 Ml Vial) 0 unit SUBCUT Q4H [facility]; Protocol Last Admin: 03/25/21 07:35 Dose: 2 unit Documented by: Metoclopramide HCl (Metoclopramide Hcl 10 Mg/2 Ml Vial) 10 mg IVPUSH Q6H [facility] Stop: 03/26/21 06:00 Last Admin: 03/25/21 06:04 Dose: 10 mg Documented by: Ondansetron HCl (Ondansetron Hcl 4 Mg/2 Ml Vial) 4 mg IVPUSH Q6H PRN PRN Reason: Nausea and Vomiting Last Admin: 03/24/21 13:57 Dose: 4 mg Documented by: Pharmacy Consult (Consult Rx Perform Med Rec) 1 each MISCELLANE ONCE PRN PRN Reason: Consult order Sodium Chloride (0.9 % Sodium Chloride Flush 3 Ml Syringe) [facility] Last Admin: 03/25/21 07:35 Dose: 3 ml Documented by: Trazodone HCl (Trazodone Hcl 100 Mg Tablet) 200 mg PO BEDTIME PRN PRN Reason: Insomnia Last Admin: 03/16/21 19:41 Dose: 200 mg Documented by: Time Spent With Patient Time: Total time spent is greater than 50% in coordination of care (as documented) at patient's floor/unit and/or counseling patient: Time with patient: 25 - 35 minutes Quality Stroke Does the patient have a stroke diagnosis?: No VTE Prior VTE?: No VTE Risk Level:: Surgical - high VTE Device Contraindication: N/A - Device Ordered VTE Drug Contraindication: N/A - Med Ordered
--- NOTE | 2021-03-25 12:39 | HO.PM.IMPN ---
Subjective Subjective Date of Service: 04/03/21 Review of Systems Follow up ileus still with some abd pain passing flatus, no BM denies chest pain, nausea, vomiting, diarrhea All the systems are reviewed and are negative Physical Exam Vital Signs: Vital Signs: Last Vital Signs Temp 97.9 F 03/25/21 08:00 Pulse 92 03/25/21 08:00 Resp 19 03/25/21 08:00 BP 122/57 L 03/25/21 08:00 Pulse Ox 94 03/25/21 08:00 Body Mass Index 23.3 Appearing pale, tired lung sounds are clear to auscultation heart regular rate rhythm, clear S1, S2 tender abdomen neuro patient is alert x3, no focal deficits Objective Data Active Medications Acetaminophen (Acetaminophen 325 Mg Tablet) 650 mg PO Q6H PRN PRN Reason: Pain, Mild (Pain Scale 1-3) Al Hydroxide/Mg Hydroxide (Magnesium Hydrox/Alum Hydrox 30 Ml Oral.Susp) 30 ml PO DAILY PRN PRN Reason: Heartburn Stop: 03/26/21 06:00 Benzocaine (Throat Lozenge, Medicated Lozenge) 1 lozenge MUCOUS MEM Q2H PRN PRN Reason: Sore Throat Dextrose (Dextrose 50 % 25 Gm/50 Ml Vial) 25 gm IVPUSH Q15M PRN; Protocol PRN Reason: per Hypoglycemia Standing Ord. Famotidine (Famotidine 20 Mg Tablet) 20 mg PO BID MARIELA Last Admin: 03/25/21 09:45 Dose: 20 mg Documented by: ELIO Glucose (Glucose Gel 15 Gm Gel..Gram.) 15 gm PO Q15M PRN; Protocol PRN Reason: per Hypoglycemia Standing Ord. Hydromorphone HCl (Hydromorphone Hcl 0.5 Mg/0.5 Ml Syringe) 0.5 mg IVPUSH Q4H PRN; Protocol PRN Reason: Pain, Severe (Pain Scale 7-10) Last Admin: 03/24/21 18:50 Dose: 0.5 mg Documented by: ELIO Promethazine HCl 12.5 mg/ (Sodium Chloride) 50.5 mls @ 202 mls/hr IV Q6H PRN PRN Reason: nausea/vomiting Last Infusion: 03/22/21 19:07 Dose: 0 mls/hr Documented by: ATA Insulin Human Lispro (Insulin Lispro 100 Unit/Ml 3 Ml Vial) 0 unit SUBCUT Q4H [facility]; Protocol Last Admin: 03/25/21 12:26 Dose: 2 unit Documented by: FILIBERTO Metoclopramide HCl (Metoclopramide Hcl 10 Mg/2 Ml Vial) 10 mg IVPUSH Q6H [facility] Stop: 03/26/21 06:00 Last Admin: 03/25/21 12:26 Dose: 10 mg Documented by: FILIBERTO Ondansetron HCl (Ondansetron Hcl 4 Mg/2 Ml Vial) 4 mg IVPUSH Q6H PRN PRN Reason: Nausea and Vomiting Last Admin: 03/24/21 13:57 Dose: 4 mg Documented by: FILIBERTO Pharmacy Consult (Consult Rx Perform Med Rec) 1 each MISCELLANE ONCE PRN PRN Reason: Consult order Sodium Chloride (0.9 % Sodium Chloride Flush 3 Ml Syringe) [facility] Last Admin: 03/25/21 07:35 Dose: 3 ml Documented by: FILIBERTO Trazodone HCl (Trazodone Hcl 100 Mg Tablet) 200 mg PO BEDTIME PRN PRN Reason: Insomnia Last Admin: 03/16/21 19:41 Dose: 200 mg Documented by: SAMANTHA Labs CBC & Chem 7: 03/27/21 20:32 03/27/21 20:43 Labs: Laboratory Results - last 24 hr 03/24/21 03/24/21 03/25/21 16:16 19:31 00:27 MCV MCH MCHC RDW Plt Count MPV Absolute Nucleated RBC Nucleated RBC % (auto) Neutrophils % (Manual) Band Neutrophils % Lymphocytes % (Manual) Monocytes % (Manual) Eosinophils % (Manual) Abs Neuts (Manual) Lymphocytes # (Manual) Monocytes # (Manual) Eosinophils # (Manual) Smudge Cells Toxic Vacuolation Platelet Estimate Plt Morphology Comment RBC Morphology Hypochromasia Tear Drop Cells Estim Creat Clear Calc Estimated GFR POC Glucose 131 H 166 H 153 H 03/25/21 03/25/21 03/25/21 02:59 05:47 07:24 MCV MCH MCHC RDW Plt Count MPV Absolute Nucleated RBC Nucleated RBC % (auto) Neutrophils % (Manual) Band Neutrophils % Lymphocytes % (Manual) Monocytes % (Manual) Eosinophils % (Manual) Abs Neuts (Manual) Lymphocytes # (Manual) Monocytes # (Manual) Eosinophils # (Manual) Smudge Cells Toxic Vacuolation Platelet Estimate Plt Morphology Comment RBC Morphology Hypochromasia Tear Drop Cells Estim Creat Clear Calc 36.7 Estimated GFR 38 POC Glucose 119 H 160 H 03/25/21 03/25/21 09:26 11:24 MCV 89.9 MCH 30.1 MCHC 33.4 RDW 16.9 H Plt Count 157 L MPV 12.6 H Absolute Nucleated RBC 0.020 H Nucleated RBC % (auto) 0.1 Neutrophils % (Manual) 75 H Band Neutrophils % 1 L Lymphocytes % (Manual) 18 L Monocytes % (Manual) 2 Eosinophils % (Manual) 4 Abs Neuts (Manual) 11.5 H Lymphocytes # (Manual) 2.7 Monocytes # (Manual) 0.3 Eosinophils # (Manual) 0.6 H Smudge Cells PRESENT Toxic Vacuolation PRESENT Platelet Estimate SLIGHTLY DECREASED Plt Morphology Comment NORMAL RBC Morphology NOTED Hypochromasia 1+ (5-14) Tear Drop Cells 1+ (0-2) Estim Creat Clear Calc Estimated GFR POC Glucose 170 H Assessment and Plan (1) Acute kidney injury superimposed on CKD: Status: Acute (2) Ileus: Status: Acute (3) HTN (hypertension): Status: Acute (4) Diabetes: Status: Acute (5) Bowel obstruction: Status: Acute Assessment and Plan: 70-year-old female presented with abdominal pain, suspected to have bowel obstruction Ileus. slowly improving surgery team following NG tube Removed Fluids discontinued clear diet Leukocytosis ileus, colitis patient not on antibiotic at this stage, no fever or pain reported MARQUITA on CKD 3 stable around 1.6 close to baseline follow BMP and urine output Diabetes with hyperglycemia Patient uses insulin pump now held continue insulin sliding scale monitor point of cares closely Coronary disease Status post CABG To restart apixaban once tolerating p.o. per surgery decision (patient unaware of any history of AFib, denies history of VTE) Will sign off for now as patient is slowly improving from surgical perspective Attending Dr. Camille Linares Stroke Does the patient have a stroke diagnosis?: No VTE Prior VTE?: No VTE Risk Level:: Surgical - high VTE Device Contraindication: N/A - Device Ordered VTE Drug Contraindication: N/A - Med Ordered
[2021-03-25 13:35] LABS: Anion Gap 16 (12-20); Blood Urea Nitrogen 28 mg/dL (9-16); Calcium 7.2 mg/dL (8.4-10.2); Carbon Dioxide 19 mmol/L (22-29); Chloride 106 mmol/L (96-108); Estimated Glomerular Filt Rate 35; Glucose Random 130 mg/dL (60-115); Potassium 3.6 mmol/L (3.3-5.1); Sodium 137 mmol/L (135-145)
[2021-03-25 15:51] VITALS: BP 112/63; PULSE 79; RESP 17; TEMP 36.8; O2SAT 93
[2021-03-25 16:11] LABS: Glucose, Whole Blood 203 mg/dL (60-115)
[2021-03-25 19:46] VITALS: BP 102/58; PULSE 78; RESP 17; TEMP 36.8; O2SAT 92
[2021-03-25 20:04] LABS: Glucose, Whole Blood 163 mg/dL (60-115)
[2021-03-25] MEDS: HYDROmorphone HCl 0.5 MG/0.5 ML SYRINGE IVPUSH (20:09)
[2021-03-26] VITALS (18 sets, daily range): BP systolic 80–122; BP diastolic 30–62; PULSE 64–98; RESP 16–24; TEMP 36.2–37.3; O2SAT 90–98
--- NOTE | 2021-03-26 | ECG_ITS ---
Test Reason : MS changes Blood Pressure : / mmHG Vent. Rate : 089 BPM Atrial Rate : 089 BPM P-R Int : 188 ms QRS Dur : 090 ms QT Int : 358 ms P-R-T Axes : 096 -46 150 degrees QTc Int : 435 ms Poor data quality Sinus rhythm with occasional Premature ventricular complexes and Premature atrial complexes Left anterior fascicular block Low voltage QRS Poor R wave progression Abnormal ECG T wave amplitude has decreased in Inferior leads Premature ventricular complexes are new Referred By: Brenton Mayers Electronically Signed By:CARYL GOODSON MD
[2021-03-26 00:14] LABS: Glucose, Whole Blood 145 mg/dL (60-115)
[2021-03-26] MEDS: Metoclopramide HCl 10 MG/2 ML VIAL IVPUSH (00:14)
[2021-03-26] MEDS: 0.9 % Sodium Chloride Flush 3 ML SYRINGE IVFLUSH ×4 (00:14→23:27)
[2021-03-26] MEDS: Insulin Lispro 100 UNIT/ML 3 ML VIAL SUBCUT ×2 (03:37→12:12)
[2021-03-26 03:53] LABS: Glucose, Whole Blood 163 mg/dL (60-115)
[2021-03-26 06:24] LABS: Creatinine Clr Calc Pharmacy 42.3; Estimated Glomerular Filt Rate 45
[2021-03-26 07:30] LABS: Glucose, Whole Blood 126 mg/dL (60-115)
[2021-03-26] MEDS: Famotidine 20 MG TABLET PO ×2 (08:16→20:31)
[2021-03-26] MEDS: ondansetron HCL 4 MG/2 ML VIAL IVPUSH (10:45)
[2021-03-26 11:18] LABS: Glucose, Whole Blood 262 mg/dL (60-115)
[2021-03-26] MEDS: HYDROmorphone HCl 0.5 MG/0.5 ML SYRINGE IVPUSH (12:11)
[2021-03-26 14:01] LABS: Glucose, Whole Blood 394 mg/dL (60-115)
[2021-03-26 14:25] LABS: Anion Gap 12 (12-20); Blood Urea Nitrogen 23 mg/dL (9-16); Calcium 7.2 mg/dL (8.4-10.2); Carbon Dioxide 22 mmol/L (22-29); Chloride 105 mmol/L (96-108); Glucose Random 127 mg/dL (60-115); Magnesium 1.5 mg/dL (1.6-2.6); Phosphorus 2.6 mg/dL (2.7-4.5); Sodium 136 mmol/L (135-145)
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
[2021-03-26 14:53] LABS: ABG Base Excess -9.4 mmol/L; ABG HCO3 13 mmol/L (22-26); ABG pCO2 21 mmHg (32-45); ABG pCO2 TC 21 mmHg (32-45); ABG pH 7.39 (7.35-7.45); ABG pO2 54 mmHg (83-108); ABG pO2 TC 52 (83-108)
--- NOTE | 2021-03-26 15:05 | P.PNIM_ITS ---
Subjective Subjective Date of Service: 03/26/21 Interval History: called to see patient for mental status changes by floor nurse. When examined patient exhibiting jerking motions left side with a rightward gaze; some left neglect. Patient was able to answer questions in a yes no fashion. Vital signs stable at that time. Labs including ca/mg/phos failed to demonstrate etiology for behavior. ABGs done on room air; pH 7.37 pCO2 21 PO2 54 satting 83%. Stat CT scan of the head ordered Review of Systems n/a Physical Exam Vital Signs: Vital Signs: Last Vital Signs Temp 98.0 F 03/26/21 11:53 Pulse 64 03/26/21 14:35 Resp 23 H 03/26/21 14:35 BP 90/47 L 03/26/21 14:35 Pulse Ox 93 03/26/21 14:35 Body Mass Index 23.3 Const: Other: awake, minimally responsive Eyes: Other: Resp: Other: clear but diminished all oneil Cardio: Other: no S4; positive S1-S2; no S3 murmurs rubs gallops GI: Other: soft nontender nondisteded bowel sounds quiet Extrem: Other: pitting edema ankles to sacrum ( anasarca) Objective Data Active Medications Acetaminophen (Acetaminophen 325 Mg Tablet) 650 mg PO Q6H PRN PRN Reason: Pain, Mild (Pain Scale 1-3) Benzocaine (Throat Lozenge, Medicated Lozenge) 1 lozenge MUCOUS MEM Q2H PRN PRN Reason: Sore Throat Dextrose (Dextrose 50 % 25 Gm/50 Ml Vial) 25 gm IVPUSH Q15M PRN; Protocol PRN Reason: per Hypoglycemia Standing Ord. Famotidine (Famotidine 20 Mg Tablet) 20 mg PO BID [facility] Last Admin: 03/26/21 08:16 Dose: 20 mg Documented by: PRANAV Glucose (Glucose Gel 15 Gm Gel..Gram.) 15 gm PO Q15M PRN; Protocol PRN Reason: per Hypoglycemia Standing Ord. Hydromorphone HCl (Hydromorphone Hcl 0.5 Mg/0.5 Ml Syringe) 0.5 mg IVPUSH Q4H PRN; Protocol PRN Reason: Pain, Severe (Pain Scale 7-10) Last Admin: 03/26/21 12:11 Dose: 0.5 mg Documented by: PRANAV Promethazine HCl 12.5 mg/ (Sodium Chloride) 50.5 mls @ 202 mls/hr IV Q6H PRN PRN Reason: nausea/vomiting Last Infusion: 03/22/21 19:07 Dose: 0 mls/hr Documented by: ATA Insulin Human Lispro (Insulin Lispro 100 Unit/Ml 3 Ml Vial) 0 unit SUBCUT Q4H [facility]; Protocol Last Admin: 03/26/21 12:12 Dose: 6 unit Documented by: PRANAV Ondansetron HCl (Ondansetron Hcl 4 Mg/2 Ml Vial) 4 mg IVPUSH Q6H PRN PRN Reason: Nausea and Vomiting Last Admin: 03/26/21 10:45 Dose: 4 mg Documented by: PRANAV Pharmacy Consult (Consult Rx Perform Med Rec) 1 each MISCELLANE ONCE PRN PRN Reason: Consult order Sodium Chloride (0.9 % Sodium Chloride Flush 3 Ml [facility]ringe) [facility] Last Admin: 03/26/21 08:17 Dose: 3 ml Documented by: PRANAV Trazodone HCl (Trazodone Hcl 100 Mg Tablet) 200 mg PO BEDTIME PRN PRN Reason: Insomnia Last Admin: 03/16/21 19:41 Dose: 200 mg Documented by: SAMANTHA Labs CBC & Chem 7: 03/25/21 09:26 03/26/21 06:01 Labs: Laboratory Results - last 24 hr 03/25/21 03/25/21 03/26/21 15:54 19:49 00:09 O2 Saturation ABG pH at Pt Temp ABG pH (Temp Correct) ABG pCO2 at Pt Temp ABG pCO2 (Temp Corrct ABG pO2 at Pt Temp ABG pO2 (Temp Correct ABG HCO3 ABG Base Excess (Actual) Anion Gap Estim Creat Clear Calc Estimated GFR POC Glucose 203 H 163 H 145 H Random Glucose Calcium Phosphorus Magnesium TSH 03/26/21 03/26/21 03/26/21 03:32 06:01 07:21 O2 Saturation ABG pH at Pt Temp ABG pH (Temp Correct) ABG pCO2 at Pt Temp ABG pCO2 (Temp Corrct ABG pO2 at Pt Temp ABG pO2 (Temp Correct ABG HCO3 ABG Base Excess (Actual) Anion Gap 12 Estim Creat Clear Calc 42.3 Estimated GFR 45 POC Glucose 163 H 126 H Random Glucose 127 H Calcium 7.2 L Phosphorus 2.6 L Magnesium 1.5 L TSH 42.80 H 03/26/21 03/26/21 03/26/21 11:11 13:52 14:44 O2 Saturation 83.0 ABG pH at Pt Temp 7.39 ABG pH (Temp Correct) 7.40 ABG pCO2 at Pt Temp 21 L ABG pCO2 (Temp Corrct 21 L ABG pO2 at Pt Temp 54 L ABG pO2 (Temp Correct 52 L ABG HCO3 13 L ABG Base Excess (Actual) -9.4 Anion Gap Estim Creat Clear Calc Estimated GFR POC Glucose 262 H 394 H* Random Glucose Calcium Phosphorus Magnesium TSH Assessment and Plan (1) Mental status alteration: Status: Acute (2) Anasarca: Status: Acute Assessment and Plan: 70-year-old female admitted 03/13/2021 bowel obstruction; status post ex lap 03/15/2021 without acute finding. Essentially uneventful postop course until today when staff found patient gazing to the right and twitching on the left side. this activity was self-limiting, however patient's blood pressure continued to drop. Call was placed to ICU; Dr. Lagunas evaluated and decided patient is suitable for ICU. At the time a transverse CT scan is pending and Dr. Lagunas will assume care upon arrival to the unit Quality Stroke Does the patient have a stroke diagnosis?: No VTE Prior VTE?: No VTE Risk Level:: Surgical - high VTE Device Contraindication: N/A - Device Ordered VTE Drug Contraindication: N/A - Med Ordered
--- NOTE | 2021-03-26 15:05 | PM.EVENT ---
Event Note Date of Service: 03/26/21 Event Note: Pt seen and examined D/w Dr. Mayers and Dr. Lagunas Full consult to follow 1. MARQUITA _ Due to prerenal state - resolving Hypoalbiminemia with IV vol depletion renal hypoperfusion 2. CKD 3 a at baseline 3. Anasarca in the setting of Low Albumin Doubt renal losses/ NS Malnutrition 4. Hypotension Recommend Urien pr/ Cr ratio Urine and Serum Immunofixation - No Monoclonal spike in 2019 - will reorder immunofixation Pt will benefit from IV albumin + Lasix Ordered IV albumin 24 % 100 mg Q6 x 4 doses Now BP is low - will hold diuretics - Suggest Lasix bolus 40 Mg followed by 5 mg / hr drip once more stable Thx Dr. Costello
[2021-03-26 15:09] LABS: ABG Refer to POC result
[2021-03-26] MEDS: Albumin Human 25 % 100 ML IV ×2 (15:36→15:40)
--- NOTE | 2021-03-26 15:47 | MHC.CM.PN ---
Pt transferred to ICU - in the process of receiving medical care: CM to follow for continuation or amendments to d/c plan which was initially a return to home with family
[2021-03-26 15:59] LABS: Creatinine Urine 199.64 mg/dL; Sodium Urine Random < 20.0 mmol/L; Total Protein Urine Random 41 mg/dL (<12)
[2021-03-26 16:19] LABS: VBG Base Excess -12.6 mmol/L; VBG HCO3 11 mmol/L (22-26); VBG pCO2 20 mmHg; VBG pH 7.33 (7.32-7.43); VBG pO2 70 mmHg
--- NOTE | 2021-03-26 16:19 | W.PM.CCHP ---
Procedures Date of Service Date of Service: 03/26/21 Central Line Placement Left SC: Central Line Comments: . PROCEDURE:? Insertion left supraclavicular subclavian triple lumen central venous catheter. INDICATION:? IV access, blood draws.Acute renal failure. ANESTHESIA:? Local. PROCEDURE:? Vascular ultrasound was used to examine the left neck, left supraclavicular and left subclavian areas.? A large compressible subclavian vein was noted in the supraclavicular fossa. The left neck, supraclavicular, and subclavian areas were widely prepped and draped in full sterile fashion.? Local anesthesia was applied to the left supraclavicular subclavian insertion site.? The supraclavicular vein was located by ultrasound.? The 18 gauge needle cannulated the left supraclavicular subclavian vein under direct ultrasound guidance on the first pass.? There was easy aspiration of dark blood.? The wire was threaded without incident.? The 7Fr x 16cm triple lumen catheter was then inserted via Seldinger tech without incident.? There was good blood return x3.? The catheter was sutured x3 and a Biopatch and dry sterile dressing were applied. Postop chest x-ray showed the line in good position with no pneumothorax.? The patient tolerated the procedure well w no complications.
[2021-03-26 16:20] LABS: Venous Blood Gas Refer to POC result
[2021-03-26 16:32] LABS: Glucose, Whole Blood 356 mg/dL (60-115)
--- NOTE | 2021-03-26 16:53 | PC.NURSE ---
Pt alert and oriented x3 this am. Pt was already sitting on the recliner and seemed to be doing fine. Mid morning, this nurse went in to check on her and she stated that she was nauseous. PRN Zofran 4mg administered with minimal effect. Pt vomited x1. Pt also stated that she felt worse than the previous day, and increasing pain to the ABD area. PRN Dilaudid given at 12pm was contacted, and he said to try and contact . Dr. Lugo contacted but she was in surgery and stated that she will come and check up on the pt after she was done with surgery. Pt was noted to be tremulous and she C/O general feeling of malaise. At noon this nurse went in to check up on her, pt was already back in bed at this time resting .At 1300 pt was found to be lethargic, eyes rolled back and tremulous. Dr blair contacted STAT. Labs, CT and ABG's ordered. EKG done. VS done but BP kept trending down. O2 Satsremained in the low 90s. Pt transferred to [facility] [place] 1430.
[2021-03-26] MEDS: Magnesium Sulfate/H2O 2 GM/50 ML PIGGYBACK IV (16:59)
[2021-03-26] MEDS: Potassium Chloride/H20 40 MEQ/100 ML PIGGYBACK 50 MEQ IV (16:59)
[2021-03-26] MEDS: Insulin Regular/NS 100 UNIT/100 ML PLAST..BAG IVCONT (17:00)
[2021-03-26] MEDS: Levothyroxine Sodium 100 MCG/5 ML VIAL 150 MCG IVPUSH (17:00)
[2021-03-26 17:09] LABS: Free T4 (Free Thyroxine) < 0.40 ng/dL (0.71-1.85)
[2021-03-26 18:16] LABS: Glucose, Whole Blood 371 mg/dL (60-115)
--- NOTE | 2021-03-26 18:18 | PC.NURSE ---
Patient received to ICU from [facility] for treatment of hypotension. Central line placed by Dr. Lagunas, placement confirmed with PCXR. Temp sensing Juárez placed. Urine spec obtained and sent. Labs drawn. Levophed started and titrated to 0.12mcg/kg/min to achieve MAP 65. Insulin drip started to help control blood sugars. Electrolytes replaced IV and IVP Levothyroxine given for TSH level 42. at bedside, updated by Dr. Lagunas. Patient A+O, drowsy. Denies pain. Tolerating water PO. Blood cultures and Lactic acid levels ordered and drawn.
[2021-03-26 18:49] LABS: Lactic Acid 6.3 mmol/L (0.5-2.0)
[2021-03-26] MEDS: Enoxaparin Sodium 40 MG/0.4 ML SYRINGE SUBCUT (19:11)
[2021-03-26 19:14] LABS: Cancel Lactic Acid Canceled
[2021-03-26 20:11] LABS: Glucose, Whole Blood 335 mg/dL (60-115)
[2021-03-26 20:24] LABS: Basophils Percent Auto 0.2 % (0-2); Hematocrit 27.1 % (37.0-47.0); Imm Gran Abs Auto 0.24 X10*3/uL (0.00-0.03); Lymphocytes Absolute Auto 1.6 X10*3/uL (1.2-4.9); Lymphocytes Percent Auto 6.6 % (20-40); MANUAL DIFF FLAG SCAN; Mean Corpuscular HGB Conc 33.2 g/dl (31.0-35.0); Mean Corpuscular Hemoglobin 30.4 pg (27.0-33.0); Mean Corpuscular Volume 91.6 fL (80.0-98.0); Mean Platelet Volume 11.8 fL (9.4-12.3); Monocytes Percent Auto 4.1 % (2-11); Neutrophils Absolute Auto 21.6 x10*3/uL (2.0-8.3); Neutrophils Percent Auto 88.1 % (45-73); Platelet Count 180 X10*3/uL (160-400); Red Blood Count 2.96 X10*6/uL (4.20-5.50); Red Cell Distribution Width 17.2 % (11.0-16.0); SCAN SMEAR FLAG 1; White Blood Count 24.5 X10*3/uL (4.8-10.8)
[2021-03-26 20:28] LABS: Appearance Urine CLEAR; Color Urine DK YELLOW; Glucose Urine UA NEG (NEG); Leukocyte Esterase Urine TRACE (NEG); Nitrite Urine NEG (NEG); Specific Gravity - Urine 1.025 (1.005-1.025); UACC Culture Trigger YES; Urine Blood NEG (NEG); Urine Ketones 15 MG/DL (NEG); Urine Protein 1+ MG/DL (NEG-TRACE)
[2021-03-26] MEDS: Hydrocortisone Sod Succ/PF 100 MG VIAL IVPUSH (20:31)
[2021-03-26 20:39] LABS: Squamous Epithelial Cell Urine 3+ /LPF
[2021-03-26 20:40] LABS: Uric Acid Crystals Urine TRACE /LPF
[2021-03-26 20:41] LABS: Hyaline Casts Urine 0-2 /LPF
[2021-03-26 20:42] LABS: Bacteria Urine 2+ /LPF; Mucus Urine 2+ /LPF; RBC Urine 0 /HPF (0)
[2021-03-26 20:43] LABS: Renal Epithelial Cells Urine TRACE /LPF
[2021-03-26 20:46] LABS: Alanine Aminotransferase 8 U/L (0-31); Aspartate Amino Transferase 12 U/L (5-31); Bilirubin Total 0.6 mg/dL (0.0-1.0); Blood Urea Nitrogen 27 mg/dL (9-16); Creatinine Clr Calc Pharmacy 29.9; Estimated Glomerular Filt Rate 30; Glucose Random 333 mg/dL (60-115); Total Protein 4.4 g/dL (6.5-8.0)
[2021-03-26 20:47] LABS: Albumin Level 3.2 g/dL (3.5-5.0); Alkaline Phosphatase 52 U/L (39-117); Anion Gap 27 (12-20); Calcium 7.6 mg/dL (8.4-10.2); Chloride 102 mmol/L (96-108); Potassium 4.1 mmol/L (3.3-5.1); Sodium 135 mmol/L (135-145)
[2021-03-26 20:48] LABS: Carbon Dioxide 10 mmol/L (22-29)
[2021-03-26 20:53] LABS: SLIDE REVIEW VERIFIED
[2021-03-26] MEDS: Sodium Bicarbonate 8.4% 50 MEQ/50 ML SYRINGE 100 MEQ IVPUSH (20:54)
[2021-03-26 21:07] LABS: Acetone, serum QL Negative (Negative); Magnesium 1.8 mg/dL (1.6-2.6); Phosphorus 3.8 mg/dL (2.7-4.5)
[2021-03-26 21:23] LABS: Lactic Acid 4.1 mmol/L (0.5-2.0)
[2021-03-26 22:05] LABS: Glucose, Whole Blood 227 mg/dL (60-115)
[2021-03-26] MEDS: Dextrose 5 % and Lactated Ring 1,000 ML 100 ML IVCONT (22:16)
[2021-03-26 23:10] LABS: Reflex Lactate? Lactic Acid Added
--- NOTE | 2021-03-26 23:17 | PHA.PROG ---
Admission Date/Time: March 13, 2021 14:45 Indication: sepsis Weight in k.771 kg Adjusted body weight in Kg: Frazee body weight in Kg: Obesity Dosing Indication % IBW: Serum Creatinine - Last 168 Hours 03/20/21 03/21/21 03/21/21 06:49 06:25 06:25 Creatinine 1.57 H 1.42 H 1.44 H 03/22/21 03/23/21 03/24/21 05:33 06:08 05:33 Creatinine 1.30 1.26 1.68 H 03/25/21 03/25/21 03/26/21 05:47 05:47 06:01 Creatinine 1.37 1.48 H 1.19 03/26/21 20:07 Creatinine 1.68 H Estimated CrCl and GFR - Last 168 Hours 03/20/21 03/21/21 03/21/21 06:49 06:25 06:25 Estim Creat Clear Calc 32.0 35.4 34.9 Estimated GFR 33 37 36 03/22/21 03/23/21 03/24/21 05:33 06:08 05:33 Estim Creat Clear Calc 38.8 40.0 29.9 Estimated GFR 41 42 30 03/25/21 03/25/21 03/26/21 05:47 05:47 06:01 Estim Creat Clear Calc 36.7 34.0 42.3 Estimated GFR 38 35 45 03/26/21 20:07 Estim Creat Clear Calc 29.9 Estimated GFR 30 Vancomycin Loading Dose: Current Vancomycin Dosing Regimen:750 mg daily Vancomycin Monitoring using AUC goal of 400 - 600 range with trough as surrogate marker: suggested AUC 423 Date and Time for next Vancomycin Level to be drawn: Vancomycin Trough 12.8 mcg/mL (10.0-20.0) 03/19/21 17:03 Pharmacist Comments on Vancomycin Plan: Vancomycin dosing will take advantage of [employer] as a clinical decision support tool that uses Bayesian modeling to calculate individual patient's pharmacokinetic parameters and forecast the patient's drug concentration time course with the target goal AUC 24 range of 400 - 600 mg/L/hr.
[2021-03-26] MEDS: levoFLOXacin/D5W 750 MG/150 ML PIGGYBACK 100 MG IV (23:27)
[2021-03-26] MEDS: Hydrocortisone Sod Succ/PF 100 MG VIAL 50 MG IVPUSH (23:27)
[2021-03-26] MEDS: vancomycin HCL 750 MG in 0.9 % Sodium Chloride 250 ML 265 MG IV (23:32)
--- NOTE | 2021-03-26 23:38 | PM.PNGS ---
Subjective Subjective Date of Service: 03/26/21 Interval history: pt was doing well yesterday and today not feeling well lethargic and shaking -? seizure activity - seen by med team and transfered to the icu - there she had white and started with iv fluids and albumin - sig anasarca- tsh elias high and adrenal insuff suspected and pt given steroids . on pressors now wbc up - her abdomen is benign - no abdo pain and was eating and had a bowel movement no nausea and it is not distended or tender . incsion is fine Physical Exam Vital Signs: Vital Signs: Last Vital Signs Temp 99.1 F 03/26/21 23:00 Pulse 96 03/26/21 23:00 Resp 21 H 03/26/21 23:00 BP 112/62 03/26/21 23:00 Pulse Ox 91 L 03/26/21 23:00 Body Mass Index 23.3 Objective Data Active Medications Acetaminophen (Acetaminophen 325 Mg Tablet) 650 mg PO Q6H PRN PRN Reason: Pain, Mild (Pain Scale 1-3) Benzocaine (Throat Lozenge, Medicated Lozenge) 1 lozenge MUCOUS MEM Q2H PRN PRN Reason: Sore Throat Enoxaparin Sodium (Enoxaparin Sodium 40 Mg/0.4 Ml Syringe) 40 mg SUBCUT Q24H [facility] Last Admin: 03/26/21 19:11 Dose: 40 mg Documented by: JULIO Famotidine (Famotidine 20 Mg Tablet) 20 mg PO BID [facility] Last Admin: 03/26/21 20:31 Dose: 20 mg Documented by: WILVER Hydrocortisone Sodium Succinate (Hydrocortisone Sod Succ/Pf 100 Mg Vial) 50 mg IVPUSH Q6H [facility] Last Admin: 03/26/21 23:27 Dose: 50 mg Documented by: WILVER Hydromorphone HCl (Hydromorphone Hcl 0.5 Mg/0.5 Ml Syringe) 0.5 mg IVPUSH Q2H PRN; Protocol PRN Reason: Pain, Severe (Pain Scale 7-10) Insulin Human Regular (Myxredlin) 100 unit in 100 mls @ 0 mls/hr IVCONT .Q0M [facility]; Protocol Last Titration: 03/26/21 22:06 Dose: 4 unit/hr, 4 mls/hr Documented by: SONA Cosigned by: WILVER Norepinephrine Bitartrate (Levophed) 8 mg in 250 mls @ 0 mls/hr IVCONT .Q0M [facility]; Protocol Last Titration: 03/26/21 22:48 Dose: 0.23 mcg/kg/min, 28.36 mls/hr Documented by: WILVER Dextrose/Lactated Ringer's (D5lr) 1,000 mls @ 100 mls/hr IVCONT .Q10H [facility] Last Infusion: 03/26/21 23:33 Dose: 0 mls/hr Documented by: WILVER Levofloxacin (Levaquin) 750 mg in 150 mls @ 100 mls/hr IV Q48H [facility] Last Admin: 03/26/21 23:27 Dose: 100 mls/hr Documented by: WILVER Vancomycin HCl 750 mg/ Sodium (Chloride) 265 mls @ 265 mls/hr IV Q24H [facility] Last Admin: 03/26/21 23:32 Dose: 265 mls/hr Documented by: WILVER Levothyroxine Sodium (Levothyroxine Sodium 100 Mcg/5 Ml Vial) 150 mcg IVPUSH DAILY@1200 [facility] Ondansetron HCl (Ondansetron Hcl 4 Mg/2 Ml Vial) 4 mg IVPUSH Q6H PRN PRN Reason: Nausea and Vomiting Last Admin: 03/26/21 10:45 Dose: 4 mg Documented by: PRANAV Pharmacy Consult (Consult Rx Perform Med Rec) 1 each MISCELLANE ONCE PRN PRN Reason: Consult order Pharmacy Consult (Consult Rx Vancomycin Dosing) 1 each MISCELLANE DAILY PRN PRN Reason: Consult order Sodium Chloride (0.9 % Sodium Chloride Flush 3 Ml Syringe) [address] [facility] Last Admin: 03/26/21 23:27 Dose: 3 ml Documented by: WILVER Trazodone HCl (Trazodone Hcl 100 Mg Tablet) 200 mg PO BEDTIME PRN PRN Reason: Insomnia Last Admin: 03/16/21 19:41 Dose: 200 mg Documented by: SAMANTHA Labs CBC & Chem 7: 03/26/21 20:07 03/26/21 20:07 Labs: Laboratory Results - last 24 hr 03/26/21 03/26/21 03/26/21 00:09 03:32 06:01 MCV MCH MCHC RDW Plt Count MPV Immature Gran % (Auto) Neut % (Auto) Lymph % (Auto) Cloud % (Auto) Eos % (Auto) Baso % (Auto) Lymph # (Auto) Cloud # (Auto) Eos # (Auto) Baso # (Auto) Abs Immat Gran (auto) Absolute Neuts (auto) Absolute Nucleated RBC Nucleated RBC % (auto) Smear Tech's Comments O2 Saturation ABG pH at Pt Temp ABG pH (Temp Correct) ABG pCO2 at Pt Temp ABG pCO2 (Temp Corrct ABG pO2 at Pt Temp ABG pO2 (Temp Correct ABG HCO3 ABG Base Excess (Actual) VBG pH VBG pCO2 VBG pO2 VBG HCO3 VBG O2 Saturation VBG Base Excess Anion Gap 12 Estim Creat Clear Calc 42.3 Estimated GFR 45 POC Glucose 145 H 163 H Random Glucose 127 H Lactic Acid Calcium 7.2 L Phosphorus 2.6 L Magnesium 1.5 L Total Bilirubin AST ALT Alkaline Phosphatase Total Protein Albumin TSH 42.80 H Free T4 < 0.40 L Random Cortisol Urine Color Urine Appearance Urine pH Ur Specific Shirley Urine Protein Urine Glucose (UA) Urine Ketones Urine Blood Urine Nitrite Ur Leukocyte Esterase Urine RBC Urine WBC Ur Squamous Epith Cells Ur Renal Epithelial Cell Uric Acid Crystals Urine Bacteria Hyaline Casts Urine Mucus U Random Total Protein Ur Random Sodium Urine Creatinine Acetone, Qual 03/26/21 03/26/21 03/26/21 06:01 07:21 11:11 MCV MCH MCHC RDW Plt Count MPV Immature Gran % (Auto) Neut % (Auto) Lymph % (Auto) Cloud % (Auto) Eos % (Auto) Baso % (Auto) Lymph # (Auto) Cloud # (Auto) Eos # (Auto) Baso # (Auto) Abs Immat Gran (auto) Absolute Neuts (auto) Absolute Nucleated RBC Nucleated RBC % (auto) Smear Tech's Comments O2 Saturation ABG pH at Pt Temp ABG pH (Temp Correct) ABG pCO2 at Pt Temp ABG pCO2 (Temp Corrct ABG pO2 at Pt Temp ABG pO2 (Temp Correct ABG HCO3 ABG Base Excess (Actual) VBG pH VBG pCO2 VBG pO2 VBG HCO3 VBG O2 Saturation VBG Base Excess Anion Gap Estim Creat Clear Calc Estimated GFR POC Glucose 126 H 262 H Random Glucose Lactic Acid Calcium Phosphorus Magnesium Total Bilirubin AST ALT Alkaline Phosphatase Total Protein Albumin TSH Free T4 Random Cortisol 9.0 Urine Color Urine Appearance Urine pH Ur Specific Shirley Urine Protein Urine Glucose (UA) Urine Ketones Urine Blood Urine Nitrite Ur Leukocyte Esterase Urine RBC Urine WBC Ur Squamous Epith Cells Ur Renal Epithelial Cell Uric Acid Crystals Urine Bacteria Hyaline Casts Urine Mucus U Random Total Protein Ur Random Sodium Urine Creatinine Acetone, Qual 03/26/21 03/26/21 03/26/21 13:52 14:44 15:24 MCV MCH MCHC RDW Plt Count MPV Immature Gran % (Auto) Neut % (Auto) Lymph % (Auto) Cloud % (Auto) Eos % (Auto) Baso % (Auto) Lymph # (Auto) Cloud # (Auto) Eos # (Auto) Baso # (Auto) Abs Immat Gran (auto) Absolute Neuts (auto) Absolute Nucleated RBC Nucleated RBC % (auto) Smear Tech's Comments O2 Saturation 83.0 ABG pH at Pt Temp 7.39 ABG pH (Temp Correct) 7.40 ABG pCO2 at Pt Temp 21 L ABG pCO2 (Temp Corrct 21 L ABG pO2 at Pt Temp 54 L ABG pO2 (Temp Correct 52 L ABG HCO3 13 L ABG Base Excess (Actual) -9.4 VBG pH VBG pCO2 VBG pO2 VBG HCO3 VBG O2 Saturation VBG Base Excess Anion Gap Estim Creat Clear Calc Estimated GFR POC Glucose 394 H* Random Glucose Lactic Acid Calcium Phosphorus Magnesium Total Bilirubin AST ALT Alkaline Phosphatase Total Protein Albumin TSH Free T4 Random Cortisol Urine Color Urine Appearance Urine pH Ur Specific Shirley Urine Protein Urine Glucose (UA) Urine Ketones Urine Blood Urine Nitrite Ur Leukocyte Esterase Urine RBC Urine WBC Ur Squamous Epith Cells Ur Renal Epithelial Cell Uric Acid Crystals Urine Bacteria Hyaline Casts Urine Mucus U Random Total Protein 41 H Ur Random Sodium < 20.0 Urine Creatinine 199.64 Acetone, Qual 03/26/21 03/26/21 03/26/21 15:24 16:11 16:29 MCV MCH MCHC RDW Plt Count MPV Immature Gran % (Auto) Neut % (Auto) Lymph % (Auto) Cloud % (Auto) Eos % (Auto) Baso % (Auto) Lymph # (Auto) Cloud # (Auto) Eos # (Auto) Baso # (Auto) Abs Immat Gran (auto) Absolute Neuts (auto) Absolute Nucleated RBC Nucleated RBC % (auto) Smear Tech's Comments O2 Saturation ABG pH at Pt Temp ABG pH (Temp Correct) ABG pCO2 at Pt Temp ABG pCO2 (Temp Corrct ABG pO2 at Pt Temp ABG pO2 (Temp Correct ABG HCO3 ABG Base Excess (Actual) VBG pH 7.33 VBG pCO2 20 VBG pO2 70 VBG HCO3 11 L VBG O2 Saturation 92.0 VBG Base Excess -12.6 Anion Gap Estim Creat Clear Calc Estimated GFR POC Glucose 356 H* Random Glucose Lactic Acid Calcium Phosphorus Magnesium Total Bilirubin AST ALT Alkaline Phosphatase Total Protein Albumin TSH Free T4 Random Cortisol Urine Color DK YELLOW Urine Appearance CLEAR Urine pH 6.0 Ur Specific Shirley 1.025 Urine Protein 1+ H Urine Glucose (UA) NEG Urine Ketones 15 Urine Blood NEG Urine Nitrite NEG Ur Leukocyte Esterase TRACE H Urine RBC 0 Urine WBC 10-14 H Ur Squamous Epith Cells 3+ Ur Renal Epithelial Cell TRACE Uric Acid Crystals TRACE Urine Bacteria 2+ Hyaline Casts 0-2 Urine Mucus 2+ U Random Total Protein Ur Random Sodium Urine Creatinine Acetone, Qual 03/26/21 03/26/21 03/26/21 18:12 18:28 20:00 MCV MCH MCHC RDW Plt Count MPV Immature Gran % (Auto) Neut % (Auto) Lymph % (Auto) Cloud % (Auto) Eos % (Auto) Baso % (Auto) Lymph # (Auto) Cloud # (Auto) Eos # (Auto) Baso # (Auto) Abs Immat Gran (auto) Absolute Neuts (auto) Absolute Nucleated RBC Nucleated RBC % (auto) Smear Tech's Comments O2 Saturation ABG pH at Pt Temp ABG pH (Temp Correct) ABG pCO2 at Pt Temp ABG pCO2 (Temp Corrct ABG pO2 at Pt Temp ABG pO2 (Temp Correct ABG HCO3 ABG Base Excess (Actual) VBG pH VBG pCO2 VBG pO2 VBG HCO3 VBG O2 Saturation VBG Base Excess Anion Gap Estim Creat Clear Calc Estimated GFR POC Glucose 371 H* 335 H Random Glucose Lactic Acid 6.3 H* Calcium Phosphorus Magnesium Total Bilirubin AST ALT Alkaline Phosphatase Total Protein Albumin TSH Free T4 Random Cortisol Urine Color Urine Appearance Urine pH Ur Specific Shirley Urine Protein Urine Glucose (UA) Urine Ketones Urine Blood Urine Nitrite Ur Leukocyte Esterase Urine RBC Urine WBC Ur Squamous Epith Cells Ur Renal Epithelial Cell Uric Acid Crystals Urine Bacteria Hyaline Casts Urine Mucus U Random Total Protein Ur Random Sodium Urine Creatinine Acetone, Qual 03/26/21 03/26/21 03/26/21 20:07 20:07 21:06 MCV 91.6 MCH 30.4 MCHC 33.2 RDW 17.2 H Plt Count 180 MPV 11.8 Immature Gran % (Auto) 1.0 H Neut % (Auto) 88.1 H Lymph % (Auto) 6.6 L Cloud % (Auto) 4.1 Eos % (Auto) 0.0 Baso % (Auto) 0.2 Lymph # (Auto) 1.6 Cloud # (Auto) 1.0 Eos # (Auto) 0.0 Baso # (Auto) 0.0 Abs Immat Gran (auto) 0.24 H Absolute Neuts (auto) 21.6 H Absolute Nucleated RBC 0.000 Nucleated RBC % (auto) 0.0 Smear Tech's Comments VERIFIED O2 Saturation ABG pH at Pt Temp ABG pH (Temp Correct) ABG pCO2 at Pt Temp ABG pCO2 (Temp Corrct ABG pO2 at Pt Temp ABG pO2 (Temp Correct ABG HCO3 ABG Base Excess (Actual) VBG pH VBG pCO2 VBG pO2 VBG HCO3 VBG O2 Saturation VBG Base Excess Anion Gap 27 H Estim Creat Clear Calc 29.9 Estimated GFR 30 POC Glucose Random Glucose 333 H Lactic Acid 4.1 H* Calcium 7.6 L Phosphorus 3.8 Magnesium 1.8 Total Bilirubin 0.6 AST 12 ALT 8 Alkaline Phosphatase 52 D Total Protein 4.4 L Albumin 3.2 L D TSH Free T4 Random Cortisol Urine Color Urine Appearance Urine pH Ur Specific Shirley Urine Protein Urine Glucose (UA) Urine Ketones Urine Blood Urine Nitrite Ur Leukocyte Esterase Urine RBC Urine WBC Ur Squamous Epith Cells Ur Renal Epithelial Cell Uric Acid Crystals Urine Bacteria Hyaline Casts Urine Mucus U Random Total Protein Ur Random Sodium Urine Creatinine Acetone, Qual Negative 03/26/21 22:01 MCV MCH MCHC RDW Plt Count MPV Immature Gran % (Auto) Neut % (Auto) Lymph % (Auto) Cloud % (Auto) Eos % (Auto) Baso % (Auto) Lymph # (Auto) Cloud # (Auto) Eos # (Auto) Baso # (Auto) Abs Immat Gran (auto) Absolute Neuts (auto) Absolute Nucleated RBC Nucleated RBC % (auto) Smear Tech's Comments O2 Saturation ABG pH at Pt Temp ABG pH (Temp Correct) ABG pCO2 at Pt Temp ABG pCO2 (Temp Corrct ABG pO2 at Pt Temp ABG pO2 (Temp Correct ABG HCO3 ABG Base Excess (Actual) VBG pH VBG pCO2 VBG pO2 VBG HCO3 VBG O2 Saturation VBG Base Excess Anion Gap Estim Creat Clear Calc Estimated GFR POC Glucose 227 H Random Glucose Lactic Acid Calcium Phosphorus Magnesium Total Bilirubin AST ALT Alkaline Phosphatase Total Protein Albumin TSH Free T4 Random Cortisol Urine Color Urine Appearance Urine pH Ur Specific Shirley Urine Protein Urine Glucose (UA) Urine Ketones Urine Blood Urine Nitrite Ur Leukocyte Esterase Urine RBC Urine WBC Ur Squamous Epith Cells Ur Renal Epithelial Cell Uric Acid Crystals Urine Bacteria Hyaline Casts Urine Mucus U Random Total Protein Ur Random Sodium Urine Creatinine Acetone, Qual Procedures Date of Service Date of Service: 03/26/21 Progress Note: A&P Assessment and plan (1) Ileus: Status: Acute Assessment and Plan: pt s/p explor lap negative - postop ileus -? other issues medical and now with event today - severe hypothyroid and maybe some adrenal insuff - renal status had been better sent to icu - abdo exam is benign now acidotic - qu to find out why- if still concern for abdomen do ct scan with po contrast drink. discussed extensively with dr ren Fall Risk Details Current Medications: Current Medications Acetaminophen (Acetaminophen 325 Mg Tablet) 650 mg PO Q6H PRN PRN Reason: Pain, Mild (Pain Scale 1-3) Benzocaine (Throat Lozenge, Medicated Lozenge) 1 lozenge MUCOUS MEM Q2H PRN PRN Reason: Sore Throat Enoxaparin Sodium (Enoxaparin Sodium 40 Mg/0.4 Ml Syringe) 40 mg SUBCUT Q24H [facility] Last Admin: 03/26/21 19:11 Dose: 40 mg Documented by: Famotidine (Famotidine 20 Mg Tablet) 20 mg PO BID [facility] Last Admin: 03/26/21 20:31 Dose: 20 mg Documented by: Hydrocortisone Sodium Succinate (Hydrocortisone Sod Succ/Pf 100 Mg Vial) 50 mg IVPUSH Q6H [facility] Last Admin: 03/26/21 23:27 Dose: 50 mg Documented by: Hydromorphone HCl (Hydromorphone Hcl 0.5 Mg/0.5 Ml Syringe) 0.5 mg IVPUSH Q2H PRN; Protocol PRN Reason: Pain, Severe (Pain Scale 7-10) Insulin Human Regular (Myxredlin) 100 unit in 100 mls @ 0 mls/hr IVCONT .Q0M [facility]; Protocol Last Titration: 03/26/21 22:06 Dose: 4 unit/hr, 4 mls/hr Documented by: Norepinephrine Bitartrate (Levophed) 8 mg in 250 mls @ 0 mls/hr IVCONT .Q0M [facility]; Protocol Last Titration: 03/26/21 22:48 Dose: 0.23 mcg/kg/min, 28.36 mls/hr Documented by: Dextrose/Lactated Ringer's (D5lr) 1,000 mls @ 100 mls/hr IVCONT .Q10H [facility] Last Infusion: 03/26/21 23:33 Dose: 0 mls/hr Documented by: Levofloxacin (Levaquin) 750 mg in 150 mls @ 100 mls/hr IV Q48H [facility] Last Admin: 03/26/21 23:27 Dose: 100 mls/hr Documented by: Vancomycin HCl 750 mg/ Sodium (Chloride) 265 mls @ 265 mls/hr IV Q24H [facility] Last Admin: 03/26/21 23:32 Dose: 265 mls/hr Documented by: Levothyroxine Sodium (Levothyroxine Sodium 100 Mcg/5 Ml Vial) 150 mcg IVPUSH DAILY@1200 MARIELA Ondansetron HCl (Ondansetron Hcl 4 Mg/2 Ml Vial) 4 mg IVPUSH Q6H PRN PRN Reason: Nausea and Vomiting Last Admin: 03/26/21 10:45 Dose: 4 mg Documented by: Pharmacy Consult (Consult Rx Perform Med Rec) 1 each MISCELLANE ONCE PRN PRN Reason: Consult order Pharmacy Consult (Consult Rx Vancomycin Dosing) 1 each MISCELLANE DAILY PRN PRN Reason: Consult order Sodium Chloride (0.9 % Sodium Chloride Flush 3 Ml Syringe) 3 ml IVFLUSH QSHIFT [facility] Last Admin: 03/26/21 23:27 Dose: 3 ml Documented by: Trazodone HCl (Trazodone Hcl 100 Mg Tablet) 200 mg PO BEDTIME PRN PRN Reason: Insomnia Last Admin: 03/16/21 19:41 Dose: 200 mg Documented by: Time Spent With Patient Time: Total time spent is greater than 50% in coordination of care (as documented) at patient's floor/unit and/or counseling patient: Time with patient: Greater than 35 minutes Quality Stroke Does the patient have a stroke diagnosis?: No VTE Prior VTE?: No VTE Risk Level:: Surgical - high VTE Device Contraindication: N/A - Device Ordered VTE Drug Contraindication: N/A - Med Ordered
[2021-03-26 23:56] LABS: ~Lactic Acid-LAB USE ONLY 3.7 mmol/L (0.5-2.0)
[2021-03-27] VITALS (23 sets, daily range): BP systolic 90–132; BP diastolic 39–72; PULSE 82–102; RESP 13–25; TEMP 36.1–37.9; O2SAT 89–98; BMI 33.9
[2021-03-27 00:06] LABS: Glucose, Whole Blood 254 mg/dL (60-115)
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
[2021-03-27 00:38] LABS: Anion Gap 16 (12-20); Blood Urea Nitrogen 25 mg/dL (9-16); Calcium 7.7 mg/dL (8.4-10.2); Carbon Dioxide 20 mmol/L (22-29); Chloride 102 mmol/L (96-108); Creatinine Clr Calc Pharmacy 31.5; Estimated Glomerular Filt Rate 32; Glucose Fasting 242 mg/dL (60-99); Potassium 3.7 mmol/L (3.3-5.1); Sodium 134 mmol/L (135-145)
[2021-03-27] MEDS: Barium Sulfate Oral (Vanilla) 450 ML ORAL.SUSP 900 ML PO (00:56)
[2021-03-27] MEDS: Albumin Human 25 % 100 ML IV ×2 (01:16→01:36)
[2021-03-27] MEDS: Magnesium Sulfate/H2O 2 GM/50 ML PIGGYBACK IV (01:16)
[2021-03-27 01:28] LABS: Reflex Lactate? 2 Y
[2021-03-27 01:45] LABS: Glucose, Whole Blood 169 mg/dL (60-115)
[2021-03-27 02:00] LABS: ~Lactic Acid-LAB USE ONLY 2.8 mmol/L (0.5-2.0)
[2021-03-27 05:47] LABS: Hematocrit 24.4 % (37.0-47.0); Hemoglobin 8.3 g/dl (12.0-16.0); Mean Corpuscular Hemoglobin 30.3 pg (27.0-33.0); Mean Corpuscular Volume 89.1 fL (80.0-98.0); Mean Platelet Volume 11.5 fL (9.4-12.3); Platelet Count 157 X10*3/uL (160-400); Red Blood Count 2.74 X10*6/uL (4.20-5.50); Red Cell Distribution Width 16.7 % (11.0-16.0); WBC ABN SCTR FOR CBC 1
[2021-03-27 05:52] LABS: White Blood Count 17.8 X10*3/uL (4.8-10.8)
[2021-03-27 06:02] LABS: Alanine Aminotransferase 10 U/L (0-31); Albumin Level 3.6 g/dL (3.5-5.0); Alkaline Phosphatase 48 U/L (39-117); Anion Gap 16 (12-20); Aspartate Amino Transferase 27 U/L (5-31); Bilirubin Total 0.5 mg/dL (0.0-1.0); Blood Urea Nitrogen 24 mg/dL (9-16); Calcium 7.8 mg/dL (8.4-10.2); Carbon Dioxide 21 mmol/L (22-29); Chloride 102 mmol/L (96-108); Creatinine Clr Calc Pharmacy 34.5; Estimated Glomerular Filt Rate 36; Glucose Random 145 mg/dL (60-115); Potassium 3.4 mmol/L (3.3-5.1); Sodium 136 mmol/L (135-145); Total Protein 4.7 g/dL (6.5-8.0)
[2021-03-27 06:22] LABS: Band Neutrophils Percent 1 % (3-5); Lymphocytes Absolute Manual 0.7 X10*3/uL (1.2-4.9); Lymphocytes Percent Manual 4 % (20-40); Monocytes Absolute Manual 0.4 X10*3/uL (0.1-1.2); Monocytes Percent Manual 2 % (2-11); Neutrophils Absolute Manual 16.7 X10*3/uL (2.0-8.3); Neutrophils Percent Manual 93 % (45-73)
[2021-03-27 06:24] LABS: Basophilic Stippling 1+ (0-2) /OIF; Large Platelet PRESENT; Ovalocytes 1+ (5-14) /OIF; Platelet Estimate NORMAL (NORMAL); Platelet Morphology Comment NOTED; Polychromasia 1+ (0-2) /OIF; RBC Morphology NOTED; Spherocytes 1+ (0-2) /OIF; Target Cells 1+ (5-14) /OIF
[2021-03-27 06:25] LABS: Giant Platelet PRESENT; Hypochromasia 1+ (5-14) /OIF; Schistocytes 1+ (0-2) /OIF
[2021-03-27 07:00] LABS: Glucose, Whole Blood 127 mg/dL (60-115)
[2021-03-27 07:00] LABS: Glucose, Whole Blood 152 mg/dL (60-115)
[2021-03-27] MEDS: Hydrocortisone Sod Succ/PF 100 MG VIAL 50 MG IVPUSH ×3 (07:02→16:46)
[2021-03-27 08:00] LABS: Glucose, Whole Blood 110 mg/dL (60-115)
[2021-03-27 09:46] LABS: Glucose, Whole Blood 98 mg/dL (60-115)
[2021-03-27] MEDS: Furosemide 20 MG/2 ML VIAL IVPUSH (10:04)
[2021-03-27] MEDS: Potassium Chloride/H20 20 MEQ/100 ML PIGGYBACK 100 MEQ IV ×2 (10:09→11:12)
[2021-03-27] MEDS: Levothyroxine Sodium 100 MCG/5 ML VIAL IVPUSH (11:17)
[2021-03-27 11:46] LABS: Glucose, Whole Blood 167 mg/dL (60-115)
[2021-03-27] MEDS: HYDROmorphone HCl 0.5 MG/0.5 ML SYRINGE IVPUSH (13:49)
--- NOTE | 2021-03-27 14:23 | PM.PNNEP ---
Subjective Subjective Date of Service: 03/27/21 Principal diagnosis: anasrca, MARQUITA Interval history: Seen and examined, events noted.Now on pressors to support BP.Bedside ECHO per ICU showed severe global hypokinesis Physical Exam Vital Signs: Vital Signs: Last Vital Signs Temp 100.2 F 03/27/21 14:00 Pulse 86 03/27/21 14:00 Resp 18 03/27/21 14:00 BP 116/53 L 03/27/21 14:00 Pulse Ox 92 03/27/21 14:00 Body Mass Index 33.9 Anasarca; decr BS bases, no rub, edema arms/sacral and legs Const: Other: awake, minimally responsive General: healthy appearing, comfortable, no acute distress, well developed, alert, ill appearing and lethargic Nutritional Appearance: well nourished Orientation/consciousness: patient oriented x3 and lethargic Limitations: no limitations and No language barrier HENMT: Head: Yes normocephalic and Yes atraumatic Ears: hearing grossly normal bilaterally Eyes: Other: Neck: Neck: Yes normal visual inspection, Yes trachea midline, Yes supple and Yes no JVD Resp: Other: clear but diminished all oneil Effort & Inspection: normal respiratory effort, no audible wheezes, no cough, no respiratory distress and no stridor Auscultation: clear to auscultation bilaterally Cardio: Other: no S4; positive S1-S2; no S3 murmurs rubs gallops Jugular venous distension: no JVD Rate: regular rate Rhythm: regular rhythm GI: Other: soft nontender nondisteded bowel sounds quiet Inspection: Yes normal to inspection, No distended and Yes incision (clean) Palpation (GI): Soft to palpation, nontender, no guarding, not rigid and No Rebound tenderness present Percussion: Yes normal to percussion and Yes tympanic to percussion Auscultation: normal bowel sounds, abnormal bowel sounds and Hyperactive bowel sounds present Rectal Exam - Female: deferred Skin: General skin exam: no rashes or lesions noted, no erythema and no eschars Neuro: General: patient oriented x3 Extrem: Other: pitting edema ankles to sacrum ( anasarca) General: Yes normal to inspection, Yes no clubbing, cyanosis or edema, Yes no pedal edema and No edema Objective Data Labs CBC & Chem 7: 03/27/21 05:25 03/27/21 05:25 Labs: Laboratory Results - last 24 hr 03/26/21 03/26/21 03/26/21 06:01 06:01 14:44 WBC RBC Hgb Hct MCV MCH MCHC RDW Plt Count MPV Immature Gran % (Auto) Neut % (Auto) Lymph % (Auto) [place] % (Auto) Eos % (Auto) Baso % (Auto) Lymph # (Auto) [place] # (Auto) Eos # (Auto) Baso # (Auto) Abs Immat Gran (auto) Absolute Neuts (auto) Absolute Nucleated RBC Nucleated RBC % (auto) Neutrophils % (Manual) Band Neutrophils % Lymphocytes % (Manual) Monocytes % (Manual) Abs Neuts (Manual) Lymphocytes # (Manual) Monocytes # (Manual) Platelet Estimate Large Platelets Giant Platelets Plt Morphology Comment RBC Morphology Polychromasia Hypochromasia Basophilic Stippling Spherocytes Target Cells Ovalocytes Schistocytes Smear Tech's Comments O2 Saturation 83.0 ABG pH at Pt Temp 7.39 ABG pH (Temp Correct) 7.40 ABG pCO2 at Pt Temp 21 L ABG pCO2 (Temp Corrct 21 L ABG pO2 at Pt Temp 54 L ABG pO2 (Temp Correct 52 L ABG HCO3 13 L ABG Base Excess (Actual) -9.4 VBG pH VBG pCO2 VBG pO2 VBG HCO3 VBG O2 Saturation VBG Base Excess Sodium 136 Potassium 3.0 L Chloride 105 Carbon Dioxide 22 Anion Gap 12 BUN 23 H Creatinine Estim Creat Clear Calc Estimated GFR POC Glucose Random Glucose 127 H Fasting Glucose Lactic Acid Lactic Acid Fup @ 2Hr Lactic Acid Fup @ 4Hr Calcium 7.2 L Phosphorus 2.6 L Magnesium 1.5 L Total Bilirubin AST ALT Alkaline Phosphatase Troponin I High Sens Total Protein Albumin TSH 42.80 H Free T4 < 0.40 L Random Cortisol 9.0 Urine Color Urine Appearance Urine pH Ur Specific [place] Urine Protein Urine Glucose (UA) Urine Ketones Urine Blood Urine Nitrite Ur Leukocyte Esterase Urine RBC Urine WBC Ur Squamous Epith Cells Ur Renal Epithelial Cell Uric Acid Crystals Urine Bacteria Hyaline Casts Urine Mucus U Random Total Protein Ur Random Sodium Urine Creatinine Acetone, Qual 03/26/21 03/26/21 03/26/21 15:24 15:24 16:11 WBC RBC Hgb Hct MCV MCH MCHC RDW Plt Count MPV Immature Gran % (Auto) Neut % (Auto) Lymph % (Auto) [place] % (Auto) Eos % (Auto) Baso % (Auto) Lymph # (Auto) [place] # (Auto) Eos # (Auto) Baso # (Auto) Abs Immat Gran (auto) Absolute Neuts (auto) Absolute Nucleated RBC Nucleated RBC % (auto) Neutrophils % (Manual) Band Neutrophils % Lymphocytes % (Manual) Monocytes % (Manual) Abs Neuts (Manual) Lymphocytes # (Manual) Monocytes # (Manual) Platelet Estimate Large Platelets Giant Platelets Plt Morphology Comment RBC Morphology Polychromasia Hypochromasia Basophilic Stippling Spherocytes Target Cells Ovalocytes Schistocytes Smear Tech's Comments O2 Saturation ABG pH at Pt Temp ABG pH (Temp Correct) ABG pCO2 at Pt Temp ABG pCO2 (Temp Corrct ABG pO2 at Pt Temp ABG pO2 (Temp Correct ABG HCO3 ABG Base Excess (Actual) VBG pH 7.33 VBG pCO2 20 VBG pO2 70 VBG HCO3 11 L VBG O2 Saturation 92.0 VBG Base Excess -12.6 Sodium Potassium Chloride Carbon Dioxide Anion Gap BUN Creatinine Estim Creat Clear Calc Estimated GFR POC Glucose Random Glucose Fasting Glucose Lactic Acid Lactic Acid Fup @ 2Hr Lactic Acid Fup @ 4Hr Calcium Phosphorus Magnesium Total Bilirubin AST ALT Alkaline Phosphatase Troponin I High Sens Total Protein Albumin TSH Free T4 Random Cortisol Urine Color DK YELLOW Urine Appearance CLEAR Urine pH 6.0 Ur Specific [place] 1.025 Urine Protein 1+ H Urine Glucose (UA) NEG Urine Ketones 15 Urine Blood NEG Urine Nitrite NEG Ur Leukocyte Esterase TRACE H Urine RBC 0 Urine WBC 10-14 H Ur Squamous Epith Cells 3+ Ur Renal Epithelial Cell TRACE Uric Acid Crystals TRACE Urine Bacteria 2+ Hyaline Casts 0-2 Urine Mucus 2+ U Random Total Protein 41 H Ur Random Sodium < 20.0 Urine Creatinine 199.64 Acetone, Qual 03/26/21 03/26/21 03/26/21 16:29 18:12 18:28 WBC RBC Hgb Hct MCV MCH MCHC RDW Plt Count MPV Immature Gran % (Auto) Neut % (Auto) Lymph % (Auto) [place] % (Auto) Eos % (Auto) Baso % (Auto) Lymph # (Auto) [place] # (Auto) Eos # (Auto) Baso # (Auto) Abs Immat Gran (auto) Absolute Neuts (auto) Absolute Nucleated RBC Nucleated RBC % (auto) Neutrophils % (Manual) Band Neutrophils % Lymphocytes % (Manual) Monocytes % (Manual) Abs Neuts (Manual) Lymphocytes # (Manual) Monocytes # (Manual) Platelet Estimate Large Platelets Giant Platelets Plt Morphology Comment RBC Morphology Polychromasia Hypochromasia Basophilic Stippling Spherocytes Target Cells Ovalocytes Schistocytes Smear Tech's Comments O2 Saturation ABG pH at Pt Temp ABG pH (Temp Correct) ABG pCO2 at Pt Temp ABG pCO2 (Temp Corrct ABG pO2 at Pt Temp ABG pO2 (Temp Correct ABG HCO3 ABG Base Excess (Actual) VBG pH VBG pCO2 VBG pO2 VBG HCO3 VBG O2 Saturation VBG Base Excess Sodium Potassium Chloride Carbon Dioxide Anion Gap BUN Creatinine Estim Creat Clear Calc Estimated GFR POC Glucose 356 H* 371 H* Random Glucose Fasting Glucose Lactic Acid 6.3 H* Lactic Acid Fup @ 2Hr Lactic Acid Fup @ 4Hr Calcium Phosphorus Magnesium Total Bilirubin AST ALT Alkaline Phosphatase Troponin I High Sens Total Protein Albumin TSH Free T4 Random Cortisol Urine Color Urine Appearance Urine pH Ur Specific [place] Urine Protein Urine Glucose (UA) Urine Ketones Urine Blood Urine Nitrite Ur Leukocyte Esterase Urine RBC Urine WBC Ur Squamous Epith Cells Ur Renal Epithelial Cell Uric Acid Crystals Urine Bacteria Hyaline Casts Urine Mucus U Random Total Protein Ur Random Sodium Urine Creatinine Acetone, Qual 03/26/21 03/26/21 03/26/21 20:00 20:07 20:07 WBC 24.5 H RBC 2.96 L D Hgb 9.0 L D Hct 27.1 L D MCV 91.6 MCH 30.4 MCHC 33.2 RDW 17.2 H Plt Count 180 MPV 11.8 Immature Gran % (Auto) 1.0 H Neut % (Auto) 88.1 H Lymph % (Auto) 6.6 L [place] % (Auto) 4.1 Eos % (Auto) 0.0 Baso % (Auto) 0.2 Lymph # (Auto) 1.6 [place] # (Auto) 1.0 Eos # (Auto) 0.0 Baso # (Auto) 0.0 Abs Immat Gran (auto) 0.24 H Absolute Neuts (auto) 21.6 H Absolute Nucleated RBC 0.000 Nucleated RBC % (auto) 0.0 Neutrophils % (Manual) Band Neutrophils % Lymphocytes % (Manual) Monocytes % (Manual) Abs Neuts (Manual) Lymphocytes # (Manual) Monocytes # (Manual) Platelet Estimate Large Platelets Giant Platelets Plt Morphology Comment RBC Morphology Polychromasia Hypochromasia Basophilic Stippling Spherocytes Target Cells Ovalocytes Schistocytes Smear Tech's Comments VERIFIED O2 Saturation ABG pH at Pt Temp ABG pH (Temp Correct) ABG pCO2 at Pt Temp ABG pCO2 (Temp Corrct ABG pO2 at Pt Temp ABG pO2 (Temp Correct ABG HCO3 ABG Base Excess (Actual) VBG pH VBG pCO2 VBG pO2 VBG HCO3 VBG O2 Saturation VBG Base Excess Sodium 135 Potassium 4.1 D Chloride 102 Carbon Dioxide 10 L* D Anion Gap 27 H BUN 27 H Creatinine 1.68 H Estim Creat Clear Calc 29.9 Estimated GFR 30 POC Glucose 335 H Random Glucose 333 H Fasting Glucose Lactic Acid Lactic Acid Fup @ 2Hr Lactic Acid Fup @ 4Hr Calcium 7.6 L Phosphorus 3.8 Magnesium 1.8 Total Bilirubin 0.6 AST 12 ALT 8 Alkaline Phosphatase 52 D Troponin I High Sens Total Protein 4.4 L Albumin 3.2 L D TSH Free T4 Random Cortisol Urine Color Urine Appearance Urine pH Ur Specific [place] Urine Protein Urine Glucose (UA) Urine Ketones Urine Blood Urine Nitrite Ur Leukocyte Esterase Urine RBC Urine WBC Ur Squamous Epith Cells Ur Renal Epithelial Cell Uric Acid Crystals Urine Bacteria Hyaline Casts Urine Mucus U Random Total Protein Ur Random Sodium Urine Creatinine Acetone, Qual Negative 03/26/21 03/26/21 03/26/21 21:06 22:01 23:25 WBC RBC Hgb Hct MCV MCH MCHC RDW Plt Count MPV Immature Gran % (Auto) Neut % (Auto) Lymph % (Auto) [place] % (Auto) Eos % (Auto) Baso % (Auto) Lymph # (Auto) [place] # (Auto) Eos # (Auto) Baso # (Auto) Abs Immat Gran (auto) Absolute Neuts (auto) Absolute Nucleated RBC Nucleated RBC % (auto) Neutrophils % (Manual) Band Neutrophils % Lymphocytes % (Manual) Monocytes % (Manual) Abs Neuts (Manual) Lymphocytes # (Manual) Monocytes # (Manual) Platelet Estimate Large Platelets Giant Platelets Plt Morphology Comment RBC Morphology Polychromasia Hypochromasia Basophilic Stippling Spherocytes Target Cells Ovalocytes Schistocytes Smear Tech's Comments O2 Saturation ABG pH at Pt Temp ABG pH (Temp Correct) ABG pCO2 at Pt Temp ABG pCO2 (Temp Corrct ABG pO2 at Pt Temp ABG pO2 (Temp Correct ABG HCO3 ABG Base Excess (Actual) VBG pH VBG pCO2 VBG pO2 VBG HCO3 VBG O2 Saturation VBG Base Excess Sodium Potassium Chloride Carbon Dioxide Anion Gap BUN Creatinine Estim Creat Clear Calc Estimated GFR POC Glucose 227 H Random Glucose Fasting Glucose Lactic Acid 4.1 H* Lactic Acid Fup @ 2Hr 3.7 H* Lactic Acid Fup @ 4Hr Calcium Phosphorus Magnesium Total Bilirubin AST ALT Alkaline Phosphatase Troponin I High Sens Total Protein Albumin TSH Free T4 Random Cortisol Urine Color Urine Appearance Urine pH Ur Specific [place] Urine Protein Urine Glucose (UA) Urine Ketones Urine Blood Urine Nitrite Ur Leukocyte Esterase Urine RBC Urine WBC Ur Squamous Epith Cells Ur Renal Epithelial Cell Uric Acid Crystals Urine Bacteria Hyaline Casts Urine Mucus U Random Total Protein Ur Random Sodium Urine Creatinine Acetone, Qual 03/27/21 03/27/21 03/27/21 00:01 00:15 01:40 WBC RBC Hgb Hct MCV MCH MCHC RDW Plt Count MPV Immature Gran % (Auto) Neut % (Auto) Lymph % (Auto) [place] % (Auto) Eos % (Auto) Baso % (Auto) Lymph # (Auto) [place] # (Auto) Eos # (Auto) Baso # (Auto) Abs Immat Gran (auto) Absolute Neuts (auto) Absolute Nucleated RBC Nucleated RBC % (auto) Neutrophils % (Manual) Band Neutrophils % Lymphocytes % (Manual) Monocytes % (Manual) Abs Neuts (Manual) Lymphocytes # (Manual) Monocytes # (Manual) Platelet Estimate Large Platelets Giant Platelets Plt Morphology Comment RBC Morphology Polychromasia Hypochromasia Basophilic Stippling Spherocytes Target Cells Ovalocytes Schistocytes Smear Tech's Comments O2 Saturation ABG pH at Pt Temp ABG pH (Temp Correct) ABG pCO2 at Pt Temp ABG pCO2 (Temp Corrct ABG pO2 at Pt Temp ABG pO2 (Temp Correct ABG HCO3 ABG Base Excess (Actual) VBG pH VBG pCO2 VBG pO2 VBG HCO3 VBG O2 Saturation VBG Base Excess Sodium 134 L Potassium 3.7 Chloride 102 Carbon Dioxide 20 L Anion Gap 16 BUN 25 H Creatinine 1.60 H Estim Creat Clear Calc 31.5 Estimated GFR 32 POC Glucose 254 H Random Glucose Fasting Glucose 242 H Lactic Acid Lactic Acid Fup @ 2Hr Lactic Acid Fup @ 4Hr 2.8 H* Calcium 7.7 L Phosphorus Magnesium Total Bilirubin AST ALT Alkaline Phosphatase Troponin I High Sens Total Protein Albumin TSH Free T4 Random Cortisol Urine Color Urine Appearance Urine pH Ur Specific [place] Urine Protein Urine Glucose (UA) Urine Ketones Urine Blood Urine Nitrite Ur Leukocyte Esterase Urine RBC Urine WBC Ur Squamous Epith Cells Ur Renal Epithelial Cell Uric Acid Crystals Urine Bacteria Hyaline Casts Urine Mucus U Random Total Protein Ur Random Sodium Urine Creatinine Acetone, Qual 03/27/21 03/27/21 03/27/21 01:42 04:19 05:25 WBC RBC Hgb Hct MCV MCH MCHC RDW Plt Count MPV Immature Gran % (Auto) Neut % (Auto) Lymph % (Auto) [place] % (Auto) Eos % (Auto) Baso % (Auto) Lymph # (Auto) [place] # (Auto) Eos # (Auto) Baso # (Auto) Abs Immat Gran (auto) Absolute Neuts (auto) Absolute Nucleated RBC Nucleated RBC % (auto) Neutrophils % (Manual) Band Neutrophils % Lymphocytes % (Manual) Monocytes % (Manual) Abs Neuts (Manual) Lymphocytes # (Manual) Monocytes # (Manual) Platelet Estimate Large Platelets Giant Platelets Plt Morphology Comment RBC Morphology Polychromasia Hypochromasia Basophilic Stippling Spherocytes Target Cells Ovalocytes Schistocytes Smear Tech's Comments O2 Saturation ABG pH at Pt Temp ABG pH (Temp Correct) ABG pCO2 at Pt Temp ABG pCO2 (Temp Corrct ABG pO2 at Pt Temp ABG pO2 (Temp Correct ABG HCO3 ABG Base Excess (Actual) VBG pH VBG pCO2 VBG pO2 VBG HCO3 VBG O2 Saturation VBG Base Excess Sodium 136 Potassium 3.4 Chloride 102 Carbon Dioxide 21 L Anion Gap 16 BUN 24 H Creatinine 1.46 H Estim Creat Clear Calc 34.5 Estimated GFR 36 POC Glucose 169 H 152 H Random Glucose 145 H Fasting Glucose Lactic Acid Lactic Acid Fup @ 2Hr Lactic Acid Fup @ 4Hr Calcium 7.8 L Phosphorus Magnesium Total Bilirubin 0.5 AST 27 D ALT 10 Alkaline Phosphatase 48 Troponin I High Sens Total Protein 4.7 L Albumin 3.6 TSH Free T4 Random Cortisol Urine Color Urine Appearance Urine pH Ur Specific [place] Urine Protein Urine Glucose (UA) Urine Ketones Urine Blood Urine Nitrite Ur Leukocyte Esterase Urine RBC Urine WBC Ur Squamous Epith Cells Ur Renal Epithelial Cell Uric Acid Crystals Urine Bacteria Hyaline Casts Urine Mucus U Random Total Protein Ur Random Sodium Urine Creatinine Acetone, Qual 03/27/21 03/27/21 03/27/21 05:25 06:56 07:58 WBC 17.8 H RBC 2.74 L Hgb 8.3 L Hct 24.4 L MCV 89.1 MCH 30.3 MCHC 34.0 RDW 16.7 H Plt Count 157 L MPV 11.5 Immature Gran % (Auto) Cancelled Neut % (Auto) Cancelled Lymph % (Auto) Cancelled [place] % (Auto) Cancelled Eos % (Auto) Cancelled Baso % (Auto) Cancelled Lymph # (Auto) Cancelled [place] # (Auto) Cancelled Eos # (Auto) Cancelled Baso # (Auto) Cancelled Abs Immat Gran (auto) Cancelled Absolute Neuts (auto) Cancelled Absolute Nucleated RBC 0.000 Nucleated RBC % (auto) 0.0 Neutrophils % (Manual) 93 H Band Neutrophils % 1 L Lymphocytes % (Manual) 4 L Monocytes % (Manual) 2 Abs Neuts (Manual) 16.7 H Lymphocytes # (Manual) 0.7 L Monocytes # (Manual) 0.4 Platelet Estimate NORMAL Large Platelets PRESENT Giant Platelets PRESENT Plt Morphology Comment NOTED RBC Morphology NOTED Polychromasia 1+ (0-2) Hypochromasia 1+ (5-14) Basophilic Stippling 1+ (0-2) Spherocytes 1+ (0-2) Target Cells 1+ (5-14) Ovalocytes 1+ (5-14) Schistocytes 1+ (0-2) Smear Tech's Comments O2 Saturation ABG pH at Pt Temp ABG pH (Temp Correct) ABG pCO2 at Pt Temp ABG pCO2 (Temp Corrct ABG pO2 at Pt Temp ABG pO2 (Temp Correct ABG HCO3 ABG Base Excess (Actual) VBG pH VBG pCO2 VBG pO2 VBG HCO3 VBG O2 Saturation VBG Base Excess Sodium Potassium Chloride Carbon Dioxide Anion Gap BUN Creatinine Estim Creat Clear Calc Estimated GFR POC Glucose 127 H 110 Random Glucose Fasting Glucose Lactic Acid Lactic Acid Fup @ 2Hr Lactic Acid Fup @ 4Hr Calcium Phosphorus Magnesium Total Bilirubin AST ALT Alkaline Phosphatase Troponin I High Sens Total Protein Albumin TSH Free T4 Random Cortisol Urine Color Urine Appearance Urine pH Ur Specific [place] Urine Protein Urine Glucose (UA) Urine Ketones Urine Blood Urine Nitrite Ur Leukocyte Esterase Urine RBC Urine WBC Ur Squamous Epith Cells Ur Renal Epithelial Cell Uric Acid Crystals Urine Bacteria Hyaline Casts Urine Mucus U Random Total Protein Ur Random Sodium Urine Creatinine Acetone, Qual 03/27/21 03/27/21 03/27/21 09:42 11:43 11:54 WBC RBC Hgb Hct MCV MCH MCHC RDW Plt Count MPV Immature Gran % (Auto) Neut % (Auto) Lymph % (Auto) [place] % (Auto) Eos % (Auto) Baso % (Auto) Lymph # (Auto) [place] # (Auto) Eos # (Auto) Baso # (Auto) Abs Immat Gran (auto) Absolute Neuts (auto) Absolute Nucleated RBC Nucleated RBC % (auto) Neutrophils % (Manual) Band Neutrophils % Lymphocytes % (Manual) Monocytes % (Manual) Abs Neuts (Manual) Lymphocytes # (Manual) Monocytes # (Manual) Platelet Estimate Large Platelets Giant Platelets Plt Morphology Comment RBC Morphology Polychromasia Hypochromasia Basophilic Stippling Spherocytes Target Cells Ovalocytes Schistocytes Smear Tech's Comments O2 Saturation ABG pH at Pt Temp ABG pH (Temp Correct) ABG pCO2 at Pt Temp ABG pCO2 (Temp Corrct ABG pO2 at Pt Temp ABG pO2 (Temp Correct ABG HCO3 ABG Base Excess (Actual) VBG pH VBG pCO2 VBG pO2 VBG HCO3 VBG O2 Saturation VBG Base Excess Sodium Potassium Chloride Carbon Dioxide Anion Gap BUN Creatinine Estim Creat Clear Calc Estimated GFR POC Glucose 98 167 H Random Glucose Fasting Glucose Lactic Acid Lactic Acid Fup @ 2Hr Lactic Acid Fup @ 4Hr Calcium Phosphorus Magnesium Total Bilirubin AST ALT Alkaline Phosphatase Troponin I High Sens 4680.6 H* D Total Protein Albumin TSH Free T4 Random Cortisol Urine Color Urine Appearance Urine pH Ur Specific [place] Urine Protein Urine Glucose (UA) Urine Ketones Urine Blood Urine Nitrite Ur Leukocyte Esterase Urine RBC Urine WBC Ur Squamous Epith Cells Ur Renal Epithelial Cell Uric Acid Crystals Urine Bacteria Hyaline Casts Urine Mucus U Random Total Protein Ur Random Sodium Urine Creatinine Acetone, Qual Microbiology Microbiology Results: Microbiology 03/26/21 Unknown Urine Catheterized - [place] Catheter Urine Culture - Preliminary No growth to date. 03/14/21 11:46 Peritoneal Fluid Gram Stain - Final 03/14/21 11:46 Peritoneal Fluid Routine Culture - Final No growth after 2 days 03/14/21 11:46 Peritoneal Fluid Anaerobic Culture - Final NO GROWTH AFTER 5 DAYS 03/13/21 14:11 Blood - Venous Blood Culture - Final No growth after 5 days. 03/13/21 13:06 Blood - Venous Blood Culture - Final Coag negative Staphylococcus Procedures Date of Service Date of Service: 03/27/21 Assessment & Plan Assessment and plan (1) Ileus: Status: Acute Assessment and Plan: 1. MARQUITA: renal func has been labile during her 2 wk hosp with a peak SCr 2.4 and SCr has ranged 1.4-2.4 and most c/w renal hypopefsuion form cardiac dysfunc and/or decr IV volume 2. CKD 3: bsl Scr 1.2-1.5 range 3. Anasarca: signif 3rd space fluid andsuspect its d/y card failure and/or severe hypothyroidism Nephrotic Syn r/o and no evidence of liver failure Capillary leak from sepsis seems unlikley 4. Severe Cardiac dysfunc: clinically appears new in onset based on adm CXR showing heart not dilated and no plerula effssions/CHF Now marked hypokinesis: ques new ACS vs new onset CM; seems too fast of onset to bejust from myxedema REC: cont to support BP and consider adding inotrpic support; add on Trponin to am labs and fromseveral days ago blood as well; diuretics as tolerated; avoid Ntoixns Will follow monik with team Time Spent With Patient Time: Total time spent is greater than 50% in coordination of care (as documented) at patient's floor/unit and/or counseling patient: Progress Note: Quality Stroke Does the patient have a stroke diagnosis?: No
--- NOTE | 2021-03-27 15:19 | P.PNGS_ITS ---
Subjective Subjective Date of Service: 03/27/21 Interval history: Events of the weekend noted. Patient found to have elevated TSH. Developed lethargy and seizure-like activity. Patient subsequently transferred to ICU where she remains today. She reports minimal abdominal pain. Physical Exam Vital Signs: Vital Signs: Last Vital Signs Temp 100.2 F 03/27/21 14:00 Pulse 86 03/27/21 14:00 Resp 18 03/27/21 14:00 BP 116/53 L 03/27/21 14:00 Pulse Ox 92 03/27/21 14:00 Body Mass Index 33.9 Const: General: comfortable, no acute distress and tired appearing Orien tation/consciousness: patient oriented x3 HENMT: Head: Yes normocephalic and Yes atraumatic Resp: Effort & Inspection: normal respiratory effort, no audible wheezes and no cough GI: Inspection: Yes normal to inspection Palpation (GI): Soft to palpation, nontender, no guarding and not rigid Auscultation: normal bowel sounds Skin: Rashes: no rashes Neuro: General: patient oriented x3 Objective Data Active Medications Acetaminophen (Acetaminophen 325 Mg Tablet) 650 mg PO Q6H PRN PRN Reason: Pain, Mild (Pain Scale 1-3) Barium Sulfate (Barium Sulfate Oral (Vanilla) 450 Ml Oral.Susp) 900 ml PO ONCE [facility] Stop: 03/28/21 00:46 Last Admin: 03/27/21 00:56 Dose: 900 ml Documented by: JOVAN Benzocaine (Throat Lozenge, Medicated Lozenge) 1 lozenge MUCOUS MEM Q2H PRN PRN Reason: Sore Throat Enoxaparin Sodium (Enoxaparin Sodium 40 Mg/0.4 Ml Syringe) 40 mg SUBCUT Q24H [facility] Last Admin: 03/26/21 19:11 Dose: 40 mg Documented by: JULIO Famotidine (Famotidine 20 Mg Tablet) 20 mg PO BID [facility] Last Admin: 03/27/21 10:10 Dose: Not Given Documented by: TIMI Non-Admin Reason: Nausea Hydrocortisone Sodium Succinate (Hydrocortisone Sod Succ/Pf 100 Mg Vial) 50 mg IVPUSH Q6H [facility] Last Admin: 03/27/21 11:11 Dose: 50 mg Documented by: TMII Hydromorphone HCl (Hydromorphone Hcl 0.5 Mg/0.5 Ml Syringe) 0.5 mg IVPUSH Q2H PRN; Protocol PRN Reason: Pain, Severe (Pain Scale 7-10) Last Admin: 03/27/21 13:49 Dose: 0.5 mg Documented by: TIMI Insulin Human Regular (Myxredlin) 100 unit in 100 mls @ 0 mls/hr IVCONT .Q0M [facility]; Protocol Last Titration: 03/27/21 09:45 Dose: 0 unit/hr, 0 mls/hr Documented by: TIMI Cosigned by: CHARISSE Norepinephrine Bitartrate (Levophed) 8 mg in 250 mls @ 0 mls/hr IVCONT .Q0M [facility]; Protocol Last Admin: 03/27/21 14:24 Dose: 0.16 mcg/kg/min, 19.73 mls/hr Documented by: TIMI Levofloxacin (Levaquin) 750 mg in 150 mls @ 100 mls/hr IV Q48H [facility] Last Infusion: 03/27/21 00:37 Dose: 0 mls/hr Documented by: WILVER Levothyroxine Sodium (Levothyroxine Sodium 100 Mcg/5 Ml Vial) 100 mcg IVPUSH DAILY@1200 MARIELA Last Admin: 03/27/21 11:17 Dose: 100 mcg Documented by: TIMI Ondansetron HCl (Ondansetron Hcl 4 Mg/2 Ml Vial) 4 mg IVPUSH Q6H PRN PRN Reason: Nausea and Vomiting Last Admin: 03/26/21 10:45 Dose: 4 mg Documented by: PRANAV Pharmacy Consult (Consult Rx Perform Med Rec) 1 each MISCELLANE ONCE PRN PRN Reason: Consult order Pharmacy Consult (Consult Rx Vancomycin Dosing) 1 each MISCELLANE DAILY PRN PRN Reason: Consult order Sodium Chloride (0.9 % Sodium Chloride Flush 3 Ml Syringe) 3 ml IVFLUSH QSHIFT [facility] Last Admin: 03/26/21 23:27 Dose: 3 ml Documented by: WILVER Labs CBC & Chem 7: 03/27/21 05:25 03/27/21 05:25 Labs: Laboratory Results - last 24 hr 03/26/21 03/26/21 03/26/21 06:01 06:01 15:24 MCV MCH MCHC RDW Plt Count MPV Immature Gran % (Auto) Neut % (Auto) Lymph % (Auto) Carbon % (Auto) Eos % (Auto) Baso % (Auto) Lymph # (Auto) Carbon # (Auto) Eos # (Auto) Baso # (Auto) Abs Immat Gran (auto) Absolute Neuts (auto) Absolute Nucleated RBC Nucleated RBC % (auto) Neutrophils % (Manual) Band Neutrophils % Lymphocytes % (Manual) Monocytes % (Manual) Abs Neuts (Manual) Lymphocytes # (Manual) Monocytes # (Manual) Platelet Estimate Large Platelets Giant Platelets Plt Morphology Comment RBC Morphology Polychromasia Hypochromasia Basophilic Stippling Spherocytes Target Cells Ovalocytes Schistocytes Smear Tech's Comments VBG pH VBG pCO2 VBG pO2 VBG HCO3 VBG O2 Saturation VBG Base Excess Anion Gap Estim Creat Clear Calc Estimated GFR POC Glucose Random Glucose Fasting Glucose Lactic Acid Lactic Acid Fup @ 2Hr Lactic Acid Fup @ 4Hr Calcium Phosphorus Magnesium Total Bilirubin AST ALT Alkaline Phosphatase Troponin I High Sens Total Protein Albumin Free T4 < 0.40 L Random Cortisol 9.0 Urine Color Urine Appearance Urine pH Ur Specific [place] Urine Protein Urine Glucose (UA) Urine Ketones Urine Blood Urine Nitrite Ur Leukocyte Esterase Urine RBC Urine WBC Ur Squamous Epith Cells Ur Renal Epithelial Cell Uric Acid Crystals Urine Bacteria Hyaline Casts Urine Mucus U Random Total Protein 41 H Ur Random Sodium < 20.0 Urine Creatinine 199.64 Acetone, Qual 03/26/21 03/26/21 03/26/21 15:24 16:11 16:29 MCV MCH MCHC RDW Plt Count MPV Immature Gran % (Auto) Neut % (Auto) Lymph % (Auto) Carbon % (Auto) Eos % (Auto) Baso % (Auto) Lymph # (Auto) Carbon # (Auto) Eos # (Auto) Baso # (Auto) Abs Immat Gran (auto) Absolute Neuts (auto) Absolute Nucleated RBC Nucleated RBC % (auto) Neutrophils % (Manual) Band Neutrophils % Lymphocytes % (Manual) Monocytes % (Manual) Abs Neuts (Manual) Lymphocytes # (Manual) Monocytes # (Manual) Platelet Estimate Large Platelets Giant Platelets Plt Morphology Comment RBC Morphology Polychromasia Hypochromasia Basophilic Stippling Spherocytes Target Cells Ovalocytes Schistocytes Smear Tech's Comments VBG pH 7.33 VBG pCO2 20 VBG pO2 70 VBG HCO3 11 L VBG O2 Saturation 92.0 VBG Base Excess -12.6 Anion Gap Estim Creat Clear Calc Estimated GFR POC Glucose 356 H* Random Glucose Fasting Glucose Lactic Acid Lactic Acid Fup @ 2Hr Lactic Acid Fup @ 4Hr Calcium Phosphorus Magnesium Total Bilirubin AST ALT Alkaline Phosphatase Troponin I High Sens Total Protein Albumin Free T4 Random Cortisol Urine Color DK YELLOW Urine Appearance CLEAR Urine pH 6.0 Ur Specific [place] 1.025 Urine Protein 1+ H Urine Glucose (UA) NEG Urine Ketones 15 Urine Blood NEG Urine Nitrite NEG Ur Leukocyte Esterase TRACE H Urine RBC 0 Urine WBC 10-14 H Ur Squamous Epith Cells 3+ Ur Renal Epithelial Cell TRACE Uric Acid Crystals TRACE Urine Bacteria 2+ Hyaline Casts 0-2 Urine Mucus 2+ U Random Total Protein Ur Random Sodium Urine Creatinine Acetone, Qual 03/26/21 03/26/21 03/26/21 18:12 18:28 20:00 MCV MCH MCHC RDW Plt Count MPV Immature Gran % (Auto) Neut % (Auto) Lymph % (Auto) Carbon % (Auto) Eos % (Auto) Baso % (Auto) Lymph # (Auto) Carbon # (Auto) Eos # (Auto) Baso # (Auto) Abs Immat Gran (auto) Absolute Neuts (auto) Absolute Nucleated RBC Nucleated RBC % (auto) Neutrophils % (Manual) Band Neutrophils % Lymphocytes % (Manual) Monocytes % (Manual) Abs Neuts (Manual) Lymphocytes # (Manual) Monocytes # (Manual) Platelet Estimate Large Platelets Giant Platelets Plt Morphology Comment RBC Morphology Polychromasia Hypochromasia Basophilic Stippling Spherocytes Target Cells Ovalocytes Schistocytes Smear Tech's Comments VBG pH VBG pCO2 VBG pO2 VBG HCO3 VBG O2 Saturation VBG Base Excess Anion Gap Estim Creat Clear Calc Estimated GFR POC Glucose 371 H* 335 H Random Glucose Fasting Glucose Lactic Acid 6.3 H* Lactic Acid Fup @ 2Hr Lactic Acid Fup @ 4Hr Calcium Phosphorus Magnesium Total Bilirubin AST ALT Alkaline Phosphatase Troponin I High Sens Total Protein Albumin Free T4 Random Cortisol Urine Color Urine Appearance Urine pH Ur Specific [place] Urine Protein Urine Glucose (UA) Urine Ketones Urine Blood Urine Nitrite Ur Leukocyte Esterase Urine RBC Urine WBC Ur Squamous Epith Cells Ur Renal Epithelial Cell Uric Acid Crystals Urine Bacteria Hyaline Casts Urine Mucus U Random Total Protein Ur Random Sodium Urine Creatinine Acetone, Qual 03/26/21 03/26/21 03/26/21 20:07 20:07 21:06 MCV 91.6 MCH 30.4 MCHC 33.2 RDW 17.2 H Plt Count 180 MPV 11.8 Immature Gran % (Auto) 1.0 H Neut % (Auto) 88.1 H Lymph % (Auto) 6.6 L Carbon % (Auto) 4.1 Eos % (Auto) 0.0 Baso % (Auto) 0.2 Lymph # (Auto) 1.6 Carbon # (Auto) 1.0 Eos # (Auto) 0.0 Baso # (Auto) 0.0 Abs Immat Gran (auto) 0.24 H Absolute Neuts (auto) 21.6 H Absolute Nucleated RBC 0.000 Nucleated RBC % (auto) 0.0 Neutrophils % (Manual) Band Neutrophils % Lymphocytes % (Manual) Monocytes % (Manual) Abs Neuts (Manual) Lymphocytes # (Manual) Monocytes # (Manual) Platelet Estimate Large Platelets Giant Platelets Plt Morphology Comment RBC Morphology Polychromasia Hypochromasia Basophilic Stippling Spherocytes Target Cells Ovalocytes Schistocytes Smear Tech's Comments VERIFIED VBG pH VBG pCO2 VBG pO2 VBG HCO3 VBG O2 Saturation VBG Base Excess Anion Gap 27 H Estim Creat Clear Calc 29.9 Estimated GFR 30 POC Glucose Random Glucose 333 H Fasting Glucose Lactic Acid 4.1 H* Lactic Acid Fup @ 2Hr Lactic Acid Fup @ 4Hr Calcium 7.6 L Phosphorus 3.8 Magnesium 1.8 Total Bilirubin 0.6 AST 12 ALT 8 Alkaline Phosphatase 52 D Troponin I High Sens Total Protein 4.4 L Albumin 3.2 L D Free T4 Random Cortisol Urine Color Urine Appearance Urine pH Ur Specific [place] Urine Protein Urine Glucose (UA) Urine Ketones Urine Blood Urine Nitrite Ur Leukocyte Esterase Urine RBC Urine WBC Ur Squamous Epith Cells Ur Renal Epithelial Cell Uric Acid Crystals Urine Bacteria Hyaline Casts Urine Mucus U Random Total Protein Ur Random Sodium Urine Creatinine Acetone, Qual Negative 03/26/21 03/26/21 03/27/21 22:01 23:25 00:01 MCV MCH MCHC RDW Plt Count MPV Immature Gran % (Auto) Neut % (Auto) Lymph % (Auto) Carbon % (Auto) Eos % (Auto) Baso % (Auto) Lymph # (Auto) Carbon # (Auto) Eos # (Auto) Baso # (Auto) Abs Immat Gran (auto) Absolute Neuts (auto) Absolute Nucleated RBC Nucleated RBC % (auto) Neutrophils % (Manual) Band Neutrophils % Lymphocytes % (Manual) Monocytes % (Manual) Abs Neuts (Manual) Lymphocytes # (Manual) Monocytes # (Manual) Platelet Estimate Large Platelets Giant Platelets Plt Morphology Comment RBC Morphology Polychromasia Hypochromasia Basophilic Stippling Spherocytes Target Cells Ovalocytes Schistocytes Smear Tech's Comments VBG pH VBG pCO2 VBG pO2 VBG HCO3 VBG O2 Saturation VBG Base Excess Anion Gap Estim Creat Clear Calc Estimated GFR POC Glucose 227 H 254 H Random Glucose Fasting Glucose Lactic Acid Lactic Acid Fup @ 2Hr 3.7 H* Lactic Acid Fup @ 4Hr Calcium Phosphorus Magnesium Total Bilirubin AST ALT Alkaline Phosphatase Troponin I High Sens Total Protein Albumin Free T4 Random Cortisol Urine Color Urine Appearance Urine pH Ur Specific [place] Urine Protein Urine Glucose (UA) Urine Ketones Urine Blood Urine Nitrite Ur Leukocyte Esterase Urine RBC Urine WBC Ur Squamous Epith Cells Ur Renal Epithelial Cell Uric Acid Crystals Urine Bacteria Hyaline Casts Urine Mucus U Random Total Protein Ur Random Sodium Urine Creatinine Acetone, Qual 03/27/21 03/27/21 03/27/21 00:15 01:40 01:42 MCV MCH MCHC RDW Plt Count MPV Immature Gran % (Auto) Neut % (Auto) Lymph % (Auto) Carbon % (Auto) Eos % (Auto) Baso % (Auto) Lymph # (Auto) Carbon # (Auto) Eos # (Auto) Baso # (Auto) Abs Immat Gran (auto) Absolute Neuts (auto) Absolute Nucleated RBC Nucleated RBC % (auto) Neutrophils % (Manual) Band Neutrophils % Lymphocytes % (Manual) Monocytes % (Manual) Abs Neuts (Manual) Lymphocytes # (Manual) Monocytes # (Manual) Platelet Estimate Large Platelets Giant Platelets Plt Morphology Comment RBC Morphology Polychromasia Hypochromasia Basophilic Stippling Spherocytes Target Cells Ovalocytes Schistocytes Smear Tech's Comments VBG pH VBG pCO2 VBG pO2 VBG HCO3 VBG O2 Saturation VBG Base Excess Anion Gap 16 Estim Creat Clear Calc 31.5 Estimated GFR 32 POC Glucose 169 H Random Glucose Fasting Glucose 242 H Lactic Acid Lactic Acid Fup @ 2Hr Lactic Acid Fup @ 4Hr 2.8 H* Calcium 7.7 L Phosphorus Magnesium Total Bilirubin AST ALT Alkaline Phosphatase Troponin I High Sens Total Protein Albumin Free T4 Random Cortisol Urine Color Urine Appearance Urine pH Ur Specific [place] Urine Protein Urine Glucose (UA) Urine Ketones Urine Blood Urine Nitrite Ur Leukocyte Esterase Urine RBC Urine WBC Ur Squamous Epith Cells Ur Renal Epithelial Cell Uric Acid Crystals Urine Bacteria Hyaline Casts Urine Mucus U Random Total Protein Ur Random Sodium Urine Creatinine Acetone, Qual 03/27/21 03/27/21 03/27/21 04:19 05:25 05:25 MCV 89.1 MCH 30.3 MCHC 34.0 RDW 16.7 H Plt Count 157 L MPV 11.5 Immature Gran % (Auto) Cancelled Neut % (Auto) Cancelled Lymph % (Auto) Cancelled Carbon % (Auto) Cancelled Eos % (Auto) Cancelled Baso % (Auto) Cancelled Lymph # (Auto) Cancelled Carbon # (Auto) Cancelled Eos # (Auto) Cancelled Baso # (Auto) Cancelled Abs Immat Gran (auto) Cancelled Absolute Neuts (auto) Cancelled Absolute Nucleated RBC 0.000 Nucleated RBC % (auto) 0.0 Neutrophils % (Manual) 93 H Band Neutrophils % 1 L Lymphocytes % (Manual) 4 L Monocytes % (Manual) 2 Abs Neuts (Manual) 16.7 H Lymphocytes # (Manual) 0.7 L Monocytes # (Manual) 0.4 Platelet Estimate NORMAL Large Platelets PRESENT Giant Platelets PRESENT Plt Morphology Comment NOTED RBC Morphology NOTED Polychromasia 1+ (0-2) Hypochromasia 1+ (5-14) Basophilic Stippling 1+ (0-2) Spherocytes 1+ (0-2) Target Cells 1+ (5-14) Ovalocytes 1+ (5-14) Schistocytes 1+ (0-2) Smear Tech's Comments VBG pH VBG pCO2 VBG pO2 VBG HCO3 VBG O2 Saturation VBG Base Excess Anion Gap 16 Estim Creat Clear Calc 34.5 Estimated GFR 36 POC Glucose 152 H Random Glucose 145 H Fasting Glucose Lactic Acid Lactic Acid Fup @ 2Hr Lactic Acid Fup @ 4Hr Calcium 7.8 L Phosphorus Magnesium Total Bilirubin 0.5 AST 27 D ALT 10 Alkaline Phosphatase 48 Troponin I High Sens Total Protein 4.7 L Albumin 3.6 Free T4 Random Cortisol Urine Color Urine Appearance Urine pH Ur Specific [place] Urine Protein Urine Glucose (UA) Urine Ketones Urine Blood Urine Nitrite Ur Leukocyte Esterase Urine RBC Urine WBC Ur Squamous Epith Cells Ur Renal Epithelial Cell Uric Acid Crystals Urine Bacteria Hyaline Casts Urine Mucus U Random Total Protein Ur Random Sodium Urine Creatinine Acetone, Qual 03/27/21 03/27/21 03/27/21 06:56 07:58 09:42 MCV MCH MCHC RDW Plt Count MPV Immature Gran % (Auto) Neut % (Auto) Lymph % (Auto) Carbon % (Auto) Eos % (Auto) Baso % (Auto) Lymph # (Auto) Carbon # (Auto) Eos # (Auto) Baso # (Auto) Abs Immat Gran (auto) Absolute Neuts (auto) Absolute Nucleated RBC Nucleated RBC % (auto) Neutrophils % (Manual) Band Neutrophils % Lymphocytes % (Manual) Monocytes % (Manual) Abs Neuts (Manual) Lymphocytes # (Manual) Monocytes # (Manual) Platelet Estimate Large Platelets Giant Platelets Plt Morphology Comment RBC Morphology Polychromasia Hypochromasia Basophilic Stippling Spherocytes Target Cells Ovalocytes Schistocytes Smear Tech's Comments VBG pH VBG pCO2 VBG pO2 VBG HCO3 VBG O2 Saturation VBG Base Excess Anion Gap Estim Creat Clear Calc Estimated GFR POC Glucose 127 H 110 98 Random Glucose Fasting Glucose Lactic Acid Lactic Acid Fup @ 2Hr Lactic Acid Fup @ 4Hr Calcium Phosphorus Magnesium Total Bilirubin AST ALT Alkaline Phosphatase Troponin I High Sens Total Protein Albumin Free T4 Random Cortisol Urine Color Urine Appearance Urine pH Ur Specific [place] Urine Protein Urine Glucose (UA) Urine Ketones Urine Blood Urine Nitrite Ur Leukocyte Esterase Urine RBC Urine WBC Ur Squamous Epith Cells Ur Renal Epithelial Cell Uric Acid Crystals Urine Bacteria Hyaline Casts Urine Mucus U Random Total Protein Ur Random Sodium Urine Creatinine Acetone, Qual 03/27/21 03/27/21 11:43 11:54 MCV MCH MCHC RDW Plt Count MPV Immature Gran % (Auto) Neut % (Auto) Lymph % (Auto) Carbon % (Auto) Eos % (Auto) Baso % (Auto) Lymph # (Auto) Carbon # (Auto) Eos # (Auto) Baso # (Auto) Abs Immat Gran (auto) Absolute Neuts (auto) Absolute Nucleated RBC Nucleated RBC % (auto) Neutrophils % (Manual) Band Neutrophils % Lymphocytes % (Manual) Monocytes % (Manual) Abs Neuts (Manual) Lymphocytes # (Manual) Monocytes # (Manual) Platelet Estimate Large Platelets Giant Platelets Plt Morphology Comment RBC Morphology Polychromasia Hypochromasia Basophilic Stippling Spherocytes Target Cells Ovalocytes Schistocytes Smear Tech's Comments VBG pH VBG pCO2 VBG pO2 VBG HCO3 VBG O2 Saturation VBG Base Excess Anion Gap Estim Creat Clear Calc Estimated GFR POC Glucose 167 H Random Glucose Fasting Glucose Lactic Acid Lactic Acid Fup @ 2Hr Lactic Acid Fup @ 4Hr Calcium Phosphorus Magnesium Total Bilirubin AST ALT Alkaline Phosphatase Troponin I High Sens 4680.6 H* D Total Protein Albumin Free T4 Random Cortisol Urine Color Urine Appearance Urine pH Ur Specific [place] Urine Protein Urine Glucose (UA) Urine Ketones Urine Blood Urine Nitrite Ur Leukocyte Esterase Urine RBC Urine WBC Ur Squamous Epith Cells Ur Renal Epithelial Cell Uric Acid Crystals Urine Bacteria Hyaline Casts Urine Mucus U Random Total Protein Ur Random Sodium Urine Creatinine Acetone, Qual Microbiology Microbiology Results: Microbiology 03/26/21 Unknown Urine Culture - Preliminary Urine Catheterized - Juárez Catheter No growth to date. Procedures Date of Service Date of Service: 03/27/21 Progress Note: A&P Assessment and plan (1) Pneumatosis intestinalis: Status: Acute (2) Ileus: Status: Acute (3) Anasarca: Status: Acute Assessment and Plan: 70-year-old female patient with prior history of abdominal pain and pneumatosis intestinalis by CT, status post exploratory laparotomy, enterolysis with no evidence of ischemic bowel. Patient developed an ileus postoperatively followed by diarrhea. She was C diff negative. Over the weekend patient developed is mental status changes and seizure-like activity. She was subsequently transferred ICU. She is awake and alert this morning but does not remember what happened yesterday. She denies significant abdominal pain. Patient was found to have elevated TSH. Further management per kier pleater team. Fall Risk Details Current Medications: Current Medications Acetaminophen (Acetaminophen 325 Mg Tablet) 650 mg PO Q6H PRN PRN Reason: Pain, Mild (Pain Scale 1-3) Barium Sulfate (Barium Sulfate Oral (Vanilla) 450 Ml Oral.Susp) 900 ml PO ONCE [facility] Stop: 03/28/21 00:46 Last Admin: 03/27/21 00:56 Dose: 900 ml Documented by: Benzocaine (Throat Lozenge, Medicated Lozenge) 1 lozenge MUCOUS MEM Q2H PRN PRN Reason: Sore Throat Enoxaparin Sodium (Enoxaparin Sodium 40 Mg/0.4 Ml Syringe) 40 mg SUBCUT Q24H [facility] Last Admin: 03/26/21 19:11 Dose: 40 mg Documented by: Famotidine (Famotidine 20 Mg Tablet) 20 mg PO BID [facility] Last Admin: 03/27/21 10:10 Dose: Not Given Documented by: Hydrocortisone Sodium Succinate (Hydrocortisone Sod Succ/Pf 100 Mg Vial) 50 mg IVPUSH Q6H [facility] Last Admin: 03/27/21 11:11 Dose: 50 mg Documented by: Hydromorphone HCl (Hydromorphone Hcl 0.5 Mg/0.5 Ml Syringe) 0.5 mg IVPUSH Q2H PRN; Protocol PRN Reason: Pain, Severe (Pain Scale 7-10) Last Admin: 03/27/21 13:49 Dose: 0.5 mg Documented by: Insulin Human Regular (Myxredlin) 100 unit in 100 mls @ 0 mls/hr IVCONT .Q0M [facility]; Protocol Last Titration: 03/27/21 09:45 Dose: 0 unit/hr, 0 mls/hr Documented by: Norepinephrine Bitartrate (Levophed) 8 mg in 250 mls @ 0 mls/hr IVCONT .Q0M [facility]; Protocol Last Admin: 03/27/21 14:24 Dose: 0.16 mcg/kg/min, 19.73 mls/hr Documented by: Levofloxacin (Levaquin) 750 mg in 150 mls @ 100 mls/hr IV Q48H [facility] Last Infusion: 03/27/21 00:37 Dose: Infused Documented by: Levothyroxine Sodium (Levothyroxine Sodium 100 Mcg/5 Ml Vial) 100 mcg IVPUSH DAILY@1200 MARIELA Last Admin: 03/27/21 11:17 Dose: 100 mcg Documented by: Ondansetron HCl (Ondansetron Hcl 4 Mg/2 Ml Vial) 4 mg IVPUSH Q6H PRN PRN Reason: Nausea and Vomiting Last Admin: 03/26/21 10:45 Dose: 4 mg Documented by: Pharmacy Consult (Consult Rx Perform Med Rec) 1 each MISCELLANE ONCE PRN PRN Reason: Consult order Pharmacy Consult (Consult Rx Vancomycin Dosing) 1 each MISCELLANE DAILY PRN PRN Reason: Consult order Sodium Chloride (0.9 % Sodium Chloride Flush 3 Ml Syringe) 3 ml IVFLUSH QSHIFT [facility] Last Admin: 03/26/21 23:27 Dose: 3 ml Documented by: Time Spent With Patient Time: Total time spent is greater than 50% in coordination of care (as documented) at patient's floor/unit and/or counseling patient: Time with patient: 15 - 24 minutes Quality Stroke Does the patient have a stroke diagnosis?: No VTE Prior VTE?: No VTE Risk Level:: Surgical - high VTE Device Contraindication: N/A - Device Ordered VTE Drug Contraindication: N/A - Med Ordered
[2021-03-27 16:34] LABS: Glucose, Whole Blood 382 mg/dL (60-115)
[2021-03-27] MEDS: Enoxaparin Sodium 40 MG/0.4 ML SYRINGE SUBCUT (16:47)
[2021-03-27] MEDS: 0.9 % Sodium Chloride Flush 3 ML SYRINGE IVFLUSH ×2 (16:47→19:55)
[2021-03-27] MEDS: Insulin Lispro 100 UNIT/ML 3 ML VIAL SUBCUT (16:47)
--- NOTE | 2021-03-27 16:55 | PM.CCPN ---
Subjective Subjective Date of Service: 03/27/21 Interval History: 70-year-old female 4 years status post coronary bypass grafting very complicated recovery including significant retroperitoneal bleed with compartment syndrome as well as pericardial tamponade postoperatively and she is followed in doing stably well with preserved ejection fraction of greater than 55% as recently as 2 months ago and is also a known long-standing diabetic and and hypertensive and is a replaced hypothyroid and the started to notice some intermittent states of confusion with some altered mental status and apparently we are at about 6 weeks of taking no thyroid replacement with a markedly elevated TSH in the 40s and a negligible T4 so replacement was started here but bedside echo revealed with her altered mental status and weakness that and hypotension that she had an ejection fraction barely 15% with severe diffuse hypokinesis and no primary valve or pericardial disease but in the last 2 weeks developed marked bilateral pleural effusions and continued congestive failure by chest x-ray currently being diuresed but is is dependent on norepinephrine for blood pressure and for urine output with slightly improving kidney function and was and given empiric hydrocortisone and has been started on aggressive IV levothyroxine replacement and the troponin being at 4700 today would indicate the possibility of an infarct within these last 10 days that went by inadvertently and we do have diff diffusely poor R-wave progression with small voltage which is probably part and parcel at least of the state of profound hypothyroidism and in discussion with at [facility] in [place] in their heart failure program they have found her an acceptable candidate for transfer possible cardiac catheterization definition continued management of her hypothyroidism with IV replacement and and just follow the progress of rough function if there were to be any return due to this metabolic state Her bypass procedure was due to distal left main disease of 70% and mid LAD disease of 90% including a WEBER to the LAD and saphenous vein grafts to both opt to small marginal and diagonal branches no bypass of the right coronary/posterior circulation Critical Care Time (minutes): 60 Physical Exam Vital Signs: Vital Signs: Last Vital Signs Temp 99.7 F 03/27/21 16:00 Pulse 86 03/27/21 16:00 Resp 13 03/27/21 16:00 BP 109/52 L 03/27/21 16:00 Pulse Ox 92 03/27/21 16:00 Body Mass Index 33.9 Lethargic but awake and appropriate and nonfocal neurologically Skin color pasty white but intact with no cellulitis Abdomen is soft no organomegaly Chest with diminished breath sounds bilaterally at the bases but no adventitious sounds no accessory muscle or diaphragmatic effort Objective Data Labs CBC & Chem 7: 03/27/21 05:25 03/27/21 05:25 Labs: Laboratory Results - last 24 hr 03/26/21 03/26/21 03/26/21 06:01 06:01 15:24 WBC RBC Hgb Hct MCV MCH MCHC RDW Plt Count MPV Immature Gran % (Auto) Neut % (Auto) Lymph % (Auto) Harris % (Auto) Eos % (Auto) Baso % (Auto) Lymph # (Auto) Harris # (Auto) Eos # (Auto) Baso # (Auto) Abs Immat Gran (auto) Absolute Neuts (auto) Absolute Nucleated RBC Nucleated RBC % (auto) Neutrophils % (Manual) Band Neutrophils % Lymphocytes % (Manual) Monocytes % (Manual) Abs Neuts (Manual) Lymphocytes # (Manual) Monocytes # (Manual) Platelet Estimate Large Platelets Giant Platelets Plt Morphology Comment RBC Morphology Polychromasia Hypochromasia Basophilic Stippling Spherocytes Target Cells Ovalocytes Schistocytes Smear Tech's Comments Sodium Potassium Chloride Carbon Dioxide Anion Gap BUN Creatinine Estim Creat Clear Calc Estimated GFR POC Glucose Random Glucose Fasting Glucose Lactic Acid Lactic Acid Fup @ 2Hr Lactic Acid Fup @ 4Hr Calcium Phosphorus Magnesium Total Bilirubin AST ALT Alkaline Phosphatase Troponin I High Sens Total Protein Albumin Free T4 < 0.40 L Random Cortisol 9.0 Urine Color DK YELLOW Urine Appearance CLEAR Urine pH 6.0 Ur Specific [place] 1.025 Urine Protein 1+ H Urine Glucose (UA) NEG Urine Ketones 15 Urine Blood NEG Urine Nitrite NEG Ur Leukocyte Esterase TRACE H Urine RBC 0 Urine WBC 10-14 H Ur Squamous Epith Cells 3+ Ur Renal Epithelial Cell TRACE Uric Acid Crystals TRACE Urine Bacteria 2+ Hyaline Casts 0-2 Urine Mucus 2+ Acetone, Qual 03/26/21 03/26/21 03/26/21 18:12 18:28 20:00 WBC RBC Hgb Hct MCV MCH MCHC RDW Plt Count MPV Immature Gran % (Auto) Neut % (Auto) Lymph % (Auto) Harris % (Auto) Eos % (Auto) Baso % (Auto) Lymph # (Auto) Harris # (Auto) Eos # (Auto) Baso # (Auto) Abs Immat Gran (auto) Absolute Neuts (auto) Absolute Nucleated RBC Nucleated RBC % (auto) Neutrophils % (Manual) Band Neutrophils % Lymphocytes % (Manual) Monocytes % (Manual) Abs Neuts (Manual) Lymphocytes # (Manual) Monocytes # (Manual) Platelet Estimate Large Platelets Giant Platelets Plt Morphology Comment RBC Morphology Polychromasia Hypochromasia Basophilic Stippling Spherocytes Target Cells Ovalocytes Schistocytes Smear Tech's Comments Sodium Potassium Chloride Carbon Dioxide Anion Gap BUN Creatinine Estim Creat Clear Calc Estimated GFR POC Glucose 371 H* 335 H Random Glucose Fasting Glucose Lactic Acid 6.3 H* Lactic Acid Fup @ 2Hr Lactic Acid Fup @ 4Hr Calcium Phosphorus Magnesium Total Bilirubin AST ALT Alkaline Phosphatase Troponin I High Sens Total Protein Albumin Free T4 Random Cortisol Urine Color Urine Appearance Urine pH Ur Specific [place] Urine Protein Urine Glucose (UA) Urine Ketones Urine Blood Urine Nitrite Ur Leukocyte Esterase Urine RBC Urine WBC Ur Squamous Epith Cells Ur Renal Epithelial Cell Uric Acid Crystals Urine Bacteria Hyaline Casts Urine Mucus Acetone, Qual 03/26/21 03/26/21 03/26/21 20:07 20:07 21:06 WBC 24.5 H RBC 2.96 L D Hgb 9.0 L D Hct 27.1 L D MCV 91.6 MCH 30.4 MCHC 33.2 RDW 17.2 H Plt Count 180 MPV 11.8 Immature Gran % (Auto) 1.0 H Neut % (Auto) 88.1 H Lymph % (Auto) 6.6 L Harris % (Auto) 4.1 Eos % (Auto) 0.0 Baso % (Auto) 0.2 Lymph # (Auto) 1.6 Harris # (Auto) 1.0 Eos # (Auto) 0.0 Baso # (Auto) 0.0 Abs Immat Gran (auto) 0.24 H Absolute Neuts (auto) 21.6 H Absolute Nucleated RBC 0.000 Nucleated RBC % (auto) 0.0 Neutrophils % (Manual) Band Neutrophils % Lymphocytes % (Manual) Monocytes % (Manual) Abs Neuts (Manual) Lymphocytes # (Manual) Monocytes # (Manual) Platelet Estimate Large Platelets Giant Platelets Plt Morphology Comment RBC Morphology Polychromasia Hypochromasia Basophilic Stippling Spherocytes Target Cells Ovalocytes Schistocytes Smear Tech's Comments VERIFIED Sodium 135 Potassium 4.1 D Chloride 102 Carbon Dioxide 10 L* D Anion Gap 27 H BUN 27 H Creatinine 1.68 H Estim Creat Clear Calc 29.9 Estimated GFR 30 POC Glucose Random Glucose 333 H Fasting Glucose Lactic Acid 4.1 H* Lactic Acid Fup @ 2Hr Lactic Acid Fup @ 4Hr Calcium 7.6 L Phosphorus 3.8 Magnesium 1.8 Total Bilirubin 0.6 AST 12 ALT 8 Alkaline Phosphatase 52 D Troponin I High Sens Total Protein 4.4 L Albumin 3.2 L D Free T4 Random Cortisol Urine Color Urine Appearance Urine pH Ur Specific [place]wing[place] Urine Protein Urine Glucose (UA) Urine Ketones Urine Blood Urine Nitrite Ur Leukocyte Esterase Urine RBC Urine WBC Ur Squamous Epith Cells Ur Renal Epithelial Cell Uric Acid Crystals Urine Bacteria Hyaline Casts Urine Mucus Acetone, Qual Negative 03/26/21 03/26/21 03/27/21 22:01 23:25 00:01 WBC RBC Hgb Hct MCV MCH MCHC RDW Plt Count MPV Immature Gran % (Auto) Neut % (Auto) Lymph % (Auto) Harris % (Auto) Eos % (Auto) Baso % (Auto) Lymph # (Auto) Harris # (Auto) Eos # (Auto) Baso # (Auto) Abs Immat Gran (auto) Absolute Neuts (auto) Absolute Nucleated RBC Nucleated RBC % (auto) Neutrophils % (Manual) Band Neutrophils % Lymphocytes % (Manual) Monocytes % (Manual) Abs Neuts (Manual) Lymphocytes # (Manual) Monocytes # (Manual) Platelet Estimate Large Platelets Giant Platelets Plt Morphology Comment RBC Morphology Polychromasia Hypochromasia Basophilic Stippling Spherocytes Target Cells Ovalocytes Schistocytes Smear Tech's Comments Sodium Potassium Chloride Carbon Dioxide Anion Gap BUN Creatinine Estim Creat Clear Calc Estimated GFR POC Glucose 227 H 254 H Random Glucose Fasting Glucose Lactic Acid Lactic Acid Fup @ 2Hr 3.7 H* Lactic Acid Fup @ 4Hr Calcium Phosphorus Magnesium Total Bilirubin AST ALT Alkaline Phosphatase Troponin I High Sens Total Protein Albumin Free T4 Random Cortisol Urine Color Urine Appearance Urine pH Ur Specific [place] Urine Protein Urine Glucose (UA) Urine Ketones Urine Blood Urine Nitrite Ur Leukocyte Esterase Urine RBC Urine WBC Ur Squamous Epith Cells Ur Renal Epithelial Cell Uric Acid Crystals Urine Bacteria Hyaline Casts Urine Mucus Acetone, Qual 03/27/21 03/27/21 03/27/21 00:15 01:40 01:42 WBC RBC Hgb Hct MCV MCH MCHC RDW Plt Count MPV Immature Gran % (Auto) Neut % (Auto) Lymph % (Auto) Harris % (Auto) Eos % (Auto) Baso % (Auto) Lymph # (Auto) Harris # (Auto) Eos # (Auto) Baso # (Auto) Abs Immat Gran (auto) Absolute Neuts (auto) Absolute Nucleated RBC Nucleated RBC % (auto) Neutrophils % (Manual) Band Neutrophils % Lymphocytes % (Manual) Monocytes % (Manual) Abs Neuts (Manual) Lymphocytes # (Manual) Monocytes # (Manual) Platelet Estimate Large Platelets Giant Platelets Plt Morphology Comment RBC Morphology Polychromasia Hypochromasia Basophilic Stippling Spherocytes Target Cells Ovalocytes Schistocytes Smear Tech's Comments Sodium 134 L Potassium 3.7 Chloride 102 Carbon Dioxide 20 L Anion Gap 16 BUN 25 H Creatinine 1.60 H Estim Creat Clear Calc 31.5 Estimated GFR 32 POC Glucose 169 H Random Glucose Fasting Glucose 242 H Lactic Acid Lactic Acid Fup @ 2Hr Lactic Acid Fup @ 4Hr 2.8 H* Calcium 7.7 L Phosphorus Magnesium Total Bilirubin AST ALT Alkaline Phosphatase Troponin I High Sens Total Protein Albumin Free T4 Random Cortisol Urine Color Urine Appearance Urine pH Ur Specific [place] Urine Protein Urine Glucose (UA) Urine Ketones Urine Blood Urine Nitrite Ur Leukocyte Esterase Urine RBC Urine WBC Ur Squamous Epith Cells Ur Renal Epithelial Cell Uric Acid Crystals Urine Bacteria Hyaline Casts Urine Mucus Acetone, Qual 03/27/21 03/27/21 03/27/21 04:19 05:25 05:25 WBC 17.8 H RBC 2.74 L Hgb 8.3 L Hct 24.4 L MCV 89.1 MCH 30.3 MCHC 34.0 RDW 16.7 H Plt Count 157 L MPV 11.5 Immature Gran % (Auto) Cancelled Neut % (Auto) Cancelled Lymph % (Auto) Cancelled Harris % (Auto) Cancelled Eos % (Auto) Cancelled Baso % (Auto) Cancelled Lymph # (Auto) Cancelled Harris # (Auto) Cancelled Eos # (Auto) Cancelled Baso # (Auto) Cancelled Abs Immat Gran (auto) Cancelled Absolute Neuts (auto) Cancelled Absolute Nucleated RBC 0.000 Nucleated RBC % (auto) 0.0 Neutrophils % (Manual) 93 H Band Neutrophils % 1 L Lymphocytes % (Manual) 4 L Monocytes % (Manual) 2 Abs Neuts (Manual) 16.7 H Lymphocytes # (Manual) 0.7 L Monocytes # (Manual) 0.4 Platelet Estimate NORMAL Large Platelets PRESENT Giant Platelets PRESENT Plt Morphology Comment NOTED RBC Morphology NOTED Polychromasia 1+ (0-2) Hypochromasia 1+ (5-14) Basophilic Stippling 1+ (0-2) Spherocytes 1+ (0-2) Target Cells 1+ (5-14) Ovalocytes 1+ (5-14) Schistocytes 1+ (0-2) Smear Tech's Comments Sodium 136 Potassium 3.4 Chloride 102 Carbon Dioxide 21 L Anion Gap 16 BUN 24 H Creatinine 1.46 H Estim Creat Clear Calc 34.5 Estimated GFR 36 POC Glucose 152 H Random Glucose 145 H Fasting Glucose Lactic Acid Lactic Acid Fup @ 2Hr Lactic Acid Fup @ 4Hr Calcium 7.8 L Phosphorus Magnesium Total Bilirubin 0.5 AST 27 D ALT 10 Alkaline Phosphatase 48 Troponin I High Sens Total Protein 4.7 L Albumin 3.6 Free T4 Random Cortisol Urine Color Urine Appearance Urine pH Ur Specific [place] Urine Protein Urine Glucose (UA) Urine Ketones Urine Blood Urine Nitrite Ur Leukocyte Esterase Urine RBC Urine WBC Ur Squamous Epith Cells Ur Renal Epithelial Cell Uric Acid Crystals Urine Bacteria Hyaline Casts Urine Mucus Acetone, Qual 03/27/21 03/27/21 03/27/21 06:56 07:58 09:42 WBC RBC Hgb Hct MCV MCH MCHC RDW Plt Count MPV Immature Gran % (Auto) Neut % (Auto) Lymph % (Auto) Harris % (Auto) Eos % (Auto) Baso % (Auto) Lymph # (Auto) Harris # (Auto) Eos # (Auto) Baso # (Auto) Abs Immat Gran (auto) Absolute Neuts (auto) Absolute Nucleated RBC Nucleated RBC % (auto) Neutrophils % (Manual) Band Neutrophils % Lymphocytes % (Manual) Monocytes % (Manual) Abs Neuts (Manual) Lymphocytes # (Manual) Monocytes # (Manual) Platelet Estimate Large Platelets Giant Platelets Plt Morphology Comment RBC Morphology Polychromasia Hypochromasia Basophilic Stippling Spherocytes Target Cells Ovalocytes Schistocytes Smear Tech's Comments Sodium Potassium Chloride Carbon Dioxide Anion Gap BUN Creatinine Estim Creat Clear Calc Estimated GFR POC Glucose 127 H 110 98 Random Glucose Fasting Glucose Lactic Acid Lactic Acid Fup @ 2Hr Lactic Acid Fup @ 4Hr Calcium Phosphorus Magnesium Total Bilirubin AST ALT Alkaline Phosphatase Troponin I High Sens Total Protein Albumin Free T4 Random Cortisol Urine Color Urine Appearance Urine pH Ur Specific [place] Urine Protein Urine Glucose (UA) Urine Ketones Urine Blood Urine Nitrite Ur Leukocyte Esterase Urine RBC Urine WBC Ur Squamous Epith Cells Ur Renal Epithelial Cell Uric Acid Crystals Urine Bacteria Hyaline Casts Urine Mucus Acetone, Qual 03/27/21 03/27/21 03/27/21 11:43 11:54 16:30 WBC RBC Hgb Hct MCV MCH MCHC RDW Plt Count MPV Immature Gran % (Auto) Neut % (Auto) Lymph % (Auto) Harris % (Auto) Eos % (Auto) Baso % (Auto) Lymph # (Auto) Harris # (Auto) Eos # (Auto) Baso # (Auto) Abs Immat Gran (auto) Absolute Neuts (auto) Absolute Nucleated RBC Nucleated RBC % (auto) Neutrophils % (Manual) Band Neutrophils % Lymphocytes % (Manual) Monocytes % (Manual) Abs Neuts (Manual) Lymphocytes # (Manual) Monocytes # (Manual) Platelet Estimate Large Platelets Giant Platelets Plt Morphology Comment RBC Morphology Polychromasia Hypochromasia Basophilic Stippling Spherocytes Target Cells Ovalocytes Schistocytes Smear Tech's Comments Sodium Potassium Chloride Carbon Dioxide Anion Gap BUN Creatinine Estim Creat Clear Calc Estimated GFR POC Glucose 167 H 382 H* Random Glucose Fasting Glucose Lactic Acid Lactic Acid Fup @ 2Hr Lactic Acid Fup @ 4Hr Calcium Phosphorus Magnesium Total Bilirubin AST ALT Alkaline Phosphatase Troponin I High Sens 4680.6 H* D Total Protein Albumin Free T4 Random Cortisol Urine Color Urine Appearance Urine pH Ur Specific [place] Urine Protein Urine Glucose (UA) Urine Ketones Urine Blood Urine Nitrite Ur Leukocyte Esterase Urine RBC Urine WBC Ur Squamous Epith Cells Ur Renal Epithelial Cell Uric Acid Crystals Urine Bacteria Hyaline Casts Urine Mucus Acetone, Qual Microbiology Microbiology Results: Microbiology 03/26/21 Unknown Urine Catheterized - [place]rez Catheter Urine Culture - Preliminary No growth to date. 03/14/21 11:46 Peritoneal Fluid Gram Stain - Final 03/14/21 11:46 Peritoneal Fluid Routine Culture - Final No growth after 2 days 03/14/21 11:46 Peritoneal Fluid Anaerobic Culture - Final NO GROWTH AFTER 5 DAYS 03/13/21 14:11 Blood - Venous Blood Culture - Final No growth after 5 days. 03/13/21 13:06 Blood - Venous Blood Culture - Final Coag negative Staphylococcus Progress Note: A&P Assessment and plan (1) Anasarca: Status: Acute (2) Mental status alteration: Status: Acute (3) Acute kidney injury superimposed on CKD: Status: Acute (4) Ileus: Status: Acute (5) CKD (chronic kidney disease), stage III: Status: Acute (6) CAD (coronary artery disease): Status: Acute (7) Hyperlipemia: Status: Acute (8) HTN (hypertension): Status: Acute (9) Diabetes: Status: Acute (10) Congestive cardiomyopathy: Status: Acute (11) Hypothyroidism: Status: Acute Assessment and Plan: The plan is to maintained Levophed for tonight and using CVP week it intermittently diurese recheck renal function as well as electrolytes and hopefully a bed will come available to transfer to [facility] in case there is a requirement for mechanical support Because of where they live I might consider doing Lyme titers just to be sure it is not the cause of her possible myocarditis Quality Stroke Does the patient have a stroke diagnosis?: No VTE Prior VTE?: No VTE Risk Level:: Surgical - high VTE Device Contraindication: N/A - Device Ordered VTE Drug Contraindication: N/A - Med Ordered
[2021-03-27 17:49] LABS: Glucose, Whole Blood 401 mg/dL (60-115)
[2021-03-27 18:04] LABS: VBG Base Excess -10.6 mmol/L; VBG HCO3 13 mmol/L (22-26); VBG pCO2 24 mmHg; VBG pH 7.34 (7.32-7.43); VBG pO2 73 mmHg
[2021-03-27 18:22] LABS: Anion Gap 24 (12-20); Blood Urea Nitrogen 26 mg/dL (9-16); Calcium 7.8 mg/dL (8.4-10.2); Carbon Dioxide 14 mmol/L (22-29); Chloride 101 mmol/L (96-108); Creatinine Clr Calc Pharmacy 33.7; Estimated Glomerular Filt Rate 27; Glucose Random 423 mg/dL (60-115); Potassium 5.1 mmol/L (3.3-5.1); Sodium 134 mmol/L (135-145)
[2021-03-27] MEDS: Insulin Regular/NS 100 UNIT/100 ML PLAST..BAG IVCONT (18:32)
[2021-03-27] MEDS: Aspirin 81 MG TAB.CHEW 324 MG PO (18:50)
[2021-03-27] MEDS: Nitroglycerin 0.4 MG TAB.SUBL SUBLINGUAL (18:51)
--- NOTE | 2021-03-27 18:53 | ECG_ITS ---
Test Reason : cp Blood Pressure : / mmHG Vent. Rate : 097 BPM Atrial Rate : 000 BPM P-R Int : 000 ms QRS Dur : 080 ms QT Int : 422 ms P-R-T Axes : 000 -54 -81 degrees QTc Int : 535 ms Atrial fibrillation Left axis deviation Low voltage QRS Nonspecific T wave abnormality Inferior infarct , age undetermined Possible Anterolateral infarct (cited on or before 27-MAR-2021) Prolonged QT Abnormal ECG When compared with ECG of 26-MAR-2021 15:04, Atrial fibrillation has replaced Sinus rhythm T wave inversion more evident in Septal leads Lateral leads QT has lengthened Referred By: Zackary Rock Electronically Signed By:CARYL GOODSON MD
[2021-03-27 19:07] LABS: Glucose, Whole Blood 365 mg/dL (60-115)
[2021-03-27 19:12] LABS: Venous Blood Gas Refer to POC result
--- NOTE | 2021-03-27 19:23 | PC.NURSE ---
Around 1845 patient reporting 810 central, non radiating, chest pain. Patient described as a burning sensation. Notified . Obtained telephone order for EKG. Administered .4 mg sublingual nitro, 325 mg chewable ASA, and 100 mg Lovenox (weight based) per MD telephone order. Previous Lovenox order DC per MD. 18:55 patient reported that pain subsided. EKG obtained: no ST changes per this RN, picture sent to and also reviewed by KARLA Dailey. Update given to KARLA and oncoming RN.
[2021-03-27] MEDS: Enoxaparin Sodium 60 MG/0.6 ML SYRINGE SUBCUT (19:53)
[2021-03-27] MEDS: Famotidine 20 MG TABLET PO (19:55)
[2021-03-27 20:21] LABS: Glucose, Whole Blood 356 mg/dL (60-115)
[2021-03-27 20:51] LABS: Hematocrit 26.7 % (37.0-47.0); Hemoglobin 9.1 g/dl (12.0-16.0); Mean Corpuscular HGB Conc 34.1 g/dl (31.0-35.0); Mean Corpuscular Hemoglobin 30.8 pg (27.0-33.0); Mean Corpuscular Volume 90.5 fL (80.0-98.0); Mean Platelet Volume 11.8 fL (9.4-12.3); NRBC Pct Auto 0.1 /100WBC (0.0-0.2); Platelet Count 169 X10*3/uL (160-400); Red Blood Count 2.95 X10*6/uL (4.20-5.50); Red Cell Distribution Width 17.3 % (11.0-16.0)
[2021-03-27 20:51] LABS: Venous Blood Gas Refer to POC result
[2021-03-27 20:52] LABS: VBG Base Excess -6.5 mmol/L; VBG HCO3 16 mmol/L (22-26); VBG pCO2 27 mmHg; VBG pO2 51 mmHg
[2021-03-27 20:57] LABS: INTERNATIONAL NORM RATIO 1.7 (0.9-1.1); Prothrombin Time 19.3 SEC (9.9-13.0)
[2021-03-27 20:59] LABS: Partial Thromboplastin Time 36.1 SEC (24.1-38.0)
[2021-03-27 21:03] LABS: Anion Gap 20 (12-20); Blood Urea Nitrogen 27 mg/dL (9-16); Calcium 7.8 mg/dL (8.4-10.2); Carbon Dioxide 17 mmol/L (22-29); Chloride 103 mmol/L (96-108); Creatinine Clr Calc Pharmacy 33.5; Estimated Glomerular Filt Rate 27; Glucose Random 305 mg/dL (60-115); Sodium 136 mmol/L (135-145)
[2021-03-27 21:03] LABS: Glucose, Whole Blood 321 mg/dL (60-115)
[2021-03-27 21:10] LABS: Troponin-I High Sensitivity 3204.9 ng/L (<3.5-17.0)
--- NOTE | 2021-03-27 21:39 | PM.TDS ---
Transfer Discharge Sum: Prov Provider Date of admission: 03/13/21 14:45 Primary care physician: Live Burnette MD Admitting clinician: Ian Obrien Attending physician on admission: Ian Obrien Consults: 03/13/21 15:11 Consult to Hospitalist Routine Consulting Provider: Hospitalist Reason For Exam: Diabetes, insulin pump 03/26/21 14:01 Consult to Neurology Routine Consulting Provider: [facility] Reason for consultation: new partial seizure Has provider been notified: No 03/26/21 14:31 Consult to Nephrology Routine Consulting Provider: Freddie Garces Reason for consultation: anasarca Has provider been notified: Yes Attending physician on discharge: Zackary Rock Discharging clinician: Tri Pelletier Anticipated date of transfer: 03/27/21 Receiving physician/facility: [facility] Dr Giovanni Aguilar [facility] 3 Room 10 DS: Diagnosis Discharge Diagnosis (1) Anasarca: Status: Acute (2) Mental status alteration: Status: Acute (3) Acute kidney injury superimposed on CKD: Status: Acute (4) Ileus: Status: Acute (5) CKD (chronic kidney disease), stage III: Status: Acute (6) CAD (coronary artery disease): Status: Acute (7) Hyperlipemia: Status: Acute (8) HTN (hypertension): Status: Acute (9) Diabetes: Status: Acute (10) Congestive cardiomyopathy: Status: Acute (11) Hypothyroidism: Status: Acute (12) Elevated troponin: Status: Acute Transfer Discharge Sum: Med Medications Active and Home Medications: Home Medications Insulin Pump See Rx Instructions .ROUTE .COMPLEX 03/13/21 [History] apixaban 5 mg tablet (Eliquis) 1 tab PO BID 03/13/21 [History Confirmed 03/27/21] bupropion HCl 300 mg 24 hr tablet, extended release 1 tab PO DAILY 03/13/21 [History Confirmed 03/27/21] ezetimibe 10 mg tablet 1 tab PO DAILY 03/13/21 [History Confirmed 03/27/21] rosuvastatin 40 mg tablet 1 tab PO DAILY 03/13/21 [History Confirmed 03/27/21] trazodone 100 mg tablet 2 tab PO BEDTIME PRN 03/13/21 [History Confirmed 03/13/21] levothyroxine 100 mcg tablet 1 tab PO DAILY 03/27/21 [History Confirmed 03/27/21] Active Medications Acetaminophen (Acetaminophen 325 Mg Tablet) 650 mg PO Q6H PRN PRN Reason: Pain, Mild (Pain Scale 1-3) Barium Sulfate (Barium Sulfate Oral (Vanilla) 450 Ml Oral.Susp) 900 ml PO ONCE MARIELA Stop: 03/28/21 00:46 Last Admin: 03/27/21 00:56 Dose: 900 ml Documented by: Benzocaine (Throat Lozenge, Medicated Lozenge) 1 lozenge MUCOUS MEM Q2H PRN PRN Reason: Sore Throat Dextrose (Dextrose 50 % 25 Gm/50 Ml Vial) 25 gm IVPUSH Q15M PRN; Protocol PRN Reason: per Hypoglycemia Standing Ord. Famotidine (Famotidine 20 Mg Tablet) 20 mg PO BID [facility] Last Admin: 03/27/21 19:55 Dose: 20 mg Documented by: Glucose (Glucose Gel 15 Gm Gel..Gram.) 15 gm PO Q15M PRN; Protocol PRN Reason: per Hypoglycemia Standing Ord. Hydrocortisone Sodium Succinate (Hydrocortisone Sod Succ/Pf 100 Mg Vial) 50 mg IVPUSH Q6H MARIELA Last Admin: 03/27/21 16:46 Dose: 50 mg Documented by: Hydromorphone HCl (Hydromorphone Hcl 0.5 Mg/0.5 Ml Syringe) 0.5 mg IVPUSH Q2H PRN; Protocol PRN Reason: Pain, Severe (Pain Scale 7-10) Last Admin: 03/27/21 13:49 Dose: 0.5 mg Documented by: Norepinephrine Bitartrate (Levophed) 8 mg in 250 mls @ 0 mls/hr IVCONT .Q0M [facility]; Protocol Last Titration: 03/27/21 19:05 Dose: 0.2 mcg/kg/min, 24.66 mls/hr Documented by: Levofloxacin (Levaquin) 750 mg in 150 mls @ 100 mls/hr IV Q48H [facility] Last Infusion: 03/27/21 00:37 Dose: Infused Documented by: Insulin Human Regular (Myxredlin) 100 unit in 100 mls @ 0 mls/hr IVCONT .Q0M [facility]; Protocol Last Titration: 03/27/21 19:05 Dose: 6 unit/hr, 6 mls/hr Documented by: Levothyroxine Sodium (Levothyroxine Sodium 100 Mcg/5 Ml Vial) 100 mcg IVPUSH DAILY@1200 MARIELA Last Admin: 03/27/21 11:17 Dose: 100 mcg Documented by: Nitroglycerin (Nitroglycerin 0.4 Mg Tab.Subl) 0.4 mg SUBLINGUAL Q5MX3 PRN PRN Reason: Chest Pain Last Admin: 03/27/21 18:51 Dose: 0.4 mg Documented by: Ondansetron HCl (Ondansetron Hcl 4 Mg/2 Ml Vial) 4 mg IVPUSH Q6H PRN PRN Reason: Nausea and Vomiting Last Admin: 03/26/21 10:45 Dose: 4 mg Documented by: Pharmacy Consult (Consult Rx Perform Med Rec) 1 each MISCELLANE ONCE PRN PRN Reason: Consult order Pharmacy Consult (Consult Rx Vancomycin Dosing) 1 each MISCELLANE DAILY PRN PRN Reason: Consult order Sodium Chloride (0.9 % Sodium Chloride Flush 3 Ml Syringe) 3 ml IVFLUSH QSHIFT [facility] Last Admin: 03/27/21 19:55 Dose: 3 ml Documented by: Transfer Discharge Sum: Hosp Hospital Course Hospital course: Suly Ragland is a 70 year old female who is 4 years status post coronary bypass grafting very complicated recovery including significant retroperitoneal bleed with compartment syndrome as well as pericardial tamponade postoperatively and she is followed by [facility] and has been stable with preserved ejection fraction of greater than 55% as recently as 2 months ago and is also a known long-standing diabetic and and hypertensive and is a replaced hypothyroid. Her started to notice some intermittent states of confusion with some altered mental status and apparently about 6 weeks of taking no thyroid replacement with a markedly elevated TSH in the 40s and a negligible T4 so replacement was started here but bedside echo revealed with her altered mental status and weakness that and hypotension that she had an ejection fraction barely 15% with severe diffuse hypokinesis and no primary valve or pericardial disease but in the last 2 weeks developed marked bilateral pleural effusions and continued congestive failure by chest x-ray currently being diuresed but is is dependent on norepinephrine for blood pressure and for urine output with slightly improving kidney function and was and given empiric hydrocortisone and has been started on aggressive IV levothyroxine replacement and the troponin being at 4700 today would indicate the possibility of an infarct within these last 10 days that went by inadvertently and we do have diff diffusely poor R-wave progression with small voltage which is probably part and parcel at least of the state of profound hypothyroidism and in discussion with at [facility] in [place] in their heart failure program they have found her an acceptable candidate for transfer possible cardiac catheterization definition continued management of her hypothyroidism with IV replacement. As an aside, her bypass procedure was due to distal left main disease of 70% and mid LAD disease of 90% including a WEBER to the LAD and saphenous vein grafts to both opt to small marginal and diagonal branches no bypass of the right coronary/posterior circulation. Earlier this evening at approx 7pm, the patient developed substernal burning chest pain, she was given 0.4mg sublingual nitro, 324mg ASA and 60mg lovenox. Shortly after, the patient's symptoms resolved. We attempted to trial her on BiPAP but the patient could not tolerate the BiPAP mask. Repeat troponin went down to 3204. At this point, Dr. Rock decided it was best to transfer to the patient to a facility with a cardiac catheterization lab. [facility] had accepted the patient but they did not have a bed for her. Dr. Giovanni Aguilar at [facility] accepted the patient after speaking with Dr Rock. Patient to be transferred via ALS crew on ground. Time Spent with Patient Time attestation: Total time spent providing and/or coordinating transfer services:60min Total time spent: Greater than 30 minutes Physical Exam Vital Signs: Vital Signs: Last Vital Signs Temp 99.3 F 03/27/21 21:00 Pulse 92 03/27/21 21:00 Resp 13 03/27/21 21:00 BP 124/67 03/27/21 21:00 Pulse Ox 94 03/27/21 21:00 Body Mass Index 33.9 Const: Other: pale General: comfortable, no acute distress and tired appearing HENMT: Head: Yes normal to inspection Eyes: General: appearance normal, both eyes and all related structures Resp: Effort & Inspection: tachypneic (slightly) Auscultation: diminished lung sounds bilateral in the lower lung oneil GI: Palpation (GI): Soft to palpation, nontender and No hepatosplenomegaly present Skin: General skin exam: pallor Lesions: no lesions Rashes: no rashes Transfer Discharge Sum: Data Data Completed and Pending Pending studies at discharge: CK from this morning and this evening, will text to admitting doc when resulted. Our lab can only draw from [facility] so the morning result is from 5am while the initial troponin was from noon. The second CK will be from the BMP which was drawn at the same time as the second troponin. Imaging CT scan - abdomen: Radiologist's impression: [address] [address] [address] Scan Report Signed Patient: Suly Ragland MR#: [id number] : 1950 Acct:[id number] Age/Sex: 70 / F ADM Date: 03/13/21 Loc: .ICU 260-[address]: Ethan Lagunas MD Ordering Physician: Jesus Manuel Ferro Date of Service: 03/27/21 Procedure(s): CT abdomen pelvis w con Accession Number(s): [id number] cc: Jesus Manuel Ferro~ EXAMINATION: CT ABDOMEN AND PELVIS WITH CONTRAST? CLINICAL INFORMATION: Status post exploratory lap? COMPARISON: 03/21/2021? TECHNIQUE: Multidetector volumetric images were obtained from the superior aspect of the liver through the pubic symphysis following administration 85 mL of Omnipaque 350 intravenous contrast. Sagittal and coronal reformatted images were obtained on the technologist's workstation.? Oral contrast: Yes This CT examination was performed using dose optimization techniques as appropriate, variously including the following: *Automated exposure control *Adjustment of mA and/or kV according to patient size (this includes techniques or standardized protocols for targeted exams where dose is matched to indication/reason for exam; i.e. extremities or head) *Use of iterative reconstruction technique DLP: 900 mGy-cm FINDINGS: LUNG BASES: Partially visualized increased small to moderate bilateral pleural effusions with adjacent opacification in the lower lobes, favoring atelectasis.? LIVER, GALLBLADDER, AND BILIARY TREE: The liver is normal in size, shape, and attenuation. No focal hepatic lesion or biliary ductal dilatation is present. Cholelithiasis is noted.? PANCREAS: Unremarkable.? SPLEEN: Unremarkable.? ADRENAL GLANDS: Unremarkable.? KIDNEYS AND URETERS: The kidneys are normal in size, shape, and attenuation. No hydronephrosis, hydroureter, or calculi seen. BLADDER: Decompressed with a Juárez catheter.? GASTROINTESTINAL TRACT: Oral contrast material is present within the stomach and multiple loops of small bowel, without disproportionate dilation to suggest obstruction. Most of the colon is collapsed which limits assessment for wall thickening. The appendix is unremarkable. Small amount of free fluid is present in the abdomen/pelvis. ABDOMINAL WALL: Anterior skin ratna are present along with a few small foci of subcutaneous gas likely due to recent surgery. There is diffuse anasarca, similar to prior. LYMPH NODES: Normal. VASCULAR: There is atherosclerotic calcification along the aorta and iliac arteries. Bilateral common iliac artery stents are noted. PELVIC VISCERA: Redemonstrated density along the posterior margin of the uterus suggesting a possible fibroid. OSSEOUS STRUCTURES: Partially visualized hardware in the left femur. CT/CT abdomen pelvis w con IMPRESSION: 1.? No evidence of bowel obstruction. Limited assessment for colonic wall thickening in the setting of luminal collapse. 2.? Increased small to moderate bilateral pleural effusions. Small amount of intra-abdominal free fluid. Redemonstrated anasarca. 3.? Cholelithiasis. ? Fleischner guidelines were followed. Dictated By: YAKELIN EMMANUEL MD Signed By: <Electronically signed by YAKELIN EMMANUEL MD in OV> 03/27/21 0122 DD/ 0000 TD/TT:? Dehydrogenation Supervisor: TH Chest x-ray: Radiologist's impression: [address] [address] XRay Report Signed Patient: Suly Ragland MR#: [id number] : 1950 Acct:[id number] Age/Sex: 70 / F ADM Date: 03/13/21 Loc: .ICU 260-[address]: Ethan Lagunas MD Ordering Physician: Ethan Lagunas MD Date of Service: 03/26/21 Procedure(s): XR chest 1V Accession Number(s): [id number] cc: Ethan Lagunas MD~ EXAMINATION: XR CHEST CLINICAL INFORMATION: Post Central line insertion. COMPARISON: Chest 03/13/2021 TECHNIQUE: Frontal view of the chest was obtained. FINDINGS: There is a new central venous catheter with its tip in distal SVC. There is no visible pneumothorax. The lungs are hypoexpanded with bilateral basilar haziness question effusion versus underlying atelectasis or infiltrate. Heart size is borderline normal. Pulmonary vascularity is increased. No gross bony abnormality. XR/XR chest 1V IMPRESSION: New central venous catheter tip in distal SVC. No pneumothorax seen. ? Hypoexpanded lungs with CHF. ? Dictated By: Jim Muniz MD Signed By: <Electronically signed by Jim Muniz MD in OV> 03/26/21 1613 DD/ 1546 TD/TT:? Dehydrogenation Supervisor: [facility] x ray: Radiologist's impression: [address] [facility] [place] [address] XRay Report Signed Patient: Suly Ragland MR#: [id number] : 1950 Acct:[id number] Age/Sex: 70 / F ADM Date: 03/13/21 Loc: .S3 375-[address]: Neto Grewal MD Ordering Physician: Kaylie Lugo MD Date of Service: 03/24/21 Procedure(s): XR KUB Accession Number(s): [id number] cc: Kaylie Lugo MD~ EXAMINATION: XR ABDOMEN KUB CLINICAL INDICATION: Partial obstruction/ileus/colitis.? COMPARISON: 03/17/2021.? TECHNIQUE: AP view of the abdomen. FINDINGS: Nonobstructive bowel gas pattern. No significant stool burden. Partial visualization of sternotomy wires and left femoral hardware. Mediastinal surgical clips. Mid abdominal wall skin ratna. No acute osseous findings. Limited evaluation of the lung bases demonstrating small left greater than right pleural effusions and streaky opacities in the left lower lobe which likely represent subsegmental atelectasis. XR/XR KUB IMPRESSION: Nonobstructive bowel gas pattern. ? Small left greater than right pleural effusions with mild subsegmental atelectasis in the left lung base. If indicated, consider correlation with a chest radiograph. ? Dictated By: Edyta Bermeo Signed By: <Electronically signed by Edyta? Elvie in OV> 03/24/21 1710 DD/ 1655 TD/TT:? Dehydrogenation Supervisor: Transfer Discharge Sum: A/P Plan Cognitive capacity at transfer: alert and oriented x 3 Functional capacity at transfer: uses cane/walker Overall status at transfer: patient is back to baseline
--- NOTE | 2021-03-27 22:29 | PC.NURSE ---
pt rec'd stat lovenox dose as orderd (see emar). denies chest pain. bipap tolerated only briefly with 2 attempt , otherwise on 4L n/c sat 93%, stat labs drawn & drawn as ordered. pending [facility] outside [facility], [facility] report to [facility] medicated with zofran 4mg iv 2212 for nausea/vomit. bp stable on transport with insulin and levo drips
[2021-03-27] MEDS: ondansetron HCL 4 MG/2 ML VIAL IVPUSH (22:34)
[2021-03-28 08:52] LABS: Lyme Abs Screen <0.90 index
[2021-04-01 19:17] LABS: IgA 92 mg/dL (70-320); IgG 346 mg/dL (600-1540); IgM 68 mg/dL (50-300)
== END 2021-03-27 22:15 | disposition short-term general hospital (02) | DRG 335 ==
LOC: HO.ED 14:54 → HO.EDOVER 15:01 → HO.S3 15:29 → HO.IMC 03-14 14:53 → HO.S3 03-21 16:36 → HO.IMC 03-21 17:23 → HO.S3 03-21 18:23 → HO.ICU 03-26 15:09
PROVIDERS: Hospitalist; Internal Medicine; Internal Medicine Cardiovascular Disease; Internal Medicine Nephrology; Physician Assistant; Physician Assistant Medical; Physician Assistant Surgical; Student in an Organized Health Care Education/Training Program; Surgery; Admitting Provider Surgery; Emergency Provider Emergency Medicine; PCP Internal Medicine; Visit Provider Anesthesiology
PROC: 0DNW0ZZ Release Peritoneum, Open Approach (ICD-10-PCS; CPT 49000; principal; 2021-03-14 10:30)
DX: N99.4 Postprocedural pelvic peritoneal adhesions (principal); E03.5 Myxedema coma; N17.9 Acute kidney failure, unspecified; K56.7 Ileus, unspecified; I42.9 Cardiomyopathy, unspecified; N18.30 Chronic kidney disease, stage 3 unspecified; E11.22 Type 2 diabetes mellitus with diabetic chronic kidney disease; K63.89 Other specified diseases of intestine; E87.5 Hyperkalemia; D63.1 Anemia in chronic kidney disease; E78.5 Hyperlipidemia, unspecified; E11.65 Type 2 diabetes mellitus with hyperglycemia; E86.0 Dehydration; I25.10 Atherosclerotic heart disease of native coronary artery without angina pectoris; E03.9 Hypothyroidism, unspecified; Z95.1 Presence of aortocoronary bypass graft; Z96.41 Presence of insulin pump (external) (internal); Z20.822 Contact with and (suspected) exposure to COVID-19; Z88.0 Allergy status to penicillin; Z23 Encounter for immunization; Z79.4 Long term (current) use of insulin; Z79.01 Long term (current) use of anticoagulants; Z79.899 Other long term (current) drug therapy
CPT/HCPCS: 36415; 36600; 71045; 71046; 74018; 74021; 74176; 74177; 80048; 80053; 80202; 81001; 82009; 82533; 82550; 82565; 82784; 82803; 82947; 83605; 83690; 83735; 84100; 84145; 84156; 84300; 84439; 84443; 84484; 85007; 85014; 85018; 85025; 85027; 85379; 85610; 85730; 86140; 86334; 86617; 86618; 86850; 86900; 86901; 86923; 87040; 87071; 87073; 87086; 87147; 87205; 87493; 87635; 90686; 93005; 94660; 96361; 96374; 96375; 96376; 97162; 99024; 99285; C1758; J1170; J1650; J1940; J1956; J2250; J2370; J2405; J2550; J2765; J3010; J3370; J3475; P9016; P9017; P9047

== ENCOUNTER 2021-08-21 13:37 | Outpatient (REF) | payer MEDICARE, SELFPAY ==
[2021-08-21 16:59] LABS: Iron 67 mcg/dL (30-160); Percent Iron Saturation 27 % (15-50); Total Iron Binding Capacity 251 mcg/dL (228-428); Unsaturated Iron Binding 184 ug/dL
[2021-08-21 17:11] LABS: Ferritin 157 ng/mL (10-250); Free T4 (Free Thyroxine) 1.58 ng/dL (0.71-1.85); Thyroid Stimulating Hormone 0.24 uIU/mL (0.32-4.0)
== END 2021-08-21 13:38 | disposition home or self-care (01) ==
LOC: HO.HMGCLDS 13:37
PROVIDERS: Visit Provider Internal Medicine
DX: L63.0 Alopecia (capitis) totalis (principal)
CPT/HCPCS: 36415; 82728; 83540; 84439; 84443

== ENCOUNTER 2023-01-08 13:35 | Outpatient (REF) | payer MEDICARE, SELFPAY ==
[2023-01-08 16:17] LABS: Estimated Average Glucose 137 mg/dL; Hemoglobin A1c % 6.4 % (<6.0)
[2023-01-08 16:33] LABS: Alanine Aminotransferase 10 U/L (0-31); Anion Gap 11 (12-20); Aspartate Amino Transferase 19 U/L (5-31); Blood Urea Nitrogen 21 mg/dL (9-16); Calcium 9.1 mg/dL (8.4-10.2); Carbon Dioxide 26 mmol/L (22-29); Chloride 107 mmol/L (96-108); Cholesterol 169 mg/dL (<200); Estimated Glomerular Filt Rate 40; Glucose Random 166 mg/dL (60-115); HDL Cholesterol 56 mg/dL (>40); LDL Cholesterol Calculated 77 mg/dL (<100); Potassium 4.7 mmol/L (3.3-5.1); Sodium 139 mmol/L (135-145); Triglycerides 184 mg/dL (<150)
[2023-01-08 16:48] LABS: Thyroid Stimulating Hormone 0.85 uIU/mL (0.32-4.0)
[2023-01-09 11:54] LABS: Appearance Urine Clear; Color Urine Yellow; Glucose Urine UA Negative (Negative); Leukocyte Esterase Urine Large (3+) (Negative); Nitrite Urine Negative (Negative); UMIC TRIGGER UA YES; Urine Blood Negative (Negative); Urine Ketones Negative (Negative); Urine Protein Negative (Neg-Trace)
[2023-01-09 11:57] LABS: Bacteria Urine 4+ (None Seen); Hyaline Casts Urine 0-2 /LPF (0-2); RBC Urine 0-2 /HPF (0-2); Squamous Epithelial Cell Urine 0-2 /HPF (0-2); WBC Urine 21-50 /HPF (0-5)
[2023-01-09 12:08] LABS: Creatinine Urine 44.36 mg/dL; Microalbum/Creatinine Ratio Ur 65.3 ug/mg cr (<30)
== END 2023-01-08 13:36 | disposition home or self-care (01) ==
LOC: HO.HMGCLDS 13:35
PROVIDERS: PCP Internal Medicine; Visit Provider Internal Medicine Endocrinology, Diabetes & Metabolism
DX: E10.29 Type 1 diabetes mellitus with other diabetic kidney complication (principal)
CPT/HCPCS: 36415; 80048; 80061; 81001; 82043; 82570; 83036; 84443; 84450; 84460

== ENCOUNTER 2023-10-15 13:27 | Outpatient (REF) | payer MEDICARE, SELFPAY ==
[2023-10-15 16:01] LABS: Color Urine Yellow; Glucose Urine UA Negative (Negative); Leukocyte Esterase Urine Moderate (2+) (Negative); Nitrite Urine Negative (Negative); UMIC TRIGGER UA YES; Urine Blood Negative (Negative); Urine Ketones Trace mg/dL (Negative); Urine Protein 30 (1+) mg/dL (Neg-Trace)
[2023-10-15 16:02] LABS: MANUAL DIFF FLAG NO
[2023-10-15 16:13] LABS: Basophils Absolute Auto 0.1 X10*3/uL (0.0-0.2); Basophils Percent Auto 0.9 % (0-2); Eosinophils Absolute Auto 0.2 X10*3/uL (0.0-0.4); Eosinophils Percent Auto 3.1 % (0-4); Hematocrit 34.8 % (37.0-47.0); Imm Gran Abs Auto 0.01 X10*3/uL (0.00-0.03); Imm Gran Pct Auto 0.2 % (0.0-0.4); Lymphocytes Absolute Auto 1.6 X10*3/uL (1.2-4.9); Lymphocytes Percent Auto 29.6 % (20-40); Mean Corpuscular HGB Conc 31.6 g/dl (31.0-35.0); Mean Corpuscular Hemoglobin 29.2 pg (27.0-33.0); Mean Corpuscular Volume 92.3 fL (80.0-98.0); Mean Platelet Volume 12.5 fL (9.4-12.3); Monocytes Absolute Auto 0.4 X10*3/uL (0.1-1.2); Neutrophils Absolute Auto 3.2 x10*3/uL (2.0-8.3); Neutrophils Percent Auto 59.2 % (45-73); Platelet Count 188 X10*3/uL (160-400); Red Blood Count 3.77 X10*6/uL (4.20-5.50); White Blood Count 5.4 X10*3/uL (4.8-10.8)
[2023-10-15 16:27] LABS: Appearance Urine Hazy
[2023-10-15 16:29] LABS: Bacteria Urine 1+ (None Seen); Hyaline Casts Urine 0-2 /LPF (0-2); RBC Urine 0-2 /HPF (0-2)
[2023-10-15 16:40] LABS: Alanine Aminotransferase 15 U/L (0-31); Albumin Level 3.6 g/dL (3.5-5.0); Alkaline Phosphatase 68 U/L (39-117); Anion Gap 9 (12-20); Aspartate Amino Transferase 21 U/L (5-31); Bilirubin Total 0.4 mg/dL (0.0-1.0); Blood Urea Nitrogen 19 mg/dL (9-16); Calcium 9.2 mg/dL (8.4-10.2); Carbon Dioxide 27 mmol/L (22-29); Chloride 110 mmol/L (96-108); Estimated Glomerular Filt Rate 45; Glucose Random 135 mg/dL (60-115); Potassium 4.7 mmol/L (3.3-5.1); Sodium 141 mmol/L (135-145); Total Protein 6.4 g/dL (6.5-8.0)
[2023-10-15 16:44] LABS: B Type Natriuretic Peptide 432 pg/mL (<100); Creatinine Urine 167.95 mg/dL; Microalbum/Creatinine Ratio Ur 73.2 ug/mg cr (<30)
[2023-10-15 17:00] LABS: Free T4 (Free Thyroxine) 1.82 ng/dL (0.71-1.85); Thyroid Stimulating Hormone 0.01 uIU/mL (0.32-4.0); Vitamin D 25-OH Total 58.4 ng/mL (>30)
[2023-10-15 17:01] LABS: Vitamin B12 1230 pg/mL (200-900)
== END 2023-10-15 13:28 | disposition home or self-care (01) ==
LOC: HO.HMGCLDS 13:27
PROVIDERS: PCP Internal Medicine; Visit Provider Internal Medicine
DX: R53.83 Other fatigue (principal); R60.9 Edema, unspecified
CPT/HCPCS: 36415; 80053; 81001; 81003; 82043; 82306; 82570; 82607; 83880; 84439; 84443; 85025

== ENCOUNTER 2024-01-15 07:04 | Outpatient (REF) | payer MEDICARE, SELFPAY ==
[2024-01-15 10:41] LABS: Glucose Fasting 152 mg/dL (60-99)
[2024-01-17 04:14] LABS: C Peptide 0.14 ng/mL (0.80-3.85)
== END 2024-01-15 07:05 | disposition home or self-care (01) ==
LOC: HO.HMGCLDS 07:04
PROVIDERS: PCP Internal Medicine; Visit Provider Internal Medicine Endocrinology, Diabetes & Metabolism
DX: E10.65 Type 1 diabetes mellitus with hyperglycemia (principal)
CPT/HCPCS: 36415; 82947; 84681

== ENCOUNTER 2024-04-06 14:17 | Outpatient (REF) | payer MEDICARE, SELFPAY ==
[2024-04-06 16:42] LABS: Appearance Urine Cloudy; Color Urine Yellow; Glucose Urine UA Negative (Negative); Leukocyte Esterase Urine Large (3+) (Negative); Nitrite Urine Negative (Negative); PH 5.5 (5.0-9.0); Specific Gravity - Urine 1.015 (1.005-1.025); UMIC TRIGGER UA YES; Urine Blood Trace (Negative); Urine Ketones Negative (Negative); Urine Protein 30 (1+) mg/dL (Neg-Trace)
[2024-04-06 17:01] LABS: Hematocrit 35.4 % (37.0-47.0); Hemoglobin 10.8 g/dl (12.0-16.0); Mean Corpuscular HGB Conc 30.5 g/dl (31.0-35.0); Mean Corpuscular Hemoglobin 28.6 pg (27.0-33.0); Mean Corpuscular Volume 93.7 fL (80.0-98.0); Mean Platelet Volume 12.8 fL (9.4-12.3); Platelet Count 175 X10*3/uL (160-400); Red Blood Count 3.78 X10*6/uL (4.20-5.50); Red Cell Distribution Width 13.6 % (11.0-16.0)
[2024-04-06 17:22] LABS: Alanine Aminotransferase 13 U/L (0-31); Albumin Level 3.6 g/dL (3.5-5.0); Alkaline Phosphatase 74 U/L (39-117); Anion Gap 12 (12-20); Aspartate Amino Transferase 22 U/L (5-31); Bilirubin Total 0.3 mg/dL (0.0-1.0); Blood Urea Nitrogen 15 mg/dL (9-16); Calcium 8.7 mg/dL (8.4-10.2); Carbon Dioxide 26 mmol/L (22-29); Chloride 106 mmol/L (96-108); Estimated Glomerular Filt Rate 32; Glucose Random 203 mg/dL (60-115); Potassium 4.7 mmol/L (3.3-5.1); Sodium 139 mmol/L (135-145); Total Protein 6.1 g/dL (6.5-8.0)
[2024-04-06 17:23] LABS: Creatinine Urine 135.71 mg/dL; Microalbum/Creatinine Ratio Ur 79.5 ug/mg cr (<30); Protein/Creatinine Ratio, Ur 0.35 (<0.2); Total Protein Urine Random 48 mg/dL (<12)
[2024-04-06 17:38] LABS: Estimated Average Glucose 146 mg/dL; Hemoglobin A1C 141.2726 umol/L; Hemoglobin A1c % 6.7 % (<6.0); Total Hemoglobin (HGBA1C) 2822.0452 umol/L
[2024-04-06 17:43] LABS: Ferritin 69 ng/mL (10-250); Free T4 (Free Thyroxine) 1.37 ng/dL (0.71-1.85); Thyroid Stimulating Hormone 3.69 uIU/mL (0.32-4.0)
[2024-04-06 18:26] LABS: Bacteria Urine 4+ (None Seen); Hyaline Casts Urine 0-2 /LPF (0-2); RBC Urine 0-2 /HPF (0-2); WBC Urine >50 /HPF (0-5)
--- OUTSIDE RECORDS SUMMARY | 2024-04-08 16:06 | XMS_ITS ---
Author [facility] Address [address] [phone] Care Team Providers Care Electronic Publishing Specialist Name Role Phone Live Burnette Primary Care Provider Rashawn Castillo Unavailable Unavailable SHAWNA KOVACS Unavailable [phone] Allergies Allergen (clinical drug ingredient) Drug/Non Drug [...] 1 TABL ET BY MOUTH EVERY DAY Oral for 90 Active Insulin Infusion Pump Active LISINOPRIL Active Rosuvastatin Calcium Active Wellbutrin 01/14/2023 Active HumaLOG Active Levothyroxine Sodium Active Pantoprazole Sodium 40 MG TAKE 1 TABLET BY MOUTH TWICE DAILY Oral for 90 Active Eliquis 5 MG Oral for 30 Activ e Social History Tobacco Use: Social History Observation Description Date Details (start date - stop date) Never Smoker NA - NA Tobacco Use/Smoking Question Answer Notes Are you a nonsmoker Tobacco Control (Standard) Question Answer Notes Tobacco use: Nonsmoker Encounters Encounter Location Date [facility] [address] [place] [phone] 01/15/2024 SHAWNA KOVACS Type 2 diabetes franny itus with moderate nonproliferative diabetic retinopathy with macular edema, bilateral E11.3313 ; Retinal edema H35.81 ; Age-related nuclear cataract, bilateral H25.13 and Punctate keratitis, bilateral H16.143 Assessments Encounter Date Diagnosis (ICD Code) Assessment Notes Treat ment Notes Treatment Clinical Notes 01/15/2024 Type 2 diabetes 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, bilateral (ICD-10 - E11.3313) NO ACTIVE RETINOPATHY FOR 15 YEARS - STABLE AFTER MULTIPLE LASER TREATMENTS 01/15/2024 Retinal edema (ICD-1 0 - H35.81) 01/15/2024 Age-related nuclear cataract, bilateral (ICD-10 - H25.13) 01/15/2024 Punctate keratitis, bilateral (ICD-10 - H16.143) Plan Of Treatment Treatment Notes Assessment Notes Type 2 diabetes mellitus wit h moderate nonproliferative diabetic retinopathy with macular edema, bilateral NO ACTIVE RETINOPATHY FOR 15 YEARS - STABLE AFTER MULTIPLE LASER TREATMENTS Next Appt Details Follow Up: 1 Year, Reason: Progress Notes * Examination Category Sub-Category Detail Notes *Ophthalmology CONJUNCTIVA: clear PUPILS: equally round and re active no [...]
--- OUTSIDE RECORDS SUMMARY | 2024-04-08 16:07 | XMS_ITS | Patient Health Record ---
Author Organization [facility] Address [address] [phone] Care Team Providers Care Drone Pilot Name Role Phone Live Burnette Primary Care Provider Rashawn Castillo Unavailable Unavailable FERMÍNDUCA Unavailable [phone] Allergies Allergen (clinical drug ingredient) Drug/Non Drug Allergy documented on EMR Reaction Allergy Type Onset Date Status penicillin Unknown Drug Allergy Active Reason For Referral No Information Medications Medication SIG (Take, Route, Frequency, Duration) Notes Start Date End Date Status Wellbutrin 01/14/2023 Active HumaLOG Active Levothyroxine Sodium Active traZODone HCl Active buPROPion HCl ER (XL) 300 MG TAKE 1 TABL ET BY MOUTH EVERY DAY Oral for 90 Active Pantoprazole Sodium 40 MG TAKE 1 TABLET BY MOUTH TWICE DAILY Oral for 90 Active Eliquis 5 MG Oral for 30 Activ e Insulin Infusion Pump Active LISINOPRIL Active Rosuvastatin Calcium Active Social History Tobacco Use: Social History Observation Description Date Details (start date - stop date) Never Smoker NA - NA Tobacco Use/Smoking Question Answer Notes Are you a nonsmoker Tobacco Control (Standard) Question Answer Notes Tobacco use: Nonsmoker Problems Problem Type SNOMED Code ICD Code Onset Dates Problem Status W/U Status Risk Notes Problem Punctate keratitis (44217886) Punctate keratitis, bilateral (H16.143) Active confirmed Problem Nuclear senile cataract (147626864) Age-related nuclear cataract, bilateral (H25.13) Active confirmed Problem Secondary cataract of right eye (97601469533406 100) Other secondary cataract, right eye (H26.491) Active confirmed Problem Retinal edema (5156503) Retinal edema (H35.81) Active confirmed Problem Macular edema and retinopathy due to type 2 diabetes mellitus (89439624756978 ) Type 2 diabetes 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, 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) Active confirmed Encounters Encounter Location Date [facility] [address] [phone] 01/15/2024 SHAWNA KOVACS Type 2 diabetes franny itus with moderate nonproliferative diabetic retinopathy with macular edema, bilateral E11.3313 ; Retinal edema H35.81 ; Age-related nuclear cataract, bilateral H25.13 and Punctate keratitis, bilateral H16.143 Assessments Encounter Date Diagnosis (ICD Code) Assessment Notes Treat ment Notes Treatment Clinical Notes 01/15/2024 Retinal edema (ICD-1 0 - H35.81) 01/15/2024 Type 2 diabetes 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, bilateral (ICD-10 - E11.3313) NO ACTIVE RETINOPATHY FOR 15 YEARS - STABLE AFTER MULTIPLE LASER TREATMENTS 01/15/2024 Age-related nuclear cataract, bilateral (ICD-10 - H25.13) 01/15/2024 Punctate keratitis, bilateral (ICD-10 - H16.143) Plan Of Treatment No Information Insurance Providers Payer Name Payer Address Payer Phone Subscriber Number Group Number Insured Name Patient Relationship to Insured Coverage Start Date Coverage End Date Medicare [address] [place], [place] [id number] Jose Ragland Self - patient is the insured [address] [id number] Jose Ragland Self - patient is the insured Medical (General) History Medical History History ICD Code TYPE 1 DM AGE [birth year] -1961 LEG STENTS 12/08 PT WAS IN [facility] 11/2016 FOR A MONTH 2ND TO TRIPLE BYPASS CONJUNCTIVITIS OU WORSE OD 2016 SILENT HEART ATTACK 02/2022 Surgical History Surgery Date(Month/Year) EXPLORITORY SURGERY 01/2021 LEFT HIP WITH DEYANIRA [address] CHAN 03/2005 TRIPLE BYPASS 12/26/2016 LID LIFT FRIETAG Hospitalization History Reason Date(Month/Year) 2 SILENT HEART ATTACKS AT HOSPITAL 03/18 22 2 MONTHS FOR COMA AND [address] PHELPS 01/2021
--- OUTSIDE RECORDS SUMMARY | 2024-04-08 16:07 | XMS_ITS ---
Author Organization [facility] Address [address] [phone] Care Team Providers Care Farmworker Fruit Name Role Phone Live Burnette Primary Care Provider Rashawn Castillo Unavailable Unavailable FERMÍNSHAWNA Unavailable [phone] Allergies Allergen (clinical drug ingredient) Drug/Non Drug Allergy documented on EMR Reaction Allergy Type Onset Date Status penicillin Unknown Drug Allergy Active REASON FOR VISIT 1 YEAR F/U TYPE 2 DM EXAM, SINCE SHE HAS BEEN ON THE INSULIN PUMP HER A1C HAS BEEN GOOD Medications Medication SIG (Take, Route, Frequency, Duration) Notes Start Date End Date Status LISINOPRIL Active Wellbutrin 01/14/2023 Active Eliquis 5 MG Oral for 30 Activ e Levothyroxine Sodium Active HumaLOG Active traZODone HCl Active Insulin Infusion Pump Active Pantoprazole Sodium 40 MG TAKE 1 TABLET BY MOUTH TWICE DAILY Oral for 90 Active buPROPion HCl ER (XL) 300 MG TAKE 1 TABL ET BY MOUTH EVERY DAY Oral for 90 Active Rosuvastatin Calcium Active Social History Tobacco Use: Social History Observation Description Date Details (start date - stop date) Never Smoker NA - NA Tobacco Use/Smoking Question Answer Notes Are you a nonsmoker Encounters Encounter Location Date [facility] [address] [place] [phone] 01/14/2023 SHAWNA KOVACS Type 2 diabetes franny itus with moderate nonproliferative diabetic retinopathy with macular edema, bilateral E11.3313 ; Retinal edema H35.81 ; Age-related nuclear cataract, bilateral H25.13 and Punctate keratitis, bilateral H16.143 Assessments Encounter Date Diagnosis (ICD Code) Assessment Notes Treat ment Notes Treatment Clinical Notes 01/14/2023 Type 2 diabetes 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, bilateral (ICD-10 - E11.3313) NO ACTIVE RETINOPATHY FOR 15 YEARS - STABLE AFTER MULTIPLE LASER TREATMENTS 01/14/2023 Retinal edema (ICD-1 0 - H35.81) 01/14/2023 Age-related nuclear cataract, bilateral (ICD-10 - H25.13) 01/14/2023 Punctate keratitis, bilateral (ICD-10 - H16.143) Plan [...] full t o confrontation CORNEA: clear LENS: Nuclear Sclerosis, O U (both eyes) IRIS: within normal limits ANTERIOR CHAMBER: D/Q [...]
--- OUTSIDE RECORDS SUMMARY | 2024-04-08 16:07 | XMS_ITS | Continuity of Care Document ---
Author Organization [facility] Office Address [address] [place] [address] Care Team Providers Care Ingredient Scaler Name Role Phone RAMON BURNETTE Primary Care Provider [phone] RAMON BURNETTE Referring Provider Assessment Encounter Date Assessment Date Assessment LastModified by Organization Details LastModified Time 04/01/2024 04/01/2024 MICHELLE NGUYEN (54) 73 year old [facility]/A[facility] PCP: Dr. Ramon Burnette S] Est. IDDM pt., CC/HPI FU puncture wound, plantar aspect of the Lt. foot? 4th MPJ region with chronic scarring. Patient is also here for diabetic footcare at this time. The patient blood sugar has remained normal since last visit. The patient has an insulin pump and the blood sugars have been running normal since last visit. Sequential PAD testing has demonstrated worsening of the condition--with vascular recommendation of BL stent placements. PMH: IDDM, HTN, Hypercholesterole sharee, Meds: Insulin, Lisinopril, Crestor, Levothyroxine Allergies: states NKDA Exam: Established female, well nourished, well-developed for age, appears to be alert and oriented X . Cardiovascular: diminished but palpable pedal pulses BL, (+) continued slight dorsal edema Rt. foot, (-) varicosities, (-) delayed cap refill to all digits <1 sec. (+) digital hair 1-5 BL, (-) claudication pain B\L L.E. (-) cool distal cooling BL. (-) night or rest pain BL LE Integumentary: Normal tone, texture and turgor BL L.E. (-) rashes B\L L.E., (-) thinning of the L.E. skin, B\L, (-) fissuring, (-) rubrous discoloration to skin. Nail length1-5 B\L: >3 cm. (+) Thickening of the toenail plate >3mm, Color: Yellow/White. (+) Posterior eponychium irritation 1-5 BL. Neurological: DTR at the ankle intact and B\L symmetrical. Examination of sensation (touch, vibration, sharp, proprioception) diminished to the forefoot as demonstrated by Dimock Silverio 5.07 gm filaments. (-) Babinski BL Musculoskeletal: Normal gait and station. Muscle strength equal BL. The AJ/STJ/1st MPJ ROM is not limited, (-) pain, (-) crepitus, and consistent with age. Mild Pes planovalgus BL with prominent metatarsal cuneiform joints with WB Lt. Foot : Normal foot with (-) crepitus, (-) plantarflexed met with bony prominence, (-) clubbing of digits, (-) cyanosis, Range of motion at the foot and ankle normal and without crepitus. Rt. Ankle & Foot: (-) crepitus, (-) pain with ankle ROM and eversion, inversion. (-) pain with DF\PF of the digits at the MPJ. (-) clubbing of digits, (-) cyanosis, (+) local edema lateral aspect of ankle. (-) pain with direct palpation of the peroneal tendons along course or at the insertion sites, (-) palpable masses or apparent tears of the tendons, (-) loss of strength. (-) Rubor, (-) breaks in skin, (-) clinical signs of acute infection, (-) ascending cellulitis. (-) pain with palpation of the lateral collateral ankle ligaments CT Scan: No recent studies. X-Rays]: Previous X-rays reviewed DX: SP puncture wound, Rt. foot? 3,4 MPJ region plantarly. IDDM with minor neuropathic complications Onychomycosis 1-5 BL Pain with ambulation TX: Exam patient and review medical history with patient. Document chart. Exam patient from diabetic pedal standpoint. Document findings in the medical record? NO INTERVAL CHANGES. Discuss with the patient proper footcare in prevention of common diabetic pedal problems. Examination of the ankle/foot at this time. The patient still has a significant amount of time to heal although she is on the right track at this time (estimate another three months before complete resolution of this issue). Reduce the excessively elongated nails 1-5 B\L with nail clippers and electric lois to the point of imminent bleeding but not past this point due to the risk of complications. Application of topical anti-fungal solution to the nail plates. No dressings necessary. Sterile 15 blade used to debride the hyperkeratosis, BL plantar feet following swab with alcohol. No dressings required. This note was written during the office visit in the presence of the patient. RA: 9-12 weeks for diabetic footcare. [email or web address] Not available 04/01/2024 13:37:04 Plan of Treatment Reminders Order Date Submit Date Provider Last Modified By Organization Details Last Modified Time Details Appointments DM: [id number], [id number] 15 2024 01:00P M Dr. Garsia Not available Not available Not available Lab None recorde d. Referral None recorde d. Procedures None recorde d. Surgeries None recorde d. Imaging None recorde d. Medication Orders None recorde d. Patient TargetsNo targets recorded. Patient InstructionsNo instructions recorded. Reason for Referral None Reported. 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 6 17:13:50 Onychomycosis due to dermatophyte [id number] Richy Garsia DPM [address] [place], [address], [facility] 6 17:13:50 Ingrowing nail [id number] Richy Garsia DPM [address] [place], [place] [address], [address], [facility] 6 17:13:50 Corns and callus Active Al Garsia , SUMMER [address] [facility], [place], [address] 6 17:13:50 Problem Notes None recorded. Medical Equipment None Reported. Allergies No known drug allergies Medications Name Sig Start Date Stop Date Status Note LastModified by Organization Details LastModified Time losartan 50 mg tablet active Not Available Not Available No t Available furosemide 40 mg tablet TAKE 1 TO 2 TABLETS BY MOUTH EVERY DAY active Not Available Not Available No t Available prednisone 10 mg tablet active Not Available Not Available Not Available trazodone 50 mg tablet TAKE 1 TABLET BY MOUTH EVERY NIGHT AT BEDTIME active Not Available Not Available No t Available atorvastatin 10 mg tablet active Not Available Not Available Not Available azithromycin 250 mg tablet active Not Available Not Available Not Available ofloxacin 0.3 % eye drops active Not Available Not Available Not Available hydrocodone 5 mg-acetamino phen 325 mg tablet active Not Available Not Available Not Available ondansetron HCl 4 mg tablet active Not Available Not Available Not Available isosorbide mononitrate ER 30 mg tablet,exten ded release 24 hr active Not Available Not Available Not Available clopidogrel 75 mg tablet active Not Available Not Available Not Available sulfamethoxa zole 800 mg-trimethop rim 160 mg tablet TAKE 1 TABLET BY MOUTH EVERY 12 HOURS active Not Available Not Available No t Available levothyroxin e 75 mcg tablet TAKE 1 TABLET BY MOUTH EVERY DAY active Not Available Not Available No t Available levothyroxin e 100 mcg tablet TAKE 1 TABLET BY MOUTH EVERY DAY active Not Available Not Available No t Available losartan 100 mg-hydrochlo rothiazide 25 mg tablet TK 1 T PO QD active Not Available Not Available No t Available levothyroxin e 88 mcg tablet TAKE 1 TABLET BY MOUTH EVERY DAY active Not Available Not Available No t Available alprazolam 0.25 mg tablet TAKE 1 TABLET BY MOUTH EVERY 4 HOURS NEEDED active Not Available Not Available No t Available trazodone 100 mg tablet TAKE 2 TABLETS BY MOUTH AT BEDTIME NEEDED active Not Available Not Available No t Available Humalog U-100 Insulin 100 unit/mL subcutaneous solution INJECT UP TO 100 UNITS SUBCUTANEOU SLY DAILY VIA PUMP active Not Available Not Available No t Available OneTouch Ultra Test strips active Not Available Not Available Not Available sulfacetamid e sodium 10 % eye drops active Not Available Not Available Not Available baclofen 10 mg tablet TAKE 1 TABLET BY MOUTH THREE TIMES DAILY NEEDED FOR MUSCLE PAIN active Not Available Not Available No t Available levothyroxin e 50 mcg tablet active Not Available Not Available Not Available pantoprazole 40 mg tablet,delay ed release TAKE 1 TABLET BY MOUTH TWICE DAILY active Not Available Not Available No t Available erythromycin 5 mg/gram (0.5 %) eye ointment active Not Available Not Available Not Available levothyroxin e 125 mcg tablet TAKE 1 TABLET BY MOUTH EVERY DAY active Not Available Not Available No t Available neomycin-john ymyxin-dexam eth 3.5 mg/mL-10,000 unit/mL-0.1% eye drops active Not Available Not Available No t Available warfarin 5 mg tablet TAKE 1 TABLET BY MOUTH EVERY DAY active Not Available Not Available No t Available losartan 25 mg tablet active Not Available Not Available No t Available oxybutynin chloride ER 5 mg tablet,exten ded release 24 hr TAKE 1 TABLET BY MOUTH EVERY DAY active Not Available Not Available No t Available hydrochlorot hiazide 25 mg tablet TAKE 1 TABLET BY MOUTH EVERY DAY IN THE MORNING active Not Available Not Available No t Available zolpidem 5 mg tablet TAKE 1 TABLET BY MOUTH AT BEDTIME NEEDED active Not Available Not Available No t Available furosemide 20 mg tablet active Not Available Not Available Not Available warfarin 1 mg tablet TAKE 1MG TO 10 MG BY MOUTH EVERY NIGHT AT BEDTIME DIRECTED BY PROVIDER active Not Available Not Available No t Available cefuroxime axetil 500 mg tablet active Not Available Not Available No t Available zolpidem 10 mg tablet TAKE 1 TABLET BY MOUTH AT BEDTIME NEEDED active Not Available Not Available No t Available lisinopril 40 mg tablet active Not Available Not Available Not Available losartan 100 mg tablet TAKE 1 TABLET BY MOUTH EVERY DAY active Not Available Not Available No t Available oxycodone 5 mg tablet TAKE 1 TABLET EVERY 4 HOURS BY MOUTH NEEDED active Not Available Not Available No t Available neomycin 3.5 mg/g-polymyx in B 10,000 unit/g-dexam eth 0.1 % eye oint active Not Available Not Available Not Available ezetimibe 10 mg tablet TAKE 1 TABLET BY MOUTH EVERY DAY active Not Available Not Available No t Available rosuvastatin 40 mg tablet TAKE 1 TABLET BY MOUTH EVERY NIGHT AT BEDTIME active Not Available Not Available No t Available bupropion HCl XL 300 mg 24 hr tablet, extended release TAKE 1 TABLET BY MOUTH EVERY DAY active Not Available Not Available No t Available bupropion HCl XL 150 mg 24 hr tablet, extended release TAKE 1 TABLET BY MOUTH EVERY DAY active Not Available Not Available No t Available nitrofuranto in monohydrate/ macrocrystal s 100 mg capsule TAKE 1 CAPSULE BY MOUTH TWICE DAILY active Not Available Not Available No t Available Sure Comfort Insulin Syringe 0.3 mL 31 gauge x 5/16 USE 4-5 TIMES DAILY WHEN OFF PUMP active Not Available Not Available No t Available Ranexa 500 mg tablet,exten ded release active Not Available Not Available Not Available Suprep Bowel Prep Kit 17.5 gram-3.13 gram-1.6 gram oral solution active Not Available Not Available Not Available Eliquis 5 mg tablet TAKE 1 TABLET BY MOUTH TWICE DAILY active Not Available Not Available No t Available Eliquis 2.5 mg tablet TAKE 1 TABLET BY MOUTH TWICE DAILY active Not Available Not Available No t Available Entresto 24 mg-26 mg tablet TAKE 1 TABLET BY MOUTH TWICE DAILY active Not Available Not Available No t Available Soliqua 100/33 100 unit-33 mcg/mL subcutaneous insulin pen ADMINISTER 22 UNITS UNDER THE SKIN DAILY active Not Available Not Available N ot Available OneTouch Ultra Blue Test Strip active Not Available Not Available N ot Available Gvoke HypoPen 2-Pack 1 mg/0.2 mL subcutaneous auto-injecto r INJECT 1MG UNDER THE SKIN ONCE NEEDED. MAY REPEAT ONCE AFTER 15 MINUTES IF INSUFFICIEN T EFFECT active Not Available Not Available No t Available Paxlovid 300 mg (150 mg x 2)-100 mg tablets in a dose pack TAKE 2 NIRMATRELVI R AND 1 RITONAVIR TWICE DAILY FOR 5 DAYS active Not Available Not Available N ot Available Dexcom G7 Sensor device CHANGE EVERY 10 DAYS active Not Available Not Available No t Available Vitals None Recorded Social History Question Answer Notes LastModified by Organizat ion Details LastModified Time Tobacco Smoking Status [facility] Not [facility] 03:19:03 DATE LAST SEEN BY PCP 03/18/2020 [email or web address] Information not available 06/27/2020 Sex: Unknown Functional Status None recorded. Mental Status None recorded. Family History Nothing Reported. Medical History No medical history recorded. Gynecological HistoryNo gynecological history recorded. Obstetrics History GPAL:G 0 P 0 0 0 0 Past Encounters Encounter ID Performer Location Encounter Start Date Encounter Closed Date Diagnosis/Indication Diagnosis SNOMED-CT Code Diagnosis ICD10 Code [id number] Al Garsia DPM [address] [address] 04/01/2024 12:37:55 04/01/2024 13:59:36 Onychomycosis due to dermatophyte [id number] B35.1 Pain in lower limb 55396 006 M79.604 Disorder o f nervous system due to type 1 diabetes mellitus [id number] E10.42 Corns and callus 2478433 00 L84 Ingrowing nail [id number] L60.0 Health Concerns Section Related Observation LastModified by Organization Detai ls LastModified Time None Recorded Concern Status LastModified by Organization Details LastModified Time None Recorded Payers Encounter Date Sequence Insurance Name Policy Number Policy [place] Covered Member ID [place] Member ID Guarantor Name 04/01/2024 1 [place] [employer] Michelle Nguyen [id number] Michelle Nguyen 04/01/2024 2 [facility] (MEDICARE SUPPLEMENT) Jose Nguyen [id number] Michelle Nguyen OBGyn Episode No OBEpisode recorded.
--- OUTSIDE RECORDS SUMMARY | 2024-04-08 16:07 | XMS_ITS | Data Portability ---
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 Ramon Burnette [...] diminished to the forefoot as demonstrated by [place] Silverio 5.07 gm filaments. (-) Babinski BL [...] patient. RA: 9-12 weeks for diabetic footcare. Not available 03/11/2023 15:54:36 06/03/2023 06/03/2023 MICHELLE NGUYEN (52) 71 year old [facility] PCP: Dr. Ramon Burnette [...] diminished to the forefoot as demonstrated by [place] [employer] 5.07 gm filaments. (-) Babinski BL [...] patient. RA: 9-12 weeks for diabetic footcare. Not available 06/03/2023 13:44:28 09/04/2023 09/04/2023 MICHELLE NGUYEN (52) 71 year old [facility]: Dr. Ramon Burnette S] Est. IDDM [...] diminished to the forefoot as demonstrated by [place] 5.07 gm filaments. (-) Babinski BL [...] patient. RA: 9-12 weeks for diabetic footcare. Not available 09/04/2023 13:55:55 12/18/2023 12/18/2023 MICHELLE NGUYEN (52) 73 year old [facility] [...] diminished to the forefoot as demonstrated by [place] 5.07 gm filaments. (-) Babinski BL [...] patient. RA: 9-12 weeks for diabetic footcare. Not available 12/18/2023 14:12:33 04/01/2024 04/01/2024 MICHELLE NGUYEN (52) 73 year [...] diminished to the forefoot as demonstrated by [place] Islverio 5.07 gm filaments. (-) Babinski BL Musculoskeletal: [...] patient. RA: 9-12 weeks for diabetic footcare. Not available 04/01/2024 13:37:04 Plan of Treatment Reminders Order Date Submit Date Provider Last Modified By Organization Details Last Modified Time Details Appointments DM: [id number], [id number] 15 2024 01:00P M Dr. Garsia Not [...] system due to type 1 diabetes mellitus [id number] Active Al Garsia DPM [address] [place] [address], [phone], [facility] 6 17:13:50 Onychomycosis due to dermatophyte [id number] Richy Garsia DPM [address] [place] [address], [phone], [facility] 6 17:13:50 Ingrowing nail 304859210 Richy Garsia DPM [address] [place] [address], [phone] 9, [facility] 6 17:13:50 Corns and callus Active Al Garsia DPM [address] [place] [address], [phone] 9, [facility] 6 17:13:50 Problem Notes [...] Tobacco Smoking Status Former Smoker Not Available [facility] 02/23/2020 03:19:03 DATE LAST SEEN BY PCP [...] Diagnosis/Indication Diagnosis SNOMED-CT Code Diagnosis ICD10 Code 735 [address] [place] [facility] [address] 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 762817021 Onychomyco sis due to dermatophyte 142142470 Ingrowing nail 704276324 Corns and callus 1430857 00 4327 Al Garsia [facility] Office [address] [place] [address] 02/17/2015 10:01:46 02/17/2015 11:57:51 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 230378958 E10.42 Onychomyco sis due to dermatophyte 973891054 B35.1 Ingrowing nail 773794264 L60.0 Corns and callus 7991336 00 L84 7267 Al Garsia [facility] Office [address] [place] [address] 1 07/01/2015 11:44:15 07/01/2015 12:18:22 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 283391006 E10.42 Onychomyco sis due to dermatophyte 760235534 B35.1 Ingrowing nail 409059396 L60.0 Corns and callus 8723104 00 L84 8342 Al Garsia, [facility] Office [address] [place] [address]64-414 1 09/05/2015 15:18:58 09/05/2015 15:59:52 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 372992566 E10.42 Onychomyco sis due to dermatophyte 254456798 B35.1 Ingrowing nail 407822439 L60.0 Corns and callus 8544455 00 L84 9826 Al Garsia, [facility] Office [address] [place] [address]45[address]267 1 12/12/2015 16:15:28 12/12/2015 17:15:08 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 780531114 E10.42 Onychomyco sis due to dermatophyte 274209151 B35.1 Ingrowing nail 264692254 L60.0 Corns and callus 0729451 00 L84 46771 Al Garsia, [facility] Office [address] [place] [address]730[address]677 1 03/28/2016 16:08:53 04/03/2016 13:05:59 Onychomycosis due to dermatophyte 173471780 B35.1 Disorder o f nervous system due to type 1 diabetes mellitus 367396721 E10.42 Corns and callus 8641542 00 L84 Ingrowing nail 511339916 L60.0 04901 Al Garsia, [facility] Office [address] [place] [address] 71466-920 1 06/25/2016 10:36:05 06/25/2016 14:10:35 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 512543480 E10.42 Onychomyco sis due to dermatophyte 696247754 B35.1 Ingrowing nail 290311110 L60.0 Corns and callus 8153981 00 L84 02092 Al Garsia, [facility] Office [address] [place] [address] 57484-804 1 09/19/2016 09:52:29 09/20/2016 07:55:58 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 082931463 E10.42 Onychomyco sis due to dermatophyte 705385564 B35.1 Ingrowing nail 708872526 L60.0 Corns and callus 8096850 00 L84 34202 Al Garsia, [facility] Office [address] [place] [address] 43842-604 1 12/12/2016 14:06:15 12/17/2016 16:32:05 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 302396786 E10.42 Onychomyco sis due to dermatophyte 490126306 B35.1 Ingrowing nail 723488799 L60.0 Corns and callus 9853706 00 L84 05999 Al Garsia [facility] Office [address] [place] [address] 67[address]904 1 03/11/2017 13:42:55 03/11/2017 16:03:43 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 934069181 E10.42 Onychomyco sis due to dermatophyte 719681280 B35.1 Ingrowing nail 458906962 L60.0 Corns and callus 5689307 L84 03479 Al Garsia, [facility] Office [address] [place] [address] 08085-295 1 07/01/2017 13:28:38 07/01/2017 14:42:32 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 091135385 E10.42 Onychomyco sis due to dermatophyte 131568549 B35.1 Ingrowing nail 640241253 L60.0 Corns and callus 9154683 00 L84 72860 Al Garsia, [facility] Office [address] [place] [address] 82471-602 1 10/07/2017 13:46:18 10/07/2017 15:28:50 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 671484483 E10.42 Onychomyco sis due to dermatophyte 919496930 B35.1 Ingrowing nail 092490469 L60.0 Corns and callus 7493343 L84 44283 Al Garsia, [facility] Office [address] [place] [address] 27420-222 1 01/13/2018 16:00:29 01/13/2018 16:35:28 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 409685664 E10.42 Onychomyco sis due to dermatophyte 481376893 B35.1 Ingrowing nail 777617709 L60.0 Corns and callus 3443782 00 L84 26279 Al Garsia, [facility] Office [address] [place] [address] 33555-349 1 05/07/2018 12:07:23 05/07/2018 15:08:06 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 522995500 E10.42 Onychomyco sis due to dermatophyte 180921487 B35.1 Ingrowing nail 424797717 L60.0 Corns and callus 5872695 L84 96418 Al Garsia, [facility] Office [address] [place] [address] 28616-235 1 08/20/2018 12:12:29 08/21/2018 07:59:44 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 168549085 E10.42 Onychomyco sis due to dermatophyte 114849681 B35.1 Ingrowing nail 300057524 L60.0 Corns and callus 1477107 L84 28986 Al Garsia, [facility] Office [address] [place] [address] 08538-779 1 01/05/2019 15:56:34 01/05/2019 17:07:40 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 396821242 E10.42 Onychomyco sis due to dermatophyte 809261674 B35.1 Ingrowing nail 733601388 L60.0 Corns and callus 6370900 00 L84 71729 Al Garsia, [facility] Office [address] [place] [address] 50139-215 1 03/25/2019 10:48:37 03/30/2019 18:11:43 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 049780071 E10.42 Onychomyco sis due to dermatophyte 803853016 B35.1 Ingrowing nail 956814802 L60.0 Corns and callus 8721098 00 L84 40593 Al Garsia, [facility] Office [address] [place] [address] 45010-720 1 07/13/2019 12:18:45 07/13/2019 13:58:16 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 772582266 E10.42 Onychomyco sis due to dermatophyte 001257628 B35.1 Ingrowing nail 580385910 L60.0 Corns and callus 6776828 00 L84 63004 Al Garsia, [facility] Office [address] [place] [address] 36012-716 1 10/19/2019 12:47:41 10/19/2019 14:50:21 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 162157124 E10.42 Onychomyco sis due to dermatophyte 626014310 B35.1 Ingrowing nail 548836265 L60.0 Corns and callus 2887552 00 L84 85322 Al Garsia, [facility] Office [address] [place] [address] 19327-401 1 01/18/2020 14:44:11 01/18/2020 16:18:57 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 868554597 E10.42 Onychomyco sis due to dermatophyte 767915916 B35.1 Ingrowing nail 580950323 L60.0 Corns and callus 6964855 00 L84 52030 Al Garsia, [facility] Office [address] [place] [address] 56802-745 1 04/11/2020 14:59:21 04/11/2020 19:24:44 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 376376010 E10.42 Onychomyco sis due to dermatophyte 255073942 B35.1 Ingrowing nail 223210820 L60.0 Corns and callus 9153139 00 L84 51651 Al Garsia, [facility] Office [address] [place] [address] 60935-499 1 06/27/2020 13:26:43 06/27/2020 14:24:57 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 284597095 E10.42 Onychomyco sis due to dermatophyte 509734047 B35.1 Ingrowing nail 334614515 L60.0 Corns and callus 2568052 00 L84 11508 Al Garsia, [facility] Office [address] [place] [address] 26051-879 1 09/19/2020 13:21:12 09/19/2020 13:56:11 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 874103160 E10.42 Onychomyco sis due to dermatophyte 138522508 B35.1 Ingrowing nail 936048870 L60.0 Corns and callus 2475294 00 L84 34627 Al Garsia, [address] 00369-467 1 08/16/2021 11:26:28 08/16/2021 13:10:08 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 089579374 E10.42 Onychomyco sis due to dermatophyte 348525442 B35.1 Ingrowing nail 508189154 L60.0 Corns and callus 3956022 00 L84 78860 Al Garsia, [address] 90518-747 1 11/22/2021 10:52:12 11/22/2021 13:22:48 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 192065314 E10.42 Onychomyco sis due to dermatophyte 831597343 B35.1 Ingrowing nail 580865474 L60.0 Corns and callus 0034201 00 L84 88782 Al Garsia, [address] 68583-917 1 06/25/2022 10:51:09 06/26/2022 13:16:22 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 612795642 E10.42 Onychomyco sis due to dermatophyte 952304424 B35.1 Ingrowing nail 672114746 L60.0 Corns and callus 8450313 00 L84 Pain in lower limb 34935 006 M79.604 06535 Al Garsia, [address] [address]17-[address] 1 10/01/2022 10:51:03 10/02/2022 21:16:26 Onychomycosis due to dermatophyte 434930873 B35.1 Pain in lower limb 29513 006 M79.604 Disorder o f nervous system due to type 1 diabetes mellitus 309099434 E10.42 Corns and callus 7699853 00 L84 Ingrowing nail 176401647 L60.0 99790 Al Garsia, [address] 29194-599 1 03/11/2023 14:48:53 03/13/2023 09:49:14 Onychomycosis due to dermatophyte 570550729 B35.1 Pain in lower limb 82146 006 M79.604 Disorder o f nervous system due to type 1 diabetes mellitus 992767858 E10.42 Corns and callus 2015162 00 L84 Ingrowing nail 704871563 L60.0 78170 Al Garsia, [address] 99573-714 1 06/03/2023 12:48:52 06/03/2023 20:57:26 Onychomycosis due to dermatophyte 541995858 B35.1 Pain in lower limb 09566 006 M79.604 Disorder o f nervous system due to type 1 diabetes mellitus 138682552 E10.42 Corns and callus 9610085 00 L84 Ingrowing nail 827564565 L60.0 42367 Al Garsia, [address] 69661-632 1 09/04/2023 12:57:53 09/04/2023 14:24:08 Onychomycosis due to dermatophyte 447673762 B35.1 Pain in lower limb 38653 006 M79.604 Disorder o f nervous system due to type 1 diabetes mellitus 414105901 E10.42 Corns and callus 3850784 00 L84 Ingrowing nail 132771751 L60.0 88873 Al Garsia, [address] 32401-232 1 12/18/2023 13:17:30 12/20/2023 08:58:51 Onychomycosis due to dermatophyte 011077602 B35.1 Pain in lower limb 76004 006 M79.604 Disorder o f nervous system due to type 1 diabetes mellitus 103833210 E10.42 Corns and callus 8833140 00 L84 Ingrowing nail 380103003 L60.0 45929 Al Garsia [address] 19502-528 1 04/01/2024 12:37:55 04/01/2024 13:59:36 Onychomycosis due to dermatophyte 364534071 B35.1 Pain in lower limb 06528 006 M79.604 Disorder o f nervous system due to type 1 diabetes mellitus 815072159 E10.42 Corns and callus 4269717 00 L84 Ingrowing nail 583329179 L60.0 Health Concerns Section Related Observation LastModified by Organization Detai ls LastModified Time None Recorded Concern Status LastModified by Organization Details LastModified Time None Recorded Advance Directives Directive None Recorded Payers Encounter Date Sequence Insurance Name Policy Number Policy Pompa Covered Member ID Pompa Member ID Guarantor Name 03/11/2023 1 MEDICARE B-[place]: [facility] Michelle A Hemphill [id number] [facility] 03/11/2023 2 [employer] HE[employer] OPTIONS (MEDICARE SUPPLEMENT) [facility] [id number] [facility] 06/03/2023 1 MEDICARE B-[place]: [facility] [id number] [facility] 06/03/2023 2 [employer] HE[employer] OPTIONS (MEDICARE SUPPLEMENT) [facility] [id number] [facility] 09/04/2023 1 MED[place]: [facility] Michelle [facility] [id number] [facility] 09/04/2023 2 [employer] HE[employer] OPTIONS (MEDICARE SUPPLEMENT) [facility] [id number] [facility] 12/18/2023 1 MEDICARE B-[place]: [facility] [id number] [facility] 12/18/2023 2 [employer] HE[employer] OPTIONS (MEDICARE SUPPLEMENT) [facility] [id number] [facility] 04/01/2024 1 MEDICARE B-[place]: [facility] [id number] [facility] 04/01/2024 2 [employer] HE[employer] OPTIONS (MEDICARE SUPPLEMENT) [facility] [id number] [facility] OBGyn Episode No OBEpisode recorded.
== END 2024-04-06 14:18 | disposition home or self-care (01) ==
LOC: HO.HMGCLDS 14:17
PROVIDERS: PCP Internal Medicine; Visit Provider Internal Medicine
DX: E10.9 Type 1 diabetes mellitus without complications (principal); R53.83 Other fatigue
CPT/HCPCS: 36415; 80053; 81001; 82043; 82570; 82728; 83036; 84156; 84439; 84443; 85027

== ENCOUNTER 2024-08-29 10:18 | Outpatient (REF) | payer MEDICARE, SELFPAY ==
[2024-08-29 12:21] LABS: Basophils Absolute Auto 0.1 X10*3/uL (0.0-0.2); Basophils Percent Auto 1.1 % (0-2); Eosinophils Absolute Auto 0.1 X10*3/uL (0.0-0.4); Eosinophils Percent Auto 2.7 % (0-4); Hemoglobin 11.3 g/dl (12.0-16.0); Imm Gran Abs Auto 0.01 X10*3/uL (0.00-0.03); Imm Gran Pct Auto 0.2 % (0.0-0.4); Lymphocytes Absolute Auto 1.4 X10*3/uL (1.2-4.9); Lymphocytes Percent Auto 27.4 % (20-40); MANUAL DIFF FLAG SCAN; Mean Corpuscular HGB Conc 31.4 g/dl (31.0-35.0); Mean Corpuscular Hemoglobin 28.3 pg (27.0-33.0); Mean Corpuscular Volume 90.2 fL (80.0-98.0); Monocytes Absolute Auto 0.3 X10*3/uL (0.1-1.2); Monocytes Percent Auto 6.3 % (2-11); Neutrophils Absolute Auto 3.3 x10*3/uL (2.0-8.3); Neutrophils Percent Auto 62.3 % (45-73); PLT CLUMP 1; Red Blood Count 3.99 X10*6/uL (4.20-5.50); Red Cell Distribution Width 14.2 % (11.0-16.0); SCAN SMEAR FLAG 1
[2024-08-29 12:45] LABS: Anion Gap 10 (12-20); Blood Urea Nitrogen 14 mg/dL (9-16); Carbon Dioxide 26 mmol/L (22-29); Chloride 111 mmol/L (96-108); Cholesterol 163 mg/dL (<200); Estimated Glomerular Filt Rate 37; Glucose Random 147 mg/dL (60-115); HDL Cholesterol 53 mg/dL (>40); LDL Cholesterol Calculated 87 mg/dL (<100); Potassium 4.3 mmol/L (3.3-5.1); Sodium 143 mmol/L (135-145); Triglycerides 116 mg/dL (<150)
[2024-08-29 12:50] LABS: Estimated Average Glucose 148 mg/dL; Hemoglobin A1C 185.0171 umol/L; Hemoglobin A1c % 6.8 % (<6.0); Total Hemoglobin (HGBA1C) 3623.3411 umol/L
[2024-08-29 13:08] LABS: Mean Platelet Volume 13.4 fL (9.4-12.3); White Blood Count 5.2 X10*3/uL (4.8-10.8)
[2024-08-29 13:09] LABS: Platelet Count 161 X10*3/uL (160-400); SLIDE REVIEW VERIFIED
== END 2024-08-29 10:19 | disposition home or self-care (01) ==
LOC: HO.HMGCLDS 10:18
PROVIDERS: PCP Internal Medicine; Visit Provider Internal Medicine
DX: E10.9 Type 1 diabetes mellitus without complications (principal)
CPT/HCPCS: 36415; 80048; 80061; 82043; 82570; 83036; 85025

== ENCOUNTER 2025-01-20 14:47 | Outpatient (REF) | payer MEDICARE, SELFPAY ==
--- OUTSIDE RECORDS SUMMARY | 2024-01-15 09:00 | XMS_ITS ---
[facility] Address [address] [phone] Care Team Providers Care Veneer Sander Name Role Phone Live Burnette Primary Care Provider Rashawn Castillo Unavailable Unavailable SHAWNA KOVACS Unavailable [phone] Allergies Allergen (clinical drug ingredient) Drug/Non Drug [...] Encounter Location Date [facility] [address] [place] [phone] 01/15/2024 SHAWNA KOVACS Type 2 diabetes franny [...] Reason: Provider Name:SHAWNA KOVACS, 11:00:00 AM, 61 [facility], [address], [place], [place], [phone], Progress Notes * Jose NGUYENDOB:1950 ( 74 yo F)Acc No.[id number]:01/15/2024 Progress Note Patient: Jose HUERTA Provider: Paola Kovacs MD :1950 A ge:73 Y S ex:Female Date:01/15/2024 Address:[address] [place] [address], [facility] Pcp:Live Burnette Subjective: * Chief Complaints: * [...] GAT 01:19 PM ?Spectacle ?Presenting Sph Cyl [place] H Prism V Prism Add DVA OD +1.25 +1.00 13 +2.50 20/40-- OS PL +0.75 13 +2.50 20/50 OU ?Manifest Sph Cyl [place] H Prism V Prism Add DVA OD +0.50 +2.00 12 +2.50 20/40 OS +0.50 +1.25 170 +2.50 20/40 ?Final Sph Cyl [place] H Prism V Prism Add DVA OD [...] 7.0% * Follow Up: 1 Year * * Electronic signature of SHAWNA KOVACS MD on 01/20/2025 at 05:21 PM EDT Sign off status: Pending * Provider: Paola Kovacs MD Date: 01/15/2024 Generated for Printi ng/Fazeyadg/eTransmitting on: 01/20/2025 05:21 PM EDT History and Physical Notes * HPI (History [...]
--- OUTSIDE RECORDS SUMMARY | 2024-10-05 09:00 | XMS_ITS ---
Author [facility] Address [address] [phone] Care Team Providers Care Scholarship Counselor Name Role Phone Live Burnette Primary Care Provider Rashawn Castillo Unavailable Unavailable SHAWNA KOVACS Unavailable [phone] Allergies Allergen (clinical drug ingredient) Drug/Non Drug Allergy documented on EMR Reaction Allergy Type Onset Date Status penicillin Unknown Drug Allergy Active REASON FOR VISIT DIABETIC EYE EXAM. DM1 X 10 Y/O. CONTROLLED WITH HUMALOG. A1C 6.2%. BS 196 MG/DL (AFTER LUNCH). 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, bilateral (E11.3393) Active confirmed Encounters Encounter Location Date [facility] [address] [phone] 10/05/2024 SHAWNA KOVACS Retinal edema H35.81 ; [...] Year, Reason: Provider Name:SHAWNA KOVACS, 11:00:00 AM, [address] [place] [address], [place] [address], [place], [place], [phone], Progress Notes * Jose NGUYENDOB:1950 ( 74 yo F)Acc No.[id number]:10/05/2024 Progress Note Patient: Jose HUERTA Provider: Paola Kvoacs MD :1950 A ge:73 Y S ex:Female Date:10/05/2024 Address:[address] [place] [address], [facility] Pcp:Live Burnette Subjective: * Chief Complaints: * 1 . DIABETIC EYE EXAM. DM1 X 10 Y/O. CONTROLLED WITH HUMALOG. A1C 6.2%. BS 196 MG/DL (AFTER LUNCH). MONITORED BY PCP DR BURNETTE AND MODEL AND MOLD MAKER PLASTER DR ELIAS. * HPI: N ew symptom(s): [...] GAT 01:18 PM ?Spectacle ?Presenting Sph Cyl [place] H Prism V Prism Add DVA OD +1.25 +1.00 13 +2.50 20/50- OS PL +0.75 13 +2.50 20/60+ OU ?Manifest Sph Cyl Brooten H Prism V Prism Add DVA OD +1.25 +1.75 010 +2.50 20/40 OS +1.00 +1.25 170 +2.50 20/40 ?Final Sph Cyl Brooten H Prism V Prism Add DVA OD [...] 0 10/05/2024 Generated for Nayeli carr/Robert/eTransmitting on: 0 01/20/2025 05:21 PM EDT History and Physical [...]
--- OUTSIDE RECORDS SUMMARY | 2024-10-12 13:15 | XMS_ITS ---
Author Organization [facility] Address [address] [phone] Care Team Providers Care Loft Worker Head Name Role Phone Live Burnette Primary Care Provider Rashawn Castillo Unavailable Unavailable SHAWNA KOVACS [phone] REASON FOR VISIT YAG OS Encounters Encounter Location Date [facility] [address] [place] [phone] 10/12/2024 SHAWNA KOVACS Plan Of Treatment Next Appt Details Provider Name:SHAWNA KOVACS, 11:00:00 AM, [address] [place] [address], [place], [place], [phone], Progress Notes * Jose NGUYENDOB:1950 ( 74 yo F)Acc No.[id number]:10/12/2024 Progress Note Patient: Jose HUERTA Provider: Paola Kovacs MD :1950 A ge:73 Y S ex:Female Date:10/12/2024 Address:[address] [place], [place] [phone] Pcp:Live Burnette Subjective: * Chief Complaints: * 1 . YAG OS. * Medical History: * Ocular Surgical History: Objective: * Vitals: Assessment: Plan: * Treatment: * * Electronic signature of SHAWNA KOVACS MD on 01/20/2025 at 05:21 PM EDT Sign off status: Pending * Provider: Paola Kovacs MD Date: 10/12/2024 Generated for Printi ng/Faxing/eTransmitting on: 01/20/2025 05:21 PM EDT
--- OUTSIDE RECORDS SUMMARY | 2024-10-26 06:30 | XMS_ITS ---
[facility] Address [address] [id number] Care Team Providers Care Fisher Lobster Name Role Phone Live Burnette Primary Care Provider Rashawn Castillo Unavailable Unavailable FERMÍNDUCA Unavailable [phone] REASON FOR VISIT YAG OS Medications Medication [...] Notes Problem Secondary cataract of left eye ([id number] 9105) Other secondary cataract, left eye (H26.492) Active confirmed Encounters Encounter Location Date Provider [facility] [address] [place] [id number] 10/26/2024 SHAWNA KOVACS Retinal edema H35.81 ; [...] Reason: Provider Name:SHAWNA KOVACS, 11:00:00 AM, [address] [facility], [address], [place], [place], [id number], Progress Notes * Jose NGUYENDOB:1950 ( 74 yo F)Acc No.[id number]:10/26/2024 Progress Note Patient: Jose HUERTA Provider: Paola Kovacs MD :1950 A ge:74 Y S ex:Female Date:10/26/2024 Address:[address] [place] [address], [place], [place] Pcp:Live Burnette Subjective: * Chief Complaints: * [...] Pending * Provider: Paola Kovacs MD Date: 10/26/2024 Generated for Nayeli carr/Robert/Kirillitting on: 0 01/20/2025 05:21 PM EDT History [...]
[2025-01-20 17:17] LABS: Free T4 (Free Thyroxine) 1.20 ng/dL (0.71-1.85); Thyroid Stimulating Hormone 0.95 uIU/mL (0.32-4.0)
--- OUTSIDE RECORDS SUMMARY | 2025-01-20 17:21 | XMS_ITS | Encounter Summary ---
Author Organization [facility] Address [address] [facility] [address] [place] [address] Phone Care Team Providers Care Software Requirements Engineer Name Role Phone Live Burnette MD Primary Care Provider [phone] Encounter Details Date Type Department Care Team (Late st Contact Info) Description 12/17/2019 Telephone [facility] [address] [place] [address] Adalberto Erwin MD [address] [place] [address] [address] [place] [address] Social History Tobacco Use Types Packs/Day Years Used Date Smoking Tobacco: Former Cigarettes Comments:smoked as teenager Alcohol Use Standard Drinks/Week Comments Never 0 (1 standard drink = 0.6 oz pur e alcohol) AUDIT-C Answer Date Recorded Frequency of Alcohol Consumption Never 12/23/2018 Average Number of Drinks Not on file 019 Frequency of Binge Drinking Not on file 11/28 Comments Unknown Sex and Gender Information Value Date Recorded Sex Assigned at Not on file Legal Sex Female 11:33 AM EDT Gender Identity Not on file Sexual Orientation Straight 05/15/2019 1: 21 PM EST documented as of this encounter Plan of Treatment Not on file documented as of this encounter Visit Diagnoses Not on filedocumented in this encounter Care Teams Software Requirements Engineer Relationship Specialty Start Date End Date Live Burnette MD [address] [facility] [address] [place] [address] PCP - General Internal Medicine 12/11/18 documented as of this encounter
--- OUTSIDE RECORDS SUMMARY | 2025-01-20 17:21 | XMS_ITS | Encounter Summary ---
Author Organization [facility] Address [address] [address] Phone Care Team Providers Care Manager Internet Retails Sales Name Role Phone Live Burnette MD Primary Care Provider Reason for Visit * Reason Onset Date Comments scheduled f/u appt. 12/17/2019 Encounter Details Date Type Department Care Team (Late st Contact Info) Description 12/17/2019 Telephone [facility] [address] [place] [address] Adalberto Erwin MD [address] [facility] [address] [place] [address] Social History Tobacco Use Types [...] PM EST documented as of this encounter Miscellaneous Notes * Telephone Encounter - Cari Abernathy - 12/17/2019 2:08 PM EDT I spoke to Jose on 12/17/19. I set up a follow up appointment with her on 06/22/2020. documented in this encounter Plan of Treatment Not on file documented as of this encounter Visit Diagnoses Not on filedocumented in this encounter Care Teams Manager Internet Retails Sales Relationship Specialty Start Date End Date Live Burnette MD [address] [place] [phone] PCP - General Internal Medicine 12/11/18 documented as of this encounter
[2025-01-20 17:22] LABS: Folate 7.6 ng/mL (> or = 4.0); Vitamin B12 471 pg/mL (200-900)
--- OUTSIDE RECORDS SUMMARY | 2025-01-20 17:22 | XMS_ITS ---
Author Organization [facility] Care Team Providers Care Block Paver Name Role Phone ElderKeeley Unavailable Unavailable Care Team Name Role Address Phone Organization Dates Keeley Guevara Elder PCP [address] [facility] [address], [place], [address], [facility] (Office): : [facility] 02/20/2019 - 03/10/2019 Mental Status Section Date Assessment Total Score Description 03/10/2019 BIMS 15 cognitively int act CAM 0 No delirium ind icated PHQ-9 00 02/27/2019 BIMS 14 cognitively int act CAM 0 No delirium ind icated PHQ-9 00 Problems Problem # Description Date of onset Resolved Date Code CodeSystem Concern Status 1 URINARY TRACT INFECTION, SITE NOT SPECIFIED 03/09/[address] active 2 ACUTE KIDNEY FAILURE, UNSPECIFIED 02/21/[address] active 3 ATHEROSCLEROTIC HEART DISEASE OF [place] CORONARY ARTERY WITHOUT ANGINA PECTORIS 02/21/[address] active 4 CHRONIC KIDNEY DISEASE, STAGE 2 (MILD) 02/21/[address] active 5 COGNITIVE COMMUNICATION DEFICIT 02/21/[address] active 6 DISPLACED FRACTURE OF LEFT ULNA STYLOID PROCESS, SUBSEQUENT ENCOUNTER FOR CLOSED FRACTURE WITH ROUTINE HEALING 02/21/[address] active 7 HISTORY OF FALLING 02/21/[address] active 8 HYPERLIPIDEMIA, UNSPECIFIED 02/21/[address] active 9 HYPERTENSIVE HEART DISEASE WITHOUT HEART FAILURE 02/21/[address] active 10 IRON DEFICIENCY ANEMIA, UNSPECIFIED 02/21/[address] active 11 MUSCLE WEAKNESS (GENERALIZED) 02/21/[address] active 12 NONDISPLACED SUBTROCHANTERIC FRACTURE OF LEFT FEMUR, SUBSEQUENT ENCOUNTER FOR CLOSED FRACTURE WITH ROUTINE HEALING 02/21/[address] active 13 TYPE 1 DIABETES MELLITUS WITHOUT COMPLICATIONS 02/21/[address] active 14 UNSTEADINESS ON FEET 02/21/[address] active Reason for Referral No Reasons for Referral Entered Social History Social History Observation Description Start Date End Date Code Code System Current Smoking Status Tobacco smoking consumption unknown 218252275 SNOMED CT Sex Assigned At Female 1950 [address] [facility] Gender Identity Sexual Orientation Vital Signs Code Code System Vitals Name Values and Units Timing Information 9279-1 [facility] Respiratory Rate Value=20.0 Units=/m in 03/10/2019 8462-4 [facility] Blood Pressure-Diastolic Value=64 Un its=mmHg 03/10/2019 8480-6 [facility] Blood Pressure-Systolic Jfysh=077 Un its=mmHg 03/10/2019 8310-5 [facility] Body Temperature Value=98.7 Units= F 03/10/2019 8867-4 [facility] Heart rate Value=55.0 Units=/min 03/2019 568[address]-6 [facility] O2 % BldC Oximetry Value=98.0 Units= % 03/10/2019 2339-0 [facility] Blood Sugar Qgxwe=165.0 Units=mg/dL 03/10/2019 82152-5 [facility] Weight Zkhxt=929.0 Units=Lbs 02/2019 8302-2 [facility] Height Value=65.0 Units=Inches 02/22/2019
--- OUTSIDE RECORDS SUMMARY | 2025-01-20 17:22 | XMS_ITS | Patient Health Record ---
Author Organization [facility] Address [address] [phone] Care Team Providers Care Structural Welder Name Role Phone Live Burnette Primary Care Provider Rashawn Castillo Unavailable Unavailable CLYDEDUC ALBRECHTA Unavailable [phone] Allergies Allergen (clinical drug ingredient) Drug/Non Drug Allergy documented on EMR Reaction Allergy Type Onset Date Status penicillin Unknown Drug Allergy Active Reason For Referral No Information Medications Medication SIG (Take, Route, Frequency, Duration) Notes Start Date End Date Status Insulin Infusion Pump Active traZODone HCl Active buPROPion HCl ER (XL) 300 MG TAKE 1 TABL ET BY MOUTH EVERY DAY Oral; Duration: 90 Active HumaLOG Active Levothyroxine Sodium Active LISINOPRIL Active Rosuvastatin Calcium Active Pantoprazole Sodium 40 MG TAKE 1 TABLET BY MOUTH TWICE DAILY Oral; Duration: 90 Active Eliquis 5 MG Oral; Duration: 30 Active Tylenol Active Wellbutrin 01/14/2023 Active Ambien Active Social History Tobacco Use: Social History Observation Description Date Details (start date - stop date) Never Smoker NA - NA Tobacco Use/Smoking Question Answer Notes Are you a nonsmoker Tobacco Control (Standard) Question Answer Notes Tobacco use: Nonsmoker Problems Problem Type SNOMED Code ICD Code Onset Dates Problem Status W/U Status Risk Notes Problem Type I diabetes mellitus without complication (811018745) Type 1 diabetes mellitus without complications (E10.9) Active confirmed Problem Punctate keratitis (01587218) Punctate keratitis, bilateral (H16.143) Active confirmed Problem Nuclear senile cataract (516505893) Age-related nuclear cataract, bilateral (H25.13) Active confirmed Problem Secondary cataract of right eye (00799606621477437) Other secondary cataract, right eye (H26.491) Active confirmed Problem Secondary cataract of left eye (49939700019243111) Other secondary cataract, left eye (H26.492) Active confirmed Problem Retinal edema (2706763) Retinal edema (H35.81) Active confirmed Problem Macular edema and retinopathy due to type 2 diabetes mellitus (24541947040476) Type 2 diabetes 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, 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) Active confirmed Problem Moderate nonproliferative retinopathy due to type 2 diabetes mellitus (831505602493035) Type 2 diabetes mellitus with 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, bilateral (E11.3393) Active confirmed Encounters Encounter Location Date Provider Diagnosis [facility] [address] [place] [id number] 10/05/2024 SHAWNA BHAN Retinal edema H35.81 ; Type 2 diabetes mellitus with 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, bilateral E11.3393 ; Age-related nuclear cataract, bilateral H25.13 and Punctate keratitis, bilateral H16.143 [facility] [address] [place] [phone] 10/26/2024 SHAWNA BHAN Retinal edema H35.81 ; Type 2 diabetes [...] - STABLE AFTER MULTIPLE LASER TREATMENTS 10/26/2024 Retinal edema (ICD-10 - H35.81) 10/26/2024 Type 2 diabetes mellitus with 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, bilateral (ICD-10 - E11.3393) NO ACTIVE RETINOPATHY FOR 15 YEARS - STABLE AFTER MULTIPLE LASER TREATMENTS 10/26/2024 Age-related nuclear cataract, bilateral (ICD-10 - H25.13) 10/05/2024 Age-related nuclear cataract, bilateral (ICD-10 - H25.13) 10/05/2024 Punctate keratitis, bilateral (ICD-10 - H16.143) 10/26/2024 Punctate keratitis, bilateral (ICD-10 - H16.143) [...] PROCEDURE WELL AND LEFT IN STABLE CONDITION. 10/05/2024 Other 10/26/2024 Other Plan Of Treatment Next Appt Details Provider Name:SHAWNA KOVACS, 11:00:00 AM, [address] [facility], [place] [address], [place], [place], [phone], Insurance Providers Payer Name Payer Address Payer Phone Subscriber Number Group Number Insured Name Patient Relationship to Insured Coverage Start Date Coverage End Date Medicare [address] [place], [place] [id number] Jose Ragland Self - patient is the insured [address] [id number] Jose Ragland Self - patient is the insured Medical (General) History Medical History History ICD Code TYPE 1 DM AGE 10 -1961 STAGE 3 SOFIA BURNETTE LEG STENTS 12/08 PT WAS IN [facility] [...]
--- OUTSIDE RECORDS SUMMARY | 2025-01-20 17:22 | XMS_ITS | Clinical Summary ---
Author Organization [facility] Address [address] [place] [address] Care Team Providers Care Experimental Mechanic Electrical Name Role Phone Live Burnette MD Primary Care Provider [phone] Allergies Active Allergy Reactions Criticality Noted Date Comments Erythromycin 12/23/2018 Penicillins High 12/23/2018 Medications rosuvastatin (CRESTOR) 40 MG tablet rosuvastatin 40 mg tablet Active levothyroxine sodium (TIROSINT) 100 MCG capsule 100 mcg 1 (one) time each day 2 9 Active aspirin 81 MG tablet Take 81 mg by mouth 1 (one) time each day Active traZODone (DESYREL) 100 MG tablet Take 200 mg by mouth every night Active ezetimibe (ZETIA) 10 MG tablet 10 mg 1 (one) time each day Active hydroCHLOROthia zide (HYDRODIURIL) 25 MG tablet 12.5 mg 1 (one) time each day Active losartan (COZAAR) 100 MG tablet 100 mg 1 (one) time each day Active buPROPion XL (WELLBUTRIN XL) 300 MG 24 hr tablet 300 mg 1 (one) time each day Active Eliquis 5 MG tablet Take 5 mg by mouth 2 (two) times a day Active oxybutynin XL (DITROPAN-XL) 5 MG 24 hr tablet 5 mg 1 (one) time each day Active Active Problems Problem Noted Date Diagnosed Date Secondary hyperparathyroidism 06/22/2020 Assessment & Plan (06/22/2020 12:09 PM EST): PTH is higher despite excellent vit D. Perhaps component of 2* HPT from CKD. We will trend PTH with next visit and consider calcitriol if remains elevated. Stage 3b chronic kidney disease 12/23/2018 Assessment & Plan (06/22/2020 12:11 PM EST): Cr has stabilised in the range of 1.2-1.4 for past year or so. Mild proteinuria (UPCR 0.2) which is stable. DM remains well controlled. We have chosen a less aggressive BP control due to orthostatic symptoms - advised to resume BP checks at home. Underlying CKD thought to be from DM and HTN. Continue max dose of losartan for renoprotection Urine with pyuria/hematuria and bacteriuria. No symptoms of UTI. She is on oxybutynin ER for incontinence which has helped. Recommend Urology referral for further management. Assessment & Plan (12/15/2019 6:31 PM EDT): Cr has stabilised in the range of 1.2-1.4. CKD thought to be from DM/HTN. Microalbuminuria has resolved despite lowering dose of losartan, likely from improving diabetic control. Discussed about confirming BP control for goal < 130/80. Assessment & Plan (05/27/2019 8:56 PM EST): Cr has been fluctuating from 1.6 to 1.2 followed by recent most 1.4 which is most likely the baseline. Overal seems to be stable. Microalbuminuria wihtout overt proteinuria. Serologic tests and Renal US unremarkable. 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 Diabetic control has been acceptable. BP is close to goal of 130/80. Continue max dose of losartan for renoprotective effects. Assessment & Plan (12/23/2018 5:38 PM EDT): Obtain trend of Creatinine for last couple of years. CKD with microalbuminuria could be diabetic nephropathy. We will perform serologic workup. Renal US. Diabetic control has been good. HTN may need further adjustments. Essential (primary) hypertension 12/23/2018 Assessment & Plan (06/22/2020 12:08 PM EST): As below Assessment & Plan (12/15/2019 6:32 PM EDT): BP reading was elevated today, however she was stressed. Advised to check BP 3x/day for a week and share the logs with us to review. Assessment & Plan (05/27/2019 8:57 PM EST): BP close to goal. Minimal edema. Maintain low salt diet. Continue current BP regimen. Assessment & Plan (12/23/2018 5:39 PM EDT): Advised to check BP at home 3x/day for a week and keep a log. May need further adjustments if > 130/80. Low salt diet was counseled. Continue current BP regimen Family History Medical History Relation Comments Kidney disease Father Heart disease Mother Hypertension Mother Diabetes Mother's Brother Hypertension Mother's Brother Kidney disease Mother's Brother Relation Status Comments Father Mother Alive Mother's Brother Social History Tobacco Use Types Packs/Day Years Used Date Smoking Tobacco: Former Comments:smoked as teenager Alcohol Use Standard Drinks/Week Comments No 0 (1 standard drink = 0.6 oz [...] Orientation Straight 05/15/2019 1: 21 PM EST Last Filed Vital Signs Vital Sign Reading Time Taken Comments Blood Pressure 140/60 05/26/2019 4:01 PM EST Pulse 60 05/26/2019 4:01 PM EST Temperature - - Respiratory Rate - - Oxygen Saturation - - Inhaled Oxygen Concentration - - Weight 78 kg (172 lb) 05/26/2019 4:01 PM EST Height 165.1 cm (5' 5 ) 03/13/2019 12:00 PM EST Body Mass Index 28.62 03/13/2019 12:00 PM EST Plan of Treatment Health Maintenance Due Date Last Done Comments Breast Cancer Screening 1950 Pneumococcal Vaccine: 50+ Ye ars (1 of 2 - PCV) 10/17/1971 Colorectal Cancer Screening: Annual FOBT 2001 Colorectal Cancer Screening: Colonoscopy 2001 Colorectal Cancer Screening: Sigmoidoscopy 2001 Diabetes: Hemoglobin A1C 05/26/2019 Diabetes: Ophthalmology Exam 05/26/2019 Diabetes: Pedal Pulse Checked 05/26/2019 Diabetes: Sensory Foot Exam 05/26/2019 Diabetes: Visual Foot Exam 05/26/2019 Influenza Vaccine (#1) 2024 Hepatitis B Vaccine Aged Out No longe r eligible based on patient's age to complete this topic Insurance Medicare [facility] Medicare Care Teams Experimental Mechanic Electrical Relationship Specialty Start Date End Date Live Burnette MD [address] [place] [phone] PCP - General Internal Medicine 12/11/18
== END 2025-01-20 14:48 | disposition home or self-care (01) ==
LOC: HO.HMGCLDS 14:47
PROVIDERS: PCP Internal Medicine; Visit Provider Internal Medicine
DX: F03.90 Unspecified dementia, unspecified severity, without behavioral disturbance, psychotic disturbance, mood disturbance, and anxiety (principal)
CPT/HCPCS: 36415; 82607; 82746; 84207; 84439; 84443; 85652; 86140

== ENCOUNTER 2025-01-25 14:41 | Outpatient (REF) | payer MEDICARE, SELFPAY ==
--- OUTSIDE RECORDS SUMMARY | 2024-01-15 09:00 | XMS_ITS ---
Author [facility] Address [address] [phone] Care Team Providers Care City Plant Supervisor Name Role Phone Live Burnette Primary Care Provider Rashawn Castillo Unavailable Unavailable SHAWNA KOVACS Unavailable [phone] Allergies Allergen (clinical drug ingredient) Drug/Non Drug [...] Encounter Location Date [facility] [address] [place] [phone] 01/15/2024 SHAWNA KOVACS Type 2 diabetes franny [...] Reason: Provider Name:SHAWNA KOVACS, 11:00:00 AM, 61 [facility] [place], [address], [place], [place], [phone], Progress Notes * Jose NGUYENDOB:1950 ( 74 yo F)Acc No.[id number]:01/15/2024 Progress Note Patient: Jose HUERTA Provider: Paola Kovacs MD :1950 A ge:73 Y S ex:Female Date:01/15/2024 Address:[address] [place] [address], [facility] Pcp:Live Burnette Subjective: * Chief Complaints: * [...] 01:19 PM ?Spectacle ?Presenting Sph Cyl [place] H Prism V Prism Add DVA OD +1.25 +1.00 13 +2.50 20/40-- OS PL +0.75 13 +2.50 20/50 OU ?Manifest Sph Cyl [place] H Prism V Prism Add DVA OD +0.50 +2.00 12 +2.50 20/40 OS +0.50 +1.25 170 +2.50 20/40 ?Final Sph Cyl [place] H Prism V Prism Add DVA OD [...] Electronic signature of SHAWNA KOVACS MD on 01/25/2025 at 04:37 PM EDT Sign off status: Pending * Provider: Paola Kovacs MD Date: 01/15/2024 Generated for Printi ng/Fazeyadg/eTransmitting on: 01/25/2025 04:37 PM EDT History and Physical Notes * [...]
--- OUTSIDE RECORDS SUMMARY | 2024-10-05 09:00 | XMS_ITS ---
Author [facility] Address [address] [phone] Care Team Providers Care Complaint Adjuster Name Role Phone Live Burnette Primary Care Provider Rashawn Castillo Unavailable Unavailable SHAWNA KOVACS Unavailable [phone] Allergies Allergen (clinical drug ingredient) Drug/Non Drug Allergy documented on EMR Reaction Allergy Type Onset Date Status penicillin Unknown Drug Allergy Active REASON FOR VISIT DIABETIC EYE EXAM. DM1 X 10 Y/O. CONTROLLED WITH HUMALOG. A1C 6.2%. BS 196 MG/DL (AFTER LUNCH). 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, bilateral (E11.3393) Active confirmed Encounters Encounter Location Date [facility] [address] [phone] 10/05/2024 SHAWNA KOVACS Retinal edema H35.81 ; [...] Year, Reason: Provider Name:SHAWNA KOVACS, 11:00:00 AM, [address] [place] [address], [place] [address], [place], [place], [phone], Progress Notes * Jose NGUYENDOB:1950 ( 74 yo F)Acc No.[id number]:10/05/2024 Progress Note Patient: Jose HUERTA Provider: Paola Kovacs MD :1950 A ge:73 Y S ex:Female Date:10/05/2024 Address:[address] [place] [address], [facility] Pcp:Live Burnette Subjective: * Chief Complaints: * 1 . DIABETIC EYE EXAM. DM1 X 10 Y/O. CONTROLLED WITH HUMALOG. A1C 6.2%. BS 196 MG/DL (AFTER LUNCH). MONITORED BY PCP DR BURNETTE AND AFTERSCHOOL DR ELIAS. * HPI: N ew symptom(s): [...] GAT 01:18 PM ?Spectacle ?Presenting Sph Cyl [place] H Prism V Prism Add DVA OD +1.25 +1.00 13 +2.50 20/50- OS PL +0.75 13 +2.50 20/60+ OU ?Manifest Sph Cyl [place] H Prism V Prism Add DVA OD +1.25 +1.75 010 +2.50 20/40 OS +1.00 +1.25 170 +2.50 20/40 ?Final Sph Cyl Warren H Prism V Prism Add DVA OD [...] of SHAWNA KOVACS MD on 01/25/2025 at 04:36 PM EDT Sign off status: Pending * Provider: Paola Kovacs MD Date: 0 10/05/2024 Generated for Nayeli carr/Robert/eTransmitting on: 0 01/25/2025 04:36 PM EDT History and Physical Notes * [...]
--- OUTSIDE RECORDS SUMMARY | 2024-10-12 13:15 | XMS_ITS ---
Author Organization [facility] Address [address] [phone] Care Team Providers Care Radio Producer Name Role Phone Live Burnette Primary Care Provider Rashawn Castillo Unavailable Unavailable SHAWNA KOVACS [phone] REASON FOR VISIT YAG OS Encounters Encounter Location Date [facility] [address] [place] [phone] 10/12/2024 SHAWNA KOVACS Plan Of Treatment Next Appt Details Provider Name:SHAWNA KOVACS, 11:00:00 AM, [address] [place] [address], [place], [place], [phone], Progress Notes * Jose NGUYENDOB:1950 ( 74 yo F)Acc No.[id number]:10/12/2024 Progress Note Patient: Jose HUERTA Provider: Paola Kovacs MD :1950 A ge:73 Y S ex:Female Date:10/12/2024 Address:[address] [place], [place] [phone] Pcp:Live Burnette Subjective: * Chief Complaints: * 1 . YAG OS. * Medical History: * Ocular Surgical History: Objective: * Vitals: Assessment: Plan: * Treatment: * * Electronic signature of SHAWNA KOVACS MD on 01/25/2025 at 04:37 PM EDT Sign off status: Pending * Provider: Paola Kovacs MD Date: 10/12/2024 Generated for Printi ng/Faxing/eTransmitting on: 01/25/2025 04:37 PM EDT
--- OUTSIDE RECORDS SUMMARY | 2024-10-26 06:30 | XMS_ITS ---
Author Organization [facility] Address [address] [phone] Care Team Providers Care Book Sewer Name Role Phone Live Burnette Primary Care Provider Rashawn Castillo Unavailable Unavailable FERMÍNDUCA Unavailable [phone] REASON FOR VISIT YAG OS Medications Medication [...] Notes Problem Secondary cataract of left eye (3586324672692 9105) Other secondary cataract, left eye (H26.492) Active confirmed Encounters Encounter Location Date [facility] [address] [place] [phone] 10/26/2024 SHAWNA KOVACS Retinal edema H35.81 ; [...] Reason: Provider Name:SHAWNA KOVACS, 11:00:00 AM, [address] [facility], [address], [place], [place], [phone], Progress Notes * Jose NGUYENDOB:1950 ( 74 yo F)Acc No.[id number]:10/26/2024 Progress Note Patient: Jose HUERTA Provider: Paola Kovacs MD :1950 A ge:74 Y S ex:Female Date:10/26/2024 Address:[address] [place] [address], [place], [place] Pcp:Live Burnette Subjective: * Chief Complaints: * [...] LT * Follow Up: 1 Year * * Electronic signature of SHAWNA KOVACS MD on 01/25/2025 at 04:37 PM EDT Sign off status: Pending * Provider: Paola Kovacs MD Date: 0 10/26/2024 Generated for Nayeli carr/Robert/Kirillitting on: 0 01/25/2025 04:37 PM EDT History and Physical [...]
--- NOTE | ~2025-01-25 | XR_ITS ---
EXAMINATION: XR LUMBOSACRAL SPINE CLINICAL INFORMATION: LOW BACK PAIN COMPARISON: Correlated to CT abdomen and pelvis dated March 27, 2021. TECHNIQUE: AP and lateral views FINDINGS: Multilevel endplate sclerosis and small marginal osteophyte formation. Facet joint hypertrophy at L4-5 and L5-S1. Osteopenia versus osteoporosis. No gross acute cortical disruption or gross malalignment. Vascular calcifications, mostly aorta and iliac arteries. Metallic screw no fully included in the [id number] in the left femur. Calcifications, vascular and likely splenic artery Status post stenting distal abdominal aorta, iliac arteries.. XR/XR lumbar spine 2-3V IMPRESSION: Multilevel spondylosis pronounced at L5-S1 without acute fracture or gross listhesis. Atherosclerosis disease. Status post stenting, distal aorta and iliac arteries. Electronically signed by: Noé Trivedi MD 01/25/2025 03:13 PM EDT
--- NOTE | ~2025-01-25 | XR_ITS ---
EXAMINATION: XR THORACIC SPINE CLINICAL INFORMATION: UPPER BACK PAIN COMPARISON: Correlated to chest x-ray dated March 13, 2021. TECHNIQUE: AP and lateral views. FINDINGS: Callus decreased mineralization suggesting osteopenia versus osteoporosis. Multilevel endplate sclerosis and small marginal osteophyte formation. Superior endplate compression upon the descending 30% volume loss in the lower thoracic spine likely T11. Sternal wires and vascular clips in the anterior and medial mediastinum XR/XR thoracic spine 2V IMPRESSION: Multilevel spondylosis. Superior endplate compression deformity representing 30% volume loss likely T11 of uncertain age. Status post likely CABG procedure. Osteopenia versus osteoporosis. Electronically signed by: Noé Trivedi MD 01/25/2025 03:11 PM EDT
--- OUTSIDE RECORDS SUMMARY | 2025-01-25 16:37 | XMS_ITS | Encounter Summary ---
Author Organization [facility] Address [address] [address] Phone Care Team Providers Care Food Service Team Member Name Role Phone Live Burnette MD Primary Care Provider [phone] Reason for Visit * Reason Onset Date Comments scheduled f/u appt. 12/17/2019 Encounter Details Date Type Department Care Team (Late st Contact Info) Description 12/17/2019 Telephone [facility] [address] [place] [address] Adalberto Erwin MD [address] [facility] [address] [place] [address] Social History Tobacco Use Types [...] on filedocumented in this encounter Care Teams Food Service Team Member Relationship Specialty Start Date End Date Live Burnette MD [address] [place] [phone] PCP - General Internal Medicine 12/11/18 documented as of this encounter
--- OUTSIDE RECORDS SUMMARY | 2025-01-25 16:37 | XMS_ITS ---
Author Organization [facility] Care Team Providers Care Loss Claim Clerk Name Role Phone ElderKeeley Unavailable Unavailable Care Team Name Role Address Phone Organization Dates Keeley Guevara Elder PCP [address] [facility] [address], [place], [address], [facility] (Office): : [facility] 02/20/2019 - 03/10/2019 [...] URINARY TRACT INFECTION, SITE NOT SPECIFIED 03/09/[address] active 2 ACUTE KIDNEY FAILURE, UNSPECIFIED 02/21/[address] active 3 ATHEROSCLEROTIC HEART DISEASE OF [place] CORONARY ARTERY WITHOUT ANGINA PECTORIS 02/21/[address] active 4 CHRONIC KIDNEY DISEASE, STAGE 2 (MILD) 02/21/[address] active 5 COGNITIVE COMMUNICATION DEFICIT 02/21/[address] active 6 DISPLACED FRACTURE OF LEFT ULNA STYLOID PROCESS, SUBSEQUENT ENCOUNTER FOR CLOSED FRACTURE WITH ROUTINE HEALING 02/21/[address] active 7 HISTORY OF FALLING 02/21/[address] active 8 HYPERLIPIDEMIA, UNSPECIFIED 02/21/[address] active 9 HYPERTENSIVE HEART DISEASE WITHOUT HEART FAILURE 02/21/[address] active 10 IRON DEFICIENCY ANEMIA, UNSPECIFIED 02/21/[address] active 11 MUSCLE WEAKNESS (GENERALIZED) 02/21/[address] active 12 NONDISPLACED SUBTROCHANTERIC FRACTURE OF LEFT FEMUR, SUBSEQUENT ENCOUNTER FOR CLOSED FRACTURE WITH ROUTINE HEALING 02/21/[address] active 13 TYPE 1 DIABETES MELLITUS WITHOUT COMPLICATIONS 02/21/[address] active 14 UNSTEADINESS ON FEET 02/21/[address] active Reason for Referral No Reasons for Referral Entered Social History Social History Observation Description Start Date End Date Code Code System Current Smoking Status Tobacco smoking consumption unknown 413239469 SNOMED CT Sex Assigned At Female 1950 [address] [facility] Gender Identity Sexual Orientation Vital Signs Code Code System Vitals Name Values and Units Timing Information 9279-1 [facility] Respiratory Rate Value=20.0 Units=/m in 03/10/2019 8462-4 [facility] Blood Pressure-Diastolic Value=64 Un its=mmHg 03/10/2019 8480-6 [facility] Blood Pressure-Systolic Ykhex=077 Un its=mmHg 03/10/2019 8310-5 [facility] Body Temperature Value=98.7 Units= F 03/10/2019 8867-4 [facility] Heart rate Value=55.0 Units=/min 03/2019 20815-8 [facility] O2 % BldC Oximetry Value=98.0 Units= % 03/10/2019 2339-0 [facility] Blood Sugar Jwzcg=590.0 Units=mg/dL 03/10/2019 82807-0 [facility] Weight Wwamc=808.0 Units=Lbs 02/2019 8302-2 [facility] Height Value=65.0 Units=Inches 02/22/2019
--- OUTSIDE RECORDS SUMMARY | 2025-01-25 16:37 | XMS_ITS | Encounter Summary ---
Author Organization [facility] Address [address] [address] Phone Care Team Providers Care Hyperbaric Technician Name Role Phone Live Burnette MD Primary Care Provider [phone] Encounter Details Date Type Department Care Team (Late st Contact Info) Description 12/17/2019 Telephone [facility] [address] [place] [address] Adalberto Erwin MD [address] [place] [address] [address] [place] [address] Social History Tobacco Use Types [...] on filedocumented in this encounter Care Teams Hyperbaric Technician Relationship Specialty Start Date End Date Live Burnette MD [address] [facility] [address] [place] [address] PCP - General Internal Medicine 12/11/18 documented as of this encounter
--- OUTSIDE RECORDS SUMMARY | 2025-01-25 16:37 | XMS_ITS | Patient Health Record ---
[facility] Address [address] [id number] Care Team Providers Care Neon Glass Blower Name Role Phone Live Burnette Primary Care Provider Rashawn Castillo Unavailable Unavailable CLYDEDUC ALBRECHTA Unavailable [phone] Allergies Allergen (clinical drug ingredient) Drug/Non Drug [...] Problem Type I diabetes mellitus without complication (127018781) Type 1 diabetes mellitus without complications (E10.9) Active confirmed Problem Punctate keratitis (93911844) Punctate keratitis, bilateral (H16.143) Active confirmed Problem Nuclear senile cataract (346525297) Age-related nuclear cataract, bilateral (H25.13) Active confirmed Problem Secondary cataract of right eye (61122235659530045) Other secondary cataract, right eye (H26.491) Active confirmed Problem Secondary cataract of left eye (71811461538632340) Other secondary cataract, left eye (H26.492) Active confirmed Problem Retinal edema (7155399) Retinal edema (H35.81) Active confirmed Problem Macular edema and retinopathy due to type 2 diabetes mellitus (10760578500883) Type 2 diabetes 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, 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) Active confirmed Problem Moderate nonproliferative retinopathy due to type 2 diabetes mellitus (696351204610578) Type 2 diabetes mellitus with 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, bilateral (E11.3393) Active confirmed Encounters Encounter Location Date Provider [facility] [address] [place] [id number] 10/05/2024 SHAWNA BHAN Retinal edema H35.81 ; Type 2 diabetes mellitus with 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, bilateral E11.3393 ; Age-related nuclear cataract, bilateral H25.13 and Punctate keratitis, bilateral H16.[address] [facility] [address] [place] [id number] 10/26/2024 SHAWNA BHAN Retinal edema H35.81 ; [...] Details Provider Name:SHAWNA KOVACS, 11:00:00 AM, 61 [facility], [place] [address], [place], [place], [phone], Insurance Providers Payer Name Payer Address Payer Phone Subscriber Number Group Number Insured Name Patient Relationship to Insured Coverage Start Date Coverage End Date Medicare [address] [place], [place] [id number] Jose Ragland Self - patient is the insured [address] [id number] Jose Ragland Self - patient is the [...]
--- OUTSIDE RECORDS SUMMARY | 2025-01-25 16:38 | XMS_ITS | Clinical Summary ---
Author Organization [facility] Facility Address [address] [place] [address] Care Team Providers Care Small Parts Assembler Name Role Phone Live Burnette MD Primary Care Provider [phone] Allergies Active Allergy Reactions Criticality Noted Date [...] age to complete this topic Insurance Medicare [facility] Medicare Care Teams Small Parts Assembler Relationship Specialty Start Date End Date Live Burnette MD [address] [place] [phone] PCP - General Internal Medicine 12/11/18
== END 2025-01-25 14:42 | disposition home or self-care (01) ==
LOC: HO.HMGCX 14:41
PROVIDERS: PCP Internal Medicine; Visit Provider Internal Medicine
DX: M54.6 Pain in thoracic spine (principal); M54.50 Low back pain, unspecified
CPT/HCPCS: 72070; 72100

== ENCOUNTER → 2025-01-25 14:51 | Outpatient (BNV) | payer MEDICARE, SELFPAY | PROVIDERS: PCP Internal Medicine; Visit Provider Radiology Diagnostic Radiology | DX: M47.817 Spondylosis without myelopathy or radiculopathy, lumbosacral region (principal); M47.814 Spondylosis without myelopathy or radiculopathy, thoracic region | CPT/HCPCS: 72070; 72100 ==

== ENCOUNTER 2025-02-08 13:43 | Outpatient (REF) | payer MEDICARE, SELFPAY ==
--- OUTSIDE RECORDS SUMMARY | 2024-01-15 09:00 | XMS_ITS ---
Author Organization [facility] Address [address] [phone] Care Team Providers Care Craft Coordinator Name Role Phone Live Burnette Primary Care Provider Rashawn Castillo Unavailable Unavailable SHAWNA KOVACS Unavailable [phone] Allergies Allergen (clinical drug ingredient) Drug/Non Drug [...] Encounter Location Date [facility] [address] [place] [phone] 01/15/2024 SHAWNA KOVACS Type 2 diabetes franny [...] Reason: Provider Name:SHAWNA KOVACS, 11:00:00 AM, 61 [facility], [address], [place], [place], [phone], Progress Notes * Jose NGUYENDOB:1950 ( 74 yo F)Acc No.[id number]:01/15/2024 Progress Note Patient: Jose HUERTA Provider: Paola Kovacs MD :1950 A ge:73 Y S ex:Female Date:01/15/2024 Address:[address] [place] [address], [facility] Pcp:Live Burnette Subjective: * Chief Complaints: * [...] GAT 01:19 PM ?Spectacle ?Presenting Sph Cyl [place] H Prism V Prism Add DVA OD +1.25 +1.00 13 +2.50 20/40-- OS PL +0.75 13 +2.50 20/50 OU ?Manifest Sph Cyl [place] H Prism V Prism Add DVA OD +0.50 +2.00 12 +2.50 20/40 OS +0.50 +1.25 170 +2.50 20/40 ?Final Sph Cyl [place] H Prism V Prism Add DVA OD [...] Electronic signature of SHAWNA KOVACS MD on 02/08/2025 at 01:47 PM EDT Sign off status: Pending * Provider: Paola Kovacs MD Date: 0 01/15/2024 Generated for Printi ng/Fazeyadg/eTransmitting on: 1 01:47 PM EDT History and Physical Notes * [...]
--- OUTSIDE RECORDS SUMMARY | 2024-10-05 09:00 | XMS_ITS ---
[facility] Address [address] [phone] Care Team Providers Care Diesel Scoop Operator Name Role Phone Live Burnette Primary Care Provider Rashawn Castillo Unavailable Unavailable SHAWNA KOVACS Unavailable [phone] Allergies Allergen (clinical drug ingredient) Drug/Non Drug Allergy documented on EMR Reaction Allergy Type Onset Date Status penicillin Unknown Drug Allergy Active REASON FOR VISIT DIABETIC EYE EXAM. DM1 X 10 Y/O. CONTROLLED WITH HUMALOG. A1C 6.2%. BS 196 MG/DL (AFTER LUNCH). MONITORED BY PCP DR BURNETTE AND VISION IMPAIRED TEACHER DR ELIAS Medications Medication SIG (Take, Route, [...] Problem Type I diabetes mellitus without complication (731747161) Type 1 diabetes mellitus without complications (E10.9) Active confirmed Problem Moderate nonproliferative retinopathy due to type 2 diabetes mellitus (475791277574008) Type 2 diabetes mellitus with 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, bilateral (E11.3393) Active confirmed Encounters Encounter Location Date [facility] [address] [phone] 10/05/2024 SHAWNA KOVACS Retinal edema H35.81 ; [...] Year, Reason: Provider Name:SHAWNA KOVACS, 11:00:00 AM, [address] [place] [address], [place] [address], [place], [place], [phone], Progress Notes * Jose NGUYENDOB:1950 ( 74 yo F)Acc No.[id number]:10/05/2024 Progress Note Patient: Jose HUERTA Provider: Paola Kovacs MD :1950 A ge:73 Y S ex:Female Date:10/05/2024 Address:[address] [place] [address], [facility] Pcp:Live Burnette Subjective: * Chief Complaints: * 1 . DIABETIC EYE EXAM. DM1 X 10 Y/O. CONTROLLED WITH HUMALOG. A1C 6.2%. BS 196 MG/DL (AFTER LUNCH). MONITORED BY PCP DR BURNETTE AND VISION IMPAIRED TEACHER DR ELIAS. * HPI: N ew symptom(s): [...] GAT 01:18 PM ?Spectacle ?Presenting Sph Cyl [place] H Prism V Prism Add DVA OD +1.25 +1.00 13 +2.50 20/50- OS PL +0.75 13 +2.50 20/60+ OU ?Manifest Sph Cyl [place] H Prism V Prism Add DVA OD +1.25 +1.75 010 +2.50 20/40 OS +1.00 +1.25 170 +2.50 20/40 ?Final Sph Cyl [place] H Prism V Prism Add DVA OD [...] user * Follow Up: 1 Year * * Electronic signature of SHAWNA KOVACS MD on 02/08/2025 at 01:47 PM EDT Sign off status: Pending * Provider: Paola Kovacs MD Date: 0 10/05/2024 Generated for Nayeli carr/Robert/eTransmitting on: 1 01:47 PM EDT History and [...]
--- OUTSIDE RECORDS SUMMARY | 2024-10-12 13:15 | XMS_ITS ---
Author Organization [facility] Address [address] [phone] Care Team Providers Care Water Quality Specialist Name Role Phone Live Burnette Primary Care Provider Rashawn Castillo Unavailable Unavailable SHAWNA KOVACS [phone] REASON FOR VISIT YAG OS Encounters Encounter Location Date [facility] [address] [place] [phone] 10/12/2024 SHAWNA KOVACS Plan Of Treatment Next Appt Details Provider Name:SHAWNA KOVACS, 11:00:00 AM, [address] [place] [address], [place], [place], [phone], Progress Notes * Jose NGUYENDOB:1950 ( 74 yo F)Acc No.[id number]:10/12/2024 Progress Note Patient: Jose HUERTA Provider: Paola Kovacs MD :1950 A ge:73 Y S ex:Female Date:10/12/2024 Address:[address] [place], [place] [phone] Pcp:Live Burnette Subjective: * Chief Complaints: * 1 . YAG OS. * Medical History: * Ocular Surgical History: Objective: * Vitals: Assessment: Plan: * Treatment: * * Electronic signature of SHAWNA KOVACS MD on 02/08/2025 at 01:46 PM EDT Sign off status: Pending * Provider: Paola Kovacs MD Date: 0 10/12/2024 Generated for Printi ng/Faxing/eTransmitting on: 1 01:46 PM EDT
--- OUTSIDE RECORDS SUMMARY | 2024-10-26 06:30 | XMS_ITS ---
Author Organization [facility] Address [address] [id number] Care Team Providers Care Compliance Examiner Name Role Phone Live Burnette Primary Care Provider Rashawn Castillo Unavailable Unavailable FERMÍNDUCA Unavailable [phone] REASON FOR VISIT YAG OS Medications Medication [...] Notes Problem Secondary cataract of left eye ([id number] 9105) Other secondary cataract, left eye (H26.492) Active confirmed Encounters Encounter Location Date Provider [facility] [address] [place] [id number] 10/26/2024 SHAWNA KOVACS Retinal edema H35.81 ; [...] Reason: Provider Name:SHAWNA KOVACS, 11:00:00 AM, [address] [facility], [address], [place], [place], [id number], Progress Notes * Jose NGUYENDOB:1950 ( 74 yo F)Acc No.[id number]:10/26/2024 Progress Note Patient: Jose HUERTA Provider: Paola Kovacs MD :1950 A ge:74 Y S ex:Female Date:10/26/2024 Address:[address] [place] [address], [place], [place] Pcp:Live Burnette Subjective: * Chief Complaints: * [...] 10/26/2024 Generated for Nayeli carr/Robert/Kirillitting on: 1 01:47 PM EDT History and [...]
--- OUTSIDE RECORDS SUMMARY | 2025-02-08 13:46 | XMS_ITS | Encounter Summary ---
Author Organization [facility] Address [address] [address] Phone Care Team Providers Care Electroformer Name Role Phone Live Burnette MD Primary Care Provider [phone] Reason for Visit * Reason Onset Date Comments scheduled f/u appt. 12/17/2019 Encounter Details Date Type Department Care Team (Late st Contact Info) Description 12/17/2019 Telephone [facility] [address] [place] [address] Adalberto Erwin MD [address] [facility] [address] [place] [address] Social History Tobacco Use Types [...] on filedocumented in this encounter Care Teams Electroformer Relationship Specialty Start Date End Date Live Burnette MD [address] [place] [phone] PCP - General Internal Medicine 12/11/18 documented as of this encounter
--- OUTSIDE RECORDS SUMMARY | 2025-02-08 13:46 | XMS_ITS | Clinical Summary ---
Author Organization [facility] Facility Address [address] [place] [address] Care Team Providers Care Sound Engineering Technician Name Role Phone Live Burnette MD Primary Care Provider [phone] Allergies Active Allergy Reactions Criticality Noted Date [...] age to complete this topic Insurance Medicare [facility] Medicare Care Teams Sound Engineering Technician Relationship Specialty Start Date End Date Live Burnette MD [address] [place] [phone] PCP - General Internal Medicine 12/11/18
--- OUTSIDE RECORDS SUMMARY | 2025-02-08 13:46 | XMS_ITS | Encounter Summary ---
Author Organization [facility] Address [address] [facility] [address] [place] [address] Phone Care Team Providers Care Line Dancer Name Role Phone Live Burnette MD Primary Care Provider [phone] Encounter Details Date Type Department Care Team (Late st Contact Info) Description 12/17/2019 Telephone [facility] [address] [place] [address] Adalberto Erwin MD [address] [place] [address] [address] [place] [address] Social History Tobacco Use Types [...] on filedocumented in this encounter Care Teams Line Dancer Relationship Specialty Start Date End Date Live Burnette MD [address] [facility] [address] [place] [address] PCP - General Internal Medicine 12/11/18 documented as of this encounter
--- OUTSIDE RECORDS SUMMARY | 2025-02-08 13:47 | XMS_ITS | Encounter Summary ---
Author Organization [facility] Address [address] [facility] [address] [place] [address] Care Team Providers Care Economic Consultant Name Role Phone Live Burnette MD Primary Care Provider [phone] Adalberto Erwin MD Unavailable Reason for Visit * Reason Comments Med Refill Encounter Details Date Type Department Care Team (Late st Contact Info) Description 11/19/2022 [facility]ill [facility] [address] [address] Yony Leon NP [address] [place] [address] Paroxysmal atrial fibrillation Social History Tobacco Use Types Packs/Day Years Used Date Smoking Tobacco: Never Comments Unknown Sex and Gender Information Value Date Recorded Sex Assigned at Not on file Legal Sex Female 12:52 AM EST Gender Identity Not on file Sexual Orientation Not on file documented as of this encounter Plan of Treatment Upcoming Encounters Date Type Department Care Team (Late st Contact Info) Description 03/09/2025 2:40 PM EST Office Visit [facility] [address] [address] Don Saunders MD [address] [place] [address] documented as of this encounter Visit Diagnoses Diagnosis Paroxysmal atrial fibrillation Atrial fibrillation documented in this encounter Care Teams Economic Consultant Relationship Specialty Start Date End Date Live Burnette MD [address] [place] [address] PCP - General 06/02/21 Adalberto Erwin MD [address] [address] PCP - Nephrology 06/02/21 06/27/23 documented as of this encounter
--- OUTSIDE RECORDS SUMMARY | 2025-02-08 13:47 | XMS_ITS | Patient Health Record ---
Author Organization [facility] Address [address] [id number] Care Team Providers Care Hydrochloric Acid Operator Name Role Phone Live Burnette Primary Care Provider Rashawn Castillo Unavailable Unavailable CLYDEDUC ALBRECHTA Unavailable [phone] Allergies Allergen (clinical drug ingredient) Drug/Non Drug [...] Problem Type I diabetes mellitus without complication (011579274) Type 1 diabetes mellitus without complications (E10.9) Active confirmed Problem Punctate keratitis (15891613) Punctate keratitis, bilateral (H16.143) Active confirmed Problem Nuclear senile cataract (817885220) Age-related nuclear cataract, bilateral (H25.13) Active confirmed Problem Secondary cataract of right eye (49523048745995122) Other secondary cataract, right eye (H26.491) Active confirmed Problem Secondary cataract of left eye (15094507454466157) Other secondary cataract, left eye (H26.492) Active confirmed Problem Retinal edema (8716832) Retinal edema (H35.81) Active confirmed Problem Macular edema and retinopathy due to type 2 diabetes mellitus (21051569497840) Type 2 diabetes 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, 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) Active confirmed Problem Moderate nonproliferative retinopathy due to type 2 diabetes mellitus (126677575447472) Type 2 diabetes mellitus with 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, bilateral (E11.3393) Active confirmed Encounters Encounter Location Date Provider [facility] [address] [place] [phone] 10/05/2024 SHAWNA BHAN Retinal edema H35.81 ; Type 2 diabetes mellitus with 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, bilateral E11.3393 ; Age-related nuclear cataract, bilateral H25.13 and Punctate keratitis, bilateral H16.143 [facility] [address] [place] [phone] 10/26/2024 SHAWNA BHAN Retinal edema H35.81 ; [...] Details Provider Name:SHAWNA KOVACS, 11:00:00 AM, [address] [facility], [place] [address], [place], [place], [phone], Insurance Providers Payer Name Payer Address Payer Phone Subscriber Number Group Number Insured Name Patient Relationship to Insured Coverage Start Date Coverage End Date Medicare [address] [place], [place] [id number] Jose Ragland Self - patient is the insured [address] [id number] Jose Ragland Self - patient is the [...]
--- OUTSIDE RECORDS SUMMARY | 2025-02-08 13:47 | XMS_ITS | Clinical Summary ---
Author Organization [facility] Address [address] [facility] [address] [address] [place] [address] Care Team Providers Care Pipe Wrapping Machine Operator Name Role Phone Live Burnette MD Primary Care Provider Allergies Active Allergy Reactions Criticality Noted Date Comments Amoxicillin 08/04/2021 Erythromycin Nausea / Vomiting 12/23/2018 Penicillins 08/04/2021 Medications traZODone (Desyrel) 50 mg tablet Take 100 mg by mouth at bedtime. 1 Active levothyroxine (Synthroid, Levoxyl) 75 mcg tablet Take 75 mcg by mouth once daily. 1 Active insulin lispro (HumaLOG) 100 unit/mL injection Inject under the skin. Active zolpidem (Ambien) 5 mg tablet Take by mouth if needed at bedtime for sleep. Active acetaminophen (Tylenol) 325 mg capsule Take by mouth every 6 (six) hours if needed for pain score 1-3. Active pantoprazole (ProtoNix) 40 mg EC tablet Take 40 mg by mouth in the morning and at bedtime. 2 Active buPROPion XL (Wellbutrin XL) 300 mg 24 hr tablet Take 300 mg by mouth once daily. 3 Active multivitamin capsule Take 1 capsule by mouth once daily. Active rosuvastatin (Crestor) 40 mg tabletIndications:C oronary artery disease involving [place] coronary artery of [place] heart without angina pectoris,Mixed hyperlipidemia Take 1 tablet (40 mg) by mouth in the morning. 90 tablet 3 4 Active ezetimibe (Zetia) 10 mg tabletIndications:C oronary artery disease involving [place] coronary artery of [place] heart without angina pectoris,PAD (peripheral artery disease),Paroxysmal atrial fibrillation,Type 1 diabetes mellitus without complications,Bifas cicular block,Essential hypertension,Mixed hyperlipidemia,Loca lized edema Take 1 tablet (10 mg) by mouth once daily. 90 tablet 3 5 09/23/19 26 Active losartan (Cozaar) 50 mg tabletIndications:E ssential hypertension TAKE 1 TABLET(50 MG) BY MOUTH IN THE MORNING 90 tablet 3 5 Active Eliquis 5 mg tabletIndications:P aroxysmal atrial fibrillation TAKE 1 TABLET(5 MG) BY MOUTH TWICE DAILY 90 tablet 3 5 Active Active Problems Problem Noted Date Diagnosed Date Peripheral vascular disease, unspecified 022 Paroxysmal atrial fibrillation 08/03/2021 Type 1 diabetes mellitus without complications 0 08/03/2021 Coronary artery disease invo lving [place] coronary artery of [place] heart without angina pectoris 08/03/2021 Encounters Date Type Department Care Team Description 01/05/[facility] [address] [phone] Don Saunders MD Paroxysmal atrial fibrillation (Multi-HCC) from Last 3 Months Family History Medical History Relation Name Comments Coronary artery disease Mother PCI in her late 60s Relation Name Status Comments Mother Social History Tobacco Use Types Packs/Day Years Used Date Smoking Tobacco: Never Tobacco Cessation:Counseling Given: Not Answered Comments Unknown Sex and Gender Information Value Date Recorded Sex Assigned at Not on file Legal Sex Female 12:52 AM EST Gender Identity Not on file Sexual Orientation Not on file Last Filed Vital Signs Vital Sign Reading Time Taken Comments Blood Pressure 125/69 09/22/2024 2:47 PM EDT Pulse 60 09/22/2024 2:47 PM EDT Temperature 36.3 C (97.4 F) 07/21/2020 11:30 AM EDT Respiratory Rate - - Oxygen Saturation 96% 09/22/2024 2:47 PM EDT Inhaled Oxygen Concentration - - Weight 75.8 kg (167 lb) 09/22/2024 2:47 PM EDT Height 165.1 cm (5' 5 ) 06/28/2023 3:06 PM EST Body Mass Index 27.79 06/28/2023 3:06 PM EST Plan of Treatment Upcoming Encounters Date Type Department Care Team (Late st Contact Info) Description 03/09/2025 2:40 PM EST Office Visit [facility] [address] [place] [address] Don Saunders MD [address] [place] [address] Health Maintenance Due Date Last Done Comments Bone Density Scan 1952 CT Colonography 1952 FOBT 1950 Sigmoidoscopy 1952 Diabetes: Retinopathy Screening 1952 Hepatitis C Screening 1970 DTaP/Tdap/Td Vaccines (1 - Tdap) 10/17/1971 Mammogram 1992 Zoster Vaccines (1 of 2) 2002 Medicare Annual Wellness (AWV) 09/27/2018 Pneumococcal Vaccine: 50+ Years (3 of 3 - PCV20 or PCV21) 02/27/2023 02/27/2018, 04/13/2017 High Risk LDL 04/24/2023 04/24/2022 Lipid Panel 04/24/2023 04/24/2022 Depression Screening 04/29/2024 Diabetes: Foot Exam 12/17/2024 12/18/2023 COVID-19 Vaccine ( season) 2024 06/07/2021, 09/23/2020, 08/26/2020 Influenza Vaccine (#1) 2024 03/13/2021, 2016 FIT 03/20/2025 03/20/2024 Diabetes: Hemoglobin A1C 08/29/2025 025, 07/24/2024, 04/06/2024, Additional history exists Diabetes: Urine Protein Screening 08/29/2025 08/29/2024, 04/06/2024, 10/15/2023, Additional history exists FIT-DNA 03/20/2027 03/20/2024, 03/20/2024 Colonoscopy 08/04/2034 08/04/2024 Colorectal Cancer Screening 08/04/2034 Pneumococcal Vaccine: Pediatrics (0 to 5 Years) and At-Risk Patients (6 to 49 Years) Discontinued 02/27/2018, 04/13/2017 HIB Vaccines Aged Out No longer eligi ble based on patient's age to complete this topic HPV Vaccines Aged Out No longer eligi ble based on patient's age to complete this topic Hepatitis A Vaccines Aged Out No long er eligible based on patient's age to complete this topic Hepatitis B Vaccines Aged Out No long er eligible based on patient's age to complete this topic IPV Vaccines Aged Out No longer eligi ble based on patient's age to complete this topic Meningococcal B Vaccine Aged Out No l onger eligible based on patient's age to complete this topic Meningococcal Vaccine Aged Out No [place] eligible based on patient's age to complete this topic Rotavirus Vaccines Aged Out No longer eligible based on patient's age to complete this topic Insurance MEDICARE PART A AND B AARP SUPPLEMENT Care Teams Pipe Wrapping Machine Operator Relationship Specialty Start Date End Date Live Burnette MD [address] [place] [address] [address] [place] [address] PCP - General 06/02/21
--- OUTSIDE RECORDS SUMMARY | 2025-02-08 13:48 | XMS_ITS | Encounter Summary ---
Author Organization [facility] Address [address] [facility] [address] [place] [address] Care Team Providers Care Stripper Shovel Operator Name Role Phone Live Burnette MD Primary Care Provider [phone] Adalberto Erwin MD Unavailable Reason for Visit * Reason Comments Med Refill Encounter Details Date Type Department Care Team (Late st Contact Info) Description 07/30/2022 [facility]ill [facility] [address] [address] Vidya Lester NP [address] [place] [address] Paroxysmal atrial fibrillation (Primary Dx) Social History Tobacco Use Types Packs/Day Years Used Date Smoking Tobacco: Never Assessed Comments Unknown Sex and Gender Information Value Date Recorded Sex Assigned at Not on file Legal Sex Female 12:52 AM EST Gender Identity Not on file Sexual Orientation Not on file documented as of this encounter Plan of Treatment Upcoming Encounters Date Type Department Care Team (Late st Contact Info) Description 03/09/2025 2:40 PM EST Office Visit [facility] [address] [address] Don Saunders MD [address] [place] [address] documented as of this encounter Visit Diagnoses Diagnosis Paroxysmal atrial fibrillation- Primary Atrial fibrillation documented in this encounter Care Teams Stripper Shovel Operator Relationship Specialty Start Date End Date Live Burnette MD [address] [facility] [address] [place] [address] PCP - General 06/02/21 Adalberto Erwin MD [address] [address] PCP - Nephrology 06/02/21 06/27/23 documented as of this encounter
[2025-02-08 16:28] LABS: Anion Gap 11 (12-20); Blood Urea Nitrogen 16 mg/dL (9-16); Calcium 9.0 mg/dL (8.4-10.2); Carbon Dioxide 24 mmol/L (22-29); Chloride 112 mmol/L (96-108); Estimated Glomerular Filt Rate 34; Potassium 4.5 mmol/L (3.3-5.1); Sodium 142 mmol/L (135-145)
[2025-02-08 16:35] LABS: Microalbum/Creatinine Ratio Ur 162.9 ug/mg cr (<30)
== END 2025-02-08 13:44 | disposition home or self-care (01) ==
LOC: HO.HMGCLDS 13:43
PROVIDERS: PCP Internal Medicine; Visit Provider Internal Medicine
DX: E10.9 Type 1 diabetes mellitus without complications (principal)
CPT/HCPCS: 36415; 80048; 82043; 82570; 83036

== ENCOUNTER 2025-04-13 10:09 | Observation (INO) | payer MEDICARE, SELFPAY ==
--- OUTSIDE RECORDS SUMMARY | 2024-01-15 08:00 | XMS_ITS ---
[facility] Organization [facility] Address [address] [id number] Care Team Providers Care Opal Polisher Name Role Phone Live Burnette Primary Care Provider Rashawn Castillo Unavailable Unavailable SHAWNA KOVACS Unavailable [phone] Allergies Allergen (clinical drug ingredient) Drug/Non Drug Allergy documented on EMR Reaction Allergy Type Onset Date Status penicillin Unknown Drug Allergy Active REASON FOR VISIT 1 YEAR f/u for TYPE II DM- HGBA1C, VISION BLURRY FOR SMALL SIGNS FAR AWAY Medications Medication SIG (Take, Route, Frequency, Duration) Notes Start Date End Date Status traZODone HCl Active buPROPion HCl ER (XL) 300 MG TAKE 1 TABL ET BY MOUTH EVERY DAY Oral; Duration: 90 Active Insulin Infusion Pump Active LISINOPRIL Active Rosuvastatin Calcium Active Wellbutrin 01/14/2023 Active HumaLOG Active Levothyroxine Sodium Active Pantoprazole Sodium 40 MG TAKE 1 TABLET BY MOUTH TWICE DAILY Oral; Duration: 90 Active Eliquis 5 MG Oral; Duration: 30 Active Social History Tobacco Use: Social History Observation Description Date Details (start date - stop date) Never Smoker NA - NA Tobacco Use/Smoking Question Answer Notes Are you a nonsmoker Tobacco Control (Standard) Question Answer Notes Tobacco use: Nonsmoker Encounters Encounter Location Date Provider [facility] [address] [place] [phone] 01/15/2024 SHAWNA KOVACS Type 2 diabetes franny itus with moderate nonproliferative diabetic retinopathy with macular edema, bilateral E11.3313 ; Retinal edema H35.81 ; Age-related nuclear cataract, bilateral H25.13 and Punctate keratitis, bilateral H16.143 Assessments Encounter Date Diagnosis (ICD Code) Assessment Notes Treatment Notes Treatment Clinical Notes Section Notes 01/15/2024 Type 2 diabetes 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, bilateral (ICD-10 - E11.3313) NO ACTIVE RETINOPATHY FOR 15 YEARS - STABLE AFTER MULTIPLE LASER TREATMENTS 01/15/2024 Retinal edema (ICD-10 - H35.81) 01/15/2024 Age-related nuclear cataract, bilateral (ICD-10 - H25.13) 01/15/2024 Punctate keratitis, bilateral (ICD-10 - H16.143) Plan Of Treatment Treatment Notes Assessment Notes Type 2 diabetes mellitus wit h moderate nonproliferative diabetic retinopathy with macular edema, bilateral NO ACTIVE RETINOPATHY FOR 15 YEARS - STABLE AFTER MULTIPLE LASER TREATMENTS Next Appt Details Follow Up: 1 Year, Reason: Provider Name:SHAWNA KOVACS, 11:00:00 AM, [address] [facility], [address], [place], [place], [id number], Progress Notes * Jose NGUYENDOB:1950 ( 74 yo F)Acc No.[id number]:01/15/2024 Progress Note Patient: Jose HUERTA Provider: Paola Kovacs MD :1950 A ge:73 Y S ex:Female Date:01/15/2024 Address:[address] [place] [address], [facility] Pcp:Live Burnette Subjective: * Chief Complaints: * 1 . 1 YEAR f/u for TYPE II DM- HGBA1C. 2. VISION BLURRY FOR SMALL SIGNS FAR AWAY. * HPI: N ew symptom(s): RECENT A1C UNKNOWN BUT IT WAS GOOD. * ROS: G eneral/Constitutional: Fever d enies. W eight loss d enies. ? E NT: Hearing loss d enies. S inus problems d enies. E ndocrine: Heat intolerance d enies. T hyroid problems d enies. R espiratory: Shortness of breath d enies. W heezing d enies.? C ardiovascular: Chest pain d enies. I rregular heartbeats d enies.? G astrointestinal: Abdominal pain d enies. N ausea d enies. H ematology: Anemia d enies. U nusual bleeding d enies. ? S kin: Rashes d enies. S kin tumors d enies. ? N eurologic: Numbness d enies. W eakness d enies. ? P sychiatric: Anxiety d enies. D epression d enies. ? * Medical History: T YPE 1 DM AGE 12 -1961, LEG STENTS 12/08, PT WAS IN COMA 11/2016 FOR A MONTH 2ND TO TRIPLE BYPASS, CONJUNCTIVITIS OU WORSE OD 2016, SILENT HEART ATTACK 02/2022. * Ocular History: D IABETIC RETINOPATHY TREATED BY DR CHAN Ocular History reviewed with the patient. * Surgical History: L ID LIFT FRIETAG , TRIPLE BYPASS 12/26/2016, PHACO PCIOL OU DR CHAN 03/2005, LEFT HIP WITH DEYANIRA 2018, EXPLORITORY SURGERY 01/2021. * Ocular Surgical History: C ATARACT SURGERY OU . Ocular Surgical History revi ewed with the patient. * Hospitalization/Major Diagno stic Procedure: 2 MONTHS FOR COMA AND [address] PHELPS 01/2021, 2 SILENT HEART ATTACKS AT HOSPITAL 02/2022. * Family History: F ather: . N on-Contributory. * Social History: T obacco Use: T obacco Use/Smoking A re you a n onsmoker Tobacco Control (Standard) T obacco use: N onsmoker * Medications: T aking HumaLOG , Taking Levothyroxine Sodium , Taking LISINOPRIL , Taking Rosuvastatin Calcium , Taking Insulin Infusion Pump , Taking traZODone HCl , Taking buPROPion HCl ER (XL) 300 MG Tablet Extended Release 24 Hour TAKE 1 TABLET BY MOUTH EVERY DAY Oral , Taking Pantoprazole Sodium 40 MG Tablet Delayed Release TAKE 1 TABLET BY MOUTH TWICE DAILY Oral , Taking Eliquis 5 MG Tablet Oral , Taking Wellbutrin , Medication List reviewed and reconciled with the patient * Allergies: P enicillin. Objective: * Vitals: Vision Examination: IOP IOP OD OS Adj OD 0 14 13 GAT 01:19 PM ?Spectacle ?Presenting Sph Cyl Christiana H Prism V Prism Add DVA OD +1.25 +1.00 13 +2.50 20/40-- OS PL +0.75 13 +2.50 20/50 OU ?Manifest Sph Cyl Christiana H Prism V Prism Add DVA OD +0.50 +2.00 12 +2.50 20/40 OS +0.50 +1.25 170 +2.50 20/40 ?Final Sph Cyl Christiana H Prism V Prism Add DVA OD +0.75 +1.75 12 +2.50 20/40 OS +0.50 +1.25 170 +2.50 20/40 OU ? * Examination: * Ophthalmology: DIABETES EYE EXAM P rocedure Performed: Y linnette D iabetic Retinopathy Screening: Y es R etinal Screening Performed: Y es OPHTHALMIC EXAMINATION AND EVALUATION P rocedure Performed: Y es DIABETIC RETINOPATHY M acular or Fundus exam: Y es P rovided communication to Referring Provider on Macular Edema findings? Y es P rovided communication to Referring Provider on the level of severity of Retinopathy findings? Y es P rovided communication to Referring Provider on the severity of Retinopathy and Macular Edema? Y es CONFRONTATION VISUAL FIELD (CVF): f ull to confrontation.? EXTRAOCULAR MOVEMENT: g ood range of motion bilaterally .? LIDS AND LASHES: w ithin normal limits. CONJUNCTIVA: c lear. CORNEA: c lear. ANTERIOR CHAMBER: D /Q . IRIS: w ithin normal limits. PUPILS: e qually round and reactive no afferent defect.? LENS: P CIOL OU YAG OD, PCO OS. FUNDI: o ptic disc C/D , MACULA FLAT NO HEME NO EDEMA, NO HOLES TEARS OR RD . D IL 1% TROP OU 01/14/2023 1:16PM. Assessment: * Assessment: 1. T ype 2 diabetes 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, bilateral - E11.3313 (Primary) 2 . R etinal edema - H35.81 ?3. A ge-related nuclear cataract, bilateral - H25.13 4 . P unctate keratitis, bilateral - H16.143 Plan: * Treatment: * Procedure Codes: 9 2134 OCT Retina, 3044F HG A1C LEVEL LT 7.0% * Follow Up: 1 Year * Images: * Electronic signature of SHAWNA KOVACS MD on 04/13/2025 at 03:27 PM EST Sign off status: Pending * Provider: Paola Kovacs MD Date: 0 01/15/2024 Generated for Printi ng/Mikg/eTransmitting on: 1 06/14/2024 03:27 PM EST History and Physical Notes * HPI (History of Present Illness) Category Sub-Category Detail Notes Category Not es New symptom(s) RECENT A1C UN KNOWN BUT IT WAS GOOD Examination Category Sub-Category Detail Notes Category Not es *Ophthalmology CONJUNCTIVA: clear DIL 1% TROP O U 01/14/2023 1:16PM PUPILS: equally round and re active no afferent defect FUNDI: optic disc C/D , MAC YOSSI FLAT NO HEME NO EDEMA, NO HOLES TEARS OR RD EXTRAOCULAR MOVEMENT: good range of michelle on bilaterally CONFRONTATION VISUAL FIELD (CVF): full t o confrontation CORNEA: clear LENS: PCIOL OU YAG OD, PCO OS IRIS: within normal limits ANTERIOR CHAMBER: D/Q LIDS AND LASHES: within normal limits OPHTHALMIC EXAMINATION AND EVALUATION Procedure Performed:: Yes DIABETES EYE EXAM Procedure Performed:: Yes Diabetic Retinopathy Screening:: Yes Retinal Screening Performed:: Yes DIABETIC RETINOPATHY Macular or Fundus exam:: Ye s Provided communication to Referring Prov ider on Macular Edema findings?: Yes Provided communication to Re ferring Provider on the level of severity of Retinopathy findings?: Yes Provided communication to Re ferring Provider on the severity of Retinopathy and Macular Edema?: Yes
--- OUTSIDE RECORDS SUMMARY | 2024-10-05 08:00 | XMS_ITS ---
[facility] Address [address] [phone] Care Team Providers Care Manager Hematology Name Role Phone Live Burnette Primary Care Provider Rashawn Castillo Unavailable Unavailable SHAWNA KOVACS Unavailable [phone] Allergies Allergen (clinical drug ingredient) Drug/Non Drug Allergy documented on EMR Reaction Allergy Type Onset Date Status penicillin Unknown Drug Allergy Active REASON FOR VISIT DIABETIC EYE EXAM. DM1 X 10 Y/O. CONTROLLED WITH HUMALOG. A1C 6.2%. BS 196 MG/DL (AFTER LUNCH). 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, bilateral (E11.3393) Active confirmed Encounters Encounter Location Date [facility] [address] [phone] 10/05/2024 SHAWNA KOVACS Retinal edema H35.81 ; [...] Year, Reason: Provider Name:SHAWNA KOVACS, 11:00:00 AM, [address] [place] [address], [place] [address], [place], [place], [phone], Progress Notes * Jose NGUYENDOB:1950 ( 74 yo F)Acc No.[id number]:10/05/2024 Progress Note Patient: Jose HUERTA Provider: Paola Kovacs MD :1950 A ge:73 Y S ex:Female Date:10/05/2024 Address:[address] [place] [address], [id number] Pcp:Live Burnette Subjective: * Chief Complaints: * 1 . DIABETIC EYE EXAM. DM1 X 10 Y/O. CONTROLLED WITH HUMALOG. A1C 6.2%. BS 196 MG/DL (AFTER LUNCH). MONITORED BY PCP DR BURNETTE AND SWITCH HOUSE OPERATOR DR ELIAS. * HPI: N ew symptom(s): [...] GAT 01:18 PM ?Spectacle ?Presenting Sph Cyl Yolyn H Prism V Prism Add DVA OD +1.25 +1.00 13 +2.50 20/50- OS PL +0.75 13 +2.50 20/60+ OU ?Manifest Sph Cyl Yolyn H Prism V Prism Add DVA OD +1.25 +1.75 010 +2.50 20/40 OS +1.00 +1.25 170 +2.50 20/40 ?Final Sph Cyl Yolyn H Prism V Prism Add DVA OD [...] 10/05/2024 Generated for Nayeli carr/Robert/eTransmitting on: 1 06/14/2024 03:27 PM EST History [...]
--- OUTSIDE RECORDS SUMMARY | 2024-10-12 12:15 | XMS_ITS ---
Author Organization [facility] Address [address] [phone] Care Team Providers Care Chancellor Name Role Phone Live Burnette Primary Care Provider Rashawn Castillo Unavailable Unavailable SHAWNA KOVACS Unavailable [phone] REASON FOR VISIT YAG OS Encounters Encounter Location Date [facility] [address] [place] [phone] 10/12/2024 SHAWNA KOVACS Plan Of Treatment Next Appt Details Provider Name:SHAWNA KOVACS, 11:00:00 AM, [address] [place] [address], [place], [place], [phone], Progress Notes * Jose NGUYENDOB:1950 ( 74 yo F)Acc No.[id number]:10/12/2024 Progress Note Patient: Jose HUERTA Provider: Paola Kovacs MD :1950 A ge:73 Y S ex:Female Date:10/12/2024 Address:[address] [place], [place] [phone] Pcp:Live Burnette Subjective: * Chief Complaints: * 1 . YAG OS. * Medical History: * Ocular Surgical History: Objective: * Vitals: Assessment: Plan: * Treatment: * Images: * Electronic signature of SHAWNA KOVACS MD on 04/13/2025 at 03:26 PM EST Sign off status: Pending * Provider: Paola Kovacs MD Date: 0 10/12/2024 Generated for Printi ng/Faxing/eTransmitting on: 1 06/14/2024 03:26 PM EST
--- OUTSIDE RECORDS SUMMARY | 2024-10-26 05:30 | XMS_ITS ---
Author Organization [facility] Address [address] [phone] Care Team Providers Care Plastic Mixer Name Role Phone Live Burnette Primary Care Provider Rasahwn Castillo Unavailable Unavailable FERMÍNDUCA Unavailable [phone] REASON FOR VISIT YAG OS Medications Medication [...] Notes Problem Secondary cataract of left eye (7069817080890 9105) Other secondary cataract, left eye (H26.492) Active confirmed Encounters Encounter Location Date [facility] [address] [place] [phone] 10/26/2024 SHAWNA KOVACS Retinal edema H35.81 ; [...] Reason: Provider Name:SHAWNA KOVACS, 11:00:00 AM, [address] [facility], [address], [place], [place], [phone], Progress Notes * Jose NGUYENDOB:1950 ( 74 yo F)Acc No.[id number]:10/26/2024 Progress Note Patient: Jose HUERTA Provider: Paola Kovacs MD :1950 A ge:74 Y S ex:Female Date:10/26/2024 Address:[address] [place] [address], [place] Pcp:Live Burnette Subjective: * Chief Complaints: * [...] 10/26/2024 Generated for Nayeli carr/Robert/Kirillitting on: 1 06/14/2024 03:27 PM EST History [...]
[2025-04-13] VITALS (9 sets, daily range): BP systolic 96–169; BP diastolic 35–92; PULSE 22–74; RESP 12–18; TEMP 36.7–36.9; O2SAT 97–100; BMI 26.1
--- NOTE | ~2025-04-13 | CT_ITS ---
EXAMINATION: CT HEAD WITHOUT CONTRAST (STROKE PROTOCOL) CLINICAL INFORMATION: Stroke protocol. Expressive aphasia. COMPARISON: 02/18/2021. TECHNIQUE: Contiguous axial imaging was performed from the skull base to vertex without intravenous administration of contrast. This CT examination was performed using dose optimization techniques as appropriate, variously including the following: *Automated exposure control *Adjustment of mA and/or kV according to patient size (this includes techniques or standardized protocols for targeted exams where dose is matched to indication/reason for exam; i.e. extremities or head) *Use of iterative reconstruction technique FINDINGS: There is no evidence of intracranial hemorrhage or extra-axial fluid collection. There is no mass effect, or edema. No CT evidence of acute territorial infarct. Ventricles, sulci, and cisterns are normal in size and configuration for patient age. No hydrocephalus. No midline shift. Negative hyperdense MCA sign. Negative insular ribbon sign. Patchy periventricular and deep white matter hypoattenuation is consistent with minimal small vessel ischemic changes. Normal pituitary. Atheromatous calcification of the bilateral carotid siphons and V4 segments vertebral arteries bilaterally. Globes and orbital contents image normally. There are bilateral lens replacements. No extracranial soft tissue abnormalities. The paranasal sinuses, mastoid air cells, and tympanic cavities are normally aerated. No suspicious bony abnormalities. There are no acute fractures evident. Head CT/CT head for STROKE IMPRESSION: No acute intracranial abnormality. No intracranial hemorrhage. No CT evidence of acute territorial infarct. This critical result was discussed with Dr. Noel at 11:14 AM hours on 04/13/2025. It was ascertained that the content and urgency of the report was understood at the time of direct communication. Electronically signed by: Byron Spann MD 04/13/2025 11:20 AM [facility]
--- NOTE | ~2025-04-13 | CT_ITS ---
EXAMINATION: CTA NECK WITH CONTRAST (STROKE) CTA BRAIN WITH CONTRAST (STROKE) CLINICAL INFORMATION: Expressive aphasia. COMPARISON: Noncontrast head CT dated earlier same day. No prior CT angiogram head and neck. TECHNIQUE: Test sequences and head and neck intravenous bolus administration 70 mL of Omnipaque 350. Helical imaging was performed in the axial plane from the aortic arch to the skull vertex. The data was processed at the cardiac cath lab radiology technologist's workstation for generation of MIP sequences. Angled MIPs and volume rendered reformatted images were also generated at an offline 3D workstation. Stenoses are assessed in accordance with NASCET criteria unless otherwise indicated. This CT examination was performed using dose optimization techniques as appropriate, variously including the following: *Automated exposure control *Adjustment of mA and/or kV according to patient size (this includes techniques or standardized protocols for targeted exams where dose is matched to indication/reason for exam; i.e. extremities or head) *Use of iterative reconstruction technique FINDINGS: The study is mild to moderately degraded by motion artifact throughout the examination, which limits the sensitivity of the study. NECK CTA: -AORTIC ARCH: Normal in caliber. Mild atheromatous calcification. Three-vessel branching pattern. -GREAT VESSEL ORIGINS: Widely patent. No stenosis. -RIGHT COMMON CAROTID ARTERY: Motion degradation. Normal in course and caliber to the level of the bifurcation. -CERVICAL RIGHT INTERNAL CAROTID ARTERY: Mild to moderate soft and calcific atheromatous plaque present at the bifurcation without significant luminal stenosis. The remainder of the vessel is normal in caliber and course into the skull base. -LEFT COMMON CAROTID ARTERY: Motion degradation. Normal in course and caliber to the level of the bifurcation. -CERVICAL LEFT INTERNAL CAROTID ARTERY: Mild to moderate soft and calcific atheromatous plaque present at the bifurcation without significant luminal stenosis. The remainder of the vessel is normal in caliber and course into the skull base. -CERVICAL RIGHT VERTEBRAL ARTERY: Non-dominant. Motion degradation. Normal in origin, course and caliber into the skull base. -CERVICAL LEFT VERTEBRAL ARTERY: Dominant. Motion degradation. Normal in origin, course and caliber into the skull base. OTHER, SOFT TISSUES: -No lymphadenopathy or mass. No abnormal fluid collection or soft tissue swelling. -The thyroid is absent or extremely diminutive. -Imaged superior mediastinal structures normal. There has been a prior median sternotomy. -Imaged lung apices clear. There is mild apical pleural parenchymal scarring. CTA OF THE BRAIN: Significantly motion degraded. This limits the sensitivity of the study. -INTRACRANIAL INTERNAL CAROTID ARTERIES: Severely limited evaluation due to motion. There is bilateral calcification. Cannot assess for patency. -RIGHT ANTERIOR CEREBRAL ARTERY: Motion limited. Grossly patent. Cannot assess for subtle stenoses. Normal arborization of the distal segments. -LEFT ANTERIOR CEREBRAL ARTERY: Motion limited. Grossly patent. Cannot assess for subtle stenoses. Normal arborization of the distal segments. -ANTERIOR COMMUNICATING ARTERY: Normal. -RIGHT MIDDLE CEREBRAL ARTERY: Motion limited. Grossly patent M1 segment of the MCA without occlusion. Cannot assess for subtle stenoses. -LEFT MIDDLE CEREBRAL ARTERY: Motion limited. Grossly patent M1 segment of the MCA without occlusion. Cannot assess for subtle stenoses. -RIGHT VERTEBRAL ARTERY V4: Appears to terminate as a PICA branch. -LEFT VERTEBRAL ARTERY V4: Motion degraded. There is a mild stenosis due to atheromatous calcification. -BASILAR ARTERY: Motion degradation. Normal without focal stenosis or occlusion. -RIGHT POSTERIOR CEREBRAL ARTERY: Motion degradation. Grossly patent. -LEFT POSTERIOR CEREBRAL ARTERY: Motion degradation. Grossly patent. -POSTERIOR COMMUNICATING ARTERIES: Not well seen. Normal opacification of the superior sagittal, straight, transverse, and sigmoid sinuses. No venous thrombosis. No space-occupying hemorrhage or definite evolving infarct. CT/CT angio head neck STROKE IMPRESSION: CTA NECK: 1. Significant motion degradation. Mild stenoses at the bilateral carotid bulbs secondary to mixed plaque. No high-grade stenosis or occlusion present. 2. Diminutive or absent thyroid gland. 3. Prior median sternotomy. CTA HEAD: 1. Heavily motion degraded. No definite vascular occlusion or high-grade stenosis. Cannot exclude moderate grade stenosis, aneurysm, or other abnormalities due to extensive motion artifact. 2. The major cortical and dural venous sinuses are patent. 3. No space-occupying hemorrhage or definitive evolving territory infarction. Electronically signed by: Byron Spann MD 04/13/2025 11:37 AM EST
--- NOTE | ~2025-04-13 | MR_ITS ---
EXAMINATION: MR BRAIN WITHOUT IV CONTRAST HISTORY: TIA vs CVA TECHNIQUE: Sagittal T1, and axial T1, FLAIR, T2, gradient echo, and diffusion weighted MR images of the brain were obtained. COMPARISON: Correlation is made with an unenhanced head CT dated 04/13/2025. FINDINGS: The pituitary is normal in size. The cerebellar tonsils are normally located. There is mild prominence of the ventricular system and cortical sulci, consistent with atrophy. Ndiaye/white differentiation is normal. There is no mass effect or midline shift. No intra or extra-axial fluid collections are identified. There are no foci of restricted diffusion. Normal vascular flow voids are noted in the basilar and carotid arteries. The visualized paranasal sinuses are clear. MR/MR head/brain wo con IMPRESSION: No acute intracranial abnormality. No evidence of an acute infarct. Electronically signed by: Marvin Jones MD 04/14/2025 12:10 PM [facility]
[2025-04-13 10:26] LABS: Glucose, Whole Blood 123 mg/dL (60-115)
--- NOTE | 2025-04-13 10:35 | ECG_ITS ---
Test Reason : AMS Blood Pressure : */* mmHG Vent. Rate : 59 BPM Atrial Rate : 59 BPM P-R Int : 158 ms QRS Dur : 118 ms QT Int : 462 ms P-R-T Axes : 61 -61 16 degrees QTcB Int : 457 ms Sinus bradycardia with sinus arrhythmia Incomplete right bundle branch block Left anterior fascicular block Abnormal ECG When compared with ECG of 27-Mar-2021 18:58, Afib has been replaced by sinus rhythm Referred By: Generic ED Physician Electronically Signed By: Candido Barber
--- NOTE | 2025-04-13 10:51 | ED.AMS ---
HPI - Altered Mental Status General Chief Complaint: Altered Mental Status Stated Complaint: AMS Time Seen by Provider: 04/13/25 10:37 Source: EMS, RN notes reviewed and other (ED nurse) Mode of arrival: EMS Limitations: altered mental status History of Present Illness ED Provider: Dr. Mariano Noel HPI narrative: 74-year-old female with a history of diabetes mellitus, hypertension, hyperlipidemia, hypothyroidism, chronic kidney disease, coronary artery disease,Congestive cardiomyopathy on Eliquis who presents emergency department for evaluation of altered mental status. According to paramedics, patient's daughter who lives with the patient, reported that the patient was confused kept repeating things which is unusual for her. On presentation in the emergency department the patient had an expressive aphasia but was able to follow commands without any difficulty. She had no focal weakness. Last well-known time was difficult to pinpoint however the patient did text her other daughter last night at 22:00 hours and according to her other daughter that does not live with her, the text made sense. The patient does take Ambien at night but this has not a new medication for her. Related Data Home Medications ?Medication ?Instructions ?Recorded ?Confirmed apixaban 5 mg tablet (Eliquis) 1 tab PO BID 03/13/21 04/13/25 bupropion HCl 300 mg 24 hr tablet, 1 tab PO DAILY 03/13/21 04/13/25 extended release ezetimibe 10 mg tablet 1 tab PO DAILY 03/13/21 04/13/25 rosuvastatin 40 mg tablet 1 tab PO DAILY 03/13/21 04/13/25 trazodone 100 mg tablet 2 tab PO BEDTIME Insomnia 03/13/21 04/13/25 insulin lispro 100 unit/mL 0 - 100 unit subcut DAILY 04/13/25 04/13/25 subcutaneous solution (Humalog U-100 Insulin) levothyroxine 75 mcg tablet 75 mcg PO DAILY@0600 04/13/25 04/13/25 losartan 50 mg tablet 50 mg PO DAILY 04/13/25 04/13/25 pantoprazole 40 mg tablet,delayed 40 mg PO BID 04/13/25 04/13/25 release zolpidem 10 mg tablet 10 mg PO BEDTIME 04/13/25 04/13/25 Allergies Allergy/AdvReac Type Severity Reaction Status Date / Time azithromycin (From ZITHROMAX) Allergy Severe STOMACH Verified 04/13/25 10:27 UPSET Penicillins (PENICILLINS) Allergy Severe ANAPHYLAXIS Verified 04/13/25 10:27 penicillin G Allergy Unknown Anaphylaxis Verified 04/13/25 10:27 Erythromycin Allergy Unknown Gastrointestinal Uncoded 04/13/25 10:27 Upset Review of Systems Review of Systems: Yes all other systems are reviewed and are negative [facility] Past Medical History Medical History Hypothyroidism CKD (chronic kidney disease), stage III CAD (coronary artery disease) Hyperlipemia HTN (hypertension) Diabetes Surgical History S/P triple vessel bypass History of open heart surgery Family History Family History Mother CAD (coronary artery disease) Social History Social History Household Members: Spouse Housing: House Do you presently have visiting nurse or other home services: No Alcohol intake: never Patient Tobacco Use Status: Former Tobacco user Tobacco use type: Cigarette Advance Directives: Yes Advance Directives on File: Yes Advance Directives Date on File: 03/28/21 Do you have a plan to hurt others: No Plan service: No Current occupational status: retired Physical Exam ED Vital Signs: Vital Signs - 24 hr 04/13/25 10:24 04/13/25 11:35 04/13/25 11:42 Temperature 98.1 F 98.1 F Pulse Rate 63 58 Respiratory Rate 18 14 Blood Pressure 137/63 163/48 H 161/53 H Pulse Oximetry 97 Oxygen Delivery Method Room Air Room Air 04/13/25 12:32 04/13/25 14:01 Temperature 98.4 F Pulse Rate 45 L 47 L Respiratory Rate 18 Blood Pressure 169/54 H 159/44 H Pulse Oximetry 99 Oxygen Delivery Method Room Air BMI result Body Mass Index 26.1 Initial vital signs were normal, she had episodes of asymptomatic bradycardia. Exam: General: Awake, alert in no distress Head: Normocephalic, atraumatic EENT: PERRL, sclera and conjunctiva are normal, mouth with no erythema or exudates Neck: Supple, no adenopathy Lung: breath sounds symmetric, no wheezing, no rales and no rhonchi Chest: symmetric movement, nontender Heart: regular rate and rhythm, normal S1, S2 no murmurs or rubs Abdomen: soft, non-tender, nondistended, normal bowel sounds Back: no vertebral tenderness, no CVAT Extremities: no deformities, moves all extremities symmetrically, no edema Neuro: General: Awake, alert, Expressive aphasia, unable to tell me the month, her age or identify objects, follows commands Cranial nerves: Cranial nerves 2-12 intact Strength: Moves all extremities symmetrically, strength 5/5 Psych: Pleasant, cooperative NIH Stroke Scale Internal: Initial- Upon Arrival Level of Consciousness: Alert Level of Consciousness Questions: Answers neither question correctly Level of Consciousness Commands: Performs both tasks correctly Best Gaze: Normal Visual: No visual loss Facial Palsy: Normal Motor Arm (Right): No drift Motor Arm (Left): No drift Motor Leg (Right): No drift Motor Leg (Left): No drift Limb Ataxia: Present in two limbs Sensory: Normal Best Language: Mild to moderate aphasia ( Expressive aphasia) Dysarthia: Normal Extinction and Inattention: No abnormality Score: 5 Medications Administered Discontinued Medications Generic Name Dose Route Start Last Admin Trade Name Freq PRN Reason Stop Dose Admin Aspirin 162 mg 04/13/25 13:08 04/13/25 13:08 Aspirin 81 Mg Tab.Chew PO 04/13/25 13:09 Not Given ONCE STA Iohexol 100 ml 04/13/25 11:12 04/13/25 11:13 Iohexol 350 Mg/Ml 100 Ml Infus..Btl IV 04/13/25 11:13 70 ml ONCE ONE Administration Medical Decision Making Medical Decision Making MDM Narrative: 74-year-old female with a history of diabetes mellitus, hypertension, hyperlipidemia, hypothyroidism, chronic kidney disease, coronary artery disease,Congestive cardiomyopathy [facility] who presents emergency department for evaluation of expressive aphasia. Neurologic exam was otherwise nonfocal. NIH stroke scale was 5 Differential diagnosis: Includes but is not limited to intracranial bleed, stroke, TIA, anemia, electrolyte abnormalities Course: 15:08 my independent interpretation patient's laboratory evaluation is as follows: Normocytic anemia with an H&H of 10.6 and 32-chronic. PT INR elevated 15.5 and 1.3. PTT normal 32.9. BUN elevated 19 with a an elevated creatinine of 1.58 with a GFR of 32 -chronic. Glucose was elevated 121. AST elevated 32. Troponin elevated at 22.2 -we will repeat now. TSH elevated 4.55 with a normal free T4 of 1.23. Ethanol level below detectable limits. CT head revealed no acute abnormalities. CT angiogram head and neck revealed no high-grade stenosis or occlusions present. The patient is now back at her baseline. I am concerned that she may have had a TIA versus a small stroke and the patient will require admission for further workup. . The patient's last well-known time Is not clearly now but based on her last text at 22:00 hours, she was outside of the therapeutic window for TNK . Also the patient may be on Eliquis which precludes her from thrombolytic therapy. I discuss the patient's presentation with her daughter. Patient agrees to staying in the hospital. The patient's daughter is going to get the patient's medication list and have her bring it to the hospital. Since the patient may be on Eliquis, I did not give the patient aspirin. The patient fell to her bedside swallowing exam and the speech therapist did a WARPMAN evaluation with the following recommendations WARPMAN Eval completed for Room 19: Suly Ragland. Recommend Regular, Thin liquids. Mild confusion noted- able to answer questions appropriately, follow commands, etc. Medications WHOLE with liquids; if large, break in half. WARPMAN to follow-up 1-2x. 15:56 I did discuss the patient's presentation with the covering hospitalist Dr. Ambrocio and he did accept the patient on the hospitalist service for further management. Differential Diagnosis Differential Diagnoses: The differential diagnosis associated with the presentation includes ( See above) Admission/Observation Consideration of admission/observation: Escalation of care including admission/observation considered ( yes) Consult Healthcare Provider Management of the patient was discussed with: Hospitalist Lab Data [facility] Lab Attestation statement: I reviewed the patient's lab results. 04/13/25 11:23 04/13/25 11:23 Labs: Lab Results 04/13/25 04/13/25 04/13/25 Range/Units 10:23 11:07 11:23 WBC 5.7 (4.8-10.8) X10*3/uL RBC 3.64 L (4.20-5.50) X10*6/uL Hgb 10.6 L (12.0-16.0) g/dl Hct 32.0 L (37.0-47.0) % MCV 87.9 (80.0-98.0) fL MCH 29.1 (27.0-33.0) pg MCHC 33.1 (31.0-35.0) g/dl RDW 13.0 (11.0-16.0) % Plt Count 162 (160-400) X10*3/uL MPV 11.5 (9.4-12.3) fL Immature Gran % (Auto) 0.3 (0.0-0.4) % Neut % (Auto) 67.9 (45-73) % Lymph % (Auto) 23.6 (20-40) % [place] % (Auto) 7.0 (2-11) % Eos % (Auto) 0.9 (0-4) % Baso % (Auto) 0.3 (0-2) % Lymph # (Auto) 1.4 (1.2-4.9) X10*3/uL [place] # (Auto) 0.4 (0.1-1.2) X10*3/uL Eos # (Auto) 0.1 (0.0-0.4) X10*3/uL Baso # (Auto) 0.0 (0.0-0.2) X10*3/uL Abs Immat Gran (auto) 0.02 (0.00-0.03) X10*3/uL Absolute Neuts (auto) 3.9 (2.0-8.3) x10*3/uL Absolute Nucleated RBC 0.000 (0.0-0.012) X10*3/uL Nucleated RBC % (auto) 0.0 (0.0-0.2) /100WBC PT 15.5 H (11.2-13.5) SEC Whole Blood PT 15.6 H (11.1-13.5) sec INR 1.3 H (0.9-1.1) Whole Blood INR 1.3 H (0.9-1.1) APTT 32.9 (26.7-34.1) SEC Sodium 138 (135-145) mmol/L Potassium 4.2 (3.3-5.1) mmol/L Chloride 106 (96-108) mmol/L Carbon Dioxide 22 (22-29) mmol/L Anion Gap 14 (12-20) BUN 19 H (9-16) mg/dL Creatinine 1.58 H (0.5-1.4) mg/dL Estim Creat Clear Calc 30.7 Estimated GFR 32 POC Glucose 123 H (60-115) mg/dL Random Glucose 121 H (60-115) mg/dL Calcium 9.0 (8.4-10.2) mg/dL Total Bilirubin 0.4 (0.0-1.0) mg/dL Direct Bilirubin 0.2 (0.0-0.5) mg/dL AST 32 H (5-31) U/L ALT 18 (0-31) U/L Alkaline Phosphatase 71 (39-117) U/L Troponin I High Sens 22.2 H (<3.5-17.0) ng/L Total Protein 5.7 L (6.5-8.0) g/dL Albumin 3.6 (3.5-5.0) g/dL Triglycerides 134 (<150) mg/dL Cholesterol 118 (<200) mg/dL LDL Cholesterol, Calc 49 (<100) mg/dL HDL Cholesterol 43 (>40) mg/dL TSH 4.55 H (0.32-4.0) uIU/mL Free T4 1.23 (0.71-1.85) ng/dL Ethyl Alcohol < 10 mg/dL 12/16/25 Range/Units 15:16 WBC (4.8-10.8) X10*3/uL RBC (4.20-5.50) X10*6/uL Hgb (12.0-16.0) g/dl Hct (37.0-47.0) % MCV (80.0-98.0) fL MCH (27.0-33.0) pg MCHC (31.0-35.0) g/dl RDW (11.0-16.0) % Plt Count (160-400) X10*3/uL MPV (9.4-12.3) fL Immature Gran % (Auto) (0.0-0.4) % Neut % (Auto) (45-73) % Lymph % (Auto) (20-40) % [place] % (Auto) (2-11) % Eos % (Auto) (0-4) % Baso % (Auto) (0-2) % Lymph # (Auto) (1.2-4.9) X10*3/uL [place] # (Auto) (0.1-1.2) X10*3/uL Eos # (Auto) (0.0-0.4) X10*3/uL Baso # (Auto) (0.0-0.2) X10*3/uL Abs Immat Gran (auto) (0.00-0.03) X10*3/uL Absolute Neuts (auto) (2.0-8.3) x10*3/uL Absolute Nucleated RBC (0.0-0.012) X10*3/uL Nucleated RBC % (auto) (0.0-0.2) /100WBC PT (11.2-13.5) SEC Whole Blood PT (11.1-13.5) sec INR (0.9-1.1) Whole Blood INR (0.9-1.1) APTT (26.7-34.1) SEC Sodium (135-145) mmol/L Potassium (3.3-5.1) mmol/L Chloride (96-108) mmol/L Carbon Dioxide (22-29) mmol/L Anion Gap (12-20) BUN (9-16) mg/dL Creatinine (0.5-1.4) mg/dL Estim Creat Clear Calc Estimated GFR POC Glucose (60-115) mg/dL Random Glucose (60-115) mg/dL Calcium (8.4-10.2) mg/dL Total Bilirubin (0.0-1.0) mg/dL Direct Bilirubin (0.0-0.5) mg/dL AST (5-31) U/L ALT (0-31) U/L Alkaline Phosphatase (39-117) U/L Troponin I High Sens 29.7 H (<3.5-17.0) ng/L Total Protein (6.5-8.0) g/dL Albumin (3.5-5.0) g/dL Triglycerides (<150) mg/dL Cholesterol (<200) mg/dL LDL Cholesterol, Calc (<100) mg/dL HDL Cholesterol (>40) mg/dL TSH (0.32-4.0) uIU/mL Free T4 (0.71-1.85) ng/dL Ethyl Alcohol mg/dL Independent Interpretation I performed an independent interpretation of an: EKG Interpretation: my independent interpretation patient's 12 EKG done on 04/13/2025 at 10:36 hours is as follows: Sinus bradycardia with a rate of 59, normal LA interval, prolonged QRS duration of 118 milliseconds, normal QTC interval of 457 milliseconds, right bundle-branch block, no ST segment elevation, no ST segment depression, inverted T-waves consistent with a right bundle-branch block no PACs, Critical Care Time Critical Care Time Critical Care Time: Yes Total Critical Care Time: 45 Attestation: Critical Care: The patient was critically ill with a high probability of imminent or life threatening deterioration. I spent greater than 30 minutes of discontinuous time evaluating the patient,delivering critical care at the bedside, discussing and evaluating pertinent data with consultants. Critical care time does not include time spent performing separately billable procedures or teaching. Total time spent performing critical care was 45 minutes. Discharge Plan Discharge Clinical Impression: Expressive aphasia
[2025-04-13 11:12] LABS: Prothrombin Time Whole Bld POC 15.6 sec (11.1-13.5); ~PT, ~INR - Anti Coag Clinic 1.3 (0.9-1.1)
[2025-04-13] MEDS: iohexoL 350 MG/ML 100 ML INFUS..BTL IV (11:13)
--- NOTE | 2025-04-13 11:14 | PC.NURSE ---
spoke with dtr Lashanda De Leon [phone] and pt was sending her a normal text at 1610 yesterday and again normal texting at 1400 yesterday, sister at home with mother was unable to provide any information re her mother, Lashanda did get a call from her sister at 0200 today and mother was confused at that time
[2025-04-13 11:28] LABS: MANUAL DIFF FLAG NO
[2025-04-13 11:29] LABS: Hematocrit 32.0 % (37.0-47.0); Hemoglobin 10.6 g/dl (12.0-16.0); Imm Gran Abs Auto 0.02 X10*3/uL (0.00-0.03); Imm Gran Pct Auto 0.3 % (0.0-0.4); Lymphocytes Absolute Auto 1.4 X10*3/uL (1.2-4.9); Mean Corpuscular HGB Conc 33.1 g/dl (31.0-35.0); Mean Corpuscular Hemoglobin 29.1 pg (27.0-33.0); Mean Corpuscular Volume 87.9 fL (80.0-98.0); NRBC Abs Auto 0.000 X10*3/uL (0.0-0.012); NRBC Pct Auto 0.0 /100WBC (0.0-0.2); Platelet Count 162 X10*3/uL (160-400); Red Blood Count 3.64 X10*6/uL (4.20-5.50); White Blood Count 5.7 X10*3/uL (4.8-10.8)
[2025-04-13 11:39] LABS: INTERNATIONAL NORM RATIO 1.3 (0.9-1.1); Prothrombin Time 15.5 SEC (11.2-13.5)
[2025-04-13 11:42] LABS: Partial Thromboplastin Time 32.9 SEC (26.7-34.1)
[2025-04-13 11:45] LABS: Stroke Lab Use COMPLETE
[2025-04-13 11:47] LABS: Alanine Aminotransferase 18 U/L (0-31); Albumin Level 3.6 g/dL (3.5-5.0); Alkaline Phosphatase 71 U/L (39-117); Anion Gap 14 (12-20); Aspartate Amino Transferase 32 U/L (5-31); Blood Urea Nitrogen 19 mg/dL (9-16); Calcium 9.0 mg/dL (8.4-10.2); Carbon Dioxide 22 mmol/L (22-29); Chloride 106 mmol/L (96-108); Cholesterol 118 mg/dL (<200); Creatinine Clr Calc Pharmacy 30.7; Estimated Glomerular Filt Rate 32; HDL Cholesterol 43 mg/dL (>40); Potassium 4.2 mmol/L (3.3-5.1); Sodium 138 mmol/L (135-145); Total Protein 5.7 g/dL (6.5-8.0); Triglycerides 134 mg/dL (<150)
[2025-04-13 11:51] LABS: Troponin-I High Sensitivity 22.2 ng/L (<3.5-17.0)
--- NOTE | 2025-04-13 11:55 | PC.NURSE ---
Spoke with patient's daughter (Merna) by phone. Merna updated this RN stating that her aunt was texting Suly at 22:00 on 04/12/2025 and having a normal conversation, and didn't appear confused. Dr. Noel updated regarding possible last well known time of 22:00 on 04/12/2025. Care ongoing by this RN.
[2025-04-13 13:55] LABS: Free T4 (Free Thyroxine) 1.23 ng/dL (0.71-1.85)
--- NOTE | 2025-04-13 15:24 | PC.NURSE ---
Patient's daughter (Merna) spoke with this RN & by phone, updated regarding plan, imaging, and lab results. Merna plans to come to bedside to visit the patient and provide the patient's phone. Speech therapy (Sudha Montesinos) came to bedside and evaluated the patient. Cleared by speech for regular diet, meds whole with liquids. Dr. Noel aware.
--- OUTSIDE RECORDS SUMMARY | 2025-04-13 15:27 | XMS_ITS | Encounter Summary ---
Author Organization [facility] Address [address] [facility] [address] [place] [address] Care Team Providers Care Armature Winder Repair Helper Name Role Phone Live Burnette MD Primary Care Provider [phone] Adalberto Erwin MD Unavailable Reason for Visit * Reason Comments Med Refill Encounter Details Date Type Department Care Team (Late st Contact Info) Description 11/19/2022 [facility]ill [facility] [address] [phone] Yony Leon NP [address] [place] [address] Paroxysmal atrial fibrillation Social History Tobacco Use [...] Care Team (Late st Contact Info) Description 09/17/2025 1:40 PM EDT Office Visit [facility] [address] [phone] Don Saunders MD [address] [place] [id number] documented as of this encounter Visit Diagnoses Diagnosis Paroxysmal atrial fibrillation Atrial fibrillation documented in this encounter Care Teams Armature Winder Repair Helper Relationship Specialty Start Date End Date Live Burnette MD [address] [place] [address] PCP - General 06/02/21 Adalberto Erwin MD [address] [facility] [address] [place] [address] PCP - Nephrology 06/02/21 06/27/23 documented as of this encounter
--- OUTSIDE RECORDS SUMMARY | 2025-04-13 15:27 | XMS_ITS | Encounter Summary ---
Author Organization [facility] Address [address] [facility] [address] [place] [address] Care Team Providers Care Wood Fence Erector Name Role Phone Live Burnette MD Primary Care Provider [phone] Adalberto Erwin MD Unavailable [phone] Reason for Visit * Reason Comments Med Refill Encounter Details Date Type Department Care Team (Late st Contact Info) Description 07/30/2022 [facility]ill [facility] [address] [phone] Vidya Lester NP [address] [place] [address] Paroxysmal atrial fibrillation (Primary Dx) Social History [...] 1:40 PM EDT Office Visit [facility] [address] [phone] Don Saunders MD [address] [place] [address] documented as of this encounter Visit Diagnoses Diagnosis Paroxysmal atrial fibrillation- Primary Atrial fibrillation documented in this encounter Care Teams Wood Fence Erector Relationship Specialty Start Date End Date Live Burnette MD [address] [facility] [address] [place] [address] PCP - General 06/02/21 Adalberto Erwin MD [address] [address] PCP - Nephrology 06/02/21 06/27/23 documented as of this encounter
--- OUTSIDE RECORDS SUMMARY | 2025-04-13 15:27 | XMS_ITS | Patient Health Record ---
Author Organization [facility] Address [address] [id number] Care Team Providers Care Remotely Operated Vehicle Name Role Phone Live Burnette Primary Care Provider Rashawn Castillo Unavailable Unavailable CLYDEDUC ALBRECHTA Unavailable [phone] Allergies Allergen (clinical drug ingredient) Drug/Non Drug [...] Problem Type I diabetes mellitus without complication (117541087) Type 1 diabetes mellitus without complications (E10.9) Active confirmed Problem Punctate keratitis (99142084) Punctate keratitis, bilateral (H16.143) Active confirmed Problem Nuclear senile cataract (548738374) Age-related nuclear cataract, bilateral (H25.13) Active confirmed Problem Secondary cataract of right eye (79463059533915681) Other secondary cataract, right eye (H26.491) Active confirmed Problem Secondary cataract of left eye (75087884343445584) Other secondary cataract, left eye (H26.492) Active confirmed Problem Retinal edema (9966887) Retinal edema (H35.81) Active confirmed Problem Macular edema and retinopathy due to type 2 diabetes mellitus (04510327089803) Type 2 diabetes 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, 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) Active confirmed Problem Moderate nonproliferative retinopathy due to type 2 diabetes mellitus (456359367562771) Type 2 diabetes mellitus with 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, bilateral (E11.3393) Active confirmed Encounters Encounter Location Date Provider Diagnosis [facility] [address] [place] [phone] 10/05/2024 SHAWNA BHAN Retinal edema H35.81 ; Type 2 diabetes mellitus with 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, bilateral E11.3393 ; Age-related nuclear cataract, bilateral H25.13 and Punctate keratitis, bilateral H16.143 [facility] [address] [place] [phone] 10/26/2024 SHAWNA BHAN Retinal edema H35.81 ; [...] Details Provider Name:SHAWNA KOVACS, 11:00:00 AM, [address] [facility], [place] [address], [place], [place], [id number], Insurance Providers Payer Name Payer Address Payer Phone Subscriber Number Group Number Insured Name Patient Relationship to Insured Coverage Start Date Coverage End Date Medicare [address] [place], [place] [id number] Jose Ragland Self - patient is the insured [address] [id number] Jose Ragland Self - patient is the [...]
--- OUTSIDE RECORDS SUMMARY | 2025-04-13 15:27 | XMS_ITS | Clinical Summary ---
Author Organization [facility] Address [address] [facility] [address] [place] [address] Care Team Providers Care Gate Watchman Name Role Phone Live Burnette MD Primary [...] mg by mouth once daily. 3 Active rosuvastatin (Crestor) 40 mg tabletIndications:C oronary artery disease involving [place] coronary artery of [place] heart without angina pectoris,Mixed hyperlipidemia Take 1 tablet (40 mg) by mouth in the morning. 90 tablet 3 4 Active ezetimibe (Zetia) 10 mg tabletIndications:C oronary artery disease involving [place] coronary artery of [place] heart without angina pectoris,PAD (peripheral artery disease),Paroxysmal [...] TWICE DAILY 90 tablet 3 5 Active ferrous sulfate 160 (50 Fe) mg ER tablet Take 160 mg by mouth once daily. Active ALPRAZolam (Xanax) 0.5 mg tablet Take 0.5 mg by mouth if needed at bedtime for anxiety. Active Active Problems Problem Noted Date Diagnosed Date Peripheral vascular disease, unspecified 022 Paroxysmal atrial fibrillation 08/03/2021 Type 1 diabetes mellitus without complications 0 08/03/2021 Coronary artery disease invo lving [place] coronary artery of [place] heart without angina pectoris 08/03/2021 Encounters Date Type Department Care Team Description 03/09/2025 2:40 PM EST Office Visit [facility] [address] [phone] Don Saunders MD Coronary artery disease involving [place] coronary artery of [place] heart without angina pectoris (Primary Dx); PAD (peripheral artery disease); Paroxysmal atrial fibrillation; Type 1 diabetes mellitus without complications; Bifascicular block; Essential hypertension; Mixed hyperlipidemia 03/09/2025 Travel from Last 3 Months Family History Medical [...] Sign Reading Time Taken Comments Blood Pressure 122/58 03/09/2025 2:03 PM EST Pulse 60 03/09/2025 2:03 PM EST Temperature 36.3 C (97.4 F) 07/21/2020 11:30 AM EDT Respiratory Rate - - Oxygen Saturation 100% 03/09/2025 2:03 PM EST Inhaled Oxygen Concentration - - Weight 68.5 kg (151 lb) 03/09/2025 2:03 PM EST Height 165.1 cm (5' 5 ) 03/09/2025 2:03 PM EST Body Mass Index 25.13 03/09/2025 2:03 PM EST Plan of Treatment Upcoming Encounters Date Type Department Care Team (Late st Contact Info) Description 09/17/2025 1:40 PM EDT Office Visit [facility] Center [facility] [address] [place] [phone] Don Saunders MD [address] [place] [address] Health Maintenance Due Date Last Done Comments [...] age to complete this topic HPV Vaccines (No Doses Required) Completed Hepatitis A Vaccines Aged Out No long [...] on patient's age to complete this topic Procedures Procedure Name Priority Date/Time Associated Diagnosis Comments ECG 12-LEAD Routine 03/09/2025 2:07 PM EST Coronary artery disease involving [place] coronary artery of [place] heart without angina pectoris from Last 3 Months Results * ECG 12 lead (Back Office) (03/09/2025 2:07 PM EST) us Don Saunders MD ECG ORDERABLES Final Res ult from Last 3 Months Insurance MEDICARE PART A AND B AARP SUPPLEMENT Care Teams Gate Watchman Relationship Specialty Start Date End Date Live Burnette MD [address] [place] [address] [address] [place] [address] PCP - General 06/02/21
[2025-04-13 15:45] LABS: Troponin-I High Sensitivity 29.7 ng/L (<3.5-17.0)
--- NOTE | 2025-04-13 16:07 | PM.IMHP ---
History of Present Illness Date of Service: 04/13/25 Attending physician on admission: Aria Ambrocio Chief Complaint: tia patient seems poor historian 'saying she used more insulin and fs were low-but her family at bedside says fs were ok and in hospital also in 120's HPI: 74-year-old female with a history of diabetes mellitus, hypertension, hyperlipidemia, hypothyroidism, chronic kidney disease, coronary artery disease,Congestive cardiomyopathy on Eliquis who presents emergency department for evaluation of altered mental status According to paramedics, patient's daughter who lives with the patient, reported that the patient was confused kept repeating things which is unusual for her, also has an expressive aphasia but. She had no focal weakness. per ed notes :Last well-known time was difficult to pinpoint however the patient did text her other daughter last night at 22:00 hours and according to her other daughter that does not live with her, the text made sense. Denies any new complaint of chest pain or shortness of breath or abdominal pain or fever or chills or nausea or vomiting Denies any coughOr weakness or numbness. Lab imaging reviewed CT head and imaging seems negative. Review of Systems Review of Systems: As above. Yes all other systems are reviewed and are negative [facility] Medical History Hypothyroidism CKD (chronic kidney disease), stage III CAD (coronary artery disease) Hyperlipemia HTN (hypertension) Diabetes Family History Mother CAD (coronary artery disease) Surgical History S/P triple vessel bypass History of open heart surgery Social History Household Members: Spouse Housing: House Do you presently have visiting nurse or other home services: No Alcohol intake: never Patient Tobacco Use Status: Former Tobacco user Tobacco use type: Cigarette Advance Directives: Yes Advance Directives on File: Yes Advance Directives Date on File: 03/28/21 Do you have a plan to hurt others: No Plan service: No Current occupational status: retired Meds Allergies Allergy/AdvReac Type Severity Reaction Status Date / Time azithromycin (From ZITHROMAX) Allergy Severe STOMACH Verified 04/13/25 10:27 UPSET Penicillins (PENICILLINS) Allergy Severe ANAPHYLAXIS Verified 04/13/25 10:27 penicillin G Allergy Unknown Anaphylaxis Verified 04/13/25 10:27 Erythromycin Allergy Unknown Gastrointestinal Uncoded 04/13/25 10:27 Upset Home Medications ?Medication ?Instructions ?Recorded ?Confirmed ?Last Taken ?Type apixaban 5 mg tablet (Eliquis) 1 tab PO BID 03/13/21 04/13/25 04/12/25 History bupropion HCl 300 mg 24 hr tablet, 1 tab PO DAILY 03/13/21 04/13/25 04/12/25 History extended release ezetimibe 10 mg tablet 1 tab PO DAILY 03/13/21 04/13/25 04/12/25 History rosuvastatin 40 mg tablet 1 tab PO DAILY 03/13/21 04/13/25 04/12/25 History trazodone 100 mg tablet 2 tab PO BEDTIME Insomnia 03/13/21 04/13/25 04/12/25 History insulin lispro 100 unit/mL 0 - 100 unit subcut DAILY 04/13/25 04/13/25 04/12/25 History subcutaneous solution (Humalog U-100 Insulin) levothyroxine 75 mcg tablet 75 mcg PO DAILY@0600 04/13/25 04/13/25 04/12/25 History losartan 50 mg tablet 50 mg PO DAILY 04/13/25 04/13/25 04/12/25 History pantoprazole 40 mg tablet,delayed 40 mg PO BID 04/13/25 04/13/25 04/12/25 History release zolpidem 10 mg tablet 10 mg PO BEDTIME 04/13/25 04/13/25 04/12/25 History Physical Exam Vital Signs and Narrative: Vital Signs: Last Vital Signs Temp 98.4 F 04/13/25 14:01 Pulse 47 L 04/13/25 14:01 Resp 18 04/13/25 14:01 BP 159/44 H 04/13/25 14:01 Pulse Ox 99 04/13/25 14:01 O2 Del Method Room Air 04/13/25 14:01 BMI result Body Mass Index 26.1 Appearance: Alert.? Oriented X3.? Eyes: Pupils equal, round and reactive to light.? Sclera nonicteric.? cvs: rrr, [id number] , no murmur res: clear to auscultation ,no rhonchii or wheezing abd: no rebound or guarding ,nt, bs present. ext pulses present , no cyanosis . neuro: axo3 , nonfocal. Results Labs 04/13/25 11:23 04/13/25 11:23 Labs: Laboratory Results - last 24 hr 04/13/25 04/13/25 04/13/25 10:23 11:07 11:23 MCV 87.9 MCH 29.1 MCHC 33.1 RDW 13.0 Plt Count 162 MPV 11.5 Immature Gran % (Auto) 0.3 Neut % (Auto) 67.9 Lymph % (Auto) 23.6 [place] % (Auto) 7.0 Eos % (Auto) 0.9 Baso % (Auto) 0.3 Lymph # (Auto) 1.4 [place] # (Auto) 0.4 Eos # (Auto) 0.1 Baso # (Auto) 0.0 Abs Immat Gran (auto) 0.02 Absolute Neuts (auto) 3.9 Absolute Nucleated RBC 0.000 Nucleated RBC % (auto) 0.0 PT 15.5 H Whole Blood PT 15.6 H INR 1.3 H Whole Blood INR 1.3 H APTT 32.9 Anion Gap 14 Estim Creat Clear Calc 30.7 Estimated GFR 32 POC Glucose 123 H Random Glucose 121 H Calcium 9.0 Total Bilirubin 0.4 Direct Bilirubin 0.2 AST 32 H ALT 18 Alkaline Phosphatase 71 Troponin I High Sens 22.2 H Total Protein 5.7 L Albumin 3.6 Triglycerides 134 Cholesterol 118 LDL Cholesterol, Calc 49 HDL Cholesterol 43 TSH 4.55 H Free T4 1.23 Ethyl Alcohol < 10 04/13/25 15:16 MCV MCH MCHC RDW Plt Count MPV Immature Gran % (Auto) Neut % (Auto) Lymph % (Auto) [place] % (Auto) Eos % (Auto) Baso % (Auto) Lymph # (Auto) [place] # (Auto) Eos # (Auto) Baso # (Auto) Abs Immat Gran (auto) Absolute Neuts (auto) Absolute Nucleated RBC Nucleated RBC % (auto) PT Whole Blood PT INR Whole Blood INR APTT Anion Gap Estim Creat Clear Calc Estimated GFR POC Glucose Random Glucose Calcium Total Bilirubin Direct Bilirubin AST ALT Alkaline Phosphatase Troponin I High Sens 29.7 H Total Protein Albumin Triglycerides Cholesterol LDL Cholesterol, Calc HDL Cholesterol TSH Free T4 Ethyl Alcohol Imaging Radiologist's Impressions: Impressions Head CT 04/13/25 11:03 IMPRESSION: No acute intracranial abnormality. No intracranial hemorrhage. No CT evidence of acute territorial infarct. This critical result was discussed with Dr. Noel at 11:14 AM hours on 04/13/2025. It was ascertained that the content and urgency of the report was understood at the time of direct communication. Electronically signed by: Byron Spann MD 04/13/2025 11:20 AM EST RP Head/Neck CTA 04/13/25 11:07 IMPRESSION: CTA NECK: 1. Significant motion degradation. Mild stenoses at the bilateral carotid bulbs secondary to mixed plaque. No high-grade stenosis or occlusion present. 2. Diminutive or absent thyroid gland. 3. Prior median sternotomy. CTA HEAD: 1. Heavily motion degraded. No definite vascular occlusion or high-grade stenosis. Cannot exclude moderate grade stenosis, aneurysm, or other abnormalities due to extensive motion artifact. 2. The major cortical and dural venous sinuses are patent. 3. No space-occupying hemorrhage or definitive evolving territory infarction. Electronically signed by: Byron Spann MD 04/13/2025 11:37 AM EST RP Assessment and Plan (1) Mental status alteration: Status: Acute (2) Expressive aphasia: Status: Acute Plan 74-year-old female with a history of diabetes mellitus, hypertension, hyperlipidemia, hypothyroidism, chronic kidney disease, coronary artery disease,Congestive cardiomyopathy on [facility] who presents emergency department for evaluation of altered mental status, expressive aphasia. Possible TIA Monitor on tele Neuro checks MRI Neuro evaluation pt/ot, bedside swallow check possible uti: unable to tell symptoms but c/o increased frequency us -shows pyuria and bacteriuria, urine culture pending Added Levaquin since patient penicillin allergic. ckd 3: Monitor renal function electrolyte closely Diabetes : Patient uses insulin pump now held continue insulin sliding scale monitor point of cares closely Coronary disease Status post CABG: Continue medications Hyperlipidemia: Home medications dvt prophylaxis: On Eliquis Above management discussed with the patient in detail length as well as the family member present during the conversation, they all understand and in agreement with the above plan, time spent 70 minute. Patient is full code. Quality Stroke Does the patient have a stroke diagnosis?: No VTE Prior VTE?: No VTE Risk Level:: Medical - moderate - high VTE Device Contraindication: N/A - Device Ordered VTE Drug Contraindication: N/A - Med Ordered
--- NOTE | 2025-04-13 16:43 | MHC.SL.SWA ---
Speech Pathologist Impression: Oropharyngeal WFL Risk of Aspiration Due to: intermittent confusion/ expressive aphasia Dysphasia Diet Status: Recommend CONTINUE regular solids, thin liquids with intermittent supervision Liquid Consistency and Strategies for Safe Swallow: Liquid Intake Recommendation: Thin Liquid Intake Strategies: Solid Food Consistency: Dietary Recommendations: Regular Additional Modifications to Solid Foods: Oral Medication Intake: Whole with Liquid Please contact the pharmacy regarding appropriate crushable or liquid drug formulations that are available whenever modified delivery is recommended. Compensatory Strategies and Precautions to be Taken for Safe Swallow: Sit Upright Slow self-feeding rate Small sips/bites Alternate liquids/solids Remain upright after meal (30 minutes) Supervision While Eating and Drinking for Safe Swallow: Intermittent Supervision Foods to Avoid: Swallowing Recommended Treatments: Compensatory strategies Recommendation for Speech: Inpatient Speech Therapy Comment: Patient presents with oropharyngeal swallowing function deemed WFL. Patient with no overt s/sx of penetration/aspiration. Patient denies any swallowing difficulties, odynophagia, or esophageal s/sx. Patient with timely mastication, adequate cohesion and clearance for all solids trialed. Patient with noted mild confusion/intermittent. Patient able to answer questions appropriately during evaluation; named 6/6 objects presented to her; named correct category 4/4, followed 2-step commands. Patient aware of confusion at time. Noted anxious behaviors of looking frantically around the room, taking deep breath, etc. Patient may benefit from standardized language assessment if intermittent expressive language difficulties remain; no overt difficulties noted on evaluation. Recommend diet of REGULAR solids, THIN liquids with medications whole with liquids, larger pill broken in half with liquids. Intermittent supervision d/t intermittent confusion- patient with no difficulties feeding self. MD, RN, and RD notified of recommendations via secure chat. REVENUE INTEGRITY ANALYST to follow up 1-2x. Frequency/Duration: M-F Daily- f/u 1-2x Date Range for Service Req: Timeline to reassess: Cuprous Chloride Operator Clinican/Clinical Fellow: No Supervisory Statement: I have reviewed and agree with the student/clinical fellow's documentation: N/A Speech Language Pathologist: Sudha Montesinos M.A., [facility]-REVENUE INTEGRITY ANALYST
--- NOTE | 2025-04-13 17:01 | PHA.MEDREC ---
Addendum entered by Ned Montana RPh 04/13/25 17:09: Med rec reviewed Original Note: Pharmacy Consult ? Medication Reconciliation Pharmacy has completed the medication reconciliation. Spoke with pt and she confirmed her medications. Pt confirmed she has on Tx_Slim pump that she injects Humalog into daily.
[2025-04-13 17:25] LABS: Appearance Urine Cloudy; Glucose Urine UA Negative (Negative); PH >= 9.0 (5.0-9.0); Specific Gravity - Urine 1.025 (1.005-1.025); UMIC TRIGGER UACC YES
[2025-04-13 17:38] LABS: Cannabinoid Screen Urine Not Detected (Not Detect)
[2025-04-13 17:42] LABS: UACC Culture Trigger YES
[2025-04-13 21:46] LABS: Glucose, Whole Blood 210 mg/dL (60-115)
[2025-04-14 03:43] VITALS: BP 97/43; PULSE 57; RESP 14; TEMP 36.7; O2SAT 97
[2025-04-14 04:30] LABS: Hematocrit 34.2 % (37.0-47.0); Hemoglobin 11.0 g/dl (12.0-16.0); Mean Corpuscular HGB Conc 32.2 g/dl (31.0-35.0); Mean Corpuscular Hemoglobin 28.6 pg (27.0-33.0); Mean Corpuscular Volume 88.8 fL (80.0-98.0); NRBC Abs Auto 0.000 X10*3/uL (0.0-0.012); NRBC Pct Auto 0.0 /100WBC (0.0-0.2); Platelet Count 165 X10*3/uL (160-400); Red Blood Count 3.85 X10*6/uL (4.20-5.50); White Blood Count 6.3 X10*3/uL (4.8-10.8)
[2025-04-14 05:00] LABS: Anion Gap 15 (12-20); Blood Urea Nitrogen 20 mg/dL (9-16); Calcium 8.7 mg/dL (8.4-10.2); Carbon Dioxide 21 mmol/L (22-29); Chloride 106 mmol/L (96-108); Creatinine Clr Calc Pharmacy 28.5; Estimated Glomerular Filt Rate 30; Potassium 5.5 mmol/L (3.3-5.1); Sodium 136 mmol/L (135-145)
[2025-04-14 06:24] VITALS: BP 107/40; PULSE 58; RESP 19; TEMP 36.8; O2SAT 97
[2025-04-14] MEDS: 0.9 % Sodium Chloride Flush 3 ML SYRINGE IVFLUSH ×2 (07:14→07:37)
[2025-04-14 07:33] LABS: Glucose, Whole Blood 367 mg/dL (60-115)
[2025-04-14] MEDS: buPROPion HCl XL 300 MG TAB.ER.24H PO (07:36)
[2025-04-14 08:31] VITALS: BP 128/47; PULSE 68; RESP 13; TEMP 36.7; O2SAT 96
--- NOTE | 2025-04-14 09:34 | PM.NEUROCN ---
History of Present Illness Data of Consult Service Date: 04/14/25 Primary Care Provider: Unknown Physician HPI Reason for consult: Altered mental status This is a 74-year-old female with a history of diabetes mellitus, hypertension, hyperlipidemia, hypothyroidism, chronic kidney disease, coronary artery disease,Congestive cardiomyopathy on Eliquis who presents emergency department for evaluation of altered mental status According to paramedics, patient's daughter who lives with the patient, reported that the patient was confused kept repeating things which is unusual for her. She had no focal weakness. Last well-known time was difficult to pinpoint however the patient did text her other daughter last night at 22:00 hours and according to her other daughter that does not live with her, the text made sense. Denies any new complaint of chest pain or shortness of breath or abdominal pain or fever or chills or nausea or vomiting Denies any cough or weakness or numbness. At this point the patient feels back to her baseline. She is convinced she had low blood sugars. She says she functions normally at home lives with her and daughter and does all the chores but has not driven for 3 years because the license and she forgot about it. It sounds like she may have some mild cognitive impairment at baseline. Labs neg. CT head and CTA head and neck negative. [facility] Past Medical History Medical History Hypothyroidism CKD (chronic kidney disease), stage III CAD (coronary artery disease) Hyperlipemia HTN (hypertension) Diabetes Family History Family History Mother CAD (coronary artery disease) Surgical History Surgical History S/P triple vessel bypass History of open heart surgery Social History Social History Household Members: Spouse Housing: House Do you presently have visiting nurse or other home services: No Alcohol intake: never Patient Tobacco Use Status: Former Tobacco user Tobacco use type: Cigarette Smoked in Last 30 Days: No Use of substances other than those prescribed or required for medical reasons: No Advance Directives: Yes Advance Directives on File: Yes Advance Directives Date on File: 03/28/21 Do you have a plan to hurt others: No Plan Nutrition Risks: No Nutritional Risk service: No Current occupational status: retired Meds Allergies Allergy/AdvReac Type Severity Reaction Status Date / Time azithromycin (From ZITHROMAX) Allergy Severe STOMACH Verified 04/13/25 10:27 UPSET Penicillins (PENICILLINS) Allergy Severe ANAPHYLAXIS Verified 04/13/25 10:27 penicillin G Allergy Unknown Anaphylaxis Verified 04/13/25 10:27 Erythromycin Allergy Unknown Gastrointestinal Uncoded 04/13/25 10:27 Upset Active Medications: Current Medications Acetaminophen (Acetaminophen 325 Mg Tablet) 650 mg PO Q6H PRN PRN Reason: Pain, Mild 1-3,fever,headache Last Admin: 04/14/25 08:02 Dose: 650 mg Apixaban (Apixaban 5 Mg Tablet) 5 mg PO BID [facility] Last Admin: 04/14/25 07:36 Dose: 5 mg Atorvastatin Calcium (Atorvastatin Calcium 80 Mg Tablet) 80 mg PO DAILY [facility] Last Admin: 04/14/25 07:37 Dose: 80 mg Bupropion HCl (Bupropion Hcl Xl 300 Mg Tab.Er.24h) 300 mg PO DAILY [facility] Last Admin: 04/14/25 07:36 Dose: 300 mg Calcium Carbonate (Calcium Carbonate 750 Mg Tab.Chew) 750 mg PO Q4H PRN PRN Reason: Heartburn Dextrose (Dextrose 50 % 25 Gm/50 Ml Syringe) 25 gm IVPUSH Q15M PRN; Protocol PRN Reason: per Hypoglycemia Standing Ord. Ezetimibe (Ezetimibe 10 Mg Tablet) 10 mg PO DAILY [facility] Last Admin: 04/14/25 07:36 Dose: 10 mg Glucose (Glucose Gel 15 Gm Gel..Gram.) 15 gm PO Q15M PRN; Protocol PRN Reason: per Hypoglycemia Standing Ord. Levofloxacin (Levaquin) 250 mg in 50 mls @ 1 mls/hr IV Q24H [facility] Insulin Human Lispro (Insulin Lispro 100 Unit/Ml 3 Ml Vial) 0 unit SUBCUT QIDACHS [facility]; Protocol Last Admin: 04/14/25 07:37 Dose: 8 unit Levothyroxine Sodium (Levothyroxine Sodium 75 Mcg Tablet) 75 mcg PO DAILY@0600 [facility] Last Admin: 04/14/25 07:12 Dose: 75 mcg Losartan Potassium (Losartan Potassium 50 Mg Tablet) 50 mg PO DAILY [facility]; Protocol Last Admin: 04/14/25 07:36 Dose: 50 mg Magnesium Hydroxide (Milk Of Magnesia 30 Ml Oral.Susp) 30 ml PO DAILY PRN PRN Reason: Constipation Melatonin (Melatonin 3 Mg Tablet) 6 mg PO BEDTIME PRN PRN Reason: Insomnia Omeprazole (Omeprazole 20 Mg Capsule.Dr) 20 mg PO BID@0630,1630 [facility] Last Admin: 04/14/25 07:12 Dose: 20 mg Ondansetron HCl (Ondansetron Hcl 4 Mg/2 Ml Vial) 4 mg IVPUSH Q8H PRN PRN Reason: Nausea and Vomiting Last Admin: 04/14/25 08:02 Dose: 4 mg Sodium Chloride (0.9 % Sodium Chloride Flush 3 Ml Syringe) 3 ml IVFLUSH QSHIFT [facility] Last Admin: 04/14/25 07:37 Dose: 3 ml Trazodone HCl (Trazodone Hcl 100 Mg Tablet) 200 mg PO BEDTIME [facility] Last Admin: 04/13/25 21:48 Dose: 200 mg Zolpidem Tartrate (Zolpidem Tartrate 5 Mg Tablet) 10 mg PO BEDTIME [facility] Last Admin: 04/13/25 21:48 Dose: 10 mg Home Medications ?Medication ?Instructions ?Recorded ?Confirmed ?Last Taken ?Type apixaban 5 mg tablet (Eliquis) 1 tab PO BID 03/13/21 04/13/25 04/12/25 History bupropion HCl 300 mg 24 hr tablet, 1 tab PO DAILY 03/13/21 04/13/25 04/12/25 History extended release ezetimibe 10 mg tablet 1 tab PO DAILY 03/13/21 04/13/25 04/12/25 History rosuvastatin 40 mg tablet 1 tab PO DAILY 03/13/21 04/13/25 04/12/25 History trazodone 100 mg tablet 2 tab PO BEDTIME Insomnia 03/13/21 04/13/25 04/12/25 History insulin lispro 100 unit/mL 0 - 100 unit subcut DAILY 04/13/25 04/13/25 04/12/25 History subcutaneous solution (Humalog U-100 Insulin) levothyroxine 75 mcg tablet 75 mcg PO DAILY@0600 04/13/25 04/13/25 04/12/25 History losartan 50 mg tablet 50 mg PO DAILY 04/13/25 04/13/2525 History pantoprazole 40 mg tablet,delayed 40 mg PO BID 04/13/25 04/13/25 04/12/25 History release zolpidem 10 mg tablet 10 mg PO BEDTIME 04/13/25 04/13/25 04/12/25 History Physical Exam Vital Signs: Vital Signs: Last Vital Signs Temp 98.1 F 04/14/25 08:31 Pulse 68 04/14/25 08:31 Resp 13 04/14/25 08:31 BP 128/47 L 04/14/25 08:31 Pulse Ox 96 04/14/25 08:31 O2 Del Method Room Air 04/14/25 08:31 BMI result Body Mass Index 26.1 Neuro: Other: She is alert pleasant and cooperative oriented x3 except she thought it was the 18th instead of the 17th. She answers all questions appropriately with no dysphagia. Cranial nerves 2-12 are normal. Muscle tone and strength are normal in all 4 extremities. Deep tendon reflexes symmetrical and plantar responses are flexor. Results Labs 04/14/25 04:20 04/14/25 04:20 Labs: Short CBC 04/13/25 04/14/25 Range/Units 11:23 04:20 WBC 5.7 6.3 (4.8-10.8) X10*3/uL Hgb 10.6 L 11.0 L (12.0-16.0) g/dl Hct 32.0 L 34.2 L (37.0-47.0) % Plt Count 162 165 (160-400) X10*3/uL BMP 04/13/25 04/14/25 11:23 04:20 Sodium 138 136 Potassium 4.2 5.5 H D Chloride 106 106 Carbon Dioxide 22 21 L BUN 19 H 20 H Creatinine 1.58 H 1.70 H Calcium 9.0 8.7 Liver Function 04/13/25 Range/Units 11:23 Total Bilirubin 0.4 (0.0-1.0) mg/dL Direct Bilirubin 0.2 (0.0-0.5) mg/dL AST 32 H (5-31) U/L ALT 18 (0-31) U/L Alkaline Phosphatase 71 (39-117) U/L Albumin 3.6 (3.5-5.0) g/dL Urine 04/13/25 Range/Units 17:16 Urine Color Yellow Urine Appearance Cloudy Urine pH >= 9.0 (5.0-9.0) Ur Specific [place] 1.025 (1.005-1.025) Urine Protein 30 (1+) H (Neg-Trace) mg/dL Urine Glucose (UA) Negative (Negative) mg/dL Assessment and Plan (1) Mental status alteration: Status: Acute She appears back to her baseline. Her CT imaging is unremarkable. Because of the transient acute change it would be appropriate to do an MRI to see if a microvascular insult occurred that might have produced the transient cognitive impairment. She seems to have recovered fully. No obvious metabolic cause was determined. Procedures Date of Service Date of Service: 04/14/25
--- NOTE | 2025-04-14 09:54 | PC.NURSE ---
mri screening form completed with patient
--- NOTE | 2025-04-14 12:03 | MHC.CM.PN ---
CURRENTLY AWAITING MRI RESULTS. DAUGHTER, JON AWARE [phone].
[2025-04-14 12:52] LABS: Glucose, Whole Blood 289 mg/dL (60-115)
--- NOTE | 2025-04-14 12:56 | P.DS_ITS ---
DS: Providers Provider Date of admission: 04/13/25 16:06 Date of discharge: 04/14/25 Primary care physician: Unknown Physician Consults: 04/13/25 18:02 Consult to Neurology Routine Consulting Provider: [facility] Reason for consultation: tia DS: Diagnosis Discharge Diagnosis (1) Mental status alteration: Status: Acute DS: Summary Hospital Course Hospital Course: from initial hpi: Chief Complaint: tia patient seems poor historian 'saying she used more insulin and fs were low-but her family at bedside says fs were ok and in hospital also in 120's HPI: 74-year-old female with a history of diabetes mellitus, hypertension, hyperlipidemia, hypothyroidism, chronic kidney disease, coronary artery disease,Congestive cardiomyopathy on Eliquis who presents emergency department for evaluation of altered mental status According to paramedics, patient's daughter who lives with the patient, reported that the patient was confused kept repeating things which is unusual for her, also has an expressive aphasia but. She had no focal weakness. per ed notes :Last well-known time was difficult to pinpoint however the patient did text her other daughter last night at 22:00 hours and according to her other daughter that does not live with her, the text made sense. Denies any new complaint of chest pain or shortness of breath or abdominal pain or fever or chills or nausea or vomiting Denies any coughOr weakness or numbness. Lab imaging reviewed CT head and imaging seems negative. hospital course: Patient was admitted for possible TIA. Her symptoms completely resolved. MR I was negative. She will continue on Eliquis and statin. Noted to have positive urinalysis possible UTI, culture should be followed up she will be discharged on 3 dose of Levaquin. For CKD 3 she remained stable. For hyperkalemia of 5.5, losartan has been held. For diabetes was continued on insulin sliding scale. For CAD continued on Eliquis and statin. Patient is feeling better and she will be discharged home. Time Attestation Discharge Coordination Time (in mins): 35 Quality: Safe Use of Opioids Does Pt have an Active Cancer Diagnosis on the Problem List?: No Quality: Stroke Does the patient have a stroke diagnosis?: Yes Reason for No Anti-thrombotic at DC: Drug treatment not indicated Reason for No Anticoagulant at DC: N/A - Med Ordered Reason Not Initiating IV-Tpa: Drug treatment not indicated Reason for No Anti-thrombotic by Day Two: Drug treatment not indicated Reason for No Statin at DC: N/A - Med Ordered Physical Exam Vital Signs: Vital Signs: Last Vital Signs Temp 98.1 F 04/14/25 08:31 Pulse 68 04/14/25 08:31 Resp 13 04/14/25 08:31 BP 128/47 L 04/14/25 08:31 Pulse Ox 96 04/14/25 08:31 O2 Del Method Room Air 04/14/25 08:31 BMI result Body Mass Index 26.1 Neuro: Other: She is alert pleasant and cooperative oriented x3 except she thought it was the 18th instead of the 17th. She answers all questions appropriately with no dysphagia. Cranial nerves 2-12 are normal. Muscle tone and strength are normal in all 4 extremities. Deep tendon reflexes symmetrical and plantar responses are flexor. DS: Data Data Completed and Pending Completed studies during hospitalization [Text1]: Procedures Insertion of Infusion Device into Superior Vena Cava, Percutaneous Approach (03/13/21) Introduction of Vasopressor into Central Vein, Percutaneous Approach (03/13/21) Release Peritoneum, Open Approach (03/13/21) Transfusion of Nonautologous Frozen Plasma into Peripheral Vein, Percutaneous Approach (03/13/21) Transfusion of Nonautologous Red Blood Cells into Peripheral Vein, Percutaneous Approach (03/13/21) Labs on day of discharge: Laboratory Results - last 24 hr 04/13/25 04/13/25 04/13/25 11:23 15:16 17:16 WBC RBC Hgb Hct MCV MCH MCHC RDW Plt Count MPV Absolute Nucleated RBC Nucleated RBC % (auto) Sodium Potassium Chloride Carbon Dioxide Anion Gap BUN Creatinine Estim Creat Clear Calc Estimated GFR POC Glucose Random Glucose Calcium Troponin I High Sens 29.7 H Free T4 1.23 Urine Color Yellow Urine Appearance Cloudy Urine pH >= 9.0 Ur Specific [place] 1.025 Urine Protein 30 (1+) H Urine Glucose (UA) Negative Urine Ketones Trace Urine Blood Small (1+) H Urine Nitrite Positive H Ur Leukocyte Esterase Large (3+) H Urine RBC 0-2 Urine WBC 6-10 H Ur Squamous Epith Cells 0-2 Urine Bacteria 4+ Hyaline Casts 0-2 Urine Opiates Screen Not Detected Ur Buprenorphine Scrn Not Detected Ur Oxycodone Screen Not Detected Urine Methadone Screen Not Detected Urine Fentanyl Screen Not Detected Ur Barbiturates Screen Not Detected Ur Phencyclidine Scrn Not Detected Ur Amphetamines Screen Not Detected U Benzodiazepines Scrn Not Detected Urine Cocaine Screen Not Detected U Marijuana (THC) Screen Not Detected 04/13/25 04/14/25 04/14/25 21:23 04:20 07:29 WBC 6.3 RBC 3.85 L Hgb 11.0 L Hct 34.2 L MCV 88.8 MCH 28.6 MCHC 32.2 RDW 13.2 Plt Count 165 MPV 11.9 Absolute Nucleated RBC 0.000 Nucleated RBC % (auto) 0.0 Sodium 136 Potassium 5.5 H D Chloride 106 Carbon Dioxide 21 L Anion Gap 15 BUN 20 H Creatinine 1.70 H Estim Creat Clear Calc 28.5 Estimated GFR 30 POC Glucose 210 H 367 H* Random Glucose 286 H Calcium 8.7 Troponin I High Sens Free T4 Urine Color Urine Appearance Urine pH Ur Specific [place] Urine Protein Urine Glucose (UA) Urine Ketones Urine Blood Urine Nitrite Ur Leukocyte Esterase Urine RBC Urine WBC Ur Squamous Epith Cells Urine Bacteria Hyaline Casts Urine Opiates Screen Ur Buprenorphine Scrn Ur Oxycodone Screen Urine Methadone Screen Urine Fentanyl Screen Ur Barbiturates Screen Ur Phencyclidine Scrn Ur Amphetamines Screen U Benzodiazepines Scrn Urine Cocaine Screen U Marijuana (THC) Screen 04/14/25 12:48 WBC RBC Hgb Hct MCV MCH MCHC RDW Plt Count MPV Absolute Nucleated RBC Nucleated RBC % (auto) Sodium Potassium Chloride Carbon Dioxide Anion Gap BUN Creatinine Estim Creat Clear Calc Estimated GFR POC Glucose 289 H Random Glucose Calcium Troponin I High Sens Free T4 Urine Color Urine Appearance Urine pH Ur Specific [place] Urine Protein Urine Glucose (UA) Urine Ketones Urine Blood Urine Nitrite Ur Leukocyte Esterase Urine RBC Urine WBC Ur Squamous Epith Cells Urine Bacteria Hyaline Casts Urine Opiates Screen Ur Buprenorphine Scrn Ur Oxycodone Screen Urine Methadone Screen Urine Fentanyl Screen Ur Barbiturates Screen Ur Phencyclidine Scrn Ur Amphetamines Screen U Benzodiazepines Scrn Urine Cocaine Screen U Marijuana (THC) Screen Preliminary micro results at discharge 04/13/25 17:42 Urine Culture - Preliminary Urine clean catch Gram negative [place] Discharge Plan Discharge Anticipated Discharge Date/Time: 04/14/25 12:54 Patient Disposition: Home, Self-Care Discharge Diagnosis: tia Referrals: Physician,Unknown J [Primary Care Provider, Medical] - 1 Week Discharge Medications: New levofloxacin 250 mg tablet 250 mg PO Q48H Qty: 3 0RF Continued rosuvastatin 40 mg tablet 1 tab PO DAILY bupropion HCl 300 mg tablet extended release 24 hr 1 tab PO DAILY Eliquis 5 mg tablet 1 tab PO BID trazodone 100 mg tablet 2 tab PO BEDTIME ezetimibe 10 mg tablet 1 tab PO DAILY levothyroxine 75 mcg tablet 75 mcg PO DAILY@0600 pantoprazole 40 mg tablet,delayed release (DR/EC) 40 mg PO BID insulin lispro [Humalog U-100 Insulin] 100 unit/mL solution 0 - 100 unit subcut DAILY Rx Instructions: Injects into Tx-Slim Pump daily. zolpidem 10 mg tablet 10 mg PO BEDTIME Discontinued losartan 50 mg tablet 50 mg PO DAILY Discharge Orders: Discharge Order (Routine); Ordered 04/14/25 Ordered By: Ian Obrien Diet: Advance to usual diet Activity on Discharge: As tolerated Stand Alone Forms: Patient Portal Discharge page Print Language: Syriac Care Plan Goals: recovery Health Concerns: tia, uti Plan of Treatment: 3 doses levaquin, follow up cultures and adjust antibiotcs accordingly, holding losartan for elevated potassium Assessment: see above
--- NOTE | 2025-04-14 13:40 | MHC.SLORD ---
Addendum entered and electronically signed by Tiny Peña MS, CCC-SURGICAL ELASTIC KNITTER 04/14/25 13:41: No further SURGICAL ELASTIC KNITTER tx for dysphagia indicated; if expressive aphasia persists, recc referral from PCP for OP evaluation. Original Note: Speech Language Pathology Order Status: Pt on regular diet, d/c today, no further SURGICAL ELASTIC KNITTER indicated upon d/c.
== END 2025-04-14 13:47 | disposition home or self-care (01) ==
LOC: HO.ED 11:37 → HO.EDOVER 16:13
PROVIDERS: Admitting Provider Internal Medicine; Emergency Provider Emergency Medicine Emergency Medical Services; PCP Internal Medicine; Visit Provider Internal Medicine
DX: R41.82 Altered mental status, unspecified (principal); R47.01 Aphasia; R00.1 Bradycardia, unspecified; I45.2 Bifascicular block; I12.9 Hypertensive chronic kidney disease with stage 1 through stage 4 chronic kidney disease, or unspecified chronic kidney disease; E11.22 Type 2 diabetes mellitus with diabetic chronic kidney disease; N18.30 Chronic kidney disease, stage 3 unspecified; E78.5 Hyperlipidemia, unspecified; E03.9 Hypothyroidism, unspecified; I25.10 Atherosclerotic heart disease of native coronary artery without angina pectoris; Z79.01 Long term (current) use of anticoagulants; Z79.899 Other long term (current) drug therapy; Z79.4 Long term (current) use of insulin; Z87.891 Personal history of nicotine dependence; Z95.1 Presence of aortocoronary bypass graft
CPT/HCPCS: 36415; 70450; 70496; 70498; 70551; 80048; 80061; 80076; 80307; 81001; 82947; 84439; 84443; 84484; 85025; 85027; 85610; 85730; 87086; 87088; 87186; 92610; 93005; 96365; 96375; 99222; 99285; J1956; J2405; Q9967

== ENCOUNTER → 2025-04-13 10:35 | Outpatient (BNV) | payer MEDICARE, SELFPAY | PROVIDERS: Emergency Provider Emergency Medicine Emergency Medical Services; Visit Provider Internal Medicine Cardiovascular Disease | DX: I45.10 Unspecified right bundle-branch block (principal); I44.4 Left anterior fascicular block; I49.9 Cardiac arrhythmia, unspecified; R00.1 Bradycardia, unspecified | CPT/HCPCS: 93010 ==

== ENCOUNTER → 2025-04-13 10:55 | Outpatient (BNV) | payer MEDICARE, SELFPAY | PROVIDERS: Emergency Provider Emergency Medicine Emergency Medical Services; Visit Provider Radiology Diagnostic Radiology | DX: R47.01 Aphasia (principal); R41.82 Altered mental status, unspecified | CPT/HCPCS: 70450; 70496; 70498 ==

== ENCOUNTER 2025-04-13 16:06 | Outpatient (BNV) | payer MEDICARE, SELFPAY | END 2025-04-14 11:31 | PROVIDERS: Admitting Provider Internal Medicine; Emergency Provider Emergency Medicine Emergency Medical Services; Visit Provider Radiology Diagnostic Radiology | DX: Z03.89 Encounter for observation for other suspected diseases and conditions ruled out (principal) | CPT/HCPCS: 70551 ==

== ENCOUNTER → 2025-04-13 16:06 | Outpatient (BNV) | payer MEDICARE, SELFPAY | PROVIDERS: Admitting Provider Internal Medicine; Emergency Provider Emergency Medicine Emergency Medical Services; Visit Provider Internal Medicine | DX: R41.82 Altered mental status, unspecified (principal); N39.0 Urinary tract infection, site not specified | CPT/HCPCS: 99222; 99239 ==

== ENCOUNTER → 2025-04-13 16:06 | Outpatient (BNV) | payer MEDICARE, SELFPAY | PROVIDERS: Admitting Provider Internal Medicine; Emergency Provider Emergency Medicine Emergency Medical Services; Visit Provider Psychiatry & Neurology Neurology | DX: R41.82 Altered mental status, unspecified (principal) | CPT/HCPCS: 99222 ==

== ENCOUNTER 2025-04-28 11:57 | Outpatient (REF) | payer MEDICARE, SELFPAY ==
--- OUTSIDE RECORDS SUMMARY | 2024-01-15 08:00 | XMS_ITS ---
[facility] Address [address] [phone] Care Team Providers Care Didactic Program In Dietetics Director Name Role Phone Live [place]ette Primary Care Provider Rashawn Castillo Unavailable Unavailable SHAWNA KOVACS Unavailable [phone] Allergies Allergen (clinical drug ingredient) Drug/Non Drug [...] Encounter Location Date [facility] [address] [place] [phone] 01/15/2024 SHAWNA KOVACS Type 2 diabetes franny [...] Reason: Provider Name:SHAWNA KOVACS, 11:00:00 AM, 61 [facility], [address], [place], [place], [phone], Progress Notes * Jose NGUYENDOB:1950 ( 74 yo F)Acc No.[id number]:01/15/2024 Progress Note Patient: Jose HUERTA Provider: Paola Kovacs MD :1950 A ge:73 Y S ex:Female Date:01/15/2024 Address:[address] [place] [address], [facility] Pcp:Live Burnette Subjective: * Chief Complaints: * [...] GAT 01:19 PM ?Spectacle ?Presenting Sph Cyl [place] H Prism V Prism Add DVA OD +1.25 +1.00 13 +2.50 20/40-- OS PL +0.75 13 +2.50 20/50 OU ?Manifest Sph Cyl [place] H Prism V Prism Add DVA OD +0.50 +2.00 12 +2.50 20/40 OS +0.50 +1.25 170 +2.50 20/40 ?Final Sph Cyl [place] H Prism V Prism Add DVA OD [...] Electronic signature of SHAWNA KOVACS MD on 04/28/2025 at 01:48 PM EST Sign off status: Pending * Provider: Paola Kovacs MD Date: 0 01/15/2024 Generated for Printi ng/Robert/eTransmitting on: 1 01:48 PM EST History and Physical Notes * [...]
--- OUTSIDE RECORDS SUMMARY | 2024-10-05 08:00 | XMS_ITS ---
Author Organization [facility] Address [address] [id number] Care Team Providers Care Chip Silo Tender Name Role Phone Live Burnette Primary Care Provider Rashawn Castillo Unavailable Unavailable SHAWNA KOVACS Unavailable [phone] Allergies Allergen (clinical drug ingredient) Drug/Non Drug Allergy documented on EMR Reaction Allergy Type Onset Date Status penicillin Unknown Drug Allergy Active REASON FOR VISIT DIABETIC EYE EXAM. DM1 X 12 Y/O. CONTROLLED WITH HUMALOG. A1C 6.2%. BS 196 MG/DL (AFTER LUNCH). MONITORED BY PCP DR BURNETTE AND ARTIST AND REPERTOIRE MANAGER DR ELIAS Medications Medication SIG (Take, Route, Frequency, Duration) Notes Start Date End Date Status traZODone HCl Active buPROPion HCl ER (XL) 300 MG TAKE 1 TABL ET BY MOUTH EVERY DAY Oral; Duration: 90 Active Wellbutrin 01/14/2023 Active Pantoprazole Sodium 40 MG TAKE 1 TABLET BY MOUTH TWICE DAILY Oral; Duration: 90 Active Eliquis 5 MG Oral; Duration: 30 Active Levothyroxine Sodium Active LISINOPRIL Active Rosuvastatin Calcium Active Insulin Infusion Pump Active HumaLOG Active Tylenol Active Ambien Active Social History Tobacco Use: Social History Observation Description Date Details (start date - stop date) Never Smoker NA - NA Tobacco Use/Smoking Question Answer Notes Are you a nonsmoker Tobacco Control (Standard) Question Answer Notes Tobacco use: Nonsmoker Problems Problem Type SNOMED Code ICD Code Onset Dates Problem Status W/U Status Risk Notes Problem Type I diabetes mellitus without complication (820113598) Type 1 diabetes mellitus without complications (E10.9) Active confirmed Problem Moderate nonproliferative retinopathy due to type 2 diabetes mellitus (850728096164850) Type 2 diabetes mellitus with 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, bilateral (E11.3393) Active confirmed Encounters Encounter Location Date Provider Diagnosis [facility] [address] [id number] 10/05/2024 SHAWNA KOVACS Retinal edema H35.81 ; Type 2 diabetes mellitus with 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, bilateral E11.3393 ; Age-related nuclear cataract, bilateral H25.13 and Punctate keratitis, bilateral H16.143 Assessments Encounter Date Diagnosis (ICD Code) Assessment Notes Treatment Notes Treatment Clinical Notes Section Notes 10/05/2024 Retinal edema (ICD-10 - H35.81) 10/05/2024 Type 2 diabetes mellitus with 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, bilateral (ICD-10 - E11.3393) NO ACTIVE RETINOPATHY FOR 15 YEARS - STABLE AFTER MULTIPLE LASER TREATMENTS 10/05/2024 Age-related nuclear cataract, bilateral (ICD-10 - H25.13) 10/05/2024 Punctate keratitis, bilateral (ICD-10 - H16.143) 10/05/2024 Other Plan Of Treatment Treatment Notes Assessment Notes Type 2 diabetes mellitus wit h 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, bilateral NO ACTIVE RETINOPATHY FOR 15 YEARS - STABLE AFTER MULTIPLE LASER TREATMENTS Next Appt Details Follow Up: 1 Year, Reason: Provider Name:SHAWNA KOVACS, 11:00:00 AM, [address] [place] [address], [place] [address], [place], [place], [phone], Progress Notes * Jose NGUYENDOB:1950 ( 74 yo F)Acc No.[id number]:10/05/2024 Progress Note Patient: Jose HUERTA Provider: Paola Kovacs MD :1950 A ge:73 Y S ex:Female Date:10/05/2024 Address:[address] [place] [address], [id number] Pcp:Live Burnette Subjective: * Chief Complaints: * 1 . DIABETIC EYE EXAM. DM1 X 12 Y/O. CONTROLLED WITH HUMALOG. A1C 6.2%. BS 196 MG/DL (AFTER LUNCH). MONITORED BY PCP DR BURNETTE AND ARTIST AND REPERTOIRE MANAGER DR ELIAS. * HPI: N ew symptom(s): BLURRY VISION OU AT DISTANCE AND NEAR IN CURRENT RX. HAD DEYANIRA PLACED NEAR LEFT HIP, STATES PAIN/DISCOMFORT. HAS HAD A SECOND OPINION WELL. * ROS: G eneral/Constitutional: Fever d enies. W eight loss d enies. ? O phthalmologic: Blurred vision a dmits. D ischarge d enies. D ry eye d enies. F lashes of light in the visual field d enies. F loaters in the visual field d enies. I tching and redness d enies. P ain d enies. R ed eye d enies. E NT: Hearing loss d enies. S [...] History: T YPE 1 DM AGE 12 -1963 STAGE [address] BURNETTE, LEG STENTS 12/08, PT WAS IN COMA [...] use: N onsmoker * Medications: T aking Tylenol , Taking Ambien , Taking HumaLOG , Taking Levothyroxine Sodium , Taking [...] IOP OD OS Adj OD 0 14 14 GAT 01:18 PM ?Spectacle ?Presenting Sph Cyl [place] H Prism V Prism Add DVA OD +1.25 +1.00 13 +2.50 20/50- OS PL +0.75 13 +2.50 20/60+ OU ?Manifest Sph Cyl [place] H Prism V Prism Add DVA OD +1.25 +1.75 010 +2.50 20/40 OS +1.00 +1.25 170 +2.50 20/40 ?Final Sph Cyl [place] H Prism V Prism Add DVA OD +1.25 +1.50 010 +2.50 20/40 OS +0.75 +1.25 170 +2.50 20/40 OU ? * Examination: * Ophthalmology: DIABETES EYE EXAM T ype of screening performed: E valuation of retina P rocedure Performed: Y linnette D ate of Exam Performed 0 10/05/2024 D iabetic Retinopathy Screening: Y es R etinal Screening Performed: Y linnette F indings of Diabetic Eye Exam: r etinopathy DIABETIC RETINOPATHY M acular Edema findings? d iabetic maculopathy disorder P rovided communication to Referring Provider on diabetic maculopathy disorder findings? Y es L evel of severity of Retinopathy findings:?moderate nonproliferative diabetic retinopathy disorder P rovided communication to Referring Provider on moderate nonproliferative diabetic retinopathy disorder findings? Y es M acular or Fundus exam: Y es CONFRONTATION VISUAL FIELD (CVF): f [...] PCO OS. FUNDI: o ptic disc C/D 0.30/0.40, macula normal vessels normal , retina flat no holes or tears. T ROPICAMIDE 1% OU 1:20 PM 10/05/2024. Assessment: * Assessment: 1. R etinal edema - H35.81 2 . T ype 2 diabetes mellitus with 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, bilateral - E11.3393 (Primary) ?3. A ge-related nuclear cataract, bilateral - H25.13 4 . P unctate keratitis, bilateral - H16.143 Plan: * Treatment: * Procedure Codes: 9 2134 OCT Retina, G9903 Pt scrn tbco id as non user * Follow Up: 1 Year * Images: * Electronic signature of SHAWNA KOVACS MD on 04/28/2025 at 01:48 PM EST Sign off status: Pending * Provider: Paola Kovacs MD Date: 0 10/05/2024 Generated for Nayeli carr/Robert/eTransmitting on: 1 01:48 PM EST History and Physical Notes * HPI (History of Present Illness) Category Sub-Category Detail Notes Category Not es New symptom(s) BLURRY VISION OU AT DISTANCE AND NEAR IN CURRENT RX. HAD DEYANIRA PLACED NEAR LEFT HIP, STATES PAIN/DISCOMFORT. HAS HAD A SECOND OPINION WELL. Examination Category Sub-Category Detail Notes Category Not es *Ophthalmology CONJUNCTIVA: clear TROPICAMIDE 1 % OU 1:20 PM 10/05/2024 PUPILS: equally round and re active no afferent defect FUNDI: optic disc C/D 0.30/ 0.40, macula normal vessels normal , retina flat no holes or tears EXTRAOCULAR MOVEMENT: good range of michelle on bilaterally CONFRONTATION VISUAL FIELD (CVF): full t o confrontation CORNEA: clear LENS: PCIOL OU YAG OD, PCO OS IRIS: within normal limits ANTERIOR CHAMBER: D/Q LIDS AND LASHES: within normal limits DIABETES EYE EXAM Type of screening pe rformed:: Evaluation of retina Procedure Performed:: Yes Date of Exam Performed: 10/05/2024 Diabetic Retinopathy Screening:: Yes Retinal Screening Performed:: Yes Findings of Diabetic Eye Exam:: retinopa thy DIABETIC RETINOPATHY Macular Edema findings?: di abetic maculopathy disorder Provided communication to Referring Provider on diabetic maculopathy disorder findings?: Yes Level of severity of Retinop athy findings:: moderate nonproliferative diabetic retinopathy disorder Provided communication to Referring Provider on moderate nonproliferative diabetic retinopathy disorder findings?: Yes Macular or Fundus exam:: Yes
--- OUTSIDE RECORDS SUMMARY | 2024-10-12 12:15 | XMS_ITS ---
Author Organization [facility] Address [address] [phone] Care Team Providers Care Sales Advisor Name Role Phone Live Burnette Primary Care Provider Rashawn Castillo Unavailable Unavailable SHAWNA KOVACS Unavailable [phone] REASON FOR VISIT YAG OS Encounters Encounter Location Date [facility] [address] [place] [phone] 10/12/2024 SHAWNA KOVACS Plan Of Treatment Next Appt Details Provider Name:SHAWNA KOVACS, 11:00:00 AM, [address] [place] [address], [place], [place], [phone], Progress Notes * Jose NGUYENDOB:1950 ( 74 yo F)Acc No.[id number]:10/12/2024 Progress Note Patient: Jose HUERTA Provider: Paola Kovacs MD :1950 A ge:73 Y S ex:Female Date:10/12/2024 Address:[address] [place], [place] [phone] Pcp:Live Burnette Subjective: * Chief Complaints: * 1 . YAG OS. * Medical History: * Ocular Surgical History: Objective: * Vitals: Assessment: Plan: * Treatment: * Images: * Electronic signature of SHAWNA KOVACS MD on 04/28/2025 at 01:47 PM EST Sign off status: Pending * Provider: Paola Kovacs MD Date: 0 10/12/2024 Generated for Printi ng/Faxing/eTransmitting on: 1 01:47 PM EST
--- OUTSIDE RECORDS SUMMARY | 2024-10-26 05:30 | XMS_ITS ---
Author Organization [facility] Address [address] [phone] Care Team Providers Care Automobile Service Station Manager Name Role Phone Live Burnette Primary Care Provider Rashawn Castillo Unavailable Unavailable FERMÍNDUCA Unavailable [phone] REASON FOR VISIT YAG OS Medications Medication SIG (Take, Route, Frequency, Duration) Notes Start Date End Date Status Insulin Infusion Pump Active traZODone HCl Active Levothyroxine Sodium Active LISINOPRIL Active Rosuvastatin Calcium Active HumaLOG Active Eliquis 5 MG Oral; Duration: 30 Active Tylenol Active Wellbutrin 01/14/2023 Active Ambien Active buPROPion HCl ER (XL) 300 MG TAKE 1 TABL ET BY MOUTH EVERY DAY Oral; Duration: 90 Active Pantoprazole Sodium 40 MG TAKE 1 TABLET BY MOUTH TWICE DAILY Oral; Duration: 90 Active Problems Problem Type SNOMED Code ICD Code Onset Dates Problem Status W/U Status Risk Notes Problem Secondary cataract of left eye (2678302344890 9105) Other secondary cataract, left eye (H26.492) Active confirmed Encounters Encounter Location Date [facility] [address] [place] [phone] 10/26/2024 SHAWNA KOVACS Retinal edema H35.81 ; Type 2 diabetes mellitus with 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, bilateral E11.3393 ; Age-related nuclear cataract, bilateral H25.13 ; Punctate keratitis, bilateral H16.143 and Other secondary cataract, left eye H26.492 Assessments Encounter Date Diagnosis (ICD Code) Assessment Notes Treatment Notes Treatment Clinical Notes Section Notes 10/26/2024 Retinal edema (ICD-10 - H35.81) 10/26/2024 Type 2 diabetes mellitus with 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, bilateral (ICD-10 - E11.3393) NO ACTIVE RETINOPATHY FOR 15 YEARS - STABLE AFTER MULTIPLE LASER TREATMENTS 10/26/2024 Age-related nuclear cataract, bilateral (ICD-10 - H25.13) 10/26/2024 Punctate keratitis, bilateral (ICD-10 - H16.143) 10/26/2024 Other secondary cataract, left eye (ICD-10 - H26.492) VISUALLY SIGNIFICANT POSTERIOR CAPSULAR OPACITY OS - YAG CAPSULOTOMY COMPLETED TODAY- PT PLACED IN SLIT LAMP LASER AND CAPSULOTOMY LENS WITH GONIOSOL WAS APPLIED TO EYE. AIMING BEAM OF LASER FOCUSED ON THE POSTERIOR CAPSULE. 35 SPOTS OF 2.4 mJ WERE USED TO CREATE A CENTRAL 3 MM CAPSULOTOMY . THE EYE WAS IRRIGATED. PT TOLERATED PROCEDURE WELL AND LEFT IN STABLE CONDITION. 10/26/2024 Other Plan Of Treatment Treatment Notes Assessment Notes Type 2 diabetes mellitus wit h 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, bilateral NO ACTIVE RETINOPATHY FOR 15 YEARS - STABLE AFTER MULTIPLE LASER TREATMENTS Other secondary cataract, left eye VISUA LLY SIGNIFICANT POSTERIOR CAPSULAR OPACITY OS - YAG CAPSULOTOMY COMPLETED TODAY- PT PLACED IN SLIT LAMP LASER AND CAPSULOTOMY LENS WITH GONIOSOL WAS APPLIED TO EYE. AIMING BEAM OF LASER FOCUSED ON THE POSTERIOR CAPSULE. 35 SPOTS OF 2.4 mJ WERE USED TO CREATE A CENTRAL 3 MM CAPSULOTOMY . THE EYE WAS IRRIGATED. PT TOLERATED PROCEDURE WELL AND LEFT IN STABLE CONDITION. Next Appt Details Follow Up: 1 Year, Reason: Provider Name:SHAWNA KOVACS, 11:00:00 AM, [address] [facility], [address], [place], [place], [phone], Progress Notes * Jose NGUYENDOB:1950 ( 74 yo F)Acc No.[id number]:10/26/2024 Progress Note Patient: Jose HUERTA Provider: Paola Kovacs MD :1950 A ge:74 Y S ex:Female Date:10/26/2024 Address:[address] [place] [address], [place], [place] Pcp:Live Burnette Subjective: * Chief Complaints: * 1 . YAG OS. * HPI: N ew symptom(s): BLURRY VISION [...] epression d enies. ? * Medical History: * Ocular Surgical History: * Medications: T aking Tylenol , Taking [...] 5 MG Tablet Oral , Taking Wellbutrin Objective: * Vitals: * Examination: * Ophthalmology: DIABETES EYE EXAM T ype of screening performed: E valuation of retina P rocedure Performed: Kaila Patel ate of Exam Performed 0 10/05/2024 D iabetic Retinopathy Screening: Y es R etinal Screening Performed: Y es F indings of Diabetic Eye Exam: r [...] no holes or tears. T ROPICAMIDE 1% OU. Assessment: * Assessment: 1. R etinal edema - H35.81 2 . T ype 2 diabetes mellitus with 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, bilateral - E11.3393 (Primary) ?3. A ge-related nuclear cataract, bilateral - H25.13 4 . P unctate keratitis, bilateral - H16.143 5 . O ther secondary cataract, left eye - H26.492? Plan: * Treatment: 2. O ther secondary cataract, left eye Notes: VISUALLY SIGNIFICANT POSTERIOR CAPSULAR OPACITY OS - YAG CAPSULOTOMY COMPLETED TODAY- PT PLACED IN SLIT LAMP LASER AND CAPSULOTOMY LENS WITH GONIOSOL WAS APPLIED TO EYE. AIMING BEAM OF LASER FOCUSED ON THE POSTERIOR CAPSULE. 35 SPOTS OF 2.4 mJ WERE USED TO CREATE A CENTRAL 3 MM CAPSULOTOMY . THE EYE WAS IRRIGATED. PT TOLERATED PROCEDURE WELL AND LEFT IN STABLE CONDITION. * Procedure Codes: 6 6821 AFTER CATARACT LASER SURGERY, Modifiers: LT * Follow Up: 1 Year * Images: * Electronic signature of SHAWNA KOVACS MD on 04/28/2025 at 01:48 PM EST Sign off status: Pending * Provider: Paola Kovacs MD Date: 0 10/26/2024 Generated for Nayeli carr/Robert/Kirillitting on: 1 01:48 PM EST History and Physical Notes * HPI (History of Present Illness) Category Sub-Category Detail Notes Category Not es New symptom(s) BLURRY VISION OU AT DISTANCE AND NEAR IN CURRENT RX. HAD DEYANIRA PLACED NEAR LEFT HIP, STATES PAIN/DISCOMFORT. HAS HAD A SECOND OPINION WELL. Examination Category Sub-Category Detail Notes Category Not es *Ophthalmology CONJUNCTIVA: clear TROPICAMIDE 1 % OU PUPILS: equally round and re active no [...]
--- OUTSIDE RECORDS SUMMARY | 2025-04-28 13:48 | XMS_ITS | Encounter Summary ---
Author Organization [facility] Address [address] [place] [address] Care Team Providers Care Filling Hand Name Role Phone Live Burnette Primary Care Provider [phone] Reason for Visit * Reason Onset Date Comments Blood Sugar Problem 04/19/2025 Encounter Details Date Type Department Care Team (Late st Contact Info) Description 04/19/2025 Telephone [facility] Adult Diabetes at [facility] [address] [place] [address] Riley Caal MD [address] [place] [address] Blood Sugar Problem Social History Tobacco Use Types Packs/Day Years Used Date Smoking Tobacco: Never Assessed Comments Unknown Sex and Gender Information Value Date Recorded Sex Assigned at Female 12/24/2023 2:15 PM EDT Legal Sex Female 2:19 AM EST Gender Identity Unable to obtain 05/28/2023 2:19 AM EST Sexual Orientation Not on file documented as of this encounter Miscellaneous Notes * Telephone Encounter - Michelle Garcia RN - 04/19/2025 12:28 PM EST Called pt's dtr but no answer. LVM with my callback. -- Silvia called back. Pt has UTI. Current glucose 345 and steady. 2.87 units on board. Last site change initiated at 4pm yesterday. In range overnight but rising since 5am. 5 correction boluses via pump since 10:30am. Nauseous but denies vomiting. Drinking water constantly since yesterday. Nothing to eat today. No changes to settings after last night's call with . Pt has been confused but clearer today. Silvia is taking charge of DM care but this is unfamiliar to her. We discussed how the pump works, the significance of each setting, and how Site is likely working to some extent as glucose has been fluctuating. No ketone strips but Silvia will go to pharmacy to get them. I assisted with / advised the following: -No additional correction boluses at this time as glucose is leveling off. -Duplicate current profile and create Sick profile. CF and ICF strengthened by 20% from 9am-12am.This profiled was activated. -Continue to drink water. Avoid not eating. Aim to have a piece of toast in the next hour and bolusfor it. -Call back for further adjustments after ketone strips are obtained. -- Silvia called back at 3:53pm Current glucose is 230 and trending down. No nausea. Pushing fluids still. Ketones are trace. Pt had half an apple about an hour ago and bolused for it. Pt plans to eat again soon. We discussed ketone monitoring protocol. They will call Rocio if ketones are small, mod, or large for recommendations. * Telephone Encounter - Riley Caal MD - 04/19/2025 12:30 AM EST Daughter Silvia called. Patient has UTI and is somewhat confused. Blood sugar is 280 now at approximately 12 midnight and coming down. Patient took 4 units with a syringe at approximately 11 PM. Apparently earlier this afternoon patient called and was instructed to take 4 units and switch the infusion set. I am told that is what she did. I suggested changing the correction or sensitivity factor from 65-45 from midnight to 9 AM. I triedto give her instructions on how to do this but more likely she will call tandem for [id number] instructions. Silvia seem to understand the rationale for doing this. I asked her to call back with any other questions documented in this encounter Plan of Treatment Upcoming Encounters Date Type Department Care Team (Late st Contact Info) Description 07/07/2025 1:00 PM EDT Telemedicine [facility] Adult Diabetes at [place] [facility] [address] [place] [address] Piedad Adair MD [address] [place] [address] Video with Physician documented as of this encounter Goals Goal Patient Goal Type Associated Problems Recent Progress Patient-Stated? Author M - Decrease glucose variability DSME - Diabetes Monitoring 25%(02/19/20 10:01 AM EDT) No Pallavi Rodriguez RD Note: Variability today, 07/20, is 30% Variability increased to 35.6% as of 02/15/25 NU - Learn about low potassium, low sodium foods DSME - Nutrition/Health y Eating 75%(02/16/20 10:57 AM EDT) Pallavi Galindo RD Note: - will send [facility] handouts for potassium - continue to limit sodium from soups & deli meats - great work switching from sea salt to Mrs. Adama TM - Be prepared in case you have to take an unexpected pump vacation DSME - Taking Medications 50%(07/21/19 10:41 AM EDT) No Pallavi Rodriguez RD documented as of this encounter Visit Diagnoses Not on filedocumented in this encounter Care Teams Filling Hand Relationship Specialty Start Date End Date Live Burnette [address] [facility] [address] [place] [address] PCP - General 08/20/23 documented as of this encounter
--- OUTSIDE RECORDS SUMMARY | 2025-04-28 13:48 | XMS_ITS | Clinical Summary ---
Author Organization Iras[facility] Address [address] [place] [address] Care Team Providers Care Bushing Press Operator Name Role Phone Live Burnette Primary Care Provider [phone] Allergies Active Allergy Reactions Criticality Noted Date Comments Erythromycin Other (See Comments) 12/24/2023 Vomiting Penicillin Swelling 10/15/2017 Severity: Unknown Medications apixaban (ELIQUIS) 5 mg Tab Take 1 tablet (5 mg total) by mouth every morning & every evening. 08/10/19 21 Active buPROPion (WELLBUTRIN XL) 300 MG 24 hr tablet Take 1 tablet (300 mg total) by mouth daily. 01/23/20 23 Active insulin glargine (LANTUS U-100 INSULIN) 100 unit/mL injection inject 18 units by subcutaneous route once in the morning 02/22/20 21 Active levothyroxine (SYNTHROID, LEVOXYL) 100 MCG tablet Take 0.75 mcg by mouth daily. Active losartan (COZAAR) 100 MG tablet Take 1 tablet (100 mg total) by mouth daily. 05/03/19 21 Active pantoprazole (PROTONIX) [address] tablet Take 1 tablet (40 mg total) by mouth every morning & every evening. 05/23/19 22 Active rosuvastatin (CRESTOR) 40 MG tablet Take 1 tablet (40 mg total) by mouth daily. Active insulin syr/ndl U100 half kiersten (BD INSULIN SYRINGE, HALF UNIT,) 0.3 mL 31 gauge x 5/16 Syrg Use 4-5 daily when off pump 05/21/19 24 Active blood-glucose sensor (PoolCubes G7 SENSOR DEVICE)Indication s:Type 1 diabetes mellitus with hyperglycemia ([facility]) Change every 10 days E10.9 3 each 01/15/20 24 Active insulin glargine-lixisena tide 100 unit-33 mcg/mL InPn Inject 22 Units under the skin daily. 6 mL 01/24/20 24 Active insulin lispro (HumaLOG U-100 Insulin) 100 unit/mL injection INJECT UP TO 100 UNITS SUBCUTANEOUSLY DAILY VIA PUMP 90 mL 3 10/08/19 25 Active ezetimibe (ZETIA) 10 mg tablet Take 1 tablet (10 mg total) by mouth daily. 03/28/20 21 026 Active zolpidem (AMBIEN) 5 MG tablet Take 1 tablet (5 mg total) by mouth at bedtime as needed for insomnia. Active LORazepam (ATIVAN) 0.5 MG tablet Take 1 tablet (0.5 mg total) by mouth every 6 hours as needed for anxiety. Active Active Problems Problem Noted Date Diagnosed Date Type 1 diabetes mellitus with hyperglycemia 11/28 Overview (12/24/2023): Status: Chronic Diagnosed Date: 05/05/2019 Assessment & Plan (03/16/2025 12:22 PM EST): T1DM(dx 1961) Assessment & Plan (12/25/2024 9:45 AM EDT): Dexcom Clarity [place] Date of : 1950 Generated at: Dec 24, 2023 3:04 PM EDT Reporting period: SatDec 11, 2023 - SatDec 24, 2023 Glucose Details Average glucose: 165 mg/dL Standard deviation: 47 mg/dL GMI: 7.3% Time in Range Very High: 5% High: 31% In Range: 64% Low: 0% Very Low: <1% Target Range 70-180 mg/dL CGM Details Sensor usage: 100% Days with CGM data: Intermittent post meal hyperglycemia - pillo breakfast.. Has post meal hyperglycemia with late boluses. Has infrequent hypoglycemia when late bolus. CIQ = 98% with Basal 66% with Bolus 34% A1c = 6.8% - 12/20. Plan - Needs to change set every 2 days due to skin irritation - Pump/CGM download reviewed with pt. - Change brekfast ICR from 15 to 14 - pt prefers conservative adjustments - Previously discussed compression artifact at night - check FS glucose - Mrs. Ragland has type 1 DM and manages her DM with insulin pump therapy. She measures her blood sugars 4 times daily for past 90 days. CGMS has been extremely beneficial for her by preventing severe hypoglycemia with frequent insulin adjustments. She has benefitted from CGMS - preventing ER visits and hospitalizations due to severe hypoglycemia. 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 -Sent Rx for Baqsimi previously - not covered - Rx for Glucagon sent Assessment & Plan (09/01/2024 11:58 AM EDT): T1DM(dx 1961) Assessment & Plan (06/03/2024 11:04 AM EST): Exercise mode before bed night prior to coloscopy Change Correction factor at 12am and 9am to 65 See Madyson Causey NP in 3 months Assessment & Plan (03/23/2024 1:50 PM EST): 73 yo F with T1DM here for follow-up. CGM reviewed: Post-prandial excursions followed by low BGs. She is under- estimating carbs d/t fear of hypoglycemia, but autocorrections causing glucoses to drop. Discussed accurate carb counting - meeting with RD this week. Will loosen ISF to prevent lows from frequent autocorrections. Podiatry - Dr Douglas - every 9 weeks Eye - Dr. Nova - every 6 months Cardiology - Dr. Yu every 6 months CGM IS MEDICALLY NECESSARY: The patient has diabetes mellitus ICD 10 code E10.65, The patient performs four or more BG checks per day utilizing a home glucose monitor The patient is insulin-treated with continuous subcutaneous insulin infusion (CSII) The patient requires frequent adjustments to their insulin treatment regimen by the patient on the basis of BGM or CGM testing results The patient has had an evaluation of their diabetes control by a prescribing practitioner here at [facility]. Assessment & Plan (12/24/2023 6:31 PM EDT): Dexcom Clarity Jose R[place] Date of : 1950 Generated at: Dec 24, 2023 3:04 PM EDT Reporting period: SatDec 11, 2023 - SatDec 24, 2023 Glucose Details Average glucose: 165 mg/dL Standard deviation: 47 mg/dL GMI: 7.3% Time in Range Very High: 5% High: 31% In Range: 64% Low: 0% Very Low: <1% Target Range 70-180 mg/dL CGM Details Sensor usage: 100% Days with CGM data: Intermittent post meal hyperglycemia - pillo breakfast.. Has post meal hyperglycemia with late boluses. Has infrequent hypoglycemia when late bolus. Typically takes bolus 30-60 minutes after starting meal - states I want to be sure BG is rising to avoid low glucose CIQ = 97% with Basal 62% with Bolus 38% A1c = 6.8%. Plan - Needs to change set every 2 days due to skin irritation - Pump/CGM download reviewed with pt. - Previously discussed - will take 50% dose 15 min premeals as discussed with Mindy - may need adjusting ICR although suspect carb amount may be under-estimated at times - CDE appt with Mindy in 08/20 - Previously discussed compression artifact at night - check FS glucose - Mrs. Ragland has type 1 DM and manages her DM with insulin pump therapy. She measures her blood sugars 4 times daily for past 90 days. CGMS has been extremely beneficial for her by preventing severe hypoglycemia with frequent insulin adjustments. She has benefitted from CGMS - preventing ER visits and hospitalizations due to severe hypoglycemia. 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 -Sent Rx for Baqsimi previously - not covered - Rx for Glucagon sent -Having issues with supplies - wishes to switch - sent [place] request for Reliable Hyperlipidemia 12/24/2023 Overview (12/24/2023): Status: Chronic Assessment & Plan (12/20/2024 12:45 PM EDT): On Statin Rx Check periodic lipids Assessment & Plan (12/24/2023 6:29 PM EDT): On Statin Rx Check periodic lipids Hypothyroidism 12/24/2023 Overview (12/24/2023): Status: Chronic Assessment & Plan (12/20/2024 12:44 PM EDT): On Levothyroxine Check periodic TSH level Assessment & Plan (12/24/2023 8:51 AM EDT): On Levothyroxine Check periodic TSH level Essential hypertension 12/24/2023 Overview (12/24/2023): Status: Chronic Assessment & Plan (12/20/2024 12:45 PM EDT): BP stable ADA BP goal less than 130/80 Continue present Rx Assessment & Plan (12/24/2023 8:51 AM EDT): BP stable ADA BP goal less than 130/80 Continue present Rx Encounters Date Type Department Care Team Description 04/19/2025 Telephone [facility] Adult Diabetes at [address] [address] Riley Caal MD Blood Sugar Problem 04/18/2025 Telephone [facility] Adult Diabetes at [address] [address] Rosita Gale NP question 04/12/2025 Telephone [facility] Adult Diabetes at [address] [address] Madyson Causey NP CGM 03/19/2025 Telephone [facility] Adult Diabetes at [address] [address] Madyson Causey NP CGM Order 03/16/2025 11:00 AM EST Telemedicine [facility] Adult Diabetes at [address] [address] Madyson Causey NP Type 1 diabetes mellitus with hyperglycemia ([facility]) (Primary Dx) 03/09/2025 Telephone [facility] Adult Diabetes at [address] [address] None, Pcp, MD R/S appointment (Called pt -responding from perri mckinney to r/s 03/31 appt to 04/05@ 2:30pm) 02/15/2025 10:00 AM EDT Telemedicine - [facility] Adult Diabetes Education at [address] Type 1 diabetes mellitus with other diabetic kidney complication ([facility]) (Primary Dx) from Last 3 Months Social History Tobacco Use Types Packs/Day Years Used Date Smoking Tobacco: Never Assessed Comments Unknown Sex and Gender Information Value Date Recorded Sex Assigned at Female 12/24/2023 2:15 PM EDT Legal Sex Female 2:19 AM EST Gender Identity Unable to obtain 05/28/2023 2:19 AM EST Sexual Orientation Not on file Last Filed Vital Signs Vital Sign Reading Time Taken Comments Blood Pressure 130/60 12/24/2023 3:19 PM EDT Pulse 69 12/24/2023 2:25 PM EDT Temperature - - Respiratory Rate - - Oxygen Saturation - - Inhaled Oxygen Concentration - - Weight 69.4 kg (153 lb) 12/21/2024 10:00 AM EDT Height 167.6 cm (5' 6 ) 12/21/2024 10:00 AM EDT Body Mass Index 24.69 12/21/2024 10:00 AM EDT Plan of Treatment Upcoming Encounters Date Type Department Care Team (Late st Contact Info) Description 07/07/2025 1:00 PM EDT Telemedicine [facility] Adult Diabetes at [facility] [address] [place] [address] Piedad Adair MD [address] [place] [address] Video with Physician Health Maintenance Due Date Last Done Comments Celiac Disease Screening 1950 Diabetic Eye Exam 1950 Depression Screening 1964 DTaP,Tdap,and Td Vaccines (1 - Tdap) 10/17/1971 Pneumococcal Vaccine: 50+ Years (1 of 2 - PCV) 10/17/1971 Breast Cancer Screening 1992 CT Colonography 1997 Colonoscopy 1997 FIT 1997 FOBT 1997 Sigmoidoscopy 1997 Zoster Vaccine (1 of 2) 2002 Osteoporosis Screening 2017 Medicare Initial AWV [id number] 09/27/2018 Hemoglobin A1c 06/25/2024 12/24/2023, 07/29, 05/21/2023, Additional history exists Lipid Panel 08/19/2024 08/20/2023, 07/29, 12/03/2018, Additional history exists TSH Level 08/19/2024 08/20/2023, 07/29, 12/03/2018, Additional history exists Urine Microalbumin 08/19/2024 08/20/2023, 0 08/20/2023, 12/03/2018, Additional history exists Blood Pressure 12/23/2024 12/24/2023 COVID-19 Vaccine ( - season) 2024 Influenza Vaccine (#1) 2024 03/13/2021 Colorectal Cancer Screening 03/20/2027 Multitarget Stool DNA (Cologuard) 03/20/2027 03/20/2024, 03/20/2024 Hepatitis C Screening Completed 07/12/2016 Meningococcal B Vaccines Aged Out No longer eligible based on patient's age to complete this topic Meningococcal Vaccines Aged Out No lo nger eligible based on patient's age to complete this topic Goals Goal Patient Goal Type Associated Problems [...] Pallavi Galindo RD Note: - will send [facility] handouts for potassium - continue to limit sodium from soups & deli meats - great work switching from sea salt to Mrs. Adama TM - Be prepared in case you have to take an unexpected pump vacation DSME - Taking Medications 50%(07/21/19 10:41 AM EDT) No Pallavi Rodriguez RD Procedures Procedure Name Priority Date/Time Associated Diagnosis Comments HEMOGLOBIN A1C Routine 12/24/2023 2:30 PM EDT Type 1 diabetes mellitus with hyperglycemia (HCC) ALBUMIN, URINE, RANDOM Routine 08/20/2023 4:50 PM EDT LIPID PANEL Routine 08/20/2023 4:50 PM EDT TSH Routine 08/20/2023 4:50 PM EDT from Last 3 Months or Most Recently Relevant to Health Maintenance Results * (ABNORMAL) Hemoglobin A1C (12/24/2023 2:30 PM EDT) Hemoglobin A1C 6.8(H) 4.8 - 5.9 % 12/24/2023 2:46 PM EDT [facility] Estimated Average Glucose 148 mg/dL 12/24/2023 2:46 PM EDT [facility] Blood PERIPHERAL BLOOD SPECIMEN / Unknown Venipuncture / Unknown 12/24/2023 2:30 PM EDT 12/24/2023 2:32 PM EDT Rashawn Schrader MD LAB BLOOD ORDERABLES Final Result [facility] [address] [place] [address], [place] * Lipid Panel (08/20/2023 4:50 PM EDT) Cholesterol 158 <200 mg/dL CONVERS ION FROM [facility]EXT [facility] HDL Cholesterol 57 >=40 mg/dL CON VERSION FROM [facility] LDL-CALCULATED (Conversion) 72 </=100 mg/dl CONVERSION FROM [facility] Comment:Optimal (0-99) Triglycerides 145 <200 mg/dL CONVE RSION FROM [facility] NEXT GEN 08/20/2023 4:50 PM EDT 08/20/2023 6:08 PM EDT Rashawn Schrader MD LAB BLOOD ORDERABLES Final Result Performing Organization Address City/[facility]/ZIP Co de Phone Number CONVERSION FROM [employer] GEN * (ABNORMAL) Albumin, Urine, Random (08/20/2023 4:50 PM EDT) URINE MICROALBUMIN/CR EATININE RATI (Conversion) 47.0(H) <30.0 mg/G CONVERSION FROM [facility]EXT [facility] Urine albumin 73.8(H) </=20.0 mg/L CONVERSION FROM [facility] Creatinine Urine 155.6 29 - 226 mg/dL CONVERSION FROM [employer] NEXT GEN 08/20/2023 4:50 PM EDT 08/20/2023 5:41 PM EDT Rashawn Schrader MD URINE ORDERABLES Final Res ult CONVERSION FROM [employer] GEN * TSH (08/20/2023 4:50 PM EDT) TSH 2.140 0.270 - 4.200 uIU/mL CONVERSION FROM [facility] NEXT GEN 08/20/2023 4:50 PM EDT 08/20/2023 6:08 PM EDT us Rashawn Schrader MD LAB BLOOD ORDERABLES Final Result CONVERSION FROM [employer] GEN from Last 3 Months or Most Recently Relevant to Health Maintenance Insurance MEDICARE [facility] MEDICARE SUPPLEMENT MEDICARE [facility] MEDICARE SUPPLEMENT Care Teams Bushing Press Operator Relationship Specialty Start Date End Date Live Burnette [address] [address] PCP - General 08/20/23
--- OUTSIDE RECORDS SUMMARY | 2025-04-28 13:48 | XMS_ITS | Encounter Summary ---
Author Organization [facility] Address [address] [place] [address] Care Team Providers Care Independent Beauty Consultant Name Role Phone Live Burnette MD Primary Care Provider [phone] Adalberto Erwin MD Unavailable Reason for Visit * Reason Comments Med Refill Encounter Details Date Type Department Care Team (Late st Contact Info) Description 11/19/2022 Refill [facility] [address] [address] Yony Leon NP [address] [place] [address] Paroxysmal atrial fibrillation Social History Tobacco Use [...] 09/17/2025 1:40 PM EDT Office Visit Heart [address] [address] Don Saunders MD [address] [place] [id number] documented as of this encounter Visit Diagnoses Diagnosis Paroxysmal atrial fibrillation Atrial fibrillation documented in this encounter Care Teams Independent Beauty Consultant Relationship Specialty Start Date End Date Live Burnette MD [address] [place] [address] PCP - General 06/02/21 Adalberto Erwin MD [address] [facility] [address] [place] [address] PCP - Nephrology 06/02/21 06/27/23 documented as of this encounter
--- OUTSIDE RECORDS SUMMARY | 2025-04-28 13:48 | XMS_ITS | Patient Health Record ---
Author Organization [facility] Address [address] [id number] Care Team Providers Care Aircraft Riveter Name Role Phone Live Burnette Primary Care Provider Rashawn Castillo Unavailable Unavailable CLYDEDUC ALBRECHTA Unavailable [phone] Allergies Allergen (clinical drug ingredient) Drug/Non Drug [...] Problem Type I diabetes mellitus without complication (200217840) Type 1 diabetes mellitus without complications (E10.9) Active confirmed Problem Punctate keratitis (50033404) Punctate keratitis, bilateral (H16.143) Active confirmed Problem Nuclear senile cataract (814835357) Age-related nuclear cataract, bilateral (H25.13) Active confirmed Problem Secondary cataract of right eye (82877474065143990) Other secondary cataract, right eye (H26.491) Active confirmed Problem Secondary cataract of left eye (29594765983221215) Other secondary cataract, left eye (H26.492) Active confirmed Problem Retinal edema (8031378) Retinal edema (H35.81) Active confirmed Problem Macular edema and retinopathy due to type 2 diabetes mellitus (63790415863391) Type 2 diabetes 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, 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) Active confirmed Problem Moderate nonproliferative retinopathy due to type 2 diabetes mellitus (762604151270458) Type 2 diabetes mellitus with 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, bilateral (E11.3393) Active confirmed Encounters Encounter Location Date Provider Diagnosis [facility] [address] [place] [phone] 10/05/2024 SHAWNA BHAN Retinal edema H35.81 ; Type 2 diabetes mellitus with 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, bilateral E11.3393 ; Age-related nuclear cataract, bilateral H25.13 and Punctate keratitis, bilateral H16.143 [facility] [address] [place] [phone] 10/26/2024 SHAWNA BHAN Retinal edema H35.81 ; [...] 11:00:00 AM, [address] [facility], [place] [address], [place], [place], [id number], Insurance Providers Payer Name Payer Address Payer Phone Subscriber Number Group Number Insured Name Patient Relationship to Insured Coverage Start Date Coverage End Date Medicare [address] [place], [place] [id number] Jose Ragland Self - patient is the insured [address] [id number] Jose Ragland Self - patient is the [...]
--- OUTSIDE RECORDS SUMMARY | 2025-04-28 13:48 | XMS_ITS | Encounter Summary ---
Author Organization [facility] Address [address] [facility] [address] [place] [address] Care Team Providers Care Tree Wrapper Name Role Phone Live Burnette MD Primary Care Provider [phone] Adalberto Erwin MD Unavailable [phone] Reason for Visit * Reason Comments Med Refill Encounter Details Date Type Department Care Team (Late st Contact Info) Description 07/30/2022 [facility]ill [facility] [address] [address] Vidya Lester NP [address] [place] [address] Paroxysmal atrial fibrillation (Primary Dx) Social History [...] 1:40 PM EDT Office Visit [facility] [address] [address] Don Saunders MD [address] [place] [address] documented as of this encounter Visit Diagnoses Diagnosis Paroxysmal atrial fibrillation- Primary Atrial fibrillation documented in this encounter Care Teams Tree Wrapper Relationship Specialty Start Date End Date Live Burnette MD [address] [facility] [address] [place] [address] PCP - General 06/02/21 Adalberto Erwin MD [address] [address] PCP - Nephrology 06/02/21 06/27/23 documented as of this encounter
--- OUTSIDE RECORDS SUMMARY | 2025-04-28 13:48 | XMS_ITS | Clinical Summary ---
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 90 tablet 3 4 Active ezetimibe (Zetia) 10 mg tabletIndications:C oronary artery disease involving [place] coronary artery of [place] heart without angina pectoris,PAD (peripheral artery disease),Paroxysmal [...] 0 08/03/2021 Coronary artery disease invo lving [place] coronary artery of [place] heart without angina pectoris 08/03/2021 Encounters Date Type Department Care Team Description 03/09/2025 2:40 PM EST Office Visit [facility] [address] [phone] Don Saunders MD Coronary artery disease involving [place] coronary artery of [place] heart without angina pectoris (Primary Dx); PAD [...] 1:40 PM EDT Office Visit Heart Center [facility] [address] [place] [phone] Don Saunders MD [address] [place] [address] Health Maintenance Due Date Last Done Comments [...] 2:07 PM EST Coronary artery disease involving [place] coronary artery of [place] heart without angina pectoris from Last 3 Months Results * ECG 12 lead (Back Office) (03/09/2025 2:07 PM EST) us Don Saunders MD ECG ORDERABLES Final Res ult from Last 3 Months Insurance MEDICARE PART A AND B [employer] SUPPLEMENT Care Teams Preventive Medicine Officer Relationship Specialty Start Date End Date Live Burnette MD [address] [place] [address] [address] [place] [address] PCP - General 06/02/21
[2025-04-28 14:07] LABS: Hematocrit 33.9 % (37.0-47.0); Hemoglobin 10.8 g/dl (12.0-16.0); Mean Corpuscular HGB Conc 31.9 g/dl (31.0-35.0); Mean Corpuscular Hemoglobin 28.8 pg (27.0-33.0); Mean Corpuscular Volume 90.4 fL (80.0-98.0); NRBC Abs Auto 0.000 X10*3/uL (0.0-0.012); NRBC Pct Auto 0.0 /100WBC (0.0-0.2); Platelet Count 181 X10*3/uL (160-400); Red Blood Count 3.75 X10*6/uL (4.20-5.50); White Blood Count 4.5 X10*3/uL (4.8-10.8)
[2025-04-28 14:13] LABS: Hemoglobin A1C 152.3199 umol/L
[2025-04-28 14:31] LABS: Alanine Aminotransferase 33 U/L (0-31); Albumin Level 3.6 g/dL (3.5-5.0); Alkaline Phosphatase 80 U/L (39-117); Anion Gap 12 (12-20); Aspartate Amino Transferase 35 U/L (5-31); Blood Urea Nitrogen 10 mg/dL (9-16); Calcium 9.0 mg/dL (8.4-10.2); Carbon Dioxide 25 mmol/L (22-29); Chloride 102 mmol/L (96-108); Estimated Glomerular Filt Rate 36; Potassium 4.7 mmol/L (3.3-5.1); Sodium 134 mmol/L (135-145); Total Protein 5.9 g/dL (6.5-8.0)
[2025-04-28 14:46] LABS: Thyroid Stimulating Hormone 5.75 uIU/mL (0.32-4.0)
[2025-04-28 14:59] LABS: Folate 4.8 ng/mL (> or = 4.0); Vitamin B12 502 pg/mL (200-900)
[2025-04-28 17:17] LABS: Appearance Urine Clear; Glucose Urine UA Negative (Negative); PH 6.5 (5.0-9.0); Specific Gravity - Urine <= 1.005 (1.005-1.025); UMIC TRIGGER UA YES
[2025-04-28 17:37] LABS: Microalbum/Creatinine Ratio Ur 59.4 ug/mg cr (<30); Protein/Creatinine Ratio, Ur 0.19 (<0.2); Total Protein Urine Random 13 mg/dL (<12)
== END 2025-04-28 11:58 | disposition home or self-care (01) ==
LOC: HO.HMGCLDS 11:57
PROVIDERS: PCP Internal Medicine; Visit Provider Internal Medicine
DX: Z00.00 Encounter for general adult medical examination without abnormal findings (principal); E11.22 Type 2 diabetes mellitus with diabetic chronic kidney disease; E03.9 Hypothyroidism, unspecified; F03.90 Unspecified dementia, unspecified severity, without behavioral disturbance, psychotic disturbance, mood disturbance, and anxiety
CPT/HCPCS: 36415; 80053; 81001; 81003; 82043; 82306; 82570; 82607; 82746; 83036; 84156; 84207; 84443; 85027